=== PATIENT | female | born 1945 | race Caucasian/White ===

== ENCOUNTER → 2023-04-27 10:47 | Outpatient (REF) | payer OTHER, SELFPAY | LOC: RAD 10:47 | PROVIDERS: ATTENDING PHYSICIAN Internal Medicine | DX: R09.89 Other specified symptoms and signs involving the circulatory and respiratory systems (principal) | CPT/HCPCS: 71046 ==

== ENCOUNTER → 2023-09-05 10:49 | Outpatient (REF) | payer OTHER, SELFPAY | LOC: RCS 10:49 | PROVIDERS: ATTENDING PHYSICIAN Internal Medicine | DX: I35.9 Nonrheumatic aortic valve disorder, unspecified (principal) | CPT/HCPCS: 93306 ==

== ENCOUNTER → 2024-07-29 10:15 | Outpatient (REF) | payer OTHER, SELFPAY | LOC: RAD 10:15 | PROVIDERS: ATTENDING PHYSICIAN Internal Medicine | DX: R60.0 Localized edema (principal) | CPT/HCPCS: 76700 ==

== ENCOUNTER 2024-09-30 15:37 | Inpatient (IN) | payer OTHER, SELFPAY ==
[2024-09-30] VITALS (20 sets, daily range): BP systolic 89–178; BP diastolic 51–79; PULSE 95–107; BMI 29.0
--- NOTE | 2024-09-30 12:28 | ED.GENMED ---
History of Present Illness
General
Chief Complaint: Abnormal Lab Value
Source: patient and family (Daughter at bedside)
Exam Limitations: none
Time Seen by Provider: 09/30/24 12:10
Nursing documentation reviewed up to this point in time: agreed with
History of Present Illness
History of Present Illness:
78-year-old female with history of aortic stenosis with TAVR, HTN, HLD, pacemaker, diverticulitis, anemia presents for low hemoglobin identified during routine blood work. Approximately one month ago, during a scheduled visit with her primary care
physician, routine blood testing revealed a low hemoglobin level. The test was repeated, and the results remained low. She was then referred to a rib cloth knitter at [facility], where further blood work confirmed the low hemoglobin level of
6.4 and indicated low iron levels. The patient was informed of these results and advised to receive a blood transfusion. The patient reported no known cause for the anemia, stating, 'I have no idea.' She denied chest pain or difficulty breathing but
acknowledged feeling lightheaded. The patient also reported gastrointestinal symptoms such as gassiness and finished regimen of Augmentin about 10 days ago for presumptive diverticulitis. No recent abdominal pain or changes in bowel movements were
noted.
Past History
Past History
ED Past Medical History: HTN, Hypercholesterolemia, Seizures () and Other (diverticulitis)
ED Past Surgical History: , Gynecological (hyster) and Tonsilectomy
Social History
Tobacco: Non-smoker
Review of Systems
Review of Systems
Allergies reviewed?: Yes
All Other Systems: ROS reviewed and negative except as documented in HPI and ROS
Constitutional: Denies fever or fatigue
Respiratory: Denies trouble breathing
Cardiac: Denies chest pain
ABD/GI: Denies abdominal pain, nausea, vomiting, diarrhea, bloody stools or black stools
: Denies dysuria
Musculoskeletal: Reports no symptoms
Skin: Reports no symptoms
Neurological: Reports other (Has felt lightheaded recently)
Phy Exam
Physical Exam
Physical Exam:
GENERAL: No acute distress. A&Ox3.
CONSTITUTIONAL: Afebrile.
EYES: clear, conjunctivae normal
ENMT: moist mucus membranes, Pharynx nl
RESPIRATORY: Regular respirations, nonlabored, lungs clear.
CARDIOVASCULAR: Regular rate and rhythm, no murmurs, no rubs.
GI: Soft, nontender, normal BS
rectal: Dark brown stool hematest positive
MUSCULOSKELETAL: Moves with ease. Well perfused.
SKIN: Warm, dry, pink
PSYCH: Normal mood and affect. Well kept, interactive and appropriate
NEUROLOGIC: Awake, alert and oriented. No focal neurological deficits
Course
Orders/Labs/Results
Orders:
Orders
09/30/24 12:31
IV Insert/Care/Rem.- Treatment PRN
09/30/24 12:35
IV Insert/Care/Rem.- Treatment PRN
Pantoprazole 80 mg/100 ml Nss [Protonix] 80 mg in 100 ml IV NOW
Pantoprazole [Protonix IV] 80 mg IV NOW STA
09/30/24 12:51
Type And Crossmatch [Type+Screen] Urgent
Complete Blood Count/With Diff Urgent
PTT Urgent
Prothrombin Time Urgent
Reticulocyte Count Urgent
Comment: ADD ON
09/30/24 13:21
* Blood Bank Products Urgent
Blood Bank Products: *Packed RBC Leuko(PRBC's)
Quantity: 2
Transfuse Today: Yes
Reason: Anemia
IV Insert/Care/Rem.- Treatment PRN
09/30/24 13:47
ABO2 Urgent
BBK Wristband Number:
Associate notified that ABO2 has been ordered: [id number]
Date: 09/30/24
Time: 13:12
Database Developer ID: [id number]
09/30/24 15:28
Admit/Transfer Patient As Directed
Co-Sign Provider:
Level of Care: Inpatient admission
Assign to:: Telemetry
Physician / Group: Hospitalist
Diagnosis: Symptomatic anemia
Reason for Telemetry: Other
Other Reason for Telemetry: anemia
Date to Stop Telemetry: 10/02/24
Time to Stop Telemetry: 11:00
Reason for Hospitalization: as above
Expected length of stay greater than two midnights?: Yes
ELOS- Estimated Length of Stay in days: 3
I certify the patient meets the requirements for IP care: Yes
PRN Pain Medication Management As Directed
May give lesser potent ordered pain med per pt: Yes
preference::
Protocol:: Medication orders for pain may be administered in a
manner that supports deferring to patient preference
when the pt is:
- Requesting an ordered lesser potent pain medication.
Least to most potent pain medications are defined
as: acetaminophen < NSAID < tramadol < opioids
(morphine, oxycodone, hydromorphone).
- Requesting a lesser dose of the same medication IF
ORDERED.
- Requesting a less intrusive route of administration
if both routes are prescribed by the provider (PO <
IV).
09/30/24 15:29
Code Status As Directed
Resuscitation Status: Full Code
09/30/24 15:32
Add On- LAB Routine
Tests Added?: Iron, TIBC, ferritin, Transferrin, Reticulocyte
09/30/24 15:36
Ferritin Routine
Comment: NEEDS TO BE COLLECTED
Iron Routine
Comment: NEEDS TO BE COLLECTED
Total Iron Binding Routine
Comment: NEEDS TO BE COLLECTED
Transferrin [S] Routine
Comment: NEEDS TO BE COLLECTED
10/02/24 11:00
DC Protocol for Telemetry ONCE
Abnormal Lab Results
09/30/24
12:51
RBC 2.07 L 10^6/uL
(4.20-5.40)
Hgb 6.5 L* g/dL
(12.0-16.0)
Hct 21.2 L %
(37.0-47.0)
MCV 102.4 H fL
(81.0-99.0)
MCH 31.4 H pg
(27.0-31.0)
MCHC 30.7 L g/dL
(33.0-37.0)
RDW 15.5 H %
(11.5-14.5)
MPV 11.3 H fL
(7.4-10.4)
Absolute Lymphs (auto) 0.7 L 10^3/uL
(1.2-3.4)
Absolute Monos (auto) 0.8 H 10^3/uL
(0.1-0.6)
Lymphocytes % 14.0 L %
(20.5-51.1)
Monocytes % 16.6 H %
(1.7-9.3)
Retic Count 5.0 H %
(0.4-2.8)
PT 15.4 H Sec
(11.4-14.6)
Crossmatch IS Only See Detail
09/30/24 12:51
Vital Signs
Initial and Last Documented VS:
Initial Vital Signs
Temp Pulse Resp BP Pulse Ox
98.4 F 84 16 92/61 98
09/30/24 10:48 09/30/24 10:48 09/30/24 10:48 09/30/24 10:48 09/30/24 10:48
Last Documented Vital Signs
Temp Pulse Resp BP Pulse Ox
98.2 F 97 20 157/54 97
09/30/24 17:18 09/30/24 17:18 09/30/24 17:18 09/30/24 17:18 09/30/24 17:18
MDM/Problems Addressed
Differential Diagnosis Includes:
- Gastrointestinal bleeding
- Iron deficiency anemia
- Vitamin B12 or folate deficiency
- Chronic kidney disease-related anemia
- Malabsorption syndromes
- Anemia of chronic disease
- Myelodysplastic syndrome
- Hemolytic anemia
- Upper gastrointestinal lesions
- Colonic tumors or polyps
MDM/Problems Addressed:
78-year-old female with history of aortic stenosis with TAVR, HTN, HLD, pacemaker, diverticulitis, anemia presents for low hemoglobin identified during routine blood work. Approximately one month ago, during a scheduled visit with her primary care
physician, routine blood testing revealed a low hemoglobin level. The test was repeated, and the results remained low. She was then referred to a rib cloth knitter at [facility], where further blood work confirmed the low hemoglobin level of
6.4 and indicated low iron levels. The patient was informed of these results and advised to receive a blood transfusion. The patient reported no known cause for the anemia, stating, 'I have no idea.' She denied chest pain or difficulty breathing but
acknowledged feeling lightheaded. The patient also reported gastrointestinal symptoms such as gassiness and finished regimen of Augmentin about 10 days ago for presumptive diverticulitis. No recent abdominal pain or changes in bowel movements were
noted.
Afebrile, NAD
CBC: Hemoglobin 6.5
CMP pending
2 UPRBCs ordered
Stool heme positive
Hospitalist notified of admission
*Pulse Oximetry
SaO2: 98
Oxygen Mode of Delivery: Room air
Patient hypoxic: no
*Critical Care Note
Total Time (30-74mins, 75-104mins- exclusive of procedures): Not Applicable
ED Attending Note
-
Portions of this chart may have been created with voice recognition software.� Occasional wrong word or��sound alike� substitutions may have occurred due to the inherent limitations of voice recognition software.
Discharge Plan
Departure
Patient Disposition: Admit
Date of Disposition: 09/30/24
Time of Disposition: 13:23
Admit to: Med/Surg
Presentation/result/management discussed w/ accepting MD/DO: Hospitalist
Condition: Fair
Discharge Problem:
GI (gastrointestinal bleed), Anemia
Interventions
Interventions:
*Risk Screen - Suicide Last Done: 09/30/24 10:48
*General Assessment Last Done: 09/30/24 12:02
*Neglect/Abuse Screening Last Done: 09/30/24 12:02
*ED- Fall Risk Assessment Last Done: 09/30/24 12:02
*ED COVID-19 Vaccine History Last Done: 09/30/24 12:02
[2024-09-30 13:20] LABS: Hematocrit 21.2 % (37.0-47.0); Hemoglobin 6.5 g/dL (12.0-16.0); Mean Corp Hgb Conc. 30.7 g/dL (33.0-37.0); Mean Corpuscular Volume 102.4 fL (81.0-99.0); Nucleated Red Blood Cells % 0 %; Platelet Count 156 10^3/uL (130-400); Red Cell Dist. Width 15.5 % (11.5-14.5)
[2024-09-30 13:21] LABS: INR 1.18; PT 15.4 Sec (11.4-14.6)
[2024-09-30 13:22] LABS: APTT 26.9 Sec (23.4-35.0)
[2024-09-30] MEDS: PROTONIX IV 80 MG IV (13:38)
[2024-09-30] MEDS: PROTONIX 100 IV (13:39)
--- NOTE | 2024-09-30 14:53 | HPS.HSE ---
Addendum entered and electronically signed by Zay Harris MD 09/30/24 16:27:
I have personally supervised the history, physical exam, medical decision-making, and care plan for this patient in conjunction with the resident. I have reviewed and discussed the resident�s documentation and findings. I confirm that this note
accurately reflects my supervision and input in the care of this patient.
78-year-old female with past medical history of hypertension, hyperlipidemia, pacemaker, diverticulitis, aortic stenosis status post TAVR, diverticulitis came to the hospital after being sent from hematology for low hemoglobin. In the ED patient
had rectal exam showing dark brown stool with heme test positive. Consult GI. Transfuse 2 unit PRBC and monitor. Check iron panel, B12, folate. PPI
I spent a total of 77 minutes with the patient or on the floor. More than 50% of this time involved counseling and coordination of care.
Original Note:
Family Physician
-
Family Physician: Jose Manuel
Chief Complaint
-
Fatigue
History of Present Illness
This is an 78-year-old female with past medical history of aortic stenosis s/p TAVR, hypertension, hyperlipidemia, pacemaker, diverticulitis, who presents to the ED complaining of fatigue ongoing for the past 5 months and has progressively gotten
worse. The patient reports 5 months ago she went to see her PCP and was diagnosed with anemia. Her PCP started patient on vitamin D and B12, repeated levels and was noted to still remain anemic. She was referred to oncologist, and went to see the
oncologist at [facility] on September 21. Further workup was done at the oncologist office. Patient was contacted by the oncologist office today informing her hemoglobin level was low and her ferritin was low and she will require transfusions.
Oncologist office request that she comes to the ED for blood transfusions.
At bedside, she admits fatigue that has progressively gotten worse. She denies shortness of breath, chest pain, dizziness. She denies blood in stools, change in bowel movements. She admits to NSAID/Tylenol use for shingles approximately 1 month
ago for a period of 3 weeks. She reports she was diagnosed with shingles at that time and was regularly taking NSAIDs for 3 weeks for pain.
She admits to two fall episodes in the past 2 months with most recent fall episode last week. She reports falling on her left shoulder but denies hitting her head at any point in time. At baseline she ambulates with a walker and a cane.
Pertinent to her history, she recently had a diverticulitis flare 10 days ago and was prescribed Augmentin which she completed 3 days ago. She denies abdominal tenderness at this time. She reports her last colonoscopy was 5 years ago which she
states was normal.
Vitals upon presentation to the ED, blood pressure 92/61, pulse 84, respiratory rate 16, temperature 98.4, O2 sat 98% on room air
Laboratory showed CBC with WBC 5.0, hemoglobin 6.5, hematocrit 21.2, MCV 102.4, platelet count 156.� Coags with PT 15.4, INR 1.18, PTT 26.9.� Electrolytes showed sodium 133, potassium 3.8, creatinine 0.5 at baseline.
'In the ED, rectal exam done showed dark brown stool heme test positive'. Patient will be admitted for further eval.
Medical History
Past Medical History
Past Medical History: Reports Other (Aortic stenosis s/p TAVR, hypertension, hyperlipidemia, pacemaker, diverticulitis, anemia)
Past Surgical History: Reports Cardiac
Social History
Tobacco: Non-smoker
Alcohol: None
Drug: None
Living: With Family
Family History
Family History: Not pertinent
Allergies / Home Medications
Allergies reflects when Allergies were last updated in [employer].
Home Medications with original date entered in [employer]
Allergy/Medication List:
Allergies
Allergy/AdvReac Type Severity Reaction Status Date / Time
atorvastatin (From Lipitor) Allergy just too Verified 09/30/24 10:48
high a
dose of it
Home Medications
aspirin 81 mg chewable tablet 81 mg PO QPM Blood clot prevention/tx 05/07/21
losartan 50 mg tablet 50 mg PO HS Blood pressure 05/07/21
amlodipine 2.5 mg tablet (Norvasc) 2.5 mg PO HS 09/30/24
cyanocobalamin (vitamin B-12) 1,000 mcg tablet 1,000 mcg PO QPM 09/30/24
furosemide 20 mg tablet (Lasix) 20 mg PO QPM 09/30/24
metoprolol succinate 25 mg tablet,extended release 24 hr (Toprol XL) 25 mg PO HS 09/30/24
rosuvastatin 10 mg tablet (Crestor) 10 mg PO QPM 09/30/24
Review of Systems
-
A 12 point ROS was completed and negative except as noted: Yes
Constitutional: Reports Other (All review of systems reviewed and negative except as documented in HPI)
Physical Exam
Vital Signs
Vital Signs
Temp Pulse Resp BP Pulse Ox
98.4 F 100 24 161/65 98
09/30/24 10:48 09/30/24 14:15 09/30/24 14:15 09/30/24 14:00 09/30/24 12:31
Physical Exam
General: Well Developed, No Apparent Distress and Comfortable
HEENT: NormoCephalic and Moist mucous membranes
Respiratory: Clear; No Wheezes, Rales, Rhonchi or Crackles
Cardiac: S1/S2
GI: Soft, Non Tender, Non Distended and Normal Bowel Sounds
Musculoskeletal: No Edema
Skin: Other (Ecchymosis present on left upper extremity arm)
Neuro: Awake, Alert, Oriented and AO x 3
Psych: Calm
Laboratory Results
-
09/30/24 12:51
Laboratory Results
PT 15.4 Sec (11.4-14.6) H 09/30/24 12:51
INR 1.18 09/30/24 12:51
APTT 26.9 Sec (23.4-35.0) 08/01/25 12:51
Impression/Plan
-
Assessment/plan
#Symptomatic anemia likely secondary to GI bleed
#History of recurrent diverticulitis flare
-Recent Ibuprofen use for a period of 3 weeks about 1 month ago.
-Presents with symptoms of lightheadedness, fatigue
-Dark brown stool on rectal exam in the ED-positive Hemoccult test
-Denies CP, SOB, denies blood in stool, bleeding episode
-Hemoglobin 6.5 on presentation
-Ordered 2 units PRBC in ED
-IV PPI administered in ED
-Check iron panel, ferritin, iron, TIBC, reticulocyte count
-Consider iron IV supplementation after being stabilized
-Monitor H&H
-GI consult
#Aortic stenosis s/p TAVR
-Stable, denies chest pain
-Hold aspirin
#Hypovolemic hyponatremia
-Monitor BMP
#Essential hypertension
-Continue home regimen, amlodipine, metoprolol succinate, losartan
#Hypercholesterolemia
-Continue rosuvastatin
DVT prophylaxis SCDs for now
CODE STATUS full code
[2024-09-30 15:42] LABS: Reticulocyte Count 5.0 % (0.4-2.8)
--- NOTE | 2024-09-30 17:13 | EDRN ---
Patient receiving 1st unit of PRBC. Explained to patient signs and symptoms of a transfusion reaction. Verbalized understanding.
--- NOTE | 2024-09-30 17:20 | EDRN ---
Patient tolerating PRBC infusion. Asymptomatic of a transfusion reaction.
--- NOTE | 2024-09-30 17:35 | CON.GI ---
Addendum entered and electronically signed by Susan Thomas MD 09/30/24 19:47:
I personally performed a history and physical exam of the patient and discussed management with the resident. I reviewed the resident's note and agree with the documented findings and plan of care HPI/CC.
78 yo F pmh diverticulosis with diverticulitis in 2021, EtOH (drinks slowly all day, drinks a box of wine every few days), TAVR, PPM p/w symptomatic anemia (Hb 6.4). Hb dropped in July PCP rx B12, do not have B12 levels and referred to [facility]
hematology. Does take 2 ibuprofen a day for shingles last few months. Denies rectal bleeding or melena.
Had a 'diverticulitis flare up' recently on d/w daughter this does not present with pain but gas, change in BM, and change in emotional state and PCP rx antibiotics.
Suspect will need EGD + cscope on Thursday to evaluate for cause of anemia; iron studies pending. However, need to ensure there is no active diverticulitis and I will order CT tomorrow pending her kidney function as there is no current BMP on file.
Family is going to attempt to get her outpatient labs. Her MCV is elevated at 102.4 and I would be interested to know if she did have significantly low B12 levels. Differential diagnosis includes but not limited to peptic ulcer disease given NSAID
use, atrophic gastritis given possible B12 deficiency, malignancy, AVM does have history of aortic stenosis although hide this has been since corrected with TAVR. Discussed with patient and daughter at length at bedside risk, alternatives, benefits
of endoscopy and colonoscopy risks including but not limited to bleeding, infection, perforation, risk of anesthesia. In the interim, continue to monitor hemoglobin and to ensure no overt bleeding. Patient currently getting transfused. Continue
clear liquid diet today as long as continue to have brown stool tomorrow okay for low residue diet tomorrow with plans for clear liquids on Thursday in preparation for endoscopy and colonoscopy.
Original Note:
Consultation
-
Date/Time Consultation Requested: 09/30/24 15:40
Date/Time Consultation Performed: 09/30/24 16:40
Requesting Provider: Byron Bartlett MD (Resident)
Performing Provider: Marco Medley DO (Resident); Susan Thomas MD
Reason for Consultation: Heme + Stool, Anemia
Medical History
Chief Complaint / HPI
Chief Complaint: Fatigue
History of Present Illness:
Wilma Leung is an 78F with a PMHx of diverticulosis, TAVR, hypertension, hyperlipidemia, PPM who presented to the emergency department after outpatient labs showed an anemia with hemoglobin of 6.4. Patient endorses that she has been experiencing
progressively worsening fatigue for the last 5 months. Around 5 months ago, patient went to her primary care provider who did initial lab work that showed anemia. Patient was started on vitamin D and vitamin B12 however, she remained anemic. She
then had a visit with cistern room operator on September 21. Labs repeated and the patient was called today due to a hemoglobin of 6.4 and a low ferritin. She was sent to the emergency department for blood transfusion. During ED evaluation, patient with stable
vital signs, hemoglobin of 6.5, hematocrit of 21, BUN of 14, creatinine of 0.5 (BUN to creatinine ratio 28), MCV 102.4, reticulocyte count 5.0, and dark brown heme positive stool on rectal exam. We were called to consult for GI bleed. Patient
denies any other symptoms related to her anemia including chest pain, headache, dizziness, shortness of breath. She also denies bright red blood per rectum or melena. Patient does endorse that approximately 4 weeks ago, she had shingles, and had
been using 2 normal strength Advil per day for approximately 3 weeks. Additionally, patient had diverticulitis flare that was treated with Augmentin recently.
Past Medical History
Past Medical History: Other (diverticulosis, TAVR, hypertension, hyperlipidemia, PPM)
Past Surgical History: (x4) and Gynecological (Hysterectomy)
Social History
Tobacco: Non-Smoker
Alcohol: Daily (4 small glasses of white wine)
Drug: None
Family History
Family History: Other (No family history of gastrointestinal cancers. )
Allergies / Home Medications
Allergy/AdvReac Type Severity Reaction Status Date / Time
atorvastatin (From Lipitor) Allergy just too Verified 09/30/24 10:48
high a
dose of it
�Medication �Instructions �Recorded
aspirin 81 mg chewable tablet 81 mg PO QPM Blood clot 05/07/21
prevention/tx
losartan 50 mg tablet 50 mg PO HS Blood pressure 05/07/21
amlodipine 2.5 mg tablet (Norvasc) 2.5 mg PO HS 09/30/24
cyanocobalamin (vitamin B-12) 1,000 mcg PO QPM 09/30/24
1,000 mcg tablet
furosemide 20 mg tablet (Lasix) 20 mg PO QPM 09/30/24
metoprolol succinate 25 mg 25 mg PO HS 09/30/24
tablet,extended release 24 hr
(Toprol XL)
rosuvastatin 10 mg tablet (Crestor) 10 mg PO QPM 09/30/24
Review of Systems
-
History Source: Patient
All other systems: A 12 pt ROS was Negative except as stated above in HPI
Vital Signs
Temp Pulse Resp BP Pulse Ox
98.2 F 97 20 157/54 97
09/30/24 17:18 09/30/24 17:18 09/30/24 17:18 09/30/24 17:18 09/30/24 17:18
Physical Exam
Exam
General: No Apparent Distress and Comfortable
HEENT: Normocephalic, Anicteric, Moist Mucous Membranes and Other (mild conjunctival and gingival pallor)
Respiratory: Clear
Cardiac: S1/S2 and Regular Rhythm
GI: Soft, Non Tender, Non Distended and Normal Bowel Sounds
Musculoskeletal: No Cyanosis and Other (brisk capillary refill)
Skin: Warm
Neuro: Awake
Psych: Calm
Results
WBC 5.0 10^3/uL (4.8-10.8) 09/30/24 12:51
Hgb 6.5 g/dL (12.0-16.0) L* 09/30/24 12:51
Hct 21.2 % (37.0-47.0) L 09/30/24 12:51
MCV 102.4 fL (81.0-99.0) H 09/30/24 12:51
Plt Count 156 10^3/uL (130-400) 09/30/24 12:51
Absolute Neuts (auto) 3.3 10^3/uL (1.4-6.5) 09/30/24 12:51
PT 15.4 Sec (11.4-14.6) H 09/30/24 12:51
INR 1.18 09/30/24 12:51
APTT 26.9 Sec (23.4-35.0) 09/30/24 12:51
Prior GI Procedures: None.
EGD: None.
Colonoscopy: 5 years ago; 5 sessile polyps resected, tubular adenoma; diverticulosis.
Assessment / Plan
-
Wilma Leung is a 78F with a PMHx of diverticulosis, TAVR, hypertension, hyperlipidemia, PPM who presents with 5 months of fatigue and outpatient labs concerning for anemia. Other than chronic fatigue, the patient is mostly asymptomatic but she was
sent to the ED by the cistern room operator for blood transfusions. Rectal examination in the emergency department revealed Heme+ stool and we were consulted for evaluation of GI bleeding. With dark brown stools and no evidence of melena or hematochezia, we
would need to consider both UGIB and LGIB at this time. BUN/Cr ratio is borderline to differentiate. We will plan to do bidirectional endoscopy on Thursday. DDx includes PUD (EtOH, NSAID), gastritis, diverticular bleeding, malignancy, AVM. Heyde
Syndrome may be considered given the patient's history of and TAVR placement, but AVMs will show on scope if this were the case.
#Anemia
#Macrocytosis
#Recent NSAID use
#History of Diverticulitis
#History of s/p TAVR
-Plan for colonoscopy on Thursday
-Avoid NSAID
-Transfuse for Hb < 7
-IV PPI
Total Time Spent with Patient (in minutes): 32
Data Reviewed
-
Old Records: Reviewed
-
-
Thank you for consultation and allowing me to participate in the patient's care. Please call the personnel supervisor GI physician during the after hours with any questions or concerns.
--- NOTE | 2024-09-30 18:30 | EDRN ---
Patient taken to room 413-2 on monitor with PRBC infusing by ED RN. Daughter with patient.
--- NOTE | 2024-09-30 18:31 | TRANSFER ---
Addendum entered by Maria Del Carmen Velez 09/30/24 18:38:
MSAS of 3 upon arrival.
Original Note:
pt arrived from ED accompanied by RN. blood transfusing at 125 ml/hr through L forearm IV site, protonix gtt running through L wrist. pt was a pullover from stretcher to bed. pt AAOx3, VSS except elevated BP at 178/70. provider notified. plan of
care ongoing.
[2024-09-30] MEDS: FOLVITE 1 MG PO (18:48)
[2024-09-30] MEDS: CRESTOR 10 MG PO (18:48)
[2024-09-30] MEDS: VITAMIN B-12 1000 MCG PO (18:48)
--- NOTE | 2024-09-30 19:21 | PTCARENOTE ---
1813 H&H ordered. First unit of blood currently infusing. House STEAM CLEAN MACHINE OPERATOR notified- order to draw H&H 2hrs after second infusing.
[2024-09-30] MEDS: THIAMINE INJECTION 200 MG IV (19:45)
[2024-09-30] MEDS: COZAAR 50 MG PO (21:17)
[2024-09-30] MEDS: NORVASC 2.5 MG PO (21:18)
[2024-09-30] MEDS: TOPROL XL 25 MG PO (21:18)
[2024-10-01] VITALS (10 sets, daily range): BP systolic 109–176; BP diastolic 60–82; PULSE 82–96
[2024-10-01 04:21] LABS: Hematocrit 31.0 % (37.0-47.0); Hemoglobin 10.1 g/dL (12.0-16.0); Mean Corp Hgb Conc. 32.6 g/dL (33.0-37.0); Mean Corpuscular Volume 92.8 fL (81.0-99.0); Nucleated Red Blood Cells % 0.3 %; Platelet Count 141 10^3/uL (130-400); Red Cell Dist. Width 17.5 % (11.5-14.5)
[2024-10-01 04:30] LABS: ALT (SGPT) 23 U/L (0-35); AST (SGOT) 60 U/L (14-36); Albumin 4.0 g/dl (3.5-5.0); Alkaline Phosphatase 149 U/L (38-126); Blood Urea Nitrogen 12 mg/dl (7-17); Calcium 8.6 mg/dl (8.4-10.2); Carbon Dioxide 24 mmol/L (22-30); Chloride 105 mmol/L (98-107); Estimated Creatinine Clearance 72 ml/min; Glucose 123 mg/dl (70-99); Potassium 3.6 mmol/L (3.5-5.1); Sodium 136 mmol/L (135-145); Total Protein 6.7 g/dl (6.3-8.2); eGFR > 60.00
[2024-10-01 04:30] LABS: Iron 222 ug/dl (37-170)
[2024-10-01 04:39] LABS: Total Iron Binding Capacity 450 ug/dl (265-497)
[2024-10-01 05:06] LABS: Ferritin 15.9 ng/ml (11.1-264.0)
[2024-10-01] MEDS: FOLVITE 1 MG PO (08:10)
[2024-10-01] MEDS: NSS (PRESERVATIVE FREE) 10 ML IV ×2 (08:10→20:01)
[2024-10-01] MEDS: PROTONIX IV 40 MG IV ×2 (08:11→20:01)
[2024-10-01] MEDS: THIAMINE INJECTION 200 MG IV ×2 (08:11→20:02)
[2024-10-01] MEDS: OMNIPAQUE 50 ML PO (09:26)
--- NOTE | 2024-10-01 11:16 | W.PN.GI.CBS2 ---
Today's Communication / Plan
-
CT today, monitor Hb
Assessment / Plan
-
78 yo F pmh diverticulosis with diverticulitis in 2021, EtOH (drinks slowly all day, drinks a box of wine every few days), TAVR, PPM p/w symptomatic anemia (Hb 6.4). Hb dropped in July PCP rx B12, do not have B12 levels and referred to [facility]
hematology. Does take 2 ibuprofen a day for shingles last few months. Denies rectal bleeding or melena.
Reviewing labs Hb 11.08 Apr 2024; 9.30 Jun 2024; 8.04 August 2024.
Had a 'diverticulitis flare up' recently on d/w daughter this does not present with pain but gas, change in BM, and change in emotional state and PCP rx antibiotics.
Suspect will need EGD + cscope on Thursday to evaluate for cause of KAYKAY (low ferritin), does have elevated MCV as well.
However, need to ensure there is no active diverticulitis, CT was ordered.
Differential diagnosis includes but not limited to peptic ulcer disease given NSAID use, atrophic gastritis given possible B12 deficiency, malignancy (has some lower GI symptoms including change in BM), AVM does have history of aortic stenosis
although hide this has been since corrected with TAVR. Continue to monitor hemoglobin and to ensure no overt bleeding. Hb improved s/p 2UPRBC. Continue clear liquid diet, plan prep tmwr pending cscope, will give some miralax tonight pending CT.
Subjective
Subjective
Date of Service: October 01, 2024
no pain, brown bm, feels 'wobbly'
discussed with her this 'diverticulitis' - sounds like had a change in BM, small pieces, mucous in stool, given antibiotics by PCP, completed 10 days ago, no help
Objective
Data Reviewed
Laboratory Data:
Laboratory Results
10/01/24 03:53
10/01/24 03:54
Laboratory Results
PT 15.4 Sec (11.4-14.6) H 09/30/24 12:51
INR 1.18 09/30/24 12:51
APTT 26.9 Sec (23.4-35.0) 09/30/24 12:51
Total Bilirubin 2.8 mg/dl (0.2-1.3) H 10/01/24 03:54
AST 60 U/L (14-36) H 10/01/24 03:54
ALT 23 U/L (0-35) 10/01/24 03:54
Alkaline Phosphatase 149 U/L (38-126) H 10/01/24 03:54
Vital Signs and I&O:
Vital Signs
Temp Pulse Resp BP Pulse Ox
98.2 F 82 16 152/72 96
10/01/24 08:25 10/01/24 08:25 10/01/24 08:25 10/01/24 08:25 10/01/24 08:45
I&O
09/30/24 10/01/24 10/02/24
06:59 06:59 06:59
Intake Total 1400 / 1400
Balance 1400 / 1400
Physical Exam
Physical Exam
GI: Non Distended and Non Tender
--- NOTE | 2024-10-01 12:36 | W.PN.HOSP.TC ---
Today's Communication/Plan
-
Monitor vital sign closely plan
Monitor hemoglobin
Continue with PPI
Clears per GI
Plan for GI scope
CT pending
Assessment / Plan
Assessment / Plan
General: Well Developed, No Apparent Distress and Comfortable
HEENT: NormoCephalic and Moist mucous membranes
Respiratory: Clear; No Wheezes, Rales, Rhonchi or Crackles
Cardiac: S1/S2
GI: Soft, Non Tender, Non Distended and Normal Bowel Sounds
Musculoskeletal: No Edema
Skin: Other (Ecchymosis present on left upper extremity arm)
Neuro: Awake, Alert, Oriented and AO x 3
Psych: Calm
Symptomatic anemia likely secondary to GI bleed
#History of recurrent diverticulitis flare
-Recent Ibuprofen use for a period of 3 weeks about 1 month ago.
-Presents with symptoms of lightheadedness, fatigue
-Dark brown stool on rectal exam in the ED-positive Hemoccult test
-Hemoglobin 6.5 on presentation, status post 2 unit PRBC. Hemoglobin 10.1
-Ordered 2 units PRBC in ED
Continue with PPI
Plan for GI scope
CT abdomen/pelvis
Iron deficiency anemia
Start IV iron
#Aortic stenosis s/p TAVR
-Stable, denies chest pain
Resume aspirin
#Hypovolemic hyponatremia
Resolved
Monitor
#Essential hypertension
-Continue home regimen, amlodipine, metoprolol succinate, losartan
Hydralazine as needed
#Hypercholesterolemia
-Continue rosuvastatin
DVT prophylaxis SCDs for now
CODE STATUS full code
Anticipated Discharge: > 48 hours
Subjective/Interval History
-
Date of Service: October 01, 2024
Denies pain
Objective Data
-
Labs:
Laboratory Results
10/01/24 10/01/24 10/01/24
03:10 03:53 03:54
WBC 6.5
Hgb Cancelled 10.1 L D
Hct Cancelled 31.0 L
Plt Count 141
Sodium 136
Potassium 3.6
Chloride 105
Carbon Dioxide 24
BUN 12
Creatinine 0.5 L
Glucose 123 H
Calcium 8.6
Total Bilirubin 2.8 H
AST 60 H
ALT 23
Alkaline Phosphatase 149 H
Vital Signs:
Vital Signs
Temp Pulse Resp BP Pulse Ox
97.9 F 89 18 168/76 98
10/01/24 11:51 10/01/24 11:51 10/01/24 11:51 10/01/24 11:51 10/01/24 11:51
I&O
09/30/24 10/01/24 10/02/24
06:59 06:59 06:59
Intake Total 1400 / 1400
Balance 1400 / 1400
[2024-10-01] MEDS: FERRLECIT 110 MG IV (13:16)
[2024-10-01] MEDS: LOW STRENGTH ASPIRIN 81 MG PO (17:09)
[2024-10-01] MEDS: VITAMIN B-12 1000 MCG PO (17:09)
[2024-10-01] MEDS: CRESTOR 10 MG PO (17:09)
[2024-10-01] MEDS: TOPROL XL 25 MG PO (21:00)
[2024-10-01] MEDS: COZAAR 50 MG PO (21:00)
[2024-10-01] MEDS: NORVASC 2.5 MG PO (21:00)
[2024-10-02] VITALS (7 sets, daily range): BP systolic 145–169; BP diastolic 63–89
[2024-10-02] MEDS: FOLVITE 1 MG PO (08:02)
[2024-10-02] MEDS: PROTONIX IV 40 MG IV ×2 (08:02→20:03)
[2024-10-02] MEDS: NSS (PRESERVATIVE FREE) 10 ML IV ×2 (08:02→20:03)
[2024-10-02] MEDS: THIAMINE INJECTION 200 MG IV ×2 (08:02→20:03)
[2024-10-02 10:23] LABS: ALT (SGPT) 18 U/L (0-35); AST (SGOT) 47 U/L (14-36); Albumin 3.8 g/dl (3.5-5.0); Alkaline Phosphatase 123 U/L (38-126); Blood Urea Nitrogen 10 mg/dl (7-17); Calcium 8.8 mg/dl (8.4-10.2); Carbon Dioxide 21 mmol/L (22-30); Chloride 106 mmol/L (98-107); Estimated Creatinine Clearance 72 ml/min; Glucose 138 mg/dl (70-99); Potassium 4.0 mmol/L (3.5-5.1); Sodium 133 mmol/L (135-145); Total Protein 6.3 g/dl (6.3-8.2); eGFR > 60.00
[2024-10-02 11:00] LABS: Hematocrit 29.8 % (37.0-47.0); Hemoglobin 9.6 g/dL (12.0-16.0); Mean Corp Hgb Conc. 32.2 g/dL (33.0-37.0); Mean Corpuscular Volume 95.2 fL (81.0-99.0); Nucleated Red Blood Cells % 0 %; Platelet Count 138 10^3/uL (130-400); Red Cell Dist. Width 17.5 % (11.5-14.5)
--- NOTE | 2024-10-02 11:16 | W.PN.HOSP.TC ---
Today's Communication/Plan
-
Monitor vital signs
see plan
Continue with PPI
Discussed with GI, plan for EGD tomorrow
Maintain clears
Assessment / Plan
Assessment / Plan
General: Well Developed, No Apparent Distress and Comfortable
HEENT: NormoCephalic and Moist mucous membranes
Respiratory: Clear; No Wheezes, Rales, Rhonchi or Crackles
Cardiac: S1/S2
GI: Soft, Non Tender, Non Distended and Normal Bowel Sounds
Musculoskeletal: No Edema
Skin: Other (Ecchymosis present on left upper extremity arm)
Neuro: Awake, Alert, Oriented and AO x 3
Psych: Calm
Symptomatic anemia likely secondary to GI bleed
#History of recurrent diverticulitis flare
-Recent Ibuprofen use for a period of 3 weeks about 1 month ago.
-Presents with symptoms of lightheadedness, fatigue
-Dark brown stool on rectal exam in the ED-positive Hemoccult test
-Hemoglobin 6.5 on presentation, status post 2 unit PRBC. Hemoglobin 10.1
Continue with PPI
Discussed with GI, plan for EGD Thursday
CT abdomen/pelvis with possibility of colonic stricture. Discussed with GI and likely will need further imaging before colonoscopy
Iron deficiency anemia
cw IV iron
#Aortic stenosis s/p TAVR
-Stable, denies chest pain
Resume aspirin
#Hypovolemic hyponatremia
Resolved
Monitor
#Essential hypertension
-Continue home regimen, amlodipine, metoprolol succinate, losartan
Hydralazine as needed
Significant alcohol use
Alcohol withdrawal protocol
Ativan as needed
CT with liver cirrhosis
#Hypercholesterolemia
-Continue rosuvastatin
DVT prophylaxis SCDs for now
CODE STATUS full code
Anticipated Discharge: 24 - 48 hours
Subjective/Interval History
-
Date of Service: October 02, 2024
Denies pain
Objective Data
-
Labs:
Laboratory Results
10/02/24 10/02/24
09:41 10:29
WBC Cancelled 6.0
Hgb Cancelled 9.6 L
Hct Cancelled 29.8 L
Plt Count Cancelled 138
Sodium 133 L
Potassium 4.0
Chloride 106
Carbon Dioxide 21 L
BUN 10
Creatinine 0.6
Glucose 138 H
Calcium 8.8
Total Bilirubin 1.5 H D
AST 47 H
ALT 18
Alkaline Phosphatase 123
Vital Signs:
Vital Signs
Temp Pulse Resp BP Pulse Ox
98.6 F 88 17 161/63 95
10/02/24 07:00 10/02/24 07:00 10/02/24 07:00 10/02/24 07:00 10/02/24 10:40
I&O
10/01/24 10/02/24 10/03/24
06:59 06:59 06:59
Intake Total 1400 / 1400 1310 / 1310
Balance 1400 / 1400 1310 / 1310
--- NOTE | 2024-10-02 11:50 | CM ---
CM reviewed chart, patient seen bedside, initial assessment completed. Patient is an 78-year-old female with history of aortic stenosis with TAVR, HTN, HLD, pacemaker, diverticulitis, anemia presents for low hemoglobin identified during routine
blood work. Patient resides independently in a two story home, three steps to enter, bedroom on second floor. Patient reports she could sleep on first floor if needed, has powder room on first floor. Patient reports walker at home which she has been
using recently, denies VN/SNF. Patient confirms PCP Jose Manuel, pharmacy [facility] Patient confirms prescription coverage, denies insecurities at home. Consult received for substance use- offered resources/[facility] to patient,
patient declining. Patient may benefit from PT evals. CM will continue to follow for all discharge planning needs.
Plan; EGD tomorrow, home no needs, watch for VN needs
[2024-10-02] MEDS: FERRLECIT 110 MG IV (14:31)
--- NOTE | 2024-10-02 16:57 | W.PN.GI.CBS2 ---
Today's Communication / Plan
-
egd, barium enema
Assessment / Plan
-
78 yo F pmh diverticulosis with diverticulitis in 2021, EtOH (drinks slowly all day, drinks a box of wine every few days), TAVR, PPM p/w symptomatic anemia (Hb 6.4). Hb dropped in July PCP rx B12, do not have B12 levels and referred to [place]
hematology. Does take 2 ibuprofen a day for shingles last few months. Denies rectal bleeding or melena.
Reviewing labs Hb 11.08 Apr 2024; 9.30 Jun 2024; 8.04 August 2024.
Had a diverticulitis flare up recently on d/w daughter this does not present with pain but gas, change in BM, and change in emotional state and PCP rx antibiotics.
CT 10/01 showed likely diverticular stricture, fat stranding cannot r/o diverticulitis, cirrhosis small amount of ascites, possible vasculitis uncertain
Plan EGD tomorrow after EGD will do barium enema to further evaluate this stricture
Needs cscope but with ? diverticulitis will need to wait 6 weeks for outpatient cscope
no abd pain no need for antibiotics
trend hb
Cirrhosis plan outpatient follow up d/w pt/daughter suspect related to EtOH
Low MELD will recheck MELD numbers tomorrow
D/w hospitalist
Subjective
Subjective
Date of Service: October 02, 2024
no pain no complaints
Objective
Data Reviewed
Laboratory Data:
Laboratory Results
10/02/24 10:29
10/02/24 09:41
Laboratory Results
PT 15.4 Sec (11.4-14.6) H 09/30/24 12:51
INR 1.18 09/30/24 12:51
APTT 26.9 Sec (23.4-35.0) 09/30/24 12:51
Total Bilirubin 1.5 mg/dl (0.2-1.3) H D 10/02/24 09:41
AST 47 U/L (14-36) H 10/02/24 09:41
ALT 18 U/L (0-35) 10/02/24 09:41
Alkaline Phosphatase 123 U/L (38-126) 10/02/24 09:41
Vital Signs and I&O:
Vital Signs
Temp Pulse Resp BP Pulse Ox
98 F 83 17 153/68 98
10/02/24 11:00 10/02/24 11:00 10/02/24 11:00 10/02/24 11:00 10/02/24 11:00
I&O
10/01/24 10/02/24 10/03/24
06:59 06:59 06:59
Intake Total 1400 / 1400 1310 / 1310
Balance 1400 / 1400 1310 / 1310
Physical Exam
Physical Exam
GI: Non Distended and Non Tender
[2024-10-02] MEDS: LOW STRENGTH ASPIRIN 81 MG PO (17:50)
[2024-10-02] MEDS: CRESTOR 10 MG PO (17:50)
[2024-10-02] MEDS: VITAMIN B-12 1000 MCG PO (17:50)
[2024-10-02] MEDS: TOPROL XL 25 MG PO (21:53)
[2024-10-02] MEDS: NORVASC 2.5 MG PO (21:53)
[2024-10-02] MEDS: COZAAR 50 MG PO (21:54)
[2024-10-03] VITALS (9 sets, daily range): BP systolic 113–163; BP diastolic 54–87
[2024-10-03 08:31] LABS: Hematocrit 28.3 % (37.0-47.0); Hemoglobin 9.1 g/dL (12.0-16.0); Mean Corp Hgb Conc. 32.2 g/dL (33.0-37.0); Mean Corpuscular Volume 95.3 fL (81.0-99.0); Nucleated Red Blood Cells % 0 %; Platelet Count 127 10^3/uL (130-400); Red Cell Dist. Width 16.9 % (11.5-14.5)
[2024-10-03] MEDS: PROTONIX IV 40 MG IV ×2 (08:53→19:51)
[2024-10-03] MEDS: THIAMINE INJECTION 200 MG IV (08:53)
[2024-10-03] MEDS: NSS (PRESERVATIVE FREE) 10 ML IV ×2 (08:53→19:51)
[2024-10-03 08:59] LABS: ALT (SGPT) 17 U/L (0-35); AST (SGOT) 45 U/L (14-36); Albumin 3.4 g/dl (3.5-5.0); Alkaline Phosphatase 126 U/L (38-126); Blood Urea Nitrogen 11 mg/dl (7-17); Calcium 8.7 mg/dl (8.4-10.2); Carbon Dioxide 23 mmol/L (22-30); Chloride 108 mmol/L (98-107); Estimated Creatinine Clearance 72 ml/min; Glucose 98 mg/dl (70-99); Potassium 3.4 mmol/L (3.5-5.1); Sodium 136 mmol/L (135-145); Total Protein 5.9 g/dl (6.3-8.2); eGFR > 60.00
--- NOTE | 2024-10-03 10:08 | PTCARENOTE ---
pt aaox3. states no pain wants to eat. pt daughter at bedside reviewed plan of care. pt now in GI lab for test.
[2024-10-03] MEDS: FOLVITE 1 MG PO (11:07)
--- NOTE | 2024-10-03 12:17 | W.PN.UPDATE ---
Update Note
Progress Note Update
I discussed with hepatology they would recommend beta andrés best to do coreg for prevention of EV bleeding
Pt on toprol this will need to be a discussion with her outpatient doctors
[2024-10-03] MEDS: FERRLECIT 110 MG IV (13:20)
--- NOTE | 2024-10-03 14:00 | W.PN.HOSP.TC ---
Today's Communication/Plan
-
Follow H&H
For barium enema today
Assessment / Plan
Assessment / Plan
Symptomatic anemia likely secondary to GI bleed
#History of recurrent diverticulitis flare
-Recent Ibuprofen use for a period of 3 weeks about 1 month ago.
-Presents with symptoms of lightheadedness, fatigue
-Dark brown stool on rectal exam in the ED-positive Hemoccult test
-Hemoglobin 6.5 on presentation, status post 2 unit PRBC. Hemoglobin improved. No active GI bleeding
Continue with PPI
Status post EGD which did not show any evidence of active bleeding or source of bleeding. Grade [address] abdomen/pelvis with possibility of colonic stricture.
Barium enema planned today. Colonoscopy eval at some point.
Iron studies are pending
Grade 1 esophageal varices with a cirrhotic looking liver on the CT-excess use of alcohol noted. Currently without any decompensation other than grade 1 varices. On a beta-andrés. Has active follow-up with cardiology-advised to check with
cardiology regarding switch to Coreg from metoprolol if appropriate. Patient plans to quit alcohol going forward. Follow-up with GI as an outpatient.
#Aortic stenosis s/p TAVR
-Stable, denies chest pain
Resume aspirin
#Hypovolemic hyponatremia
Resolved
Monitor
#Essential hypertension
-Continue home regimen, amlodipine, metoprolol succinate, losartan
Hydralazine as needed
Significant alcohol use
Alcohol withdrawal protocol
Ativan as needed
CT with liver cirrhosis
#Hypercholesterolemia
-Continue rosuvastatin
DVT prophylaxis SCDs for now
CODE STATUS full code
Anticipated Discharge: 24 - 48 hours
Subjective/Interval History
-
Date of Service: October 03, 2024
Back from EGD. Denies any nausea vomiting or abdominal pain.
Patient says for many months now she has been drinking almost bottle of white wine on a daily basis. No prior history of liver disease.
Denies any shortness of breath, chest pain or lightheadedness. No fever or chills.
Objective Data
-
Labs:
Laboratory Results
10/03/24
08:08
WBC 4.7 L
Hgb 9.1 L
Hct 28.3 L
Plt Count 127 L
Sodium 136
Potassium 3.4 L
Chloride 108 H
Carbon Dioxide 23
BUN 11
Creatinine 0.6
Glucose 98
Calcium 8.7
Total Bilirubin 1.4 H
AST 45 H
ALT 17
Alkaline Phosphatase 126
Vital Signs:
Vital Signs
Temp Pulse Resp BP Pulse Ox
97.9 F 76 16 126/70 97
10/03/24 11:47 10/03/24 11:47 10/03/24 11:47 10/03/24 11:47 10/03/24 11:47
I&O
10/02/24 10/03/24 10/04/24
06:59 06:59 06:59
Intake Total 1310 / 1310 480 / 480
Balance 1310 / 1310 480 / 480
Physical Exam
-
General: Comfortable
Respiratory: Clear to Auscultation and Non Labored Respirations; Negative Accessory Resp Muscle Use
Cardiac: Regular Rhythm and S1/S2
GI: Soft and Nontender
Neuro: AO x 3
Psych: Calm
Data Reviewed
-
Labs: Labs Reviewed by me
--- NOTE | 2024-10-03 14:41 | W.PN.UPDATE ---
Update Note
Progress Note Update
got message from radiology
pt with contrast in bowel from CT
could not do gastrographin enema
I ordered miralax prep and Xray in am to ensure contrast has past
updated nurse
[2024-10-03] MEDS: VITAMIN B-12 1000 MCG PO (17:15)
[2024-10-03] MEDS: CRESTOR 10 MG PO (17:15)
[2024-10-03] MEDS: LOW STRENGTH ASPIRIN 81 MG PO (17:17)
[2024-10-03] MEDS: GAVILAX 238 GM PO (17:53)
[2024-10-03] MEDS: VITAMIN B1 100 MG PO (19:51)
[2024-10-03 20:26] LABS: Transferrin 349 mg/dL (200-360)
[2024-10-03] MEDS: NORVASC 2.5 MG PO (22:01)
[2024-10-03] MEDS: COZAAR 50 MG PO (22:01)
[2024-10-03] MEDS: TOPROL XL 25 MG PO (22:01)
[2024-10-04 03:16] VITALS: BP 138/64
[2024-10-04 08:26] VITALS: BP 140/59
[2024-10-04] MEDS: VITAMIN B1 100 MG PO ×2 (09:38→20:21)
[2024-10-04] MEDS: PROTONIX IV 40 MG IV ×2 (09:38→20:22)
[2024-10-04] MEDS: NSS (PRESERVATIVE FREE) 10 ML IV ×2 (09:38→20:23)
[2024-10-04] MEDS: FOLVITE 1 MG PO (09:39)
[2024-10-04 11:18] VITALS: BP 141/64
[2024-10-04] MEDS: CITROMA 300 ML PO (12:51)
[2024-10-04] MEDS: FERRLECIT 110 MG IV (12:54)
--- NOTE | 2024-10-04 13:13 | W.PN.GI.CBS2 ---
Today's Communication / Plan
-
EGD showing grade 1 esophageal varices, erythema in the antrum that was biopsied, 2 angioectasias in the duodenum that were cauterized with APC
Needs cscope but with ? diverticulitis on recent CT scan, will need to wait 6 weeks for outpatient cscope
no abd pain no need for antibiotics
trend hb
CT scan also showed significant contrast in the colon, try to clear out with MiraLAX prep but patient did not finish the prep as she refuses to drink the volume. Received a call from x-ray department that there is still significant contrast noted
on the x-ray today, will give patient magnesium citrate which she is willing to drink and we will repeat the abdominal x-ray tomorrow. If the contrast is cleared, we will plan for Gastrografin enema.
Cirrhosis plan outpatient follow up d/w pt/daughter suspect related to EtOH
Low MELD
Will follow-up
Will follow
Assessment / Plan
-
78 yo F pmh diverticulosis with diverticulitis in 2021, EtOH (drinks slowly all day, drinks a box of wine every few days), TAVR, PPM p/w symptomatic anemia (Hb 6.4). Hb dropped in July PCP rx B12, do not have B12 levels and referred to [facility]
hematology. Does take 2 ibuprofen a day for shingles last few months. Denies rectal bleeding or melena.
Reviewing labs Hb 11.08 Apr 2024; 9.30 Jun 2024; 8.04 August 2024.
Had a diverticulitis flare up recently on d/w daughter this does not present with pain but gas, change in BM, and change in emotional state and PCP rx antibiotics.
CT 10/01 showed likely diverticular stricture, fat stranding cannot r/o diverticulitis, cirrhosis small amount of ascites, possible vasculitis uncertain
EGD showing grade 1 esophageal varices, erythema in the antrum that was biopsied, 2 angioectasias in the duodenum that were cauterized with APC
Needs cscope but with ? diverticulitis on recent CT scan, will need to wait 6 weeks for outpatient cscope
no abd pain no need for antibiotics
trend hb
CT scan also showed significant contrast in the colon, try to clear out with MiraLAX prep but patient did not finish the prep as she refuses to drink the volume. Received a call from x-ray department that there is still significant contrast noted
on the x-ray today, will give patient magnesium citrate which she is willing to drink and we will repeat the abdominal x-ray tomorrow. If the contrast is cleared, we will plan for Gastrografin enema.
Cirrhosis plan outpatient follow up d/w pt/daughter suspect related to EtOH
Low MELD
Will follow-up
Will follow
Subjective
Subjective
Date of Service: October 04, 2024
Patient was not able to finish the MiraLAX prep that was given to her due to the volume. Received call from radiology department to the x-ray was done and there was still contrast in the colon.
Patient denies any abdominal pain, nausea or vomiting.
Objective
Data Reviewed
Laboratory Data:
Laboratory Results
10/03/24 08:08
10/03/24 08:08
Laboratory Results
PT 15.4 Sec (11.4-14.6) H 09/30/24 12:51
INR 1.18 09/30/24 12:51
APTT 26.9 Sec (23.4-35.0) 09/30/24 12:51
Total Bilirubin 1.4 mg/dl (0.2-1.3) H 10/03/24 08:08
AST 45 U/L (14-36) H 10/03/24 08:08
ALT 17 U/L (0-35) 10/03/24 08:08
Alkaline Phosphatase 126 U/L (38-126) 10/03/24 08:08
Vital Signs and I&O:
Vital Signs
Temp Pulse Resp BP Pulse Ox
98.7 F 73 16 141/64 98
10/04/24 11:18 10/04/24 11:18 10/04/24 11:18 10/04/24 11:18 10/04/24 11:18
I&O
10/03/24 10/04/24 10/05/24
06:59 06:59 06:59
Intake Total 480 / 480 1020 / 1020
Balance 480 / 480 1020 / 1020
Physical Exam
Physical Exam
GI: Soft, Non Distended and Non Tender
--- NOTE | 2024-10-04 14:26 | CM ---
Chart reviewed. Care ongoing at this time.
Requested PT order to hospitalist
CM will cont to follow for d/c needs
Plan: Anticipate home, will watch for needs
--- NOTE | 2024-10-04 14:56 | W.PN.HOSP.TC ---
Today's Communication/Plan
-
Barium enema tomorrow
Assessment / Plan
Assessment / Plan
Symptomatic anemia likely secondary to GI bleed
#History of recurrent diverticulitis flare
-Recent Ibuprofen use for a period of 3 weeks about 1 month ago.
-Presents with symptoms of lightheadedness, fatigue
-Dark brown stool on rectal exam in the ED-positive Hemoccult test
-Hemoglobin 6.5 on presentation, status post 2 unit PRBC. Hemoglobin improved. No active GI bleeding
Continue with PPI
Status post EGD which did not show any evidence of active bleeding or source of bleeding. Grade [address] abdomen/pelvis with possibility of colonic stricture.
Barium enema planned on CT oral contrast cleared. Colonoscopy eval at some point.
Iron studies suggest no deficiency
Grade 1 esophageal varices with a cirrhotic looking liver on the CT-excess use of alcohol noted. Currently without any decompensation other than grade 1 varices. On a beta-andrés. Has active follow-up with cardiology-advised to check with
cardiology regarding switch to Coreg from metoprolol if appropriate. Patient plans to quit alcohol going forward. Follow-up with GI as an outpatient.
#Aortic stenosis s/p TAVR
-Stable, denies chest pain
Resumed aspirin
#Hypovolemic hyponatremia
Resolved
Monitor
#Essential hypertension
-Continue home regimen, amlodipine, metoprolol succinate, losartan
Hydralazine as needed
Significant alcohol use
Alcohol withdrawal protocol
Ativan as needed
CT with liver cirrhosis
#Hypercholesterolemia
-Continue rosuvastatin
DVT prophylaxis SCDs for now
CODE STATUS full code
Anticipated Discharge: Within 24 hours
Subjective/Interval History
-
Date of Service: October 04, 2024
Patient feels okay. Voices no specific complaints.
No nausea vomiting or abdominal pain.
Denies any dizziness or lightheadedness.
Denies shortness of breath or chest pain.
Tolerating clear liquid diet.
Could not tolerate laxatives yesterday. Await CT contrast to clear to get a barium enema study.
Objective Data
-
Vital Signs:
Vital Signs
Temp Pulse Resp BP Pulse Ox
98.7 F 73 16 141/64 98
10/04/24 11:18 10/04/24 11:18 10/04/24 11:18 10/04/24 11:18 10/04/24 11:18
I&O
10/03/24 10/04/24 10/05/24
06:59 06:59 06:59
Intake Total 480 / 480 1020 / 1020
Balance 480 / 480 1020 / 1020
Physical Exam
-
General: Comfortable
Respiratory: Clear to Auscultation and Non Labored Respirations; Negative Accessory Resp Muscle Use
Cardiac: Regular Rhythm and S1/S2
GI: Soft and Nontender
Neuro: AO x 3; Negative Tremors
Psych: Calm; Negative Confused or Agitated
[2024-10-04 15:27] VITALS: BP 141/81
[2024-10-04 16:05] LABS: AFP Male/Tumor Marker 4.55 ng/ml
[2024-10-04] MEDS: VITAMIN B-12 1000 MCG PO (17:22)
[2024-10-04] MEDS: LOW STRENGTH ASPIRIN 81 MG PO (17:22)
[2024-10-04] MEDS: CRESTOR 10 MG PO (17:22)
[2024-10-04 19:10] VITALS: BP 148/67
[2024-10-04] MEDS: NORVASC 2.5 MG PO (20:21)
[2024-10-04] MEDS: COZAAR 50 MG PO (20:21)
[2024-10-04] MEDS: TOPROL XL 25 MG PO (20:22)
[2024-10-04 23:53] VITALS: BP 143/61
[2024-10-05 03:36] VITALS: BP 124/49
[2024-10-05 07:55] VITALS: BP 141/62
[2024-10-05 07:57] LABS: Hematocrit 28.7 % (37.0-47.0); Hemoglobin 9.1 g/dL (12.0-16.0); Mean Corp Hgb Conc. 31.7 g/dL (33.0-37.0); Mean Corpuscular Volume 97.3 fL (81.0-99.0); Platelet Count 127 10^3/uL (130-400); Red Cell Dist. Width 17.5 % (11.5-14.5)
[2024-10-05 08:21] LABS: Blood Urea Nitrogen 13 mg/dl (7-17); Calcium 8.6 mg/dl (8.4-10.2); Carbon Dioxide 23 mmol/L (22-30); Chloride 110 mmol/L (98-107); Estimated Creatinine Clearance 62 ml/min; Glucose 104 mg/dl (70-99); Potassium 3.1 mmol/L (3.5-5.1); Sodium 139 mmol/L (135-145); eGFR > 60.00
[2024-10-05] MEDS: KCL 40 MEQ PO (08:43)
[2024-10-05] MEDS: PROTONIX IV 40 MG IV (08:44)
[2024-10-05] MEDS: FOLVITE 1 MG PO (08:44)
[2024-10-05] MEDS: VITAMIN B1 100 MG PO (08:44)
[2024-10-05] MEDS: NSS (PRESERVATIVE FREE) 10 ML IV (08:44)
[2024-10-05 09:35] VITALS: BMI 29.0
[2024-10-05 11:40] VITALS: BP 146/85
--- NOTE | 2024-10-05 13:58 | W.PN.GI.CBS2 ---
Addendum entered and electronically signed by Rosita Mejia MD 10/05/24 16:34:
I saw and examined the patient.
The resident's note was reviewed and I agree with the note.
Comment: Patient denies any abdominal pain, nausea or vomiting. She did have multiple loose bowel movements after having magnesium citrate yesterday and another couple of bowel movements after Gastrografin enema today. No blood or black stool. No
fevers or chills.
Single contrast RF 10/05/24-
1. SEVERE CHRONIC DIVERTICULAR DISEASE in the MID SIGMOID COLON with a SEVERE STRICTURE causing a partial colonic obstruction. Colonic adenocarcinoma is an alternative diagnostic possibility for the severe luminal narrowing, but chronic
diverticulitis is considered more likely given the absence of complete obstruction and severe sigmoid diverticulitis 05/07/2021.
2. 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
Plan
Chronic diverticular disease with severe stricture in coloenteric fistula, likely causing her GI symptoms.
Colorectal surgery consulted, reviewed the plan with Dr. Quick and his team, patient is agreeable for outpatient surgery and colonoscopy prior to that. She has an appointment with Dr. Quick's office in 2 weeks to follow-up on the above.
For now low residue diet.
Explained to patient and daughter bedside.
- History of iron deficiency anemia, chronic diverticular disease with fistula potentially could be contributing to it.
She did get IV iron infusion and 2 units of packed red blood cells during the hospital visit.
Upper endoscopy showing small esophageal varices, 2 AVMs in the duodenum status post APC.
Continue PPI-Protonix 40 mg daily and will set up for follow-up with Dr. Thomas as outpatient.
- New diagnosis of cirrhosis without decompensation
Follow-up in the office with Dr. Thomas as outpatient
Original Note:
Today's Communication / Plan
-
.
Assessment / Plan
-
Wilma Leung is a 78 yo F PMHx diverticulosis with diverticulitis in 2021, EtOH (drinks slowly all day, drinks a box of wine every few days), TAVR, PPM p/w symptomatic anemia (Hb 6.4). Hb dropped in July PCP rx B12, do not have B12 levels and
referred to [facility]. Does take 2 ibuprofen a day for shingles last few months. Denies rectal bleeding or melena.
Reviewing labs Hb 11.08 Apr 2024; 9.30 Jun 2024; 8.04 August 2024.
Had a diverticulitis flare up recently on d/w daughter this does not present with pain but gas, change in BM, and change in emotional state and PCP rx antibiotics.
CT 10/01 showed likely diverticular stricture, fat stranding cannot r/o diverticulitis, cirrhosis small amount of ascites, possible vasculitis uncertain
EGD showing grade 1 esophageal varices, erythema in the antrum that was biopsied, 2 angioectasias in the duodenum that were cauterized with APC.
Needs cscope but with ? diverticulitis on recent CT scan, will need to wait 6 weeks for outpatient cscope.
no abd pain no need for antibiotics
trend hb
Since she is successfully passing stool with Mag Citrate and today with enema, she is likely not completely obstructed.
-Follow up gastrograffin enema results
-LRD for now
-Can plan d/c if the patient is successfully tolerating her diet
-Follow up colonoscopy and GI office visit with Dr. Thomas in 6 weeks.
-Should likely be on Miralax in the outpatient setting as constipation can trigger diverticulitis
Subjective
Subjective
Date of Service: October 05, 2024
Patient seen and examined while resting comfortably in bed, daughter is at the bedside. Patient notes having gotten her enema today. Endorses 2 bowel movements after that were softly formed. Otherwise, was having loose stools yesterday while she was
receiving Mag Citrate. She denies abdominal pain, nausea, or vomiting.
Objective
Data Reviewed
Laboratory Data:
Laboratory Results
10/05/24 07:40
10/05/24 07:40
Laboratory Results
PT 15.4 Sec (11.4-14.6) H 09/30/24 12:51
INR 1.18 09/30/24 12:51
APTT 26.9 Sec (23.4-35.0) 09/30/24 12:51
Total Bilirubin 1.4 mg/dl (0.2-1.3) H 10/03/24 08:08
AST 45 U/L (14-36) H 10/03/24 08:08
ALT 17 U/L (0-35) 10/03/24 08:08
Alkaline Phosphatase 126 U/L (38-126) 10/03/24 08:08
Vital Signs and I&O:
Vital Signs
Temp Pulse Resp BP Pulse Ox
97.6 F 79 16 146/85 99
10/05/24 11:40 10/05/24 11:40 10/05/24 11:40 10/05/24 11:40 10/05/24 11:40
I&O
10/04/24 10/05/24 10/06/24
06:59 06:59 06:59
Intake Total 1020 / 1020
Balance 1020 / 1020
Physical Exam
Physical Exam
HEENT: Anicteric
GI: Soft, Non Distended, Non Tender and Normal Bowel Sounds
[2024-10-05] MEDS: FERRLECIT 110 MG IV (14:08)
--- NOTE | 2024-10-05 14:51 | W.PN.HOSP.TC ---
Addendum entered and electronically signed by Andre Saxena MD 10/08/24 12:54:
Hypokalemia
Original Note:
Today's Communication/Plan
-
Consult colorectal surgery
Assessment / Plan
Assessment / Plan
Symptomatic anemia likely secondary to GI bleed
#History of recurrent diverticulitis flare
-Recent Ibuprofen use for a period of 3 weeks about 1 month ago.
-Presents with symptoms of lightheadedness, fatigue
-Dark brown stool on rectal exam in the ED-positive Hemoccult test
-Hemoglobin 6.5 on presentation, status post 2 unit PRBC. Hemoglobin improved. No active GI bleeding
Continue with PPI
Status post EGD which did not show any evidence of active bleeding or source of bleeding. Grade [address]/pelvis with possibility of colonic stricture.
Barium enema planned on CT oral contrast cleared. Colonoscopy eval at some point.
Iron studies suggest no deficiency
Colonic stricture-barium enema today shows SEVERE CHRONIC DIVERTICULAR DISEASE in the MID SIGMOID COLON with a SEVERE STRICTURE causing a partial colonic obstruction and also coloenteric fistula. Currently without any abdominal pain. Tolerating
diet. Consult colorectal surgery.
Grade 1 esophageal varices with a cirrhotic looking liver on the CT-excess use of alcohol noted. Currently without any decompensation other than grade 1 varices. On a beta-andrés. Has active follow-up with cardiology-advised to check with
cardiology regarding switch to Coreg from metoprolol if appropriate. Patient plans to quit alcohol going forward. Follow-up with GI as an outpatient.
#Aortic stenosis s/p TAVR
-Stable, denies chest pain
Resumed aspirin
#Hypovolemic hyponatremia
Resolved
Monitor
#Essential hypertension
-Continue home regimen, amlodipine, metoprolol succinate, losartan
Hydralazine as needed
Significant alcohol use
Alcohol withdrawal protocol
Ativan as needed
CT with liver cirrhosis
#Hypercholesterolemia
-Continue rosuvastatin
DVT prophylaxis SCDs for now
CODE STATUS full code
Discussed with GI. Agrees with colorectal surgery consult.
Anticipated Discharge: 24 - 48 hours
Subjective/Interval History
-
Date of Service: October 05, 2024
Voicing no specific complaints.
Denies any nausea vomiting or abdominal pain.
No fever chills.
No lightheadedness, shortness of breath or chest pain.
Objective Data
-
Labs:
Laboratory Results
10/05/24
07:40
WBC 5.4
Hgb 9.1 L
Hct 28.7 L
Plt Count 127 L
Sodium 139
Potassium 3.1 L
Chloride 110 H
Carbon Dioxide 23
BUN 13
Creatinine 0.7
Glucose 104 H
Calcium 8.6
Vital Signs:
Vital Signs
Temp Pulse Resp BP Pulse Ox
97.6 F 79 16 146/85 99
10/05/24 11:40 10/05/24 11:40 10/05/24 11:40 10/05/24 11:40 10/05/24 11:40
I&O
10/04/24 10/05/24 10/06/24
06:59 06:59 06:59
Intake Total 1020 / 1020
Balance 1020 / 1020
Physical Exam
-
General: Comfortable
Respiratory: Non Labored Respirations; Negative Accessory Resp Muscle Use
Cardiac: Regular Rhythm and S1/S2
GI: Soft and Nontender
Neuro: AO x 3
Data Reviewed
-
Labs: Labs Reviewed by me
--- NOTE | 2024-10-05 14:56 | CON.CRS ---
Consultation
-
Date/Time Consultation Requested: 10/05/2024, 14:56
Date/Time Consultation Performed: 10/05/2024, 15:20
Requesting Provider: Rosita Fajardo MD
Performing Provider: Kam Quick MD
Reason for Consultation: stricture
Medical History
-
Chief Complaint: anemia
History of Present Illness:
78-year-old female with past medical history of colitis and aortic stenosis status post TAVR, came to [facility] on 09/30/2024 due to fatigue. She was found to be anemic while in the ER with a hemoglobin of 6.5. She received 2 units of packed
red blood cells. Gastroenterology was then consulted. And the patient underwent a CT of the abdomen pelvis. This showed suggestion of transition in caliber of the colon the junction of the distal descending colon and sigmoid colon which is the
region of. Severe diverticulitis. Findings suggest the possibility of a stricture. A component of mild active diverticulitis cannot be ruled out. Also cirrhosis was noted on the CT scan. Apparently the patient is a chronic alcoholic and drinks
only all day and drinks a box of wine every few days. She does have a prior CT in 2021 at [facility] that showed moderate acute diverticulitis of the mid sigmoid colon. Her last colonoscopy was in [address] Lee which showed 5 to 3 mm
polyps in the cecum, one time a polyp in the cecum following one of the polyp in the ascending colon, and one 2 mm polyp in the descending colon. A Gastrografin enema was ordered by GI. This was performed today which showed severe chronic
diverticular disease mid sigmoid colon with a severe stricture causing partial colonic obstruction. Colonic adenocarcinoma is alternative diagnostic possibility for severe luminal narrowing but chronic diverticulitis is considered more likely given
absence of complete obstruction and severe sigmoid diverticulitis. Chronic fistula between the sigmoid colon and adjacent ileal small bowel loop. Given these findings, we were consulted for further surgical opinion.
Past Medical History
Past Medical History: Other (Diverticulitis, TAVR, hypertension, hyperlipidemia)
Past Surgical History: Other (, hysterectomy, TAVR, permanent pacemaker)
Social History
Tobacco: Non-Smoker
Alcohol: Other (4 glasses of wine daily)
Drug: None
Family History
Family History: Reviewed & Not Pertinent
Allergies / Home Medications
Allergy/AdvReac Type Severity Reaction Status Date / Time
atorvastatin (From Lipitor) Allergy just too Verified 09/30/24 10:48
high a
dose of it
�Medication �Instructions �Recorded �Confirmed �Type
aspirin 81 mg chewable tablet 81 mg PO QPM Blood clot 05/07/21 09/30/24 History
prevention/tx
losartan 50 mg tablet 50 mg PO HS Blood pressure 05/07/21 09/30/24 History
amlodipine 2.5 mg tablet (Norvasc) 2.5 mg PO HS Blood Pressure 09/30/24 09/30/24 History
cyanocobalamin (vitamin B-12) 1,000 mcg PO QPM Supplement 09/30/24 09/30/24 History
1,000 mcg tablet
furosemide 20 mg tablet (Lasix) 20 mg PO QPM Fluid 09/30/24 09/30/24 History
Retention/Swelling
metoprolol succinate 25 mg 25 mg PO HS Blood Pressure 09/30/24 09/30/24 History
tablet,extended release 24 hr
(Toprol XL)
rosuvastatin 10 mg tablet (Crestor) 10 mg PO QPM cholesterol 09/30/24 09/30/24 History
Review of Systems
-
History Source: Patient
Constitutional: Fatigue and Other
A 10 point review of systems was completed, and was negative except as per HPI.
Physical Exam
Vital Signs
Temp 97.6 F 10/05/24 11:40
Pulse 79 10/05/24 11:40
Resp Rate 16 10/05/24 11:40
Blood pressure 146/85 10/05/24 11:40
SaO2 99 10/05/24 11:40
Body Mass Index (BMI) 29.0
Lab Results / Allergies
10/05/24 07:40
10/05/24 07:40
WBC 5.4 10^3/uL (4.8-10.8) 10/05/24 07:40
Hgb 9.1 g/dL (12.0-16.0) L 10/05/24 07:40
Hct 28.7 % (37.0-47.0) L 10/05/24 07:40
Plt Count 127 10^3/uL (130-400) L 10/05/24 07:40
Abs Immat Gran (auto) 0.0 10^3/uL (0-0.05) 10/03/24 08:08
Neutrophils % 63.2 % (42.2-75.2) 10/03/24 08:08
Allergy/AdvReac Type Severity Reaction Status Date / Time
atorvastatin (From Lipitor) Allergy just too Verified 09/30/24 10:48
high a
dose of it
Physical Exam
General: Well Developed, Well Nourished and No Apparent Distress
GI: Soft, Non Tender and Non Distended
Data Reviewed
-
Radiology: Image Personally Visualized and interpreted and Report Reviewed by me
CT Scan: Image Personally Visualized and interpreted and Report Reviewed by me
Labs: Labs Reviewed by me and Discussed with Physician
Old Records: Reviewed
Assessment / Plan
-
Assessment: 78-year-old female with a past medical history of diverticulitis, presents to [facility] after outpatient labs showed a hemoglobin of 6.4 and fatigue for several months, found to have a severe colonic diverticular stricture in mid
sigmoid colon with a severe stricture causing partial colonic obstruction on Gastrografin enema with a Coloentero fistula between the sigmoid colon and adjacent ileal small bowel loop
Plan:
- No plans for urgent surgery at this time.
- Trend hemoglobin
- Eventual colonoscopy as an outpatient
- Will discuss with Dr. Quick potential for surgery in the future. She has no signs of obstruction at this time. Follow up in the office in 2 weeks. Discussed with patient and daughter at bedside. Will need cardiac clearance prior to OR - will see
her audit reviewer at [facility].
[2024-10-05 15:38] VITALS: BP 153/58; PULSE 88
[2024-10-05 15:39] VITALS: BP 153/58; PULSE 88
[2024-10-05 15:45] VITALS: BP 153/58
[2024-10-05] MEDS: LOW STRENGTH ASPIRIN 81 MG PO (17:15)
[2024-10-05] MEDS: VITAMIN B-12 1000 MCG PO (17:15)
[2024-10-05] MEDS: CRESTOR 10 MG PO (17:15)
--- NOTE | 2024-10-06 09:27 | PN.CDI ---
CDI
- -
CDI:
Physician Documentation Request
Admit Date: 09/30/24 15:37
Dear Doctor Hemanth,
Please review the following and provide your response in the progress notes.
Clinical Indicators:
- Patient admit for anemia due to GI bleed
- 10/05 40meq PO Potassium chloride given
Laboratory Tests
10/03/24 10/05/24
07:40
Potassium 3.4 L 3.1 L
Please provide a diagnosis for the above lab values that were monitored and treatment rendered:
Hypokalemia
Clinically insignificant abnormal lab value
Other (please specify)
Use of terms such as suspected, likely, concern for, or probable (associated with a specific diagnosis that is being evaluated, monitored, or treated as if it exists) are acceptable and can be coded in the inpatient setting, when documented at the
time of discharge.
Thank you,
Belen Khan RN
CDI Specialist
Please use your independent medical judgment in providing your response.
== END 2024-10-05 18:13 | disposition home or self-care (01) | DRG 378 ==
LOC: 4 EAST ACU 15:37
PROVIDERS: Internal Medicine Gastroenterology; Registered Nurse; Student in an Organized Health Care Education/Training Program; ADMITTING PHYSICIAN Internal Medicine; ATTENDING PHYSICIAN Internal Medicine; CONSULT PHYSICIAN Internal Medicine Gastroenterology; CONSULT PHYSICIAN Surgery; EMERGENCY PHYSICIAN Emergency Medicine; FAMILY PHYSICIAN Internal Medicine
PROC: 30233N1 Transfusion of Nonautologous Red Blood Cells into Peripheral Vein, Percutaneous Approach (ICD-10-PCS; 2024-09-30)
PROC: 0DB68ZX Excision of Stomach, Via Natural or Artificial Opening Endoscopic, Diagnostic (ICD-10-PCS; 2024-10-03)
PROC: 0DB48ZX Excision of Esophagogastric Junction, Via Natural or Artificial Opening Endoscopic, Diagnostic (ICD-10-PCS; 2024-10-03)
PROC: 0DB98ZX Excision of Duodenum, Via Natural or Artificial Opening Endoscopic, Diagnostic (ICD-10-PCS; 2024-10-03)
PROC: 0W3P8ZZ Control Bleeding in Gastrointestinal Tract, Via Natural or Artificial Opening Endoscopic (ICD-10-PCS; 2024-10-03)
DX: K31.811 Angiodysplasia of stomach and duodenum with bleeding (principal); E87.1 Hypo-osmolality and hyponatremia; K76.6 Portal hypertension; K63.2 Fistula of intestine; K56.600 Partial intestinal obstruction, unspecified as to cause; I10 Essential (primary) hypertension; I85.10 Secondary esophageal varices without bleeding; E78.00 Pure hypercholesterolemia, unspecified; E86.1 Hypovolemia; D50.0 Iron deficiency anemia secondary to blood loss (chronic); K22.2 Esophageal obstruction; K74.60 Unspecified cirrhosis of liver; E87.6 Hypokalemia; K29.71 Gastritis, unspecified, with bleeding; K57.33 Diverticulitis of large intestine without perforation or abscess with bleeding; F10.10 Alcohol abuse, uncomplicated; R53.82 Chronic fatigue, unspecified; R56.9 Unspecified convulsions; Z95.2 Presence of prosthetic heart valve; Z87.891 Personal history of nicotine dependence; Z79.82 Long term (current) use of aspirin; Z95.0 Presence of cardiac pacemaker; Z79.899 Other long term (current) drug therapy; Z88.8 Allergy status to other drugs, medicaments and biological substances
CPT/HCPCS: 36430; 74018; 74177; 74270; 80048; 80053; 82105; 82728; 83540; 83550; 84466; 85025; 85027; 85045; 85610; 85730; 86850; 86900; 86901; 86920; 87045; 87046; 87427; 88305; 88342; 89055; 96365; 96366; 97161; 97166; 99285; J2916; P9016; Q9967

== ENCOUNTER 2024-11-23 05:54 | Inpatient (IN) | payer OTHER, SELFPAY ==
[2024-10-25 11:38] LABS: Hematocrit 28.4 % (37.0-47.0); Hemoglobin 9.1 g/dL (12.0-16.0); Mean Corp Hgb Conc. 32.0 g/dL (33.0-37.0); Mean Corpuscular Volume 102.5 fL (81.0-99.0); Platelet Count 150 10^3/uL (130-400); Red Cell Dist. Width 18.1 % (11.5-14.5)
[2024-10-25 11:50] LABS: INR 1.11; PT 14.6 Sec (11.4-14.6)
[2024-10-25 11:51] LABS: APTT 28.0 Sec (23.4-35.0)
[2024-10-25 12:07] LABS: ALT (SGPT) 25 U/L (0-35); AST (SGOT) 53 U/L (14-36); Albumin 3.7 g/dl (3.5-5.0); Alkaline Phosphatase 169 U/L (38-126); Blood Urea Nitrogen 18 mg/dl (7-17); Calcium 9.6 mg/dl (8.4-10.2); Carbon Dioxide 24 mmol/L (22-30); Chloride 106 mmol/L (98-107); Glucose 120 mg/dl (70-99); Potassium 4.3 mmol/L (3.5-5.1); Sodium 136 mmol/L (135-145); Total Protein 6.2 g/dl (6.3-8.2); eGFR > 60.00
[2024-10-25 13:22] LABS: Glycohemoglobin (HgbA1c) 4.8 % (4.0-5.6)
[2024-10-25 14:18] VITALS: BMI 25.1
--- NOTE | 2024-11-16 12:00 | PTCARENOTE ---
Abnormal hemoglobin of 9.1 n 10/25/24. Laura at Dr. Quick's office notified.
[2024-11-23] VITALS (16 sets, daily range): BP systolic 82–151; BP diastolic 43–136; BMI 25.1; BMI 25.5; BMI 25.4
[2024-11-23] MEDS: NORMOSOL-R/PLASMALYTE-A 1000 IV ×3 (06:38→23:40)
[2024-11-23] MEDS: TYLENOL 1000 MG PO (06:39)
[2024-11-23] MEDS: HEPARIN 5000 UNITS SC (06:39)
--- NOTE | 2024-11-23 16:14 | W.IMMPOSTOP ---
Documented by User: POLLY Tiwari 11/23/24 16:20
Surgical Immed Post Op Note
-
Primary Surgeon: Kam Quick MD
Assisting Surgeon: MARITZA Bowie, and GUADALUPE De Jesus
Pre-op Diagnosis: Sigmoid Diverticulitis
Post-op Diagnosis: Same
Procedure Performed: Ureteral Stents/ICG by urology (30 minutes)
Lysis of adhesions (> 2 hours)
Culture of pelvic abscess (5 minutes)
Robotic sigmoid colon resection (5 hours)
Colostomy (30 minutes)
Anesthesia Type: General
Specimen / Cultures: Pelvic abscess,
Sigmoid colon (proximal is sutured)
Estimated Blood Loss: 200 cc
Complications: None
Operative Findings: Pelvic abscess

Documented by User: Selvin Quick MD 11/23/24 16:45
Surgical Immed Post Op Note
-
Primary Surgeon: Kam Quick MD
Assisting Surgeon: MARITZA Bowie, and GUADALUPE De Jesus
Pre-op Diagnosis: Chronic sigmoid diverticulitis with stricture; cirrhosis with portal hypertension
Post-op Diagnosis: Same
Procedure Performed: Ureteral Stents/ICG by Dr. Morrow (30 minutes)
Lysis of adhesions (> 2 hours)
Culture of pelvic abscess (5 minutes)
Robotic sigmoid colon resection with takedown of splenic flexure and intracorporeal anastomosis(5 hours)
Diverting loop ileostomy with Seprafilm (30 minutes)
Anesthesia Type: General
Specimen / Cultures: Pelvic abscess cultures
Sigmoid colon (suture is proximal)
Estimated Blood Loss: 200 cc
Complications: None
Operative Findings: Cirrhosis with portal hypertension
Multiple dense adhesions of the small bowel in the pelvis
Severe inflammation with interloop abscess of the distal sigmoid colon
28mm EEA
Normal leak test
Right ureteral stent removed intact
Patient's daughters updated in the recovery room
[2024-11-23 16:25] LABS: Glucose - Point of Care 171 mg/dl (70-99)
[2024-11-23 17:13] LABS: Hematocrit 32.6 % (37.0-47.0); Hemoglobin 10.8 g/dL (12.0-16.0); Mean Corp Hgb Conc. 33.1 g/dL (33.0-37.0); Mean Corpuscular Volume 97.9 fL (81.0-99.0); Nucleated Red Blood Cells % 0.3 %; Red Cell Dist. Width 18.2 % (11.5-14.5)
[2024-11-23 17:18] LABS: Blood Urea Nitrogen 10 mg/dl (7-17); Calcium 7.2 mg/dl (8.4-10.2); Carbon Dioxide 19 mmol/L (22-30); Chloride 105 mmol/L (98-107); Estimated Creatinine Clearance 64 ml/min; Glucose 167 mg/dl (70-99); Potassium 3.2 mmol/L (3.5-5.1); Sodium 137 mmol/L (135-145); eGFR > 60.00
[2024-11-23 17:29] LABS: Platelet Count 103 10^3/uL (130-400)
--- NOTE | 2024-11-23 18:46 | PTCARENOTE ---
Addendum entered by Sue White RN 11/23/24 19:06:
Pt with 1st degree, SR with BBB configuration.
Original Note:
Pt arrived to ICU (IMU status) as approx 1800 from PACU, s/p robotic sigmoidectomy, colorectal surg, L ureteral stent. Pt groggy, but orented x3, CORONA bilat. HR SR as per monitor, BP 118/54, O2 2l, 98% sat, lobes clear bilat. L colostomy with scant
blood tinged drainge noted. 4 abd robotic wounds with surgi-glu closure intact, and a robotic supra pubic inc with surgi-glu closure. Pepe cath and L ureteral stent intact, draining min amt blood tinged urine. Complete CHG bath given. Pt's 2
daughters in room to see patient, and were updated.
--- NOTE | 2024-11-23 20:00 | PTCARENOTE ---
on assessment pt AAOx3, denies pain and SOB at this time, SR on the monitor, RA 95%, new R ileostomy, x4 ABD sites and x1 suprapubic incisions with milton Dunn for urology determination putting out red/brown urine, bed alarm on and call
santos in reach no complaints at this time
[2024-11-23] MEDS: CRESTOR PO (20:11)
[2024-11-23] MEDS: NORVASC PO (20:11)
[2024-11-23] MEDS: LOW STRENGTH ASPIRIN PO (20:11)
[2024-11-23] MEDS: TOPROL XL PO (20:11)
[2024-11-23] MEDS: DILAUDID 0.25 MG IV (23:18)
[2024-11-24] VITALS (23 sets, daily range): BP systolic 86–124; BP diastolic 46–79; PULSE 90; BMI 25.7
--- NOTE | 2024-11-24 01:01 | PTCARENOTE ---
SCULLION CHIEF made aware of post op labs, no new orders at this time, labs ordered for AM
[2024-11-24] MEDS: INVANZ 60 MG IV (05:27)
[2024-11-24 05:29] LABS: Blood Urea Nitrogen 12 mg/dl (7-17); Calcium 6.8 mg/dl (8.4-10.2); Carbon Dioxide 24 mmol/L (22-30); Chloride 109 mmol/L (98-107); Estimated Creatinine Clearance 64 ml/min; Glucose 155 mg/dl (70-99); Magnesium 2.2 mg/dl (1.6-2.3); Potassium 2.8 mmol/L (3.5-5.1); Sodium 138 mmol/L (135-145); eGFR > 60.00
[2024-11-24 05:45] LABS: Hematocrit 28.0 % (37.0-47.0); Hemoglobin 10.0 g/dL (12.0-16.0); Mean Corp Hgb Conc. 35.7 g/dL (33.0-37.0); Mean Corpuscular Volume 95.2 fL (81.0-99.0); Platelet Count 85 10^3/uL (130-400); Red Cell Dist. Width 18.4 % (11.5-14.5)
[2024-11-24] MEDS: CALCIUM GLUCONATE 100 IV (06:04)
[2024-11-24 06:23] LABS: Albumin 2.6 g/dl (3.5-5.0)
[2024-11-24] MEDS: KCL 270 MEQ IV (07:11)
--- NOTE | 2024-11-24 07:30 | PTCARENOTE ---
Received patient A&Ox3, on RA, NSR w/ 1st AVB w/ BBB w/ PVCs, Left Chest PPM, occasionally Atrial Pacing, BP WNL, NPO, Ileostomy draining small sanguineous liquid output, Pepe draining dark brown urine with a ureteral stent in place.
[2024-11-24 07:33] LABS: Nucleated Red Blood Cells % 0 %
[2024-11-24] MEDS: LASIX 20 MG PO (08:49)
[2024-11-24] MEDS: COZAAR 50 MG PO (08:49)
--- NOTE | 2024-11-24 09:48 | WOUNDNOTE ---
[facility] RN note: Patient s/p robotic sigmoid colon resection with loop ileostomy 11/23/24. Stoma pink. Stoma bridge in place. Ostomy appliance intact. Daughter Cristina present. Instructed patient daughter and granddaughter how to open and close pouch,
cut wafer and snap on wafer, instructed use of Gallo seal. Planned ostomy appliance change session with patient and family on Thursday at 1300. Patient's sacral/coccyx slow to jose de jesus red. Sacral shaped silicone border foam maintained. Skin on heels
intact. Patient turned to R semi side lying position. She can turn self slowly in bed. Instructed patient pressure injury prevention measures. Air chair cushion given. Heels off bed with pillow. Ostomy supplies given (Darian wafer # [id number], Gallo
seals and [place] pouch #[id number]). Ileostomy teaching folder given. Patient gave permission for ordering a [employer] ostomy secure starter kit. Daughter signed [employer] secure starter kit auth fax form.
[2024-11-24] MEDS: KCL 40 MEQ PO ×3 (10:55→22:41)
[2024-11-24] MEDS: DILAUDID 0.25 MG IV (10:55)
--- NOTE | 2024-11-24 11:03 | WOUNDNOTE ---
[facility] RN note: Patient ordered a [employer] ostomy starter kit.
[2024-11-24] MEDS: NORMOSOL-R/PLASMALYTE-A 1000 IV ×2 (11:42→22:42)
--- NOTE | 2024-11-24 12:07 | W.PN.CRS1 ---
Today's Communication / Plan
-
As below
Assessment/Plan
-
79-year-old female with PMH of cirrhosis complicated by esophageal varices, HTN, HLD, aortic stenosis s/p valve replacement, who presented for elective surgery for recurrent diverticulitis
POD 1 robotic sigmoidectomy with DLI
AFVSS, UOP greater than 100/hour, removed left ureteral stent at bedside with nurse present
WBC 10.2 from 11.8, Hb 10.0 from 10.8, platelets 85, CR 0.5
�Continue clears as the patient has not tried it yet
�Thrombocytopenia, will repeat tomorrow; may need to consider SAHARA if continues to trend down
�Pain control with Tylenol, Toradol, Dilaudid as needed
� Will start DVT PPx with Lovenox
� DC Pepe, monitor for void
� Continue IV ertapenem for 4 days for surgical prophylaxis
� Okay to transfer to with telemetry
Subjective Data
Subjective Data
Date of Service: November 24, 2024
Feeling well. Denies any N/V and pain controlled.
No ostomy function. Pepe in place. Not out of bed yet and has only had sips so far
Objective Data
-
Vital Signs
Temp Pulse Resp BP Pulse Ox
98.3 F 85 11 122/49 90
11/24/24 08:12 11/24/24 08:49 11/24/24 06:15 11/24/24 08:49 11/24/24 06:15
Intake & Output
11/23/24 11/24/24 11/25/24
06:59 06:59 06:59
Intake Total 530 / 530
Output Total 385 / 385 250 / 250
Balance 145 / 145 -250 / -250
Intake:
Oral fluids 30 / 30
IV fluids (Total) 500 / 500
Normosol 500 / 500
Output:
Urine, Pepe 385 / 385 250 / 250
Lab Results
11/24/24 04:08
11/24/24 04:08
Physical Exam
-
General: No Acute Distress and AOx3
HEENT: Grossly Normal
Abdomen: Soft, Distended (Mildly distended, not tympanitic), Tender (Appropriately tender near incisions), No Guarding, No Rebound and Other (Ostomy pink and productive of bowel sweat, no stool)
Neurological: No Motor Deficits
Skin: Warm and Dry
Wound: No Signs of Infection, No Skin Erythema and Other (Incisions well-approximated without erythema or drainage, covered in Dermabond)
--- NOTE | 2024-11-24 12:53 | CM ---
Addendum entered by Faisal Holliday 11/24/24 13:14:
Discussed with patient concerning need for HH RN. Now agreeable. HH special services coordinator forwarded.
Original Note:
Initial assessment completed with patient who lives alone in a 2 story home (6 steps between levels) plus basement, B/B on but is able to sleep on , 1/2 bath on , 3 steps to enter home with a R rail. 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
and ambulation , does drive. In the home is a RW, rollator and SPC. She has a pacemaker. No in-home services. Grandchildren assist with carrying groceries. Does not have HC-POA. No VA Benefits. No psychiatric hospitalizations. PCP is Dr. Garcia
Mar. Pharmacy is [facility] on in [place]. Discharge POC: Anticipate NN vs HH RN.
[2024-11-24] MEDS: TORADOL 15 MG IV (14:28)
[2024-11-24] MEDS: CRESTOR 10 MG PO (17:20)
[2024-11-24] MEDS: TYLENOL 1000 MG PO ×2 (17:20→22:41)
[2024-11-24] MEDS: LOW STRENGTH ASPIRIN 81 MG PO (17:21)
[2024-11-24] MEDS: LOVENOX 40 MG SC (17:21)
[2024-11-24] MEDS: TORADOL IV (19:06)
[2024-11-24] MEDS: NORVASC PO ×2 (22:41→22:47)
[2024-11-24] MEDS: TOPROL XL PO ×2 (22:42→22:49)
[2024-11-25] VITALS (8 sets, daily range): BP systolic 110–148; BP diastolic 49–100; PULSE 81; O2SAT 100; BMI 25.6
[2024-11-25] MEDS: TORADOL IV ×4 (00:13→19:25)
[2024-11-25] MEDS: INVANZ 60 MG IV (05:24)
[2024-11-25] MEDS: TYLENOL 1000 MG PO ×3 (05:24→17:02)
--- NOTE | 2024-11-25 05:37 | PTCARENOTE ---
AM labs sent. pt OOB with assist x1 and walker to bathroom overnight multiple times. pt denies pain, c/o soreness when up and moving. call santos in reach.
[2024-11-25 06:01] LABS: Hematocrit 27.7 % (37.0-47.0); Hemoglobin 9.2 g/dL (12.0-16.0); Mean Corp Hgb Conc. 33.2 g/dL (33.0-37.0); Mean Corpuscular Volume 98.6 fL (81.0-99.0); Platelet Count 87 10^3/uL (130-400); Red Cell Dist. Width 18.9 % (11.5-14.5)
[2024-11-25 06:14] LABS: Blood Urea Nitrogen 19 mg/dl (7-17); Calcium 7.7 mg/dl (8.4-10.2); Carbon Dioxide 27 mmol/L (22-30); Chloride 110 mmol/L (98-107); Estimated Creatinine Clearance 54 ml/min; Glucose 115 mg/dl (70-99); Potassium 4.9 mmol/L (3.5-5.1); Sodium 137 mmol/L (135-145); eGFR > 60.00
[2024-11-25 06:48] LABS: Nucleated Red Blood Cells % 0 %
[2024-11-25 06:49] LABS: Anisocytosis Slight; Normal RBC Morphology No
[2024-11-25 06:50] LABS: Ovalocytes Slight
[2024-11-25] MEDS: COZAAR 50 MG PO (08:30)
[2024-11-25] MEDS: LASIX 20 MG PO (08:30)
--- NOTE | 2024-11-25 10:17 | W.PN.CRS1 ---
Today's Communication / Plan
-
fulls
maintain invanz
OOB
Assessment/Plan
-
79-year-old female with PMH of cirrhosis complicated by esophageal varices, HTN, HLD, aortic stenosis s/p valve replacement, who presented for elective surgery for recurrent diverticulitis
POD 2 robotic sigmoidectomy with DLI
AFVSS
WBC 13.3 (10.2 from 11.8), Hb 9.2 (10.0 from 10.8), platelets 87 (85), CR 0.7
� Advance to full liquids
� Thrombocytopenia- follow labs
� Pain control with Tylenol, Toradol, Dilaudid as needed
� DVT PPx with Lovenox. TEDS/SCDS in place.
� Wound RN for stoma teaching. VN final teaching with daughter at 1pm on Thursday.
� Continue IV ertapenem for 4 days for surgical prophylaxis
� Okay to transfer to with telemetry
- OR pathology pending
- OOB with PT/OT
-I updated the patient's daughter Cristina via phone
-Dispo: daughter would like VN
Subjective Data
Procedure
11/23: Lysis of adhesions (> 2 hours)
Culture of pelvic abscess (5 minutes)
Robotic sigmoid colon resection with takedown of splenic flexure and intracorporeal anastomosis(5 hours)
Diverting loop ileostomy with Seprafilm (30 minutes)
Subjective Data
Date of Service: November 25, 2024
Patient states she feels 'okay'. She has no pain. Denies nausea or vomiting.
Objective Data
-
Vital Signs
Temp Pulse Resp BP Pulse Ox
98 F 76 19 128/100 95
11/25/24 03:12 11/25/24 10:00 11/24/24 14:00 11/25/24 08:20 11/25/24 08:20
Intake & Output
11/24/24 11/25/24 11/26/24
06:59 06:59 06:59
Intake Total 530 / 900 3010 / 3010 240 / 240
Output Total 385 / 385 500 / 500
Balance 145 / 515 2510 / 2510 240 / 240
Intake:
Oral fluids 30 / 30 1440 / 1440 240 / 240
IV fluids (Total) 500 / 600 1300 / 1300
Normosol 500 / 600 1300 / 1300
IV piggybacks 270 / 270
Output:
Liquid stool amount 125 / 125
Ileostomy 125 / 125
Urine, Pepe 385 / 385 375 / 375
Other:
Number of approximated MODERATE 1 1
amounts of urine
Lab Results
11/25/24 05:35
11/25/24 05:35
Physical Exam
-
General: No Acute Distress and AOx3
Abdomen: Soft, Non Distended, Non Tender and Other (colostomy warm and pink with bowel sweat in bag)
Skin: Warm and Dry
--- NOTE | 2024-11-25 10:17 | PTCARENOTE ---
Received pt awake and alert.Speech is appropriate.Gait is steady with rolling walker.Denies pain at this time.SR with BBB and 1st degree AVB noted.POX 96% on RA.Lungs CTA.Awaiting breakfast.Ileostomy is red,budded and draining bilious brown.Voiding
on toilet.Skin integrity as documented.Plan of care discussed with pt.
--- NOTE | 2024-11-25 12:04 | PTCARENOTE ---
Pt assessed.No change in assessment noted.
--- NOTE | 2024-11-25 14:06 | CM ---
Full liquids, IV/Ertapenem. Discharge POC: Home with MAKENNA BUI RN. New ileostomy.
--- NOTE | 2024-11-25 14:41 | PN.CDI ---
CDI
- -
CDI:
Physician Documentation Request
Admit Date: 11/23/24 05:54
Dear Doctor/PA,
Please review the following and provide your response in the progress notes.
Clinical Indicators:
Pt admitted with chronic diverticulitis s/p sigmoid colon resection
Potassium levels are as below / Pt did get KCL 40 MEQ IV 11/03 & 40 MEQ KCL PO TID ordered 11/24
Laboratory Tests
11/23/24 11/24/24
16:50 04:08
Potassium 3.2 L 2.8 L
Based on the above, could you clarify in the progress notes, the appropriate diagnosis, if significant, that supports the above abnormalities and additional evaluation, monitoring and/or treatment rendered:
Hypokalemia
Abnormal lab value only
Other ( please specify)
Use of terms such as suspected, likely, concern for, or probable (associated with a specific diagnosis that is being evaluated, monitored, or treated as if it exists) are acceptable and can be coded in the inpatient setting, when documented at the
time of discharge.
Thank you,
Masha Paiz RN
CDI Specialist
[employer]
Please use your independent medical judgment in providing your response.
--- NOTE | 2024-11-25 15:59 | PTCARENOTE ---
Pt assessed.No change in assessment noted.Report given to Kathy UNDERWOOD.Pt transported to [address] [place] [address] via wheelchair.
[2024-11-25] MEDS: CRESTOR 10 MG PO (17:01)
[2024-11-25] MEDS: LOW STRENGTH ASPIRIN 81 MG PO (17:02)
[2024-11-25] MEDS: LOVENOX 40 MG SC (17:02)
[2024-11-26] MEDS: TYLENOL PO ×2 (00:21→06:21)
[2024-11-26] MEDS: TORADOL IV ×4 (02:25→19:28)
[2024-11-26] MEDS: DILAUDID 0.5 MG IV (02:55)
[2024-11-26 03:00] VITALS: BP 125/64
[2024-11-26 06:00] VITALS: BMI 26.6
[2024-11-26] MEDS: INVANZ 60 MG IV (06:10)
[2024-11-26 07:15] VITALS: BP 144/62
[2024-11-26] MEDS: COZAAR 50 MG PO (07:55)
[2024-11-26] MEDS: LASIX 20 MG PO (07:55)
[2024-11-26 09:07] LABS: Hematocrit 31.1 % (37.0-47.0); Hemoglobin 10.5 g/dL (12.0-16.0); Mean Corp Hgb Conc. 33.8 g/dL (33.0-37.0); Mean Corpuscular Volume 100.0 fL (81.0-99.0); Platelet Count 105 10^3/uL (130-400); Red Cell Dist. Width 18.0 % (11.5-14.5)
[2024-11-26 09:57] LABS: Blood Urea Nitrogen 18 mg/dl (7-17); Calcium 8.2 mg/dl (8.4-10.2); Carbon Dioxide 25 mmol/L (22-30); Chloride 108 mmol/L (98-107); Estimated Creatinine Clearance 64 ml/min; Glucose 77 mg/dl (70-99); Magnesium 2.3 mg/dl (1.6-2.3); Potassium 4.0 mmol/L (3.5-5.1); Sodium 137 mmol/L (135-145); eGFR > 60.00
[2024-11-26] MEDS: TYLENOL 1000 MG PO ×2 (12:33→17:35)
--- NOTE | 2024-11-26 15:08 | W.PN.CRS1 ---
Addendum entered and electronically signed by Kiko Rubalcava MD 11/26/24 16:19:
I saw and examined the patient.
The Sample Display Preparer's note was reviewed and I agree with the note.
Comment: feels well, OOBTC, pain controlled, exam approp stoma with thin liquid stool in bag and some gas, wbc improving, plan to adv diet
Original Note:
Today's Communication / Plan
-
Advance diet
Assessment/Plan
-
79-year-old female with PMH of cirrhosis complicated by esophageal varices, HTN, HLD, aortic stenosis s/p valve replacement, who presented for elective surgery for recurrent diverticulitis
POD 3 robotic sigmoidectomy with DLI
AFVSS
Stoma now productive of stool/flatus
Thrombocytopenia improving
Completed 4 days of Invanz
Mild leukocytosis still present but trending down
� Advance to low residue diet
� Follow labs
� Pain control with Tylenol, Toradol standing and Tramadol, Dilaudid as needed
� Wound RN for stoma teaching. VN final teaching with daughter at 1pm on Thursday.
� Follow off ABX
- OR pathology pending
- OOB with PT/OT
� DVT PPx with Lovenox. TEDS/SCDS in place.
Anticipate home thursday after stoma teaching with VNA
Subjective Data
Procedure
11/23: Lysis of adhesions (> 2 hours)
Culture of pelvic abscess (5 minutes)
Robotic sigmoid colon resection with takedown of splenic flexure and intracorporeal anastomosis(5 hours)
Diverting loop ileostomy with Seprafilm (30 minutes)
Subjective Data
Date of Service: November 26, 2024
Pt seen and examined at bedside with Dr. Rubalcava. Denies n/v. OOB to chair. Some soreness but manageable.
Objective Data
-
Vital Signs
Temp Pulse Resp BP Pulse Ox
98.4 F 77 16 144/62 97
11/26/24 07:15 11/26/24 07:55 11/26/24 07:15 11/26/24 07:55 11/26/24 07:15
Intake & Output
11/25/24 11/26/24 11/27/24
06:59 06:59 06:59
Intake Total 3010 / 3010 960 / 960
Output Total 500 / 500 675 / 675 50 / 50
Balance 2510 / 2510 285 / 285 -50 / -50
Intake:
Oral fluids 1440 / 1440 960 / 960
IV fluids (Total) 1300 / 1300
Normosol 1300 / 1300
IV piggybacks 270 / 270
Output:
Liquid stool amount 125 / 125 675 / 675 50 / 50
Ileostomy 125 / 125 675 / 675 50 / 50
Urine, Pepe 375 / 375
Other:
Number of approximated MODERATE 1 1
amounts of urine
Number of approximated LARGE 1
amounts of urine
Lab Results
11/26/24 08:36
11/26/24 08:36
Physical Exam
-
General: No Acute Distress and AOx3
Abdomen: Soft, Non Distended, Non Tender and Other (colostomy warm and pink with stool/flatus in appliance)
Skin: Warm and Dry
Incision: Clear, Dry, Intact (no erythema)
[2024-11-26 15:15] VITALS: BP 142/59
[2024-11-26] MEDS: CRESTOR 10 MG PO (17:35)
[2024-11-26] MEDS: LOVENOX 40 MG SC (17:35)
[2024-11-26] MEDS: LOW STRENGTH ASPIRIN 81 MG PO (17:35)
[2024-11-26 19:00] VITALS: BP 137/48
[2024-11-26 20:40] VITALS: BP 137/48
[2024-11-26 20:41] VITALS: BMI 25.9
[2024-11-26] MEDS: TOPROL XL 25 MG PO (21:30)
[2024-11-26] MEDS: NORVASC 2.5 MG PO (21:30)
[2024-11-26 23:00] VITALS: BP 109/54
[2024-11-27] MEDS: TYLENOL 1000 MG PO ×5 (00:01→23:56)
[2024-11-27] MEDS: TORADOL IV ×4 (01:44→19:56)
[2024-11-27 03:00] VITALS: BP 100/58
[2024-11-27 06:16] VITALS: BMI 26.0
[2024-11-27 07:15] VITALS: BP 111/63
[2024-11-27 07:56] LABS: Hematocrit 28.4 % (37.0-47.0); Hemoglobin 9.4 g/dL (12.0-16.0); Mean Corp Hgb Conc. 33.1 g/dL (33.0-37.0); Mean Corpuscular Volume 98.3 fL (81.0-99.0); Platelet Count 102 10^3/uL (130-400); Red Cell Dist. Width 17.6 % (11.5-14.5)
[2024-11-27 08:32] LABS: Blood Urea Nitrogen 19 mg/dl (7-17); Calcium 8.3 mg/dl (8.4-10.2); Carbon Dioxide 26 mmol/L (22-30); Chloride 108 mmol/L (98-107); Estimated Creatinine Clearance 54 ml/min; Glucose 84 mg/dl (70-99); Potassium 4.0 mmol/L (3.5-5.1); Sodium 135 mmol/L (135-145); eGFR > 60.00
[2024-11-27] MEDS: LASIX 20 MG PO (09:05)
[2024-11-27] MEDS: COZAAR 50 MG PO (09:06)
[2024-11-27 11:07] VITALS: BP 112/51
--- NOTE | 2024-11-27 13:53 | W.PN.CRS1 ---
Addendum entered and electronically signed by Kiko Rubalcava MD 11/27/24 18:11:
I saw and examined the patient.
The Personnel Manager's note was reviewed and I agree with the note.
Comment: Improving, dressed in civilian clothes, feels well, libertad LRD, belly soft, approp ttp, incisions cdi, stoma functioning, some mucoid output KS with bloody streaks, reassured this is expected, cont LRD, for stoma teaching tomorrow with wound
team
Original Note:
Today's Communication / Plan
-
LRD
Stoma teaching
Assessment/Plan
-
79-year-old female with PMH of cirrhosis complicated by esophageal varices, HTN, HLD, aortic stenosis s/p valve replacement, who presented for elective surgery for recurrent diverticulitis
POD 4 robotic sigmoidectomy with DLI
AFVSS
Stoma productive of stool/flatus, tolerating LRD
Thrombocytopenia improving
Completed 4 days of Invanz
Leukocytosis resolved
H/H stable
� Continue low residue diet
� Pain control with Tylenol, Toradol standing and Tramadol, Dilaudid as needed
� Wound RN for stoma teaching. VN final teaching with daughter at 1pm on Thursday.
� Follow off ABX
- OR pathology pending
- OOB with PT/OT
� DVT PPx with Lovenox. TEDS/SCDS in place.
Anticipate home thursday after stoma teaching with VNA
Subjective Data
Procedure
11/23: Lysis of adhesions (> 2 hours)
Culture of pelvic abscess (5 minutes)
Robotic sigmoid colon resection with takedown of splenic flexure and intracorporeal anastomosis(5 hours)
Diverting loop ileostomy with Seprafilm (30 minutes)
Subjective Data
Date of Service: November 27, 2024
Pt seen and examined at bedside with Dr. Rubalcava. Denies n/v. Tolerating diet. Passed a few stools rectally. Denies pain.
Objective Data
-
Vital Signs
Temp Pulse Resp BP Pulse Ox
97.5 F 74 16 112/51 99
11/27/24 11:07 11/27/24 11:07 11/27/24 11:07 11/27/24 11:07 11/27/24 11:07
Intake & Output
11/26/24 11/27/24 11/28/24
06:59 06:59 06:59
Intake Total 960 / 960 1200 / 1200
Output Total 675 / 675 900 / 900
Balance 285 / 285 300 / 300
Intake:
Oral fluids 960 / 960 1200 / 1200
Output:
Liquid stool amount 675 / 675 900 / 900
Ileostomy 675 / 675 900 / 900
Other:
How many times incontinent 1
MODERATE amount urine
Number of approximated MODERATE 1 1
amounts of urine
Number of approximated LARGE 1
amounts of urine
Lab Results
11/27/24 07:22
11/27/24 07:22
Physical Exam
-
General: No Acute Distress and AOx3
Abdomen: Soft, Non Distended, Non Tender and Other (colostomy warm and pink with stool/flatus in appliance)
Skin: Warm and Dry
Incision: Clear, Dry, Intact (no erythema)
[2024-11-27 15:05] VITALS: BP 124/60
[2024-11-27] MEDS: LOVENOX 40 MG SC (17:04)
[2024-11-27] MEDS: LOW STRENGTH ASPIRIN 81 MG PO (17:05)
[2024-11-27] MEDS: CRESTOR 10 MG PO (17:05)
--- NOTE | 2024-11-27 17:31 | PTCARENOTE ---
Patient found to have pitting edema, warmth, and redness to right abdomen, radiating to R flank area. VSS, afebrile. Patient reports she had not been laying on right side and was laying on back. This RN walked with patient to see if it would help
relieve edema, and it did not. MD Kiko Rubalcava notified.
[2024-11-27 19:08] VITALS: BP 146/64
[2024-11-27] MEDS: NORVASC 2.5 MG PO (21:19)
[2024-11-27] MEDS: TOPROL XL 25 MG PO (21:20)
[2024-11-27 23:03] VITALS: BP 117/54
[2024-11-28] MEDS: TORADOL IV ×3 (00:13→12:53)
[2024-11-28] MEDS: TYLENOL 1000 MG PO ×2 (05:48→12:35)
[2024-11-28 06:00] VITALS: BMI 25.7
[2024-11-28 07:41] VITALS: BP 111/51
[2024-11-28 07:45] LABS: Hematocrit 28.7 % (37.0-47.0); Hemoglobin 9.5 g/dL (12.0-16.0); Mean Corp Hgb Conc. 33.1 g/dL (33.0-37.0); Mean Corpuscular Volume 98.0 fL (81.0-99.0); Platelet Count 114 10^3/uL (130-400); Red Cell Dist. Width 17.2 % (11.5-14.5)
[2024-11-28 08:08] LABS: Blood Urea Nitrogen 21 mg/dl (7-17); Calcium 8.1 mg/dl (8.4-10.2); Carbon Dioxide 22 mmol/L (22-30); Chloride 107 mmol/L (98-107); Estimated Creatinine Clearance 48 ml/min; Glucose 82 mg/dl (70-99); Potassium 3.9 mmol/L (3.5-5.1); Sodium 134 mmol/L (135-145); eGFR > 60.00
[2024-11-28] MEDS: LASIX 20 MG PO (08:53)
[2024-11-28] MEDS: COZAAR 50 MG PO (08:54)
--- NOTE | 2024-11-28 10:02 | W.PN.CRS1 ---
Addendum entered and electronically signed by Selvin Quick MD 11/30/24 07:23:
She had hypokalemia that was treated with potassium supplements.
Original Note:
Today's Communication / Plan
-
discharge today after final stoma teaching
home with VN
Assessment/Plan
-
79-year-old female with PMH of cirrhosis complicated by esophageal varices, HTN, HLD, aortic stenosis s/p valve replacement, who presented for elective surgery for recurrent diverticulitis
POD 5 robotic sigmoidectomy
AFVSS
Stoma productive of stool/flatus, tolerating LRD
Completed 4 days of Invanz
Leukocytosis resolved
H/H stable
� Continue low residue diet
� Pain control with Tylenol, Toradol standing and Tramadol, Dilaudid as needed
� Wound RN for stoma teaching. VN final teaching with daughter at 1pm on Thursday.
� Follow off ABX
- OR pathology pending
- OOB with PT/OT
� DVT PPx with Lovenox. TEDS/SCDS in place.
- Okay for d/c today after stoma teaching with VNA, around 1pm.
-Will remove stoma francisco in the office
-All discharge instructions discussed with patient including medications, activity levels and follow up. All questions addressed.
Subjective Data
Procedure
11/23: Lysis of adhesions (> 2 hours)
Culture of pelvic abscess (5 minutes)
Robotic sigmoid colon resection with takedown of splenic flexure and intracorporeal anastomosis(5 hours)
Diverting loop ileostomy with Seprafilm (30 minutes)
Subjective Data
Date of Service: November 28, 2024
Patient states she has some mild abdominal swelling. She is tolerating a diet. She is urinating wtihout difficulty. Denies nausea or vomiting. She has no pain.
Objective Data
-
Vital Signs
Temp Pulse Resp BP Pulse Ox
97.9 F 65 18 111/56 97
11/28/24 07:41 11/28/24 08:54 11/28/24 07:41 11/28/24 08:54 11/28/24 07:41
Intake & Output
11/27/24 11/28/24 11/29/24
06:59 06:59 06:59
Intake Total 1200 / 1200 960 / 960
Output Total 900 / 900 1020 / 1020
Balance 300 / 300 -60 / -60
Intake:
Oral fluids 1200 / 1200 960 / 960
Output:
Liquid stool amount 900 / 900 1020 / 1020
Ileostomy 900 / 900 1020 / 1020
Other:
How many times incontinent 1
MODERATE amount urine
Number of approximated MODERATE 1 2
amounts of urine
Lab Results
11/28/24 07:11
11/28/24 07:11
Physical Exam
-
General: No Acute Distress and AOx3
Abdomen: Soft, Non Distended, Non Tender and Other (colostomy warm and pink with output, stoma francisco in place)
Skin: Warm and Dry
[2024-11-28] MEDS: PREVNAR 20 0.5 ML IM (10:29)
--- NOTE | 2024-11-28 10:51 | CM ---
CM reviewed chart and noted dc order
CM confirmed acceptance and SOC for new ostomy support with [facility]/liaison
CM confirmed ostomy teaching bedside with pt and family today with WOC
Bedside meeting with pt- reviewed dc plan and she is in agreement
IMM verbally reviewed- copy provided
No other dc needs noted
VN order on chart
Discharge Disposition- home with [facility] and new ostomy, family transport
--- NOTE | 2024-11-28 13:09 | VNURNOTE ---
Home Health Liaison met with patient at bedside to discuss [facility] nurse/therapy, visits, schedule and homebound status. Patient is agreeable and understands that visits at home will be 2-3 x per week to assess and teach medical and ostomy
management. Patient is aware that [facility] will contact them for start of care in 1-2 days after discharge from . Provided contact number for [facility].
[facility] referral accepted in [facility].
--- NOTE | 2024-11-28 13:30 | WOUNDNOTE ---
[facility] RN note: Patient and patient's daughter instructed how to empty and change ileostomy appliance using Darian wafer # [id number] and [place] pouch #[id number]. Stoma pink and budded with stoma bridge in place. Peristomal skin intact. Ostomy supplies in
patient's belonging bag. Daughter confirmed she has an ostomy teaching folder.
[2024-11-28 13:31] VITALS: BP 114/50
--- NOTE | 2024-11-28 13:32 | WOUNDNOTE ---
[facility] RN note: Patient and patient's daughter instructed how to empty and change ileostomy appliance using Darian wafer # [id number] and Darian pouch #[id number]. Stoma pink and budded with stoma bridge in place. Peristomal skin intact. Effluent liquid
brown. Ostomy supplies in patient's belonging bag. Daughter confirmed she has an ostomy teaching folder. Suggested patient use an Gallo seal after surgeon removes stoma bridge. Sacral/coccyx skin slow to jose de jesus red and intact. Air chair cushion
given. Patient ambulates slowly independently. Updated RN Sheree.
== END 2024-11-28 14:22 | disposition home health service (06) | DRG 329 ==
LOC: 2 SOUTH 05:54
PROVIDERS: Registered Nurse; Specialist; Surgery; ADMITTING PHYSICIAN Surgery; FAMILY PHYSICIAN Internal Medicine
PROC: 3E0K8KZ Introduction of Other Diagnostic Substance into Genitourinary Tract, Via Natural or Artificial Opening Endoscopic (ICD-10-PCS; 2024-11-23)
PROC: 8E0W4CZ Robotic Assisted Procedure of Trunk Region, Percutaneous Endoscopic Approach (ICD-10-PCS; 2024-11-23)
PROC: 0T788DZ Dilation of Bilateral Ureters with Intraluminal Device, Via Natural or Artificial Opening Endoscopic (ICD-10-PCS; 2024-11-23)
PROC: 3E0M45Z Introduction of Adhesion Barrier into Peritoneal Cavity, Percutaneous Endoscopic Approach (ICD-10-PCS; 2024-11-23)
PROC: 30233N1 Transfusion of Nonautologous Red Blood Cells into Peripheral Vein, Percutaneous Approach (ICD-10-PCS; 2024-11-23)
PROC: 0DTN4ZZ Resection of Sigmoid Colon, Percutaneous Endoscopic Approach (ICD-10-PCS; 2024-11-23)
PROC: 0D1B4Z4 Bypass Ileum to Cutaneous, Percutaneous Endoscopic Approach (ICD-10-PCS; 2024-11-23)
PROC: 0DN84ZZ Release Small Intestine, Percutaneous Endoscopic Approach (ICD-10-PCS; 2024-11-23)
PROC: 3E0234Z Introduction of Serum, Toxoid and Vaccine into Muscle, Percutaneous Approach (ICD-10-PCS; 2024-11-28)
DX: K57.20 Diverticulitis of large intestine with perforation and abscess without bleeding (principal); K65.1 Peritoneal abscess; I85.10 Secondary esophageal varices without bleeding; K76.6 Portal hypertension; K56.699 Other intestinal obstruction unspecified as to partial versus complete obstruction; K66.0 Peritoneal adhesions (postprocedural) (postinfection); K74.60 Unspecified cirrhosis of liver; I10 Essential (primary) hypertension; E78.5 Hyperlipidemia, unspecified; E87.6 Hypokalemia; D69.6 Thrombocytopenia, unspecified; Z60.2 Problems related to living alone; Z23 Encounter for immunization; Z95.2 Presence of prosthetic heart valve; Z95.0 Presence of cardiac pacemaker; Z82.49 Family history of ischemic heart disease and other diseases of the circulatory system
CPT/HCPCS: 36415; 80048; 80053; 82040; 82962; 83036; 83735; 85025; 85027; 85610; 85730; 86850; 86900; 86901; 86920; 87070; 87075; 87077; 87186; 87205; 88307; 90677; 97162; 97166; 97530; G0009; J1335; P9016

== ENCOUNTER → 2024-12-21 09:08 | Outpatient (REF) | payer OTHER, SELFPAY | LOC: RAD 09:08 | PROVIDERS: ATTENDING PHYSICIAN Surgery; FAMILY PHYSICIAN Internal Medicine | DX: Z48.89 Encounter for other specified surgical aftercare (principal) | CPT/HCPCS: 74270 ==

== ENCOUNTER 2025-01-05 12:18 | Inpatient (IN) | payer OTHER, SELFPAY ==
[2025-01-05] VITALS (15 sets, daily range): BP systolic 123–140; BP diastolic 44–60; BMI 21.9
[2025-01-05] MEDS: TYLENOL 1000 MG PO (12:34)
[2025-01-05] MEDS: NORMOSOL-R/PLASMALYTE-A 1000 IV ×2 (13:00→20:12)
[2025-01-05] MEDS: HEPARIN 5000 UNITS SC (14:52)
--- NOTE | 2025-01-05 17:16 | W.IMMPOSTOP ---
Surgical Immed Post Op Note
-
Primary Surgeon: Kam Quick MD
Head Counselor: MARITZA Bowie
Pre-op Diagnosis: Ileostomy
Post-op Diagnosis: Same
Procedure Performed: Flexible sigmoidoscopy and resection and closure of ileostomy
Anesthesia Type: GET
Specimen / Cultures: None
Estimated Blood Loss: 30cc
Complications: None
Operative Findings: Normal anastomosis on flexible sigmoidoscopy
Stapled functional end-to-end anastmosis
Patient's daughters updated in the waiting room.
[2025-01-05] MEDS: CRESTOR 10 MG PO (20:09)
[2025-01-05] MEDS: LOW STRENGTH ASPIRIN 81 MG PO (20:09)
[2025-01-05] MEDS: TOPROL XL 25 MG PO (20:09)
[2025-01-05] MEDS: TYLENOL PO ×2 (20:17→23:08)
[2025-01-06] MEDS: TYLENOL 650 MG PO ×2 (02:49→08:59)
[2025-01-06 03:00] VITALS: BP 111/52
[2025-01-06 06:00] VITALS: BMI 22.2
[2025-01-06 06:15] VITALS: BP 128/46
--- NOTE | 2025-01-06 08:14 | VNURNOTE ---
Addendum entered by Melanie Bautista RN 01/06/25 11:32:
[facility] Resumption referral placed in [facility].
Original Note:
Chart reviewed. Patient is current with [facility]. Will continue to follow hospital course and DC plans.
[2025-01-06] MEDS: NORMOSOL-R/PLASMALYTE-A 1000 IV (08:58)
[2025-01-06] MEDS: COZAAR 50 MG PO (08:59)
--- NOTE | 2025-01-06 08:59 | W.PN.CRS1 ---
Today's Communication / Plan
-
advance diet
maintain ivfs today
watch urine output
await labs
Assessment/Plan
-
POD#1 Flexible sigmoidoscopy and resection and closure of ileostomy
vitals :normal
labs: pending
-Advance to fulls. Regular for dinner if tolerates.
-Due to low urine output, keep IVFs on another day.
-Maintain rose until tomorrow
-OOB with PT/OT
-TEDs/SCDS in place. Will start lovenox if labs okay.
-Pain control: Tylenol/Toradol standing, Dilauid and oxycodone PRN
-Anticipate changing OR dressing this weekend
-CM for dispo planning
Subjective Data
Procedure
01/05/2025- Flexible sigmoidoscopy and resection and closure of ileostomy
Subjective Data
Date of Service: January 06, 2025
Patient states she is 'tired'. Denies nausea or vomiting. She has no bloating. Her pain is controlled. She has tried some clears and is hungry for more.
Objective Data
-
Vital Signs
Temp Pulse Resp BP Pulse Ox
97.4 F 81 14 128/46 97
01/06/25 06:15 01/06/25 06:15 01/06/25 06:15 01/06/25 06:15 01/06/25 06:15
Intake & Output
01/05/25 01/06/25 01/07/25
06:59 06:59 06:59
Intake Total 200 / 200 1360 / 1360
Output Total 75 / 75 250 / 250
Balance 125 / 125 1110 / 1110
Intake:
Oral fluids 480 / 480
IV fluids (Total) 200 / 200 880 / 880
Normosol 200 / 200
Output:
Urine, Rose 75 / 75 250 / 250
Physical Exam
-
General: No Acute Distress and AOx3
Abdomen: Soft, Non Distended and Non Tender
Skin: Warm and Dry
Wound: Dressing in Place
[2025-01-06 09:37] LABS: Hematocrit 22.9 % (37.0-47.0); Hemoglobin 7.7 g/dL (12.0-16.0); Mean Corp Hgb Conc. 33.6 g/dL (33.0-37.0); Mean Corpuscular Volume 97.0 fL (81.0-99.0); Nucleated Red Blood Cells % 0 %; Platelet Count 90 10^3/uL (130-400); Red Cell Dist. Width 15.2 % (11.5-14.5)
[2025-01-06 09:48] VITALS: BP 100/37; BP 105/47; BP 98/40; PULSE 68; PULSE 70
[2025-01-06 10:37] LABS: Blood Urea Nitrogen 36 mg/dl (7-17); Calcium 8.7 mg/dl (8.4-10.2); Carbon Dioxide 9 mmol/L (22-30); Chloride 111 mmol/L (98-107); Estimated Creatinine Clearance 30 ml/min; Glucose 140 mg/dl (70-99); Potassium 5.0 mmol/L (3.5-5.1); Sodium 130 mmol/L (135-145); eGFR 45.48
[2025-01-06 11:21] VITALS: BP 93/56
--- NOTE | 2025-01-06 11:58 | CM ---
CM following re: discharge planning.
Reviewed pt's chart, met with pt.
Pt is an 79 year old female, admitted with primary dx of POD#1 Flexible sigmoidoscopy and resection and closure of ileostomy.
Pt reports she lives alone in a 2SH townhouse, 2 steps to enter, has 3 supportive children. Pt reports she ambulates with a walker, current with [facility]. Pt made a strong request she will return back [facility] at discharge with [facility] and family support.
[facility] liaison following.
PCP: [facility]
Pharmacy: [facility]
D/C plan: home with resumptions of [facility] and family support.
CM will follow with discharge plan updates as hospitalization progresses
[2025-01-06] MEDS: TYLENOL PO ×3 (12:31→20:53)
[2025-01-06] MEDS: NSS 1000 IV (13:11)
[2025-01-06 15:25] VITALS: BP 111/48
[2025-01-06] MEDS: CRESTOR 10 MG PO (17:12)
[2025-01-06] MEDS: LOW STRENGTH ASPIRIN 81 MG PO (17:12)
[2025-01-06] MEDS: TOPROL XL PO (21:59)
[2025-01-06 23:09] VITALS: BP 108/45
[2025-01-07] VITALS (11 sets, daily range): BP systolic 108–139; BP diastolic 46–80; BMI 23.2
[2025-01-07 00:13] LABS: Hematocrit 22.0 % (37.0-47.0); Hemoglobin 7.0 g/dL (12.0-16.0); Mean Corp Hgb Conc. 31.8 g/dL (33.0-37.0); Mean Corpuscular Volume 104.3 fL (81.0-99.0); Platelet Count 75 10^3/uL (130-400); Red Cell Dist. Width 15.3 % (11.5-14.5)
[2025-01-07 00:19] LABS: Blood Urea Nitrogen 42 mg/dl (7-17); Calcium 8.3 mg/dl (8.4-10.2); Carbon Dioxide 13 mmol/L (22-30); Chloride 109 mmol/L (98-107); Estimated Creatinine Clearance 30 ml/min; Glucose 125 mg/dl (70-99); Potassium 4.6 mmol/L (3.5-5.1); Sodium 127 mmol/L (135-145); eGFR 45.48
[2025-01-07] MEDS: TYLENOL PO ×6 (01:11→20:13)
[2025-01-07] MEDS: NSS 1000 IV ×2 (01:42→20:03)
[2025-01-07] MEDS: COZAAR PO (09:01)
[2025-01-07 09:11] LABS: Hematocrit 19.4 % (37.0-47.0); Hemoglobin 6.7 g/dL (12.0-16.0); Mean Corp Hgb Conc. 34.5 g/dL (33.0-37.0); Mean Corpuscular Volume 97.0 fL (81.0-99.0); Nucleated Red Blood Cells % 0 %; Platelet Count 2 10^3/uL (130-400); Red Cell Dist. Width 15.0 % (11.5-14.5)
[2025-01-07 09:25] LABS: Blood Urea Nitrogen 41 mg/dl (7-17); Calcium 8.2 mg/dl (8.4-10.2); Carbon Dioxide 15 mmol/L (22-30); Chloride 113 mmol/L (98-107); Estimated Creatinine Clearance 33 ml/min; Glucose 101 mg/dl (70-99); Iron 42 ug/dl (37-170); Potassium 4.9 mmol/L (3.5-5.1); Sodium 133 mmol/L (135-145); eGFR 50.48
--- NOTE | 2025-01-07 09:30 | W.PN.CRS1 ---
Addendum entered and electronically signed by Fahad Hernandez MD 01/07/25 14:44:
Patient seen and examined in follow-up with surgical PA. Agree with documented progress note.
Patient offers no complaints. She states that she feels a little tired but otherwise doing well. Denies abdominal pain she states she has had multiple liquid bowel movements but she does not recall if they have been bloody. Feels like she may
have the urge to have another bowel movement this morning. No nausea. Was tolerating p.o. intake well.
AFVSS
NAD AAO x 3
ABD: Soft, nondistended, no significant tenderness on palpation. Dressing over ileostomy site with minimal blood staining. No active bleeding or clot.
Assessment/plan: POD #2 status post takedown diverting loop ileostomy
Presumably acute blood loss anemia from initial surgery as clinically there are no strong signs of active GI bleeding or surgical site bleeding, with 1 g drop from initial postoperative hemoglobin of 7 down to 6.4. Thrombocytopenia stable, initial
count of 2 lab error.
Transfusion today; repeat CBC in evening; maintain platelet count over 50
Hospitalist assistance with postoperative care and evaluation greatly appreciated
Original Note:
Today's Communication / Plan
-
1 unit prbcs
hospitalist consult
maintain rose
hold lovenox
repeat labs
Assessment/Plan
-
POD#2 Flexible sigmoidoscopy and resection and closure of ileostomy
vitals : some hypotension 80/90's/40-50's, now resolved
labs:
Hgb 6.7 (7.0) - anemia likely due to acute blood loss and dilutional
Sodium: 133 (127) (hyponatremia)
WBC: 13.5 (9.9)
Platelets: 2 (75, 90)
Creatinine: 1.1 (1.2)
Urine output: 725ml
-Continue regular diet
-Hospitalist consulted for help with electrolyte imbalances/anemia/low platelets
-Transfuse 1 unit PRBCs now
-Due to low urine output, keep IVFs on another day.
-Maintain rose given low urine output
-OOB with PT/OT
-TEDs/SCDS in place. Holding lovenox due to anemia.
-Pain control: Tylenol/Toradol standing, Dilauid and oxycodone PRN
-Dressing changed at bedside
-Bear will be removed prior to discharge
-Repeat labs now
Subjective Data
Procedure
01/05/2025- Flexible sigmoidoscopy and resection and closure of ileostomy
Subjective Data
Date of Service: January 07, 2025
Patient states she feels well. She has no pain. Denies nausea or vomiting. Tolerating a regular diet. She has flatus.
Objective Data
-
Vital Signs
Temp Pulse Resp BP Pulse Ox
97.7 F 72 18 109/48 95
01/07/25 07:15 01/07/25 07:15 01/07/25 07:15 01/07/25 07:15 01/07/25 07:15
Intake & Output
01/06/25 01/07/25 01/08/25
06:59 06:59 06:59
Intake Total 200 / 200 4480 / 4480
Output Total 75 / 75 975 / 975
Balance 125 / 125 3505 / 3505
Intake:
Oral fluids 1680 / 1680
IV fluids (Total) 200 / 200 2800 / 2800
Normosol 200 / 200
Output:
Urine, Rose 75 / 75 500 / 500
Urine, Voided 475 / 475
Lab Results
01/07/25 08:19
Physical Exam
-
General: No Acute Distress and AOx3
Abdomen: Soft, Non Distended and Non Tender
Wound: Dressing Changed (arnold in place in former ileostomy site, no active bleeding (some old blood present))
[2025-01-07 09:36] LABS: Total Iron Binding Capacity 270 ug/dl (265-497)
[2025-01-07] MEDS: SODIUM BICARBONATE 1300 MG PO ×3 (09:47→22:12)
[2025-01-07 10:33] LABS: Hematocrit 19.4 % (37.0-47.0); Hemoglobin 6.4 g/dL (12.0-16.0); Mean Corp Hgb Conc. 33.0 g/dL (33.0-37.0); Mean Corpuscular Volume 99.5 fL (81.0-99.0); Nucleated Red Blood Cells % 0 %; Platelet Count 77 10^3/uL (130-400); Red Cell Dist. Width 15.5 % (11.5-14.5)
[2025-01-07 10:58] LABS: Ferritin 98.6 ng/ml (11.1-264.0)
[2025-01-07 11:30] LABS: Folate 6.1 ng/ml (2.76-20); Vitamin B12 808 pg/ml (239-931)
--- NOTE | 2025-01-07 12:32 | CON.HOSP ---
Addendum entered and electronically signed by Zay Harris MD 01/07/25 12:47:
I spent a total of 62 minutes with the patient or on the floor. More than 50% of this time involved counseling and coordination of care.
Original Note:
Consultation
-
Requesting Provider: Nancy Gregory
Performing Provider: Dr. Harris
Reason for Consultation: Medical management
Family Physician
-
Family Physician: NOT KNOW UNKNOWN - PT DOES
Chief Complaint
-
Hypotension, anemia
History of Present Illness
79-year-old female with past medical history of aortic stenosis status post TAVR, essential hypertension, alcohol use, liver cirrhosis, hyperlipidemia, anemia, diverticulitis, colonic stricture secondary diverticular disease status post robotic
sigmoidectomy with ileostomy now with flexible sigmoidoscopy and resection and closure of ileostomy. Patient has been under colorectal service and now started to have metabolic acidosis with hyponatremia. She also developed anemia along with
worsening thrombocytopenia. This prompted medical consultation for further evaluation. Patient she denies chest pain, shortness of breath. Denies any melena, hematemesis. Denies any abdominal pain. Denies any dizziness.
Medical History
Past Medical History
Past Medical History: Reports Other
Additional Past Medical History:
aortic stenosis status post TAVR, essential hypertension, alcohol use, liver cirrhosis, hyperlipidemia, anemia, diverticulitis, colonic stricture secondary diverticular disease status post robotic sigmoidectomy with ileostomy
Past Surgical History: Reports Bowel Resection and Cardiac
Social History
Tobacco: Non-smoker
Alcohol: None
Family History
Family History: Reviewed & Not Pertinent
Allergies / Home Medications
Allergies reflects when Allergies were last updated in [facility].
Home Medications with original date entered in [facility]
Allergy/Medication List:
Allergies
Allergy/AdvReac Type Severity Reaction Status Date / Time
atorvastatin (From Lipitor) Allergy MYALGIA Verified 01/05/25 12:27
(only with
high dose
per pt)
Home Medications
aspirin 81 mg chewable tablet 81 mg PO QPM Blood clot prevention/tx 05/07/21
losartan 50 mg tablet 50 mg PO DAILY Blood pressure 05/07/21
cyanocobalamin (vitamin B-12) 1,000 mcg tablet 1,000 mcg PO QPM Supplement 09/30/24
metoprolol succinate 25 mg tablet,extended release 24 hr (Toprol XL) 25 mg PO HS Blood Pressure 09/30/24
rosuvastatin 10 mg tablet (Crestor) 10 mg PO QPM HLD 09/30/24
Review of Systems
-
History Source: Patient
A 12 point Review of Systems was completed except as noted: Yes
Abdomen/GI: Denies Abdominal Pain, Nausea, Vomiting or Diarrhea
Physical Exam
Vital Signs
Vital Signs
Temp Pulse Resp BP Pulse Ox
97.8 F 76 16 110/80 100
01/07/25 11:15 01/07/25 11:15 01/07/25 11:15 01/07/25 11:15 01/07/25 11:15
Physical Exam
General: Well Nourished and No Apparent Distress
HEENT: Anicteric and Moist Mucous Membranes
Respiratory: Clear and Non Labored Respirations; Negative Wheezes
Cardiac: S1/S2 and Regular Rhythm; Negative Tachycardia
Breast: Deferred by me
GI: Soft, Non Tender and Non Distended
Rectal: Deferred by Provider
Genito-urinary: Pepe Catheter
Musculoskeletal: No Edema
Neuro: Awake, Alert and AO x 3
Psych: Calm and Intact Judgement
Laboratory Results
-
Laboratory Results
01/07/25 08:19
Data Reviewed
-
Lab Data: Labs Reviewed, Discussed with Nurse and Discussed with Patient
Impression / Plan
-
Acute on chronic anemia likely secondary to recent surgery
Hemoglobin 6.4
Transfuse unit PRBC and monitor
No complaints of bleeding
History of EGD with grade 1 varices.
Start IV iron, history of iron deficiency anemia
Check iron panel, B12, folate
Downgrade diet to clears for now, if continues to improve then will put back on regular diet
Acute on chronic thrombocytopenia
Chronic thrombocytopenia likely secondary to cirrhosis
Platelet 2 on 01/07 likely error. Repeat CBC with platelets 77
Hyponatremia
Likely secondary to hypovolemia
Continue with fluids
Metabolic acidosis
Continue with fluids
Start sodium bicarb
Renal insufficiency
Likely secondary to hypotension
Currently has My per primary team, will keep for another day and likely remove Pepe tomorrow
Monitor renal function, creatinine 1.1 today
Hold losartan
Aortic stenosis status post TAVR
Denies chest pain
Aspirin
Hyperlipidemia
Essential hypertension
Hold losartan
Continue metoprolol with holding parameter
DVT prophylaxis
SCDs for now
Full code
[2025-01-07 12:53] LABS: ALT (SGPT) 10 U/L (0-35); AST (SGOT) 23 U/L (14-36); Albumin 2.9 g/dl (3.5-5.0); Alkaline Phosphatase 71 U/L (38-126); Total Protein 5.2 g/dl (6.3-8.2)
[2025-01-07] MEDS: LOW STRENGTH ASPIRIN 81 MG PO (17:54)
[2025-01-07] MEDS: CRESTOR 10 MG PO (18:24)
[2025-01-07] MEDS: FERRLECIT 110 MG IV (18:58)
[2025-01-07 21:12] LABS: Hematocrit 28.6 % (37.0-47.0); Hemoglobin 10.1 g/dL (12.0-16.0); Mean Corp Hgb Conc. 35.3 g/dL (33.0-37.0); Mean Corpuscular Volume 89.9 fL (81.0-99.0); Nucleated Red Blood Cells % 0 %; Platelet Count 70 10^3/uL (130-400); Red Cell Dist. Width 17.2 % (11.5-14.5)
[2025-01-07] MEDS: TOPROL XL 25 MG PO (22:09)
[2025-01-08] MEDS: TYLENOL PO (00:06)
[2025-01-08 03:00] VITALS: BP 148/60
[2025-01-08] MEDS: TYLENOL 650 MG PO ×5 (04:06→21:37)
[2025-01-08 05:13] LABS: Blood Urea Nitrogen 32 mg/dl (7-17); Calcium 7.7 mg/dl (8.4-10.2); Carbon Dioxide 19 mmol/L (22-30); Chloride 115 mmol/L (98-107); Estimated Creatinine Clearance 41 ml/min; Glucose 96 mg/dl (70-99); Potassium 4.1 mmol/L (3.5-5.1); Sodium 136 mmol/L (135-145); eGFR > 60.00
[2025-01-08 05:41] LABS: Hematocrit 28.6 % (37.0-47.0); Hemoglobin 9.9 g/dL (12.0-16.0); Mean Corp Hgb Conc. 34.6 g/dL (33.0-37.0); Mean Corpuscular Volume 89.9 fL (81.0-99.0); Nucleated Red Blood Cells % 0 %; Platelet Count 55 10^3/uL (130-400); Red Cell Dist. Width 17.5 % (11.5-14.5)
[2025-01-08 06:00] VITALS: BMI 23.8
[2025-01-08 07:20] VITALS: BP 125/51
--- NOTE | 2025-01-08 09:42 | W.PN.CRS1 ---
Addendum entered and electronically signed by Fahad Hernandez MD 01/08/25 10:00:
Patient seen and examined.
Feeling better today after transfusion. Energy levels improving.
No nausea, appetite
Passing flatus and some loose bowel movements, nonbloody
AFVSS
NAD AAO x 3
ABD: Softly distended, minimal tenderness, incisions with glue dressings
A/P:
Good response to transfusion, hemoglobin stable, no signs of active bleeding
Remaining labs stable.
Resume regular diet
Hospitalist assistance with care appreciated
Original Note:
Today's Communication / Plan
-
regular diet
d/c rose
lovenox
labs overall improved
Assessment/Plan
-
POD#3 Flexible sigmoidoscopy and resection and closure of ileostomy
vitals : normal
labs:
Hgb 9.9 (10.1, 6.7, 7.0) - anemia likely due to acute blood loss and dilutional
WBC: normal
Platelets: 55 (77, 75, 90)
Creatinine: 0.9 (1.1, 1.2)
01/07 - 2 units PRBCs
-Continue regular diet
-Appreciate hospitalist
-Labs improved this AM s/p 2 units pBRCS
-D/C rose
-OOB with PT/OT
-TEDs/SCDS in place. Restart Lovenox tonight.
-Pain control: Tylenol/Toradol standing, Dilaudid and oxycodone PRN
-Dressing changed at bedside
-Mannie will be removed prior to discharge
-Repeat labs in AM
-IVFS pers hospitalist
-Midline in place until discharge
Subjective Data
Procedure
01/05/2025- Flexible sigmoidoscopy and resection and closure of ileostomy
Subjective Data
Date of Service: January 08, 2025
Patient states she is feeling more energized. Has flatus and loose stool. No bleeding. Denies nausea or vomiting. She is hungry for solid food.
Objective Data
-
Vital Signs
Temp Pulse Resp BP Pulse Ox
97.8 F 67 16 125/51 96
01/08/25 07:20 01/08/25 07:20 01/08/25 07:20 01/08/25 07:20 01/08/25 07:20
Intake & Output
01/07/25 01/08/25 01/09/25
06:59 06:59 06:59
Intake Total 4480 / 4480 3670 / 3670
Output Total 975 / 975 1500 / 1500
Balance 3505 / 3505 2170 / 2170
Intake:
Oral fluids 1680 / 1680 1200 / 1200
IV fluids (Total) 2800 / 2800 1360 / 1360
IV piggybacks 110 / 110
Blood products 500 / 500
Blood Product Amount Infused ( 500 / 500
mL)
Packed Rbc Leukoreduced Unit 250 / 250
[id number]
Packed Rbc Leukoreduced Unit 250 / 250
[id number]
Output:
Urine, Rose 500 / 500 1500 / 1500
Urine, Voided 475 / 475
Other:
Number of unmeasured liquid
stools
Rectum 1
Lab Results
01/08/25 04:31
01/08/25 04:31
Physical Exam
-
General: No Acute Distress and AOx3
Abdomen: Soft, Non Distended and Non Tender
Wound: Dressing in Place
[2025-01-08] MEDS: NSS IV ×2 (09:44→17:07)
[2025-01-08 11:35] VITALS: BP 137/62
--- NOTE | 2025-01-08 12:02 | W.PN.HOSP.TC ---
Today's Communication/Plan
-
Monitor vital signs see plan
Monitor hemoglobin
Monitor platelets
Agree with regular diet
Sodium bicarb
Monitor renal function
Assessment / Plan
Assessment / Plan
General: Well Nourished and No Apparent Distress
HEENT: Anicteric and Moist Mucous Membranes
Respiratory: Clear and Non Labored Respirations; Negative Wheezes
Cardiac: S1/S2 and Regular Rhythm; Negative Tachycardia
GI: Soft, Non Tender and Non Distended
Musculoskeletal: No Edema
Neuro: Awake, Alert and AO x 3
Psych: Calm and Intact Judgement
Acute on chronic anemia likely secondary to recent surgery
Hemoglobin 6.4 01/07; status post 2 units PRBC. Appropriate response. Continue to monitor
Low iron stores we will give some IV iron
No complaints of bleeding
History of EGD with grade 1 varices.
Start IV iron, history of iron deficiency anemia
Agree with increasing diet to regular
Acute on chronic thrombocytopenia
Chronic thrombocytopenia likely secondary to cirrhosis
Platelet 2 on 01/07 likely error. Repeat CBC with platelets 77. Platelet now in 50s. monitor. If continues to decrease then consider hematology evaluation
Hyponatremia
Likely secondary to hypovolemia
resolved with IVF. If tolerating good p.o. intake then DC further fluids
Metabolic acidosis
Improving, continue with fluids, if tolerating good p.o. intake then DC further fluids
Another day of sodium bicarb
Renal insufficiency
Likely secondary to hypotension
Remove Pepe if okay with primary team
Monitor renal function, improving. Creatinine 0.9
Hold losartan, continue to hold as blood pressure normal
Aortic stenosis status post TAVR
Denies chest pain
Aspirin
Hyperlipidemia
Essential hypertension
Hold losartan
Continue metoprolol with holding parameter
DVT prophylaxis
SCDs for now, can start pharm DVT prophylaxis per medicine. Defer to primary team
Full code
Anticipated Discharge: 24 - 48 hours
Subjective/Interval History
-
Date of Service: January 08, 2025
denies pain
Objective Data
-
Labs:
Laboratory Results
01/08/25
04:31
WBC 8.3
Hgb 9.9 L
Hct 28.6 L
Plt Count 55 L D
Sodium 136
Potassium 4.1
Chloride 115 H
Carbon Dioxide 19 L
BUN 32 H
Creatinine 0.9
Glucose 96
Calcium 7.7 L
Vital Signs:
Vital Signs
Temp Pulse Resp BP Pulse Ox
97.8 F 67 16 125/51 96
01/08/25 07:20 01/08/25 07:20 01/08/25 07:20 01/08/25 07:20 01/08/25 07:20
I&O
01/07/25 01/08/25 01/09/25
06:59 06:59 06:59
Intake Total 4480 / 4480 3670 / 3670
Output Total 975 / 975 1500 / 1500 200 / 200
Balance 3505 / 3505 2170 / 2170 -200 / -200
[2025-01-08] MEDS: SODIUM BICARBONATE 1300 MG PO ×3 (12:33→21:38)
[2025-01-08] MEDS: FERRLECIT 110 MG IV (14:05)
[2025-01-08 15:15] VITALS: BP 140/59
[2025-01-08 15:44] LABS: Transferrin 187 mg/dL (200-360)
[2025-01-08] MEDS: LOW STRENGTH ASPIRIN 81 MG PO (17:20)
[2025-01-08] MEDS: CRESTOR 10 MG PO (17:20)
[2025-01-08] MEDS: TOPROL XL 25 MG PO (21:47)
[2025-01-08 23:14] VITALS: BP 107/45
[2025-01-09] MEDS: TYLENOL PO ×3 (01:06→12:19)
[2025-01-09] MEDS: TYLENOL 650 MG PO (02:52)
[2025-01-09 04:27] VITALS: BMI 24.2
[2025-01-09 05:44] LABS: Hematocrit 28.5 % (37.0-47.0); Hemoglobin 9.9 g/dL (12.0-16.0); Mean Corp Hgb Conc. 34.7 g/dL (33.0-37.0); Mean Corpuscular Volume 91.9 fL (81.0-99.0); Nucleated Red Blood Cells % 0 %; Platelet Count 74 10^3/uL (130-400); Red Cell Dist. Width 17.5 % (11.5-14.5)
[2025-01-09 06:00] LABS: Blood Urea Nitrogen 28 mg/dl (7-17); Calcium 7.8 mg/dl (8.4-10.2); Carbon Dioxide 21 mmol/L (22-30); Chloride 112 mmol/L (98-107); Estimated Creatinine Clearance 46 ml/min; Glucose 100 mg/dl (70-99); Potassium 3.8 mmol/L (3.5-5.1); Sodium 137 mmol/L (135-145); eGFR > 60.00
[2025-01-09 08:07] VITALS: BP 121/46
[2025-01-09 09:20] VITALS: BP 129/51; PULSE 69; O2SAT 96
--- NOTE | 2025-01-09 09:30 | W.PN.CRS1 ---
Today's Communication / Plan
-
labs improving
continue regular diet
d/c planning
Assessment/Plan
-
POD#3 Flexible sigmoidoscopy and resection and closure of ileostomy
vitals : normal
labs:
Hgb 9.9 (9.9, 10.1, 6.7, 7.0) - anemia likely due to acute blood loss and dilutional
WBC: normal
Platelets: 74 (75, 55, 77, 75, 90)
Creatinine: 0.8 (0.9, 1.1, 1.2)
01/07 - 2 units PRBCs
-Continue regular diet
-Appreciate hospitalist
-Labs improving
-OOB with PT/OT
-TEDs/SCDS in place. Lovenox held due to platelet count (74)
-Pain control: Tylenol/Toradol standing, Dilaudid and oxycodone PRN
-Dressing changed at bedside
-[place] removed
-Midline in place until discharge
-Will discuss with hospitalist timing for dispo. Home with VN.
Subjective Data
Procedure
01/05/2025- Flexible sigmoidoscopy and resection and closure of ileostomy
Subjective Data
Date of Service: January 09, 2025
Patient states she has no pain. She is tolerating a diet. She has flatus and bowel movements. No issues with urination.
Objective Data
-
Vital Signs
Temp Pulse Resp BP Pulse Ox
98.2 F 69 16 121/46 96
01/09/25 08:07 01/09/25 08:07 01/09/25 08:07 01/09/25 08:07 01/09/25 08:07
Intake & Output
01/08/25 01/09/25 01/10/25
06:59 06:59 06:59
Intake Total 3670 / 3670 120 / 120
Output Total 1500 / 1500 200 / 200
Balance 2170 / 2170 -80 / -80
Intake:
Oral fluids 1200 / 1200 120 / 120
IV fluids (Total) 1360 / 1360
IV piggybacks 110 / 110
Blood products 500 / 500
Blood Product Amount Infused ( 500 / 500
mL)
Packed Rbc Leukoreduced Unit 250 / 250
[id number]
Packed Rbc Leukoreduced Unit 250 / 250
[id number]
Output:
Urine, Pepe 1500 / 1500 200 / 200
Other:
Number of approximated SMALL 1
amounts of urine
Number of approximated MODERATE 1
amounts of urine
Number of unmeasured liquid
stools
Rectum 1 2
Lab Results
01/09/25 05:18
01/09/25 05:18
Physical Exam
-
General: No Acute Distress and AOx3
Abdomen: Soft, Non Distended and Tender (around former ileostomy site)
Wound: Dressing Changed (no bleeding, arnold removed)
--- NOTE | 2025-01-09 10:29 | W.PN.HOSP.TC ---
Addendum entered and electronically signed by Se Jones MD 01/10/25 14:38:
Elevated creatinine s/p IVF.
Original Note:
Today's Communication/Plan
-
dc losartan
tolerating po diet
medically stable for dc
Assessment / Plan
Assessment / Plan
General: Well Nourished and No Apparent Distress
HEENT: Anicteric and Moist Mucous Membranes
Respiratory: Clear and Non Labored Respirations; Negative Wheezes
Cardiac: S1/S2 and Regular Rhythm; Negative Tachycardia
GI: Soft, Non Tender and Non Distended
Musculoskeletal: No Edema
Neuro: Awake, Alert and AO x 3
Psych: Calm and Intact Judgement
Acute on chronic anemia likely secondary to recent surgery
Hemoglobin 6.4 01/07; status post 2 units PRBC. Appropriate response. Continue to monitor. Hgb at 9.9
Low iron stores we will give some IV iron
No complaints of bleeding
History of EGD with grade 1 varices.
Start IV iron, history of iron deficiency anemia-IV iron while here.
Agree with increasing diet to regular
Acute on chronic thrombocytopenia
Chronic thrombocytopenia likely secondary to cirrhosis
Platelet 2 on 01/07 likely error. Platelets stabilized
Hyponatremia
Likely secondary to hypovolemia
resolved with IVF.
Metabolic acidosis
Improving, continue with fluids, if tolerating good p.o. intake then DC further fluids
Bicarb improved.
Renal insufficiency
Likely secondary to hypotension
Remove Pepe if okay with primary team
Monitor renal function, improving. Creatinine 0.9
Hold losartan on discharge for now as BP well controlled 121/46-can f/u with PCP.
Aortic stenosis status post TAVR
Denies chest pain
Aspirin
Hyperlipidemia
Essential hypertension
Hold losartan
Continue metoprolol with holding parameter
DVT prophylaxis
SCDs for now, can start pharm DVT prophylaxis per medicine. Defer to primary team
Full code
d/w with crs
PT/OT-Home health
Anticipated Discharge: Today
Subjective/Interval History
-
Date of Service: January 09, 2025
Tolerating diet
Denies lightheadedness dizziness
States some mild abdominal soreness
Objective Data
-
Labs:
Laboratory Results
01/09/25
05:18
WBC 9.7
Hgb 9.9 L
Hct 28.5 L
Plt Count 74 L D
Sodium 137
Potassium 3.8
Chloride 112 H
Carbon Dioxide 21 L
BUN 28 H
Creatinine 0.8
Glucose 100 H
Calcium 7.8 L
Vital Signs:
Vital Signs
Temp Pulse Resp BP Pulse Ox
98.2 F 69 16 121/46 96
01/09/25 08:07 01/09/25 08:07 01/09/25 08:07 01/09/25 08:07 01/09/25 08:07
I&O
01/08/25 01/09/25 01/10/25
06:59 06:59 06:59
Intake Total 3670 / 3670 120 / 120
Output Total 1500 / 1500 200 / 200
Balance 2170 / 2170 -80 / -80
Data Reviewed
-
Total Time Spent with Patient (in minutes): 55
--- NOTE | 2025-01-09 10:37 | CM ---
Chart reviewed. Patient will d/c home today
Patient current w/ [facility], will resume services
IMM verbally reviewed
Plan: Home, [facility] w/ [facility]
--- NOTE | 2025-01-09 12:11 | VATNOTE ---
Right arm Midline discontinued per unit request. Catheter measured 14cm. Pressure held to site for 5 minutes. Dressing of 2x2 gauze pads applied to site.
[2025-01-09 13:25] VITALS: BP 130/58
--- NOTE | 2025-01-10 13:50 | PN.CDI ---
CDI
- -
CDI:
Physician Documentation Request
Admit Date: 01/05/25 12:18
Dear Doctor,
01/09 General Surgery PN: 'Hgb 9.9 (9.9, 10.1, 6.7, 7.0) - anemia likely due to acute blood loss and dilutional'
03/11 Hospitalist PN: 'Acute on chronic anemia likely secondary to recent surgery
Hemoglobin 6.4 01/07; status post 2 units PRBC. Appropriate response. Continue to monitor. Hgb at 9.9
Low iron stores we will give some IV iron...Start IV iron, history of iron deficiency anemia-IV iron while here.'
Based on the above, could you clarify, in your progress note, which of the following is the most likely type of anemia you are evaluating, monitoring and/or treating?
Acute blood loss anemia with baseline iron deficiency chronic anemia
Anemia of chronic disease - indicate if neoplastic disease, CKD or other
Chronic iron deficiency anemia due to blood loss
Other
Unable to determine
Use of terms such as suspected, likely, concern for, or probable (associated with a specific diagnosis that is being evaluated, monitored, or treated as if it exists) are acceptable and can be coded in the inpatient setting, when documented at the
time of discharge.
Thank you,
Grace Qiu RN, BSN
CDI Specialist
Available via [place] text
Please use your independent medical judgment in providing your response.
--- NOTE | 2025-01-10 14:33 | PN.CDI ---
CDI
- -
CDI:
Physician Documentation Request
Admit Date: 01/05/25 12:18
Dear Doctor,
Patient admitted for ileostomy reversal.
01/09 Hospitalist PN: 'Renal insufficiency
Likely secondary to hypotension
Remove Pepe if okay with primary team
Monitor renal function, improving. Creatinine 0.9'
Laboratory Tests
01/06/25 01/09/25
23:48 05:18
Creatinine 1.2 H 0.8
Clarify which of the following accurately represents the patient's renal status:
ADAM, POA, resolved
Elevated creatinine
Other
Criteria for ADAM*
1 Increase in serum creatinine by > or = to 0.3 mg/dL (> or = to 26.5 micromol/L) within 48 hours, OR
2 Increase in serum creatinine to > or = to 1.5 times baseline, which is known or presumed to have occurred within 7 days, OR
3 Urine volume < 0.5 nL/kg/hour for six hours
Use of terms such as suspected, likely, concern for, or probable (associated with a specific diagnosis that is being evaluated, monitored, or treated as if it exists) are acceptable and can be coded in the inpatient setting, when documented at the
time of discharge.
Thank you,
Grace Qiu RN, BSN
CDI Specialist
Available via [place] text
Please use your independent medical judgment in providing your response.
*Source: Kidney Disease: Improving Global Outcomes (KDIGO) 2012
== END 2025-01-09 13:35 | disposition home health service (06) | DRG 330 ==
LOC: 2 SOUTH 12:18
PROVIDERS: Physician Assistant; ADMITTING PHYSICIAN Surgery; OTHER PHYSICIAN Internal Medicine
PROC: 0D1B0ZB Bypass Ileum to Ileum, Open Approach (ICD-10-PCS; 2025-01-05)
PROC: 30233N1 Transfusion of Nonautologous Red Blood Cells into Peripheral Vein, Percutaneous Approach (ICD-10-PCS; 2025-01-07)
DX: Z43.2 Encounter for attention to ileostomy (principal); D62 Acute posthemorrhagic anemia; E87.1 Hypo-osmolality and hyponatremia; E87.20 Acidosis, unspecified; K76.6 Portal hypertension; D69.6 Thrombocytopenia, unspecified; E78.5 Hyperlipidemia, unspecified; I10 Essential (primary) hypertension
CPT/HCPCS: 80048; 80053; 82248; 82607; 82728; 82746; 83540; 83550; 84466; 85025; 85027; 86850; 86900; 86901; 86920; 97163; 97167; 97530; 97535; J1335; J2916; P9016

== ENCOUNTER 2025-01-12 01:16 | Observation (INO) | payer OTHER, SELFPAY ==
[2025-01-11 18:59] VITALS: BP 144/58
[2025-01-11 20:27] VITALS: BP 140/51
[2025-01-11 20:30] VITALS: BP 129/54
[2025-01-11 20:35] VITALS: BMI 20.5
[2025-01-11 21:00] VITALS: BP 136/59
[2025-01-11 22:00] VITALS: BP 140/61
--- NOTE | 2025-01-11 22:55 | ED.GENMED ---
History of Present Illness
General
Chief Complaint: Post Operative Problem(s)
Source: patient, records, physician, senior living records and previous hospital records
Exam Limitations: none
Time Seen by Provider: 01/11/25 21:34
Nursing documentation reviewed up to this point in time: agreed with
History of Present Illness
History of Present Illness:
Very pleasant 79-year-old female discharged yesterday after reversal of her colostomy by Dr. Quick, has been having some reddish drainage saturating dressing a few times no pain no syncope no fever no other bleeding apparently she had anemia
postoperatively required transfusion apparently has portal hypertension,
Past History
Past History
ED Past Medical History: HTN, Hypercholesterolemia, Seizures () and Other (diverticulitis)
ED Past Surgical History: , Gynecological (hyster) and Tonsilectomy
Social History
Tobacco: Non-smoker
Alcohol: None
Drug: None
Living: with family
Employment: Retired
Phy Exam
Physical Exam
Physical Exam:
Physical Exam
General: no apparent distress, not acutely ill
Neck: No jaundice
Heart: s1/s2 regular rate and rhythm, no murmur. equal radial pulses.
Lungs: no acute respiratory distress. clear bilaterally
Abdomen: Surgical site without any overt infection positive serosanguineous drainage from the lateral
Neuro: alert and oriented. no focal neurological deficits
Skin: no rash
Psychiatric: well kept. interactive and cooperative
Extremities: no edema.
Course
Orders/Labs/Results
Orders:
Orders
01/11/25 22:00
Type+Screen Urgent
CBC/With Diff [Complete Blood Count/With Diff] Stat
Comprehensive Metabolic Panel Urgent
01/11/25 22:05
PTT Urgent
Prothrombin Time Urgent
Vital Signs
Initial and Last Documented VS:
Initial Vital Signs
Temp Pulse Resp BP Pulse Ox
98.0 F 92 18 144/58 99
01/11/25 18:59 01/11/25 18:59 01/11/25 18:59 01/11/25 18:59 01/11/25 18:59
Last Documented Vital Signs
Temp Pulse Resp BP Pulse Ox
98.0 F 91 18 142/54 98
01/11/25 18:59 01/12/25 00:15 01/11/25 18:59 01/11/25 23:00 01/12/25 00:00
MDM/Problems Addressed
Differential Diagnosis Includes:
Postop bleeding seroma anemia coagulopathy
MDM/Problems Addressed:
Postop bleeding
Chronic conditions affecting care:
Recent surgery portal hyper
Acute Exacerbation and/or Progression of Chronic Illness:
Recent surgery for hypertension
*Pulse Oximetry
SaO2: 99
Oxygen Mode of Delivery: Room air
Patient hypoxic: no
*Critical Care Note
Total Time (30-74mins, 75-104mins- exclusive of procedures): Not Applicable
Update Note
Update Note:
12:30 AM update delay getting labs IV team and call placed to midline required transfusion previously did speak with her surgeon she has liver disease coags been ordered at this point. Keep her in the hospital for monitoring
ED Attending Note
-
Portions of this chart may have been created with voice recognition software.� Occasional wrong word or��sound alike� substitutions may have occurred due to the inherent limitations of voice recognition software.
Discharge Plan
Departure
Patient Disposition: Admit
Date of Disposition: 01/12/25
Time of Disposition: 00:31
Admit to: Med/Surg
Presentation/result/management discussed w/ accepting MD/DO: Hospitalist
Patient with high blood pressure during this ER visit?: No
Condition: Good
Discharge Problem:
Post-op bleeding
Prescriptions:
No Action
aspirin 81 MG tablet,chewable
81 mg PO QPM
cyanocobalamin (vitamin B-12) 1,000 mcg Tablet
1,000 mcg PO QPM
metoprolol succinate [Toprol XL] 25 mg Tablet Extended Release 24 Hr
25 mg PO HS
rosuvastatin [Crestor] 10 mg Tablet
10 mg PO QPM
Referrals:
Jose Manuel DO [Family Provider, Internal Medicine]
Interventions
Interventions:
*Risk Screen - Suicide Last Done: 01/11/25 18:59
*General Assessment Last Done: 01/11/25 20:37
*Neglect/Abuse Screening Last Done: 01/11/25 20:37
*ED- Fall Risk Assessment Last Done: 01/11/25 20:37
*ED COVID-19 Vaccine History Last Done: 01/11/25 20:37
*ED Influenza Vaccine History Last Done: 01/11/25 20:37
ED-Skin Assessment Last Done: 01/11/25 20:37
Discharge Date and Time
Print Language: MOROCCAN
[2025-01-11 23:00] VITALS: BP 142/54
[2025-01-12] VITALS (8 sets, daily range): BP systolic 131–153; BP diastolic 52–70; PULSE 90–93; O2SAT 98–99; BMI 24.2
--- NOTE | 2025-01-12 00:45 | HPS.HSE ---
Family Physician
-
Family Physician: Jose Manuel
Chief Complaint
-
Postoperative bleeding
History of Present Illness
Patient is a 79-year-old female with past medical history segment for aortic stenosis status post TAVR, status post pacemaker, history of alcohol use with liver cirrhosis, anemia, diverticulitis, hypertension, colonic stricture status post
sigmoidectomy with ileostomy and now status post flexible sigmoidoscopy, resection and closure of ileostomy postop day #7 with hospital course complicated by postoperative anemia and thrombocytopenia status post transfusion now presents to the
emergency department with some hemorrhage at the suture site.
She is not having any pain. She is not having any fevers or chills. She denies feeling dizzy or lightheaded. She has a mild amount of ascites. She reports that she has been soaking wound dressings for the last day.
In the emergency department she has been afebrile, blood pressure 140/50 with a pulse of 91 and she is satting 90% on room air. Chemistries were within normal range with a normal BUN/creatinine. T. bili was 2.8 AST and ALT are normal. Alk phos
slightly elevated. PT/INR is normal. CBC pending
Medical History
Past Medical History
Past Medical History: Reports Other (Aortic stenosis s/p TAVR, hypertension, hyperlipidemia, pacemaker, diverticulitis, anemia, cirrhosis of the liver)
Past Surgical History: Reports Cardiac
Social History
Tobacco: Non-smoker
Alcohol: None
Drug: None
Living: With Family
Family History
Family History: Not pertinent
Allergies / Home Medications
Allergies reflects when Allergies were last updated in [facility].
Home Medications with original date entered in [facility]
Allergy/Medication List:
Allergies
Allergy/AdvReac Type Severity Reaction Status Date / Time
atorvastatin (From Lipitor) Allergy just too Verified 09/30/24 10:48
high a
dose of it
Home Medications
aspirin 81 mg chewable tablet 81 mg PO QPM Blood clot prevention/tx 05/07/21
losartan 50 mg tablet 50 mg PO HS Blood pressure 05/07/21
amlodipine 2.5 mg tablet (Norvasc) 2.5 mg PO HS 09/30/24
cyanocobalamin (vitamin B-12) 1,000 mcg tablet 1,000 mcg PO QPM 09/30/24
furosemide 20 mg tablet (Lasix) 20 mg PO QPM 09/30/24
metoprolol succinate 25 mg tablet,extended release 24 hr (Toprol XL) 25 mg PO HS 09/30/24
rosuvastatin 10 mg tablet (Crestor) 10 mg PO QPM 09/30/24
Review of Systems
-
Constitutional: Reports No Symptoms
EENT: Reports No Symptoms
Respiratory: Reports No Symptoms
Cardiac: Reports No Symptoms
Abdomen/GI: Reports No Symptoms
: Reports No Symptoms
Musculoskeletal: Reports No Symptoms
Skin: Reports No Symptoms
Neurological: Reports No Symptoms
Endocrine: Reports No Symptoms
Hematologic/Lymphatic: Reports No Symptoms
Psych: Reports No Symptoms
Physical Exam
Vital Signs
Vital Signs
Temp Pulse Resp BP Pulse Ox
98.0 F 91 18 142/54 98
01/11/25 18:59 01/12/25 00:15 01/11/25 18:59 01/11/25 23:00 01/12/25 00:00
Physical Exam
General: Well Developed, No Apparent Distress and Comfortable
HEENT: NormoCephalic and Moist mucous membranes
Respiratory: Clear; No Wheezes, Rales, Rhonchi or Crackles
Cardiac: S1/S2
GI: Soft, Non Tender, Non Distended and Normal Bowel Sounds
Musculoskeletal: No Edema
Skin: Other (Ecchymosis present on left upper extremity arm)
Neuro: Awake, Alert, Oriented and AO x 3
Psych: Calm
Data Reviewed
-
Lab Data: Labs Reviewed by me
Old Records: Reviewed
Impression/Plan
-
IMPRESSION:
79-year-old female with past medical history significant for aortic stenosis status post TAVR, cirrhosis of the liver, grade 1 varices on EGD, iron deficiency anemia, chronic thrombocytopenia, diverticulitis, colonic strictures status post
sigmoidectomy with end ileostomy now status post flex sig, cut down and reanastomosis presenting to the emergency department postop day #7 after the most recent surgery with bleeding from the suture site. Currently the suture site is dry and no
drainage although she is laying supine at this time.
PLAN:
Bleeding -patient with history of portal hypertension, grade 1 varices on EGD, iron deficiency anemia who is here with bleeding from suture site. She is hemodynamically stable afebrile and in no acute distress.
- Admit to [facility] obs for now
- Type and screen
- Check coags
- Trend H&H for now
- Colorectal surgery consultation
Acute on chronic anemia -last hemoglobin was 9 before discharge.
- Known low iron stores, continue IV iron if patient still has anemia
- Continue regular diet
Thrombocytopenia
- Known cirrhosis with portal hypertension, monitor platelets for now but platelets look stabilized on prior labs.
Hyponatremia -resolved with IV fluids and thought to be secondary to hypovolemia
- Will keep her on gentle IV normal saline while here
Renal function -creatinine stable at 0.9, BP stable
- Restart losartan per CP PCP will hold for now
- Continue metoprolol giving stage I varices
DVT processes�SCDs for now
CODE STATUS�full code
[2025-01-12 00:48] LABS: INR 1.02; PT 13.9 Sec (11.4-14.6)
[2025-01-12 00:49] LABS: APTT 22.2 Sec (23.4-35.0)
[2025-01-12 00:50] LABS: ALT (SGPT) 12 U/L (0-35); AST (SGOT) 26 U/L (14-36); Albumin 3.2 g/dl (3.5-5.0); Alkaline Phosphatase 188 U/L (38-126); Blood Urea Nitrogen 22 mg/dl (7-17); Calcium 8.4 mg/dl (8.4-10.2); Carbon Dioxide 23 mmol/L (22-30); Chloride 104 mmol/L (98-107); Estimated Creatinine Clearance 46 ml/min; Glucose 105 mg/dl (70-99); Potassium 3.7 mmol/L (3.5-5.1); Sodium 131 mmol/L (135-145); Total Protein 5.9 g/dl (6.3-8.2); eGFR > 60.00
[2025-01-12 01:35] LABS: Hematocrit 28.6 % (37.0-47.0); Hemoglobin 9.3 g/dL (12.0-16.0); Mean Corp Hgb Conc. 32.5 g/dL (33.0-37.0); Mean Corpuscular Volume 97.3 fL (81.0-99.0); Nucleated Red Blood Cells % 0 %; Red Cell Dist. Width 17.1 % (11.5-14.5)
[2025-01-12 02:29] LABS: Platelet Count 88 10^3/uL (130-400)
[2025-01-12] MEDS: NSS 1000 IV (03:18)
--- NOTE | 2025-01-12 04:51 | TRANSFER ---
Pt transferred to 3W from ED via stretcher. Pt ambulated from stretcher to bed. Pt AAOx3, call santos within reach, plan of care ongoing.
[2025-01-12 06:49] LABS: Blood Urea Nitrogen 21 mg/dl (7-17); Calcium 7.9 mg/dl (8.4-10.2); Carbon Dioxide 20 mmol/L (22-30); Chloride 108 mmol/L (98-107); Estimated Creatinine Clearance 46 ml/min; Glucose 108 mg/dl (70-99); Magnesium 2.0 mg/dl (1.6-2.3); Potassium 3.5 mmol/L (3.5-5.1); Sodium 130 mmol/L (135-145); eGFR > 60.00
[2025-01-12 08:22] LABS: Hematocrit 29.4 % (37.0-47.0); Hemoglobin 9.4 g/dL (12.0-16.0); Mean Corp Hgb Conc. 32.0 g/dL (33.0-37.0); Mean Corpuscular Volume 101.0 fL (81.0-99.0); Platelet Count 88 10^3/uL (130-400); Red Cell Dist. Width 17.0 % (11.5-14.5)
--- NOTE | 2025-01-12 09:51 | VNURNOTE ---
Addendum entered by Melanie Bautista RN 01/12/25 16:21:
Met with patient at bedside. Confirmed that she would like to resume [facility] services. Noted she is OBS status. [facility] intake aware. Will continue to follow hospitalization course.
Original Note:
Chart reviewed. Patient is current with [facility]. Will continue to follow hospital course and DC plans.
--- NOTE | 2025-01-12 10:18 | W.PN.HOSP.TC ---
Today's Communication/Plan
-
monitor drainage/bleeding from incisions
follow colorectal
follow AM labs
continue IVF
Assessment / Plan
Assessment / Plan
Assessment:
Incisional bleeding/drainage near suture line
Recent Flexible sigmoidoscopy and resection and closure of ileostomy 01/05
- Hb stable
- CRS evaluated and probed the area, related to me that its serous drainage. They recommend 24 hours further of monitoring. If increasing, may need I&D/washout procedure
Chronic anemia
- received 2 units PRBC last admission
- also received IV iron
- monitor Hb, stable >9.0
History of Cirrhosis with grade 1 varices
History of Chronic thrombocytopenia likely secondary to cirrhosis
- plts 88
- monitor
Hyponatremia
- suspect hypovolemia; continue IVF
- follow hyponatremia w/u (Osms, Urine studies, TSH, Cortisol)
Essential HTN
- continue BB
- holding Losartan as per prior DC instructions
s/p TAVR
- continue BB
- holding ASA with bleeding issue
HLD - statin
DVT ppx: SCDs
Code: Full
Anticipated Discharge: Within 24 hours
Subjective/Interval History
-
Date of Service: January 12, 2025
resting comfortably
no bleeding from dressing today per RN
Objective Data
-
Labs:
Laboratory Results
01/12/25 01/12/25 01/12/25
00:25 01:17 06:00
WBC Cancelled 10.7 9.6
Hgb Cancelled 9.3 L 9.4 L
Hct Cancelled 28.6 L 29.4 L
Plt Count Cancelled 88 L 88 L
PT 13.9
INR 1.02
APTT 22.2 L
Sodium 131 L 130 L
Potassium 3.7 3.5
Chloride 104 108 H
Carbon Dioxide 23 20 L
BUN 22 H 21 H
Creatinine 0.8 0.8
Glucose 105 H 108 H
Calcium 8.4 7.9 L
Total Bilirubin 2.8 H
AST 26
ALT 12
Alkaline Phosphatase 188 H
Vital Signs:
Vital Signs
Temp Pulse Resp BP Pulse Ox
97.6 F 89 16 150/63 97
01/12/25 07:57 01/12/25 07:57 01/12/25 07:57 01/12/25 07:57 01/12/25 07:57
Physical Exam
-
General: No Apparent Distress
HEENT: Normocephalic and Atraumatic
Respiratory: Negative Wheezes
Cardiac: Regular Rhythm and S1/S2
GI: Soft
Musculoskeletal: No Edema
Neuro: AO x 3
Psych: Calm
Data Reviewed
-
Total Time Spent with Patient (in minutes): 41
Labs: Labs Reviewed by me
--- NOTE | 2025-01-12 10:36 | CON.CRS ---
Consultation
-
Date/Time Consultation Requested: 01/12/2025, 02:57
Date/Time Consultation Performed: 01/12/2025, 08:15
Requesting Provider: Sharron Tolbert MD
Performing Provider: Kam Quick MD
Reason for Consultation: bleeding from incision
Medical History
-
Chief Complaint: wound drainage
History of Present Illness:
79-year-old female, who was recently discharged on 01/09/2025 secondary to an ileostomy closure by Dr. Kam Quick, presents today due to incisional bleeding. Initially the patient had sigmoid diverticulitis and was operated on 11/23/2024.
Given her severe inflammation in the sigmoid colon as well as pelvic abscesses, the patient had a temporary ileostomy. This was reversed on 01/05/2025. On postop day 2 from this reversal, she was anemic and her hemoglobin dropped to 6.4. She had
thrombocytopenia with platelets as low as 55 during her stay. She received 2 units of packed red blood cells and she maintained a hemoglobin around the nines. She was discharged on 01/09/2025. 2 days ago she noted an excessive amount of bleeding
at the ileostomy site. This prompted her to come to the ER early this morning. In the ER, her dressing was saturated but she had no active bleeding at that time. Her hemoglobin was 9.3 on arrival and 9.4 today. Her platelets are 88. Her vitals
have remained normal. No imaging was done. Given her history, we have been consulted for further surgical recommendation.
Past Medical History
Past Medical History: Other (Aortic stenosis s/p TAVR, hypertension, hyperlipidemia, pacemaker, diverticulitis, anemia, cirrhosis of the liver, portal hyper)
Past Surgical History: Other (robotic sigmoidectomy with ileostomy, ileostomy reversal, h/o aortic stenosis status post TAVR)
Social History
Tobacco: Non-Smoker
Alcohol: None
Family History
Family History: Reviewed & Not Pertinent
Allergies / Home Medications
Allergy/AdvReac Type Severity Reaction Status Date / Time
atorvastatin (From Lipitor) Allergy MYALGIA Verified 01/11/25 18:59
(only with
high dose
per pt)
�Medication �Instructions �Recorded �Confirmed �Type
aspirin 81 mg chewable tablet 81 mg PO QPM Blood clot 05/07/21 01/05/25 History
prevention/tx
cyanocobalamin (vitamin B-12) 1,000 mcg PO QPM Supplement 09/30/24 01/05/25 History
1,000 mcg tablet
metoprolol succinate 25 mg 25 mg PO HS Blood Pressure 09/30/24 01/05/25 History
tablet,extended release 24 hr
(Toprol XL)
rosuvastatin 10 mg tablet (Crestor) 10 mg PO QPM HLD 09/30/24 01/05/25 History
Review of Systems
-
History Source: Patient
Abdomen/GI: Other (bleeding from incision site)
A 10 point review of systems was completed, and was negative except as per HPI.
Physical Exam
Vital Signs
Temp 97.6 F 01/12/25 07:57
Pulse 89 01/12/25 07:57
Resp Rate 16 01/12/25 07:57
Blood pressure 150/63 01/12/25 07:57
SaO2 97 01/12/25 07:57
01/11/25 01/12/25 01/13/25
06:59 06:59 06:59
Actual Weight 61.961 kg
Body Mass Index (BMI) 24.2
Lab Results / Allergies
01/12/25 06:00
01/12/25 06:00
WBC 9.6 10^3/uL (4.8-10.8) 01/12/25 06:00
Hgb 9.4 g/dL (12.0-16.0) L 01/12/25 06:00
Hct 29.4 % (37.0-47.0) L 01/12/25 06:00
Plt Count 88 10^3/uL (130-400) L 01/12/25 06:00
Abs Immat Gran (auto) 0.1 10^3/uL (0-0.05) H 01/12/25 01:17
Neutrophils % 73.7 % (42.2-75.2) 01/12/25 01:17
Allergy/AdvReac Type Severity Reaction Status Date / Time
atorvastatin (From Lipitor) Allergy MYALGIA Verified 01/11/25 18:59
(only with
high dose
per pt)
Physical Exam
General: Well Developed, Well Nourished and No Apparent Distress
GI: Soft, Non Tender, Non Distended and Other (former ileostomy site with anuj in place, very mild serosanginous oozing on gauze. 2 anuj removed and q tip probed- no tract or pus noted. )
Neuro: AO x 3
Psych: Calm
Data Reviewed
-
Labs: Labs Reviewed by me and Discussed with Patient
Old Records: Reviewed
Assessment / Plan
-
Assessment: 79-year-old female with recent ileostomy reversal and known psoriasis presents to [facility] complaining of drainage from her incision
Plan:
-Monitor one more day
-Trend labs
-No plans for surgery at this time. If bleeding persists, will re-evaluate.
-OOB as tolerated
-Okay for a regular diet
-Pain control: Tylenol q6 hrs PRN
-D/C laxatives
-Wound changes daily and as needed
--- NOTE | 2025-01-12 14:56 | CM ---
Patient seen at bedside
IA completed
DACOSTA Form explained. In chart
PT rec home health
Patient lives alone in 2 story home, 2 [address], flight to bed/bath
PLOF: Independent, walker
DME: Walker
Patient current with [facility] - notified [facility] Liasion
PCP: Dr. Manuel
Pharmacy: [facility]
PLAN: Home with [facility] when stable
daughter to transport
[2025-01-12] MEDS: MORPHINE SULFATE 1 MG IV (16:33)
--- NOTE | 2025-01-12 19:40 | PTCARENOTE ---
at 151,patient c/o 7/10 right abd pain at incision. notified Dr. Cortes and he ordered Ultram PRN. I went in to administer Ultram to patient and she verbalized that she thought that made her loopy. she called her daughter, who verified that. at
1535, I informed Dr. Cortes and requested order for another oral analgesic or IV analgesia. Morphine ordered PRN (see MAR). Morphine effective for pain, will continue to monitor.
--- NOTE | 2025-01-12 19:45 | PTCARENOTE ---
incision dressing changed for large amount of serosanguineous drainage as ordered, incision with anuj and part opened, not approximated. surgery removed 2 anuj this am, will continue to monitor.
[2025-01-12] MEDS: TOPROL XL 25 MG PO (21:21)
--- NOTE | 2025-01-13 01:46 | PTCARENOTE ---
Pt. required dressing changed for moderate amount of seroussanguinous drainage after ambulating to the bathroom. No c/o pain. Plan of care ongoing.
[2025-01-13 07:12] LABS: Hematocrit 27.5 % (37.0-47.0); Hemoglobin 9.2 g/dL (12.0-16.0); Mean Corp Hgb Conc. 33.5 g/dL (33.0-37.0); Mean Corpuscular Volume 99.3 fL (81.0-99.0); Platelet Count 103 10^3/uL (130-400); Red Cell Dist. Width 16.5 % (11.5-14.5)
[2025-01-13 07:19] LABS: Blood Urea Nitrogen 17 mg/dl (7-17); Calcium 7.7 mg/dl (8.4-10.2); Carbon Dioxide 24 mmol/L (22-30); Chloride 106 mmol/L (98-107); Estimated Creatinine Clearance 52 ml/min; Glucose 102 mg/dl (70-99); Potassium 3.3 mmol/L (3.5-5.1); Sodium 129 mmol/L (135-145); eGFR > 60.00
[2025-01-13 07:31] VITALS: BP 103/57
[2025-01-13 07:49] LABS: Cortisol, Random 17.6 ug/dl
--- NOTE | 2025-01-13 09:00 | W.PN.CRS1 ---
Today's Communication / Plan
-
okay for d/c from our perspective
f/u with Dr. Quick as scheduled
call the office if continues to bleed
Assessment/Plan
-
Assessment: 79-year-old female with recent ileostomy reversal and known liver cirrhosis presents to [facility] complaining of drainage from her incision
WBC: 8.8. Hgb 9.2.
Plan:
-Okay for d/c from our perspective
-Trend labs
-No plans for surgery at this time.
-OOB as tolerated
-Okay for a regular diet
-Pain control: Tylenol q6 hrs PRN
-D/C laxatives
-Wound changes daily and as needed
Subjective Data
Subjective Data
Date of Service: January 13, 2025
Patient states she feels 'okay'. She has some minor bleeding but nothing like the other day. Denies fevers or chills. She is tolerating a diet.
Objective Data
-
Vital Signs
Temp Pulse Resp BP Pulse Ox
98.7 F 85 16 103/57 97
01/13/25 07:31 01/13/25 07:31 01/13/25 07:31 01/13/25 07:31 01/13/25 07:31
Intake & Output
01/12/25 01/13/25 01/14/25
06:59 06:59 06:59
Intake Total 960 / 960
Balance 960 / 960
Intake:
Oral fluids 960 / 960
Other:
Number of approximated MODERATE 1
amounts of urine
Number of approximated LARGE 1
amounts of urine
Lab Results
01/13/25 06:09
01/13/25 06:09
Physical Exam
-
General: No Acute Distress and AOx3
Abdomen: Soft, Non Distended and Non Tender
Skin: Warm and Dry
Incision: Other (incision with serosanginous output, no acute bleeding, c/d/i)
--- NOTE | 2025-01-13 12:16 | CM ---
patient seen at bedside
obs form in chart
current with [facility] - notified liaison of dc today
PLAN: Home with [facility]
daughter to transport
[2025-01-13 12:39] VITALS: BP 142/66
--- NOTE | 2025-01-13 15:13 | W.DCSUMMARY ---
Discharge Summary
Discharge Data
Date of Admission: 01/12/25
Date of Discharge: 01/13/25
-
Pending Results: No
Hospital Course
Discharging Physician : Dr Pepe Lentz
Disposition : To home
Primary care physician : Dr Jose Manuel
Principal Discharge diagnosis :
Surgical site/incisional bleeding
Recent ileostomy closure
Chronic Discharge diagnosis :
History of sigmoid stricture status post sigmoidectomy
History of temporary ileostomy with closure
History of aortic stenosis post transcatheter aortic valve replacement
History of pacemaker placement
Alcohol use disorder with cirrhosis
Chronic anemia
Essential hypertension
History of diverticulitis
Phyica
GEN: aox3
Chest: Clear to auscultation
Heart: N s1/s2, RRR, no murmur
Abd: N BS, soft, nontender, nondistended, surgical site dressing
Neuro: No motor or sensory deficits
Ext: No edema
Hospital Course :
Patient is a 79-year-old female with above-mentioned past medical history who underwent an elective ileostomy closure on 01/05/25, came to ER with bleeding from incision site. On the previous visit patient required to be given 2 units of blood due
to blood loss from the incisional site bleeding. Postdischarge patient was doing well and then again patient started known to having new bleeding at the ileostomy closure incisional site. Patient came to ER for further evaluation. Patient
hemoglobin was stable and close to the baseline of 9 with comparison of previous discharge. Patient had thrombocytopenia on last visit which was also improving. Colorectal surgeon evaluated patient and removed few olayinka and probed the wound. No
deeper collection was felt to be present. Colorectal surgeon recommended conservative management. After cessation of bleeding patient was cleared for discharge home. Patient to call colorectal surgeons office if have any further issues
postdischarge.
Important imaging findings :
None
Procedure findings :
None
Discharge Plan
-
Patient Disposition: Home (Routine Discharge)
Discharge Diagnosis/Procedures: Surgical site bleeding
Condition: Fair
Diet: Regular
Activity: As tolerated
Driving Restrictions: No driving
Bathing Restrictions: OK to Shower
Wound Care: Daily gauze with paper tape and as needed. Olayinka remain in place until appointment with Dr. Quick.
Okay to take off to shower.
Referrals:
Jose Manuel DO [Family Provider, Internal Medicine] - in one week
Selvin Quick MD [Active, ColoRectal]
Prescriptions:
Continued
aspirin 81 MG tablet,chewable
81 mg PO QPM
cyanocobalamin (vitamin B-12) 1,000 mcg Tablet
1,000 mcg PO QPM
metoprolol succinate [Toprol XL] 25 mg Tablet Extended Release 24 Hr
25 mg PO HS
rosuvastatin [Crestor] 10 mg Tablet
10 mg PO QPM
Discharge Orders:
Discharge Patient (As Directed); Ordered 01/13/25
Ordered By: Pepe Lentz
Discharge Date and Time
Discharge Date/Time: 01/13/25 13:10
Print Language: AZERI
== END 2025-01-13 13:10 | disposition home health service (06) ==
LOC: 3 WEST ACU 01:16
PROVIDERS: Internal Medicine; ADMITTING PHYSICIAN Internal Medicine; ATTENDING PHYSICIAN Hospitalist; CONSULT PHYSICIAN Surgery; EMERGENCY PHYSICIAN Emergency Medicine; FAMILY PHYSICIAN Internal Medicine
DX: L76.22 Postprocedural hemorrhage of skin and subcutaneous tissue following other procedure (principal); Y83.8 Other surgical procedures as the cause of abnormal reaction of the patient, or of later complication, without mention of misadventure at the time of the procedure; E78.00 Pure hypercholesterolemia, unspecified; K76.6 Portal hypertension; D50.9 Iron deficiency anemia, unspecified; D69.6 Thrombocytopenia, unspecified; F10.10 Alcohol abuse, uncomplicated; K74.60 Unspecified cirrhosis of liver; R18.8 Other ascites; E87.1 Hypo-osmolality and hyponatremia; I10 Essential (primary) hypertension; Z60.2 Problems related to living alone; Z87.19 Personal history of other diseases of the digestive system; Z90.49 Acquired absence of other specified parts of digestive tract; Z79.82 Long term (current) use of aspirin; Z95.2 Presence of prosthetic heart valve; Z95.0 Presence of cardiac pacemaker; Z98.890 Other specified postprocedural states; Z88.8 Allergy status to other drugs, medicaments and biological substances
CPT/HCPCS: 80048; 80053; 82533; 83735; 83930; 84443; 85025; 85027; 85610; 85730; 86850; 86900; 86901; 97162; 97166; 99285; G0378

== ENCOUNTER 2025-01-16 20:42 | Inpatient (IN) | payer OTHER, SELFPAY ==
[2025-01-16] VITALS (10 sets, daily range): BP systolic 94–132; BP diastolic 43–64; BMI 23.4; BMI 25.0
--- NOTE | 2025-01-16 14:15 | ED.GENMED ---
History of Present Illness
General
Chief Complaint: Abdominal Symptoms
Source: patient and family
Exam Limitations: none
Time Seen by Provider: 01/16/25 12:54
Nursing documentation reviewed up to this point in time: agreed with
History of Present Illness
History of Present Illness:
The patient is an 79-year-old female with chronic alcoholic liver disease and recent sigmoidectomy, ileostomy and then reversal of ileostomy, who presents with severe generalized weakness, nausea, decreased appetite and waves of upper abdominal
pain. Patient denies fever. Patient denies chest pain or shortness of breath. Patient reports that when she coughs, it causes pain in her mid and upper abdomen. Patient was referred to come to the ED by Dr. Quick who recommends a CAT scan to
make sure there is no leak from recent surgery. Patient denies increased cough and fever. She denies difficulty urinating or burning with urination
Past History
Past History
ED Past Medical History: HTN, Hypercholesterolemia, Seizures (), Other (diverticulitis) and Other (Alcoholic liver disease)
ED Past Surgical History: , Gynecological (hyster), Tonsilectomy and Other (Bowel resection, ileostomy that is now reversed)
Social History
Tobacco: Non-smoker
Alcohol: Former
Drug: None
Personal: Other
Living: with family
Employment: Retired
Family History
Family History: Other
Review of Systems
Review of Systems
Allergies reviewed?: Yes
All Other Systems: ROS reviewed and negative except as documented in HPI and ROS
Constitutional: Reports fatigue
EENT: Reports no symptoms
Respiratory: Reports no symptoms
Cardiac: Reports no symptoms
ABD/GI: Reports abdominal pain, nausea and anorexia
: Reports no symptoms
Musculoskeletal: Reports no symptoms
Skin: Reports no symptoms
Neurological: Reports no symptoms
Endocrine: Reports no symptoms
Hematologic/Lymphatic: Reports bruising (New bruising on left lower abdomen)
Psychiatric: Reports no symptoms
Phy Exam
Physical Exam
Physical Exam:
Physical Exam
General: Chronically ill-appearing. Pale
Neck: supple. no meningeal signs. normal psoterior pharynx
Heart: s1/s2 regular rate and rhythm
Lungs: no acute respiratory distress. clear bilaterally
Abdomen: Distended, firm, diffuse tenderness
Neuro: alert and oriented. no focal neurological deficits
Skin: Pale
Psychiatric: well kept. interactive and cooperative
Extremities: 1+ pitting edema bilateral lower extremities. Negative Homans' sign.
Course
Orders/Labs/Results
Orders:
Orders
01/16/25 Lunch
NPO
Allow oral meds: Yes
Allow clear liquids: No
NPO with Ice Chips: Yes
01/16/25 13:53
CT Abd/pel W Iv And Oral Contr Urgent
Comment: rectal contrast as well as per Dr Quick
Reason For Exam: Upper abdominal pain
Iohexol [Omnipaque] See Protocol PO NOW STA
01/16/25 14:27
Electrocardiogram (*1) Urgent
Reason for Study: Fatigue / Weakness
EKG- Treatment ONCE
01/16/25 15:42
CMP [Comprehensive Metabolic Panel] Urgent
Complete Blood Count/With Diff Urgent
Manual Differential Urgent
01/16/25 16:15
Type+Screen Urgent
Lactic Acid Urgent
01/16/25 16:27
0.9% Sodium Chloride 1000 ml [Nss] 1,000 ml IV BOLUS
01/16/25 17:09
Protime/PTT Urgent
01/16/25 18:30
Piperacillin/Tazo 4.5 Gram [Zosyn] 4.5 gram in 100 ml IV NOW
01/16/25 18:31
0.9% Sodium Chloride 1000 ml [Nss] 1,000 ml IV BOLUS
01/16/25 19:08
Consult Interventional Radiology [IRAD CONSULT] Routine
Consulting Provider: Jaden Desouza
Was physician already notified: Yes
Procedure being ordered, including laterality if: Paracentesis to rule out infected ascites (right side
applicable: if possible)
Acknowledgement that appropriate orders are entered: Yes
01/16/25 20:00
Piperacillin/Tazo 3.375 Gram [Zosyn] 3.375 gram in 50 ml IV Q8H
Abnormal Lab Results
01/16/25 01/16/25 01/16/25
15:42 16:15 17:09
WBC 24.7 H 10^3/uL
(4.8-10.8)
RBC 3.87 L 10^6/uL
(4.20-5.40)
MCV 100.5 H fL
(81.0-99.0)
MCH 32.8 H pg
(27.0-31.0)
MCHC 32.6 L g/dL
(33.0-37.0)
RDW 16.7 H %
(11.5-14.5)
MPV 11.7 H fL
(7.4-10.4)
Abs Neuts (Manual) 22.4 H 10^3/uL
(1.4-6.5)
Band Neutrophils 16 H %
(0-3)
Lymphocytes (Manual) 4 L %
(20-51)
PT 18.0 H Sec
(11.4-14.6)
Sodium 127 L mmol/L
(135-145)
Carbon Dioxide 17 L mmol/L
(22-30)
BUN 26 H mg/dl
(7-17)
Creatinine 1.2 H mg/dL
(0.6-1.0)
Lactic Acid 3.2 H mmol/L
(0.7-2.0)
Calcium 8.1 L mg/dl
(8.4-10.2)
Total Bilirubin 3.6 H mg/dl
(0.2-1.3)
AST 38 H U/L
(14-36)
Alkaline Phosphatase 192 H U/L
(38-126)
Total Protein 5.3 L g/dl
(6.3-8.2)
Albumin 2.7 L g/dl
(3.5-5.0)
01/16/25 15:42
01/16/25 15:42
Vital Signs
Initial and Last Documented VS:
Initial Vital Signs
Temp Pulse Resp BP Pulse Ox
97.4 F 85 18 109/55 95
01/16/25 12:25 01/16/25 12:25 01/16/25 12:25 01/16/25 12:25 01/16/25 12:25
Last Documented Vital Signs
Temp Pulse Resp BP Pulse Ox
97.4 F 91 21 128/58 96
01/16/25 12:25 01/16/25 19:30 01/16/25 19:12 01/16/25 19:12 01/16/25 19:30
MDM/Problems Addressed
Differential Diagnosis Includes:
Intra-abdominal abscess from recent surgery, bowel leak from recent bowel anastomosis, pneumonia
MDM/Problems Addressed:
Patient reports acute upper abdominal pain, nausea and weakness
Chronic conditions affecting care:
Liver failure
Acute Exacerbation and/or Progression of Chronic Illness:
Patient may have significant acute ascites or electrolyte abnormality from liver failure
*Radiology
Radiology exam reviewed: radiology read reviewed
*Pulse Oximetry
SaO2: 96
Oxygen Mode of Delivery: Room air
Patient hypoxic: no
*EKG
Interpreted by ED Provider?: Yes
Interpretation: abnormal
Comparison EKG: no comparison EKG present
Rate: normal
Rhythm: sinus
[place]: right axis deviation
Interval: normal interval
QRS Pattern: normal QRS
Ischemia: non-specific ST changes
*Wood Panel Inspector Interpretation
Rate: normal
Interpretation: normal
Rhythm: sinus
*Critical Care Note
Total Time (30-74mins, 75-104mins- exclusive of procedures): 55 minutes
comment:
55 minutes critical care given to the patient including reviewing her prior admission and surgical notes, speaking to the patient and her daughter, speaking to Dr. Quick as well as his surgical team, reviewing patient's CT report, lab work and
reassessing her blood pressure and mental status
Data Reviewed
Review of Other/Old Records Reveals: Labs (White blood cell count 8.8 from 3 days ago)
Source: patient and family
Patient Management
Social determinants of health affecting care: Living situation and Strong social support
Discussion with other providers: Hospitalist and Other (Dr. Quick)
Escalation/DeEscalation of care consider admission/obs:
Patient will be admitted for acute marked ascites and likely spontaneous bacterial peritonitis. Dr. Quick told me that he has been in touch with interventional radiology who agreed to do a paracentesis on the patient
Patient remains hemodynamically stable.
Update Note
Update Note:
Please note that lab work and IV were delayed due to great difficulty establishing IV access and drawing labs
ED Attending Note
-
Portions of this chart may have been created with voice recognition software.� Occasional wrong word or��sound alike� substitutions may have occurred due to the inherent limitations of voice recognition software.
Discharge Plan
Departure
Patient Disposition: Admit
Date of Disposition: 01/16/25
Time of Disposition: 19:02
Presentation/result/management discussed w/ accepting MD/DO: Hospitalist
Patient with high blood pressure during this ER visit?: Yes
Condition: Fair
Covid-19: Not Applicable
Discharge Problem:
Acute on chronic hyponatremia, Acute ascites, SBP (spontaneous bacterial peritonitis), Acidosis, lactic
Prescriptions:
No Action
aspirin 81 MG tablet,chewable
81 mg PO QPM
cyanocobalamin (vitamin B-12) 1,000 mcg Tablet
1,000 mcg PO QPM
metoprolol succinate [Toprol XL] 25 mg Tablet Extended Release 24 Hr
25 mg PO HS
rosuvastatin [Crestor] 10 mg Tablet
10 mg PO QPM
Referrals:
Jose Manuel DO [Family Provider, Internal Medicine]
Interventions
Interventions:
*Risk Screen - Suicide Last Done: 01/16/25 12:25
*General Assessment Last Done: 01/16/25 13:13
*Neglect/Abuse Screening Last Done: 01/16/25 13:13
*ED- Fall Risk Assessment Last Done: 01/16/25 13:13
*ED COVID-19 Vaccine History Last Done: 01/16/25 13:13
*ED Influenza Vaccine History Last Done: 01/16/25 13:13
AF-Uebnkm-[id number] Assessment Last Done: 01/16/25 13:13
Discharge Date and Time
Print Language: ARMENIAN
--- NOTE | 2025-01-16 14:34 | CON.CRS ---
Consultation
-
Date/Time Consultation Requested: 01/16/2025, 13:15
Date/Time Consultation Performed: 01/16/2025, 15:00
Requesting Provider: Beatrice Florentino MD
Performing Provider: Kam Quick MD
Reason for Consultation: abdominal pain/weakness
Medical History
-
Chief Complaint: weakness/abdominal pain
History of Present Illness:
79-year-old female status post closure of ileostomy on 01/05/2025 Dr. Quick, presents to the ER after her daughter called our office complaining the patient had abdominal pain and, weakness, and nausea. Initially the patient was admitted from
01/05/2025 to 01/09/2025. During that admission her hemoglobin had dropped to 6.4 from preoperative of 7.7. She also had thrombocytopenia with a platelet count around 55. She was transfused 2 units of packed red blood cells during that admission.
Her labs stabilized and she was discharged on postop day 4. She was then readmitted on 01/12/2025 due to incisional bleeding. There was no infection and no bleeding noted. It appeared a serosanguineous drainage. [place] were removed and the
wound was probed. The fascia was intact. Local wound care was applied and she was discharged the following day. Her hemoglobin remained stable at 9.2. Her white count was 8.8 on discharge.
This morning her daughter Cristina called our office complaining that the patient had nausea every day since discharge, decreased appetite. Increasing abdominal pain, and lethargy. She states this was a 'big change' since her discharge several
days ago. She is not able to eat anything currently. Denies vomiting. She has bowel movements daily and still has flatus. Denies any blood in her stool. She denies fevers or chills but she admits to not having checked her temperature. Her pain
is worse when she tries to sit up and it is around the incision. The patient notes her belly is firm and she feels more bloated. Her midline incision is not draining as much as it had in the past. Given these findings, she was instructed to go to
the ER for further workup.
Past Medical History
Past Medical History: Other (Aortic stenosis s/p TAVR, hypertension, hyperlipidemia, pacemaker, diverticulitis, anemia, cirrhosis of the liver, portal hypertension)
Past Surgical History: Other (robotic sigmoidectomy with ileostomy, ileostomy reversal, h/o aortic stenosis status post TAVR)
Social History
Tobacco: Non-Smoker
Alcohol: None
Family History
Family History: Reviewed & Not Pertinent
Allergies / Home Medications
Allergy/AdvReac Type Severity Reaction Status Date / Time
atorvastatin (From Lipitor) Allergy MYALGIA Verified 01/16/25 12:25
(only with
high dose
per pt)
�Medication �Instructions �Recorded �Confirmed �Type
aspirin 81 mg chewable tablet 81 mg PO QPM Blood clot 05/07/21 01/05/25 History
prevention/tx
cyanocobalamin (vitamin B-12) 1,000 mcg PO QPM Supplement 09/30/24 01/05/25 History
1,000 mcg tablet
metoprolol succinate 25 mg 25 mg PO HS Blood Pressure 09/30/24 01/05/25 History
tablet,extended release 24 hr
(Toprol XL)
rosuvastatin 10 mg tablet (Crestor) 10 mg PO QPM HLD 09/30/24 01/05/25 History
Review of Systems
-
History Source: Patient and Family
Constitutional: Fatigue
Abdomen/GI: Abdominal Pain, Nausea and Anorexia
A 10 point review of systems was completed, and was negative except as per HPI.
Physical Exam
Vital Signs
Temp 97.4 F 01/16/25 12:25
Pulse 85 01/16/25 12:25
Resp Rate 18 01/16/25 12:25
Blood pressure 109/55 01/16/25 12:25
SaO2 96 01/16/25 14:15
01/15/25 01/16/25 01/17/25
06:59 06:59 06:59
Actual Weight 59.8 kg
Body Mass Index (BMI) 23.4
Lab Results / Allergies
Allergy/AdvReac Type Severity Reaction Status Date / Time
atorvastatin (From Lipitor) Allergy MYALGIA Verified 01/16/25 12:25
(only with
high dose
per pt)
Physical Exam
General: Well Developed, Well Nourished and No Apparent Distress
GI: Tender (throughout, more prominent on the left), Distended (moderate) and Incisions (c/d/i)
Skin: Warm and Dry
Neuro: AO x 3
Psych: Calm
Data Reviewed
-
Old Records: Reviewed
Assessment / Plan
-
Assessment: 79-year-old female with recent ileostomy closure that was complicated by thrombocytopenia and anemia, status post 2 transfusions packed red blood cells, and a subsequent admission due to drainage from her midline incision, presents to
the ER due to lethargy, abdominal pain, and nausea
Plan:
- Await labs
- CT abdomen and pelvis with p.o., IV, and rectal contrast
- Remain n.p.o.
- Pain medication as needed as well as Zofran as needed
- Plans to follow after CT is performed
[2025-01-16] MEDS: OMNIPAQUE 50 ML PO (14:37)
[2025-01-16 16:15] LABS: ALT (SGPT) 16 U/L (0-35); AST (SGOT) 38 U/L (14-36); Albumin 2.7 g/dl (3.5-5.0); Alkaline Phosphatase 192 U/L (38-126); Blood Urea Nitrogen 26 mg/dl (7-17); Calcium 8.1 mg/dl (8.4-10.2); Carbon Dioxide 17 mmol/L (22-30); Chloride 102 mmol/L (98-107); Estimated Creatinine Clearance 30 ml/min; Glucose 85 mg/dl (70-99); Potassium 3.8 mmol/L (3.5-5.1); Sodium 127 mmol/L (135-145); Total Protein 5.3 g/dl (6.3-8.2); eGFR 45.48
[2025-01-16 16:22] LABS: Hematocrit 38.9 % (37.0-47.0); Hemoglobin 12.7 g/dL (12.0-16.0); Mean Corp Hgb Conc. 32.6 g/dL (33.0-37.0); Mean Corpuscular Volume 100.5 fL (81.0-99.0); Platelet Count 165 10^3/uL (130-400); Red Cell Dist. Width 16.7 % (11.5-14.5)
[2025-01-16 16:48] LABS: Absolute Neutrophils -Man Diff 22.4 10^3/uL (1.4-6.5); Platelets Checked Yes
[2025-01-16 16:49] LABS: Burr Cells 2+; Microcytosis 1+; Normal RBC Morphology No; Total Cells Counted 100
[2025-01-16] MEDS: NSS 1000 IV ×3 (17:07→22:25)
[2025-01-16 17:37] LABS: APTT 31.8 Sec (23.4-35.0); INR 1.46; PT 18.0 Sec (11.4-14.6)
[2025-01-16] MEDS: ZOSYN 100 IV (19:05)
--- NOTE | 2025-01-16 19:33 | HPS.HSE ---
Addendum entered and electronically signed by Prabhjot Pepper MD 01/16/25 21:04:
This is an addendum to the H&P written by Sierra Batista on 01/16/2025. �Patient seen and examined independently with [employer]AFF [employer]ICER.
79-year-old female past medical history of aortic stenosis status post TAVR, pacemaker, alcohol use disorder, liver cirrhosis, grade 1 esophageal varices, anemia, diverticulitis, hypertension, colon stricture status post sigmoidectomy with ileostomy
and ileostomy reversal on 01/05 presenting with increased upper abdominal pain, anorexia and nausea.
Patient was recently admitted from 01/05-01/09 and underwent reversal of ileostomy. �She came back on 01/12 for bleeding from the operative site and received 2 units of blood.
Vital signs show blood pressure as low as 94/57 although improved.
Labs show leukocytosis of 24. �Sodium 127 from 129. �Creatinine 1.2. �Lactic acid 3.2.
CT abdomen pelvis shows large amount abdominal/pelvic ascites. �Mild extraluminal air in the right abdomen suggesting mild enhancement of the ascites concerning for infected fluid or loculated fluid. �Small leak cannot be clinically excluded but no
contrast extravasation. �Small collection of fluid in the right anterior wall. �Mild small bowel wall thickening in the mid abdomen left lower quadrant.
Patient with increased ascites and sepsis secondary to suspected SBP secondary to decompensated cirrhosis. Worsening hyponatremia secondary to hypervolemia from cirrhosis.��IR consulted for paracentesis and fluid studies. �Zosyn. �Patient also with
ADAM. NPO.�Continue gentle IV fluids. �Albumin to be given. �Trend lactate. �Colorectal surgery consulted. �GI consulted.
Original Note:
Family Physician
-
Family Physician: Jose Manuel
Chief Complaint
-
Abdominal pain, weakness, nausea, decreased appetite
History of Present Illness
79-year-old female complaining of generalized weakness, nausea, decreased appetite with waves of upper abdominal pain since being discharged from the hospital 2 days ago status post recent sigmoidectomy with ileostomy and reversal 01/05 - 01/09. She
Came back on 01/12 due to incisional bleeding with hemoglobin dropping to 6.4 requiring 2 units of PRBCs her hemoglobin was 10 on discharge. She was seen by Dr. Quick in the ER today for concerns of possible leak but he does not feel abdominal
pain is due to this. CT of her abdomen is revealing a large abdominal ascites concerning for SBP given elevated WBC count. She reports some diarrhea after eating pizza on 01/13/2025 then normal bowel movements for the past 2 days. The patient has
past medical history of alcoholic cirrhosis, former alcoholic white wine daily stopped October 2024 1 esophageal varices iron deficiency anemia chronic anemia, chronic thrombocytopenia, aortic stenosis status post TAVR, pacemaker, HTN, HLD,
diverticulitis acute on chronic hyponatremia,.
Medical History
Past Medical History
Past Medical History: Reports Other (Aortic stenosis s/p TAVR, hypertension, hyperlipidemia, pacemaker, diverticulitis, anemia, cirrhosis of the liver)
Additional Past Medical History:
Aortic stenosis s/p TAVR, hypertension, hyperlipidemia, pacemaker, diverticulitis, anemia, cirrhosis of the liver
Former alcoholic stopped drinking October 2024
Past Surgical History: Reports Cardiac
Additional Past Surgical History:
Status post sigmoidectomy due to stenosis with ileostomy and reversal on 01/05/2025
Social History
Tobacco: Non-smoker
Alcohol: Former (Former daily white wine drinker stopped October 2024)
Drug: None
Living: With Family
Employment: Retired
Family History
Family History: Not pertinent
Allergies / Home Medications
Allergies reflects when Allergies were last updated in [facility].
Home Medications with original date entered in [facility]
Allergy/Medication List:
Allergies
Allergy/AdvReac Type Severity Reaction Status Date / Time
atorvastatin (From Lipitor) Allergy MYALGIA Verified 01/16/25 12:25
(only with
high dose
per pt)
Home Medications
aspirin 81 mg chewable tablet 81 mg PO QPM Blood clot prevention/tx 05/07/21
cyanocobalamin (vitamin B-12) 1,000 mcg tablet 1,000 mcg PO QPM Supplement 09/30/24
metoprolol succinate 25 mg tablet,extended release 24 hr (Toprol XL) 25 mg PO HS Blood Pressure 09/30/24
rosuvastatin 10 mg tablet (Crestor) 10 mg PO QPM HLD 09/30/24
Review of Systems
-
History Source: Patient and Family (Daughter Cristina at bedside)
A 12 point ROS was completed and negative except as noted: Yes
Constitutional: Denies Fever or Chills
EENT: Denies Sore Throat
Respiratory: Denies Cough or Trouble Breathing
Cardiac: Denies Chest Pain
Abdomen/GI: Reports Abdominal Pain (Over recent surgical site right side abdomen however is having left lower quadrant abdominal pain with sounds send) and Nausea; Denies Vomiting, Diarrhea or Constipated
: Denies Dysuria, Frequency, Flank Pain, Incontinence, Difficulty Voiding or Urgency
Musculoskeletal: Denies Joint Pain or Joint Swelling
Skin: Denies Itching or Rash
Neurological: Denies Dizzy or Headache
Endocrine: Reports No Symptoms
Hematologic/Lymphatic: Reports No Symptoms
Psych: Reports Calm
Physical Exam
Vital Signs
Vital Signs
Temp Pulse Resp BP Pulse Ox
97.4 F 91 21 128/58 96
01/16/25 12:25 01/16/25 19:30 01/16/25 19:12 01/16/25 19:12 01/16/25 19:30
Physical Exam
General: Comfortable and Conversant; No Fever or Chills
HEENT: NormoCephalic, Anicteric, Moist mucous membranes, PERRLA, [place] Conjunctivae and No Ptosis
Respiratory: Clear; No Wheezes, Rales or Rhonchi
Cardiac: S1/S2, Regular Rhythm and Other (Pacemaker left upper chest wall); No Murmur, Rub, Gallop or Peripheral Edema
Breast: Deferred by me
GI: Distended (Due to abdominal ascites) and Other (Hypoactive bowel sounds, surgical incision right side abdomen intact, patient tender left lower quadrant abdomen)
Rectal: Deferred by Provider
Genito-urinary: Deferred by me
Musculoskeletal: No Clubbing, No Cyanosis and No Edema
Skin: Warm and Dry; No Rash
Neuro: AO x 3, No Motor Deficits, Cranial Nerves Intact and No Sensory Deficits; No Slurred Speech, Facial Droop or Tremors
Psych: Calm
Laboratory Results
-
01/16/25 15:42
01/16/25 15:42
Laboratory Results
PT 18.0 Sec (11.4-14.6) H 01/16/25 17:09
INR 1.46 01/16/25 17:09
APTT 31.8 Sec (23.4-35.0) 01/16/25 17:09
Lactic Acid 3.2 mmol/L (0.7-2.0) H 01/16/25 16:15
Total Bilirubin 3.6 mg/dl (0.2-1.3) H 01/16/25 15:42
AST 38 U/L (14-36) H 01/16/25 15:42
ALT 16 U/L (0-35) 01/16/25 15:42
Alkaline Phosphatase 192 U/L (38-126) H 01/16/25 15:42
Impression/Plan
-
Impression/plan:
Admit to telemetry
#Sepsis 2/2 with abdominal pain secondary to LARGE ABD ASCITES concern for SBP
#History of ALCOHOLIC CIRRHOSIS alcoholic
#Portal hypertension
WBC 24.7 with 16% bands, lactic acid 3.2-Will trend, creatinine 1.2> 0.7 on 01/13/2025
T. bili 3.6
-Consult IR for paracentesis with fluid cytology
-Consult General surgery seen by Dr. Quick at bedside not concern for small leak at ileostomy reversal site
-Consult GI
-Blood cultures x 2
-IV Zosyn renal dose
- Will give IV albumin 90 a.m.
- Follow CBC, CMP
CT abdomen pelvis: 1. Large amount of abdominal and pelvic ascites. New.
2. Mild extraluminal air in the right abdomen. Suggestion of mild enhancement of the ascites.
These findings raise concern for infected fluid or loculated fluid.
A small leak cannot be completely excluded. However, no extravasation of oral contrast to suggest a
leak is identified.. New
3. Small collection of fluid in the right anterior wall. Differential diagnosis includes postoperative seroma,
hematoma or abscess. New
4. Suggestion of mild small bowel wall thickening in the mid abdomen and left lower quadrant.
The differential diagnoses include inflammation, infection and ischemia. New.
5. Nodular hepatic margin consistent with known cirrhosis. Stable
6. Left lower lobe pulmonary nodule. Stable from 2021 suggesting it is benign.
#Hypotension likely secondary to sepsis, abdominal ascites fluid shift
#Benign HTN
BP 94/57> 115/51
-Hold metoprolol
#ADAM
Creat 1.2 was 0.7 on 01/13/2025
-IV NSS 60 cc an hour x 1 L
#Acute on chronic hyponatremia likely hypervolemic
NA 127
Follow BMP
#Acute blood loss anemia due to incisional sigmoid ileostomy reversal on 01/05/2025
#Acute on chronic thrombocytopenia due to alcoholic liver disease/cirrhosis
Hgb dropped to 6.4 requiring 2 units PRBC on DC hemoglobin 10 (01/13/2025)
-Recent PLT 55 improved to 165(baseline 55�103)
Hgb 12.7, PLT 165
- Follow CBC
#Status post sigmoid stricture repair with ileostomy and reversal done on 01/05/2025
- Consult Dr. Quick
#HLD
-Continue Crestor 10 mg every afternoon
#Aortic stenosis status post TAVR
#Permanent pacemaker
Other PMH:
Diverticulitis
Known left lower lobe pulmonary nodule stable from 2021
DVT prophylaxis
SCDs
Full code
[2025-01-16] MEDS: FLEXBUMIN 100 IV ×2 (20:40→22:52)
[2025-01-17] VITALS (10 sets, daily range): BP systolic 107–151; BP diastolic 51–64; BMI 26.1
[2025-01-17] MEDS: FLEXBUMIN 100 IV ×2 (00:29→02:01)
[2025-01-17] MEDS: ZOSYN 50 IV ×5 (00:40→23:03)
[2025-01-17 06:21] LABS: Hematocrit 23.5 % (37.0-47.0); Hemoglobin 7.6 g/dL (12.0-16.0); Mean Corp Hgb Conc. 32.3 g/dL (33.0-37.0); Mean Corpuscular Volume 99.6 fL (81.0-99.0); Platelet Count 100 10^3/uL (130-400); Red Cell Dist. Width 16.8 % (11.5-14.5)
[2025-01-17 06:32] LABS: ALT (SGPT) < 10 U/L (0-35); AST (SGOT) 23 U/L (14-36); Albumin 3.4 g/dl (3.5-5.0); Alkaline Phosphatase 74 U/L (38-126); Blood Urea Nitrogen 28 mg/dl (7-17); Calcium 7.5 mg/dl (8.4-10.2); Carbon Dioxide 19 mmol/L (22-30); Chloride 104 mmol/L (98-107); Estimated Creatinine Clearance 30 ml/min; Glucose 88 mg/dl (70-99); Potassium 3.6 mmol/L (3.5-5.1); Sodium 132 mmol/L (135-145); Total Protein 5.1 g/dl (6.3-8.2); eGFR 45.48
--- NOTE | 2025-01-17 07:28 | W.PN.CRS1 ---
Today's Communication / Plan
-
- paracentesis
- npo
Assessment/Plan
-
79-year-old female status post closure of ileostomy on 01/05/2025, presents to the ER with abdominal pain, weakness, and nausea. She previously underwent a robotic sigmoid resection with diverting loop ileostomy for a severe diverticular stricture.
She has known [place]'s cirrhosis and portal hypertension and her postoperative course was uncomplicated. A contrast enema and flexible sigmoidoscopy were normal prior to the ileostomy closure.
In the ED she was stable, afebrile and her WBC was 24.7, elevated lactate, and ADAM. A CT scan of the abdomen and pelvis with oral, rectal and IV contrast revealed no extravasation of the entericl contrast but there is large volume ascites with a
few dots of air in the fluid on the right, near but not adjacent to the ileostomy closure. After hyrdration and antibiotics her wbc is 12.3 and her lactate has normalized.
- Afebrile, VSS (slight tachycardia)
- her abdominal exam is unchanged
- for paracentesis today
- NPO for now
- no indication for surgery at this time
Subjective Data
Subjective Data
Date of Service: January 17, 2025
Her abdominal pain is the same. She is moving her bowels. No appetite.
Objective Data
-
Vital Signs
Temp Pulse Resp BP Pulse Ox
97.5 F 111 16 144/64 96
01/17/25 03:23 01/17/25 03:23 01/17/25 03:23 01/17/25 03:23 01/17/25 03:23
Intake & Output
01/16/25 01/17/25 01/18/25
06:59 06:59 06:59
Other:
Number of approximated MODERATE 1
amounts of urine
Lab Results
01/17/25 05:43
01/17/25 05:43
Physical Exam
-
General: No Acute Distress
Abdomen: Distended and Tender
Wound: No Signs of Infection
[2025-01-17 07:31] LABS: Absolute Neutrophils -Man Diff 10.4 10^3/uL (1.4-6.5); Anisocytosis Slight; Microcytosis 1+; Normal RBC Morphology No; Platelets Checked Yes
[2025-01-17 07:32] LABS: Burr Cells 2+; Hypochromasia Slight; Ovalocytes Slight; Total Cells Counted 100
[2025-01-17 07:35] LABS: INR 2.11; PT 23.8 Sec (11.4-14.6)
[2025-01-17 10:03] LABS: Body Fluid Second Tech BP
--- NOTE | 2025-01-17 11:48 | VNURNOTE ---
Chart reviewed. Patient is current with [facility]. Will continue to follow hospital course and DC plans.
--- NOTE | 2025-01-17 12:38 | W.PN.HOSP.TC ---
Today's Communication/Plan
-
IV antibiotics pending cultures
IV fluids
Follow renal function and sodium level
Follow hemoglobin
Assessment / Plan
Assessment / Plan
Impression
Peritonitis: SBP versus secondary peritonitis.
Recent ileostomy reversal followed with hospitalization with incisional bleeding and wound infection (discharged 01/13/2025).
Sepsis present on admission (tachycardia, leukocytosis, lactic acidosis, acute kidney injury)
Acute on chronic anemia.
Acute on chronic hyponatremia
Other conditions
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
Aortic stenosis status post TAVR.
Status post PPM.
Cirrhosis secondary to alcohol.
Essential hypertension
History of diverticulosis/diverticulitis
Imaging
CT scan of the abdomen pelvis 01/16
Mild extraluminal air in the right abdomen. Suggestion of mild enhancement of the ascites. These findings raise concern for infected fluid or loculated fluid. A small leak cannot be completely excluded. However, no extravasation of oral contrast to
suggest a leak is identified.. New
Small collection of fluid in the right anterior wall. Differential diagnosis includes postoperative seroma, hematoma or abscess. New
Suggestion of mild small bowel wall thickening in the mid abdomen and left lower quadrant. The differential diagnoses include inflammation, infection and ischemia. New.
Nodular hepatic margin consistent with known cirrhosis. Stable
Left lower lobe pulmonary nodule. Stable from 2021 suggesting it is benign.
Plan
Peritonitis: SBP versus secondary peritonitis.
Recent ileostomy reversal followed by wound infection and incisional bleeding.
Status post paracentesis 12/1810 100 cc fluid findings consistent with peritonitis (WBC 22057 PMN�90% PMN)
Pending cultures
Empiric antibiotics: Zosyn
ID evaluation
Colorectal surgery consult. Remains concern for anastomosis leak, although no radiologic evidence of such. Monitor closely.
Currently n.p.o. pending colorectal surgery follow-up.
Acute kidney injury.
Creatinine 1.2
Not hypotensive
Improved lactic acidosis with IV hydration.
Continue isotonic solution
Status post albumin infusion with paracentesis
Avoid hypotension
Follow BMP closely
Acute on chronic hyponatremia. Sodium 127.
Suspect intravascular depletion with acute infection.
Continue isotonic solution.
Monitor for recurrent hypotension.
Check urine awesome.
Follow BMP
Cirrhosis.
Grade 1 esophageal varices on recent EGD
Suspect secondary to alcohol use disorder.
MELD Na 35
Infected ascites as above.
Monitor closely
Acute on chronic anemia.
Suspect dilutional.
Hemoglobin dropped from 12-7.6 with IV hydration.
Recent hemoglobin around 9.
Update iron stores.
Follow CBC closely.
Cardiovascular:
Status post TAVR.
Hypertension.
Echo 09/05/2023 normal biventricular size and function. Status post TAVR.
LVEF 55/60%
Resume Toprol-XL.
Monitor volume status closely with hydration
Hold aspirin acutely given drop in hemoglobin
Anticipated Discharge: > 48 hours
Subjective/Interval History
-
Date of Service: January 17, 2025
Objective Data
-
Labs:
Laboratory Results
01/17/25
05:43
WBC 12.3 H
Hgb 7.6 L D
Hct 23.5 L
Plt Count 100 L D
PT 23.8 H
INR 2.11
Sodium 132 L
Potassium 3.6
Chloride 104
Carbon Dioxide 19 L
BUN 28 H
Creatinine 1.2 H
Glucose 88
Calcium 7.5 L
Total Bilirubin 3.4 H
AST 23
ALT < 10
Alkaline Phosphatase 74
Vital Signs:
Vital Signs
Temp Pulse Resp BP Pulse Ox
97.4 F 93 16 116/64 99
01/17/25 11:20 01/17/25 11:20 01/17/25 11:20 01/17/25 11:20 01/17/25 11:20
Physical Exam
-
General: Well Developed and No Apparent Distress
HEENT: Normocephalic, Atraumatic and Moist Mucous Membranes
Respiratory: Clear to Auscultation
Cardiac: Regular Rhythm and S1/S2; Negative Murmur, Rub or Gallop
GI: Soft, Nontender, Nondistended and Normal Bowel Sounds; Negative Organomegaly
Rectal: Deferred by Provider
Musculoskeletal: No Clubbing, No Cyanosis and No Edema
Skin: Negative Rash
Neuro: Nonfocal/Grossly Intact
[2025-01-17] MEDS: NSS (PRESERVATIVE FREE) 10 ML IV (14:13)
[2025-01-17] MEDS: PROTONIX IV 40 MG IV (14:13)
--- NOTE | 2025-01-17 15:06 | W.PN.UPDATE ---
Update Note
Progress Note Update
I saw her this afternoon and she feels better. AVSS. Her abdomen is much less distended and minimal tenderness.
Will order clear liquids and Ensure.
Patient's daughter, Cristina, updated.
--- NOTE | 2025-01-17 16:17 | CON.ID ---
Consultation
-
Date/Time Consultation Requested: 01/17/2025 1230
Date/Time Consultation Performed: 01/17/2025 1554
Requesting Provider: Dr. Vo
Performing Provider: Dr. Gordon
Reason for Consultation: Peritonitis
Chief Complaint / Past History
History of Present Illness
Wilma Leung is an 79-year-old female being evaluated request of Dr. Vo in regards to peritonitis. History is obtained from chart review, along with patient interview.
The patient has a significant past medical history of chronic alcoholic liver disease and prior sigmoidectomy with ileostomy placement. She underwent ileostomy reversal on 01/05/2025. She presented back to the emergency room on 01/12 secondary to
surgical site/incisional bleeding, and was discharged home the next day. The patient presented back to the emergency room on 01/16 secondary to increasing abdominal pain, anorexia and nausea. In the ER she was found to have a leukocytosis of 24K
and an elevated lactic acid level. She underwent paracentesis today with noted marked elevation in ascites white count, and Infectious Diseases is asked to comment upon further antimicrobial therapy.
Patient notes that over the past week she has had increasing distention. She denies any fevers or chills. She denies overt abdominal pain, but has felt generalized discomfort. She denies any nausea, vomiting or diarrhea.
Past History
Additional Past Medical History:
HTN
HLD
Seizure disorder
Diverticulitis
EtOH liver disease
Hx cirrhosis
Additional Past Surgical History:
JOCY
TNA
Bowel resection/ileostomy s/p reversal
TAVR (2021)
PPM placement (2021)
Allergy History:
atorvastatin (From Lipitor) Allergy (Verified 01/16/25 12:25)
MYALGIA (only with high dose per pt)
Medications Reviewed: Yes
Current Antibiotics:
Zosyn 2.25 gm IV q.6 hours
Social History
Tobacco: Non-Smoker
Alcohol: Former
Drug: None
Living: With Family
Employment: Retired
Family History
Family History: Not Pertinent
Review of Systems
Vital Signs
Temp Pulse Resp BP Pulse Ox
97.4 F 93 16 116/64 99
01/17/25 11:20 01/17/25 11:20 01/17/25 11:20 01/17/25 11:20 01/17/25 11:20
Physical Exam
Physical Exam
Constitutional: No Acute Distress, Comfortable and Non-toxic
Eyes: No Conjunctival Hemorrhage and Sclera Anicteric
Oral: No Thrush and No Ulcers
Cardiovascular: Regular Rate and S1/S2; Negative S3/S4
Pulmonary: Clear; Negative Wheezes, Rales or Rhonchi
Gastrointestinal: Soft, Distended, Normal Bowel Sounds, No Rebound and No Guarding
Extremities: Edema (2+); Negative Erythema or Splinter Hemorrhage
Skin: Warm and Dry; Negative Rash or Jaundice
Neurological: Awake and Alert
Psychological: Calm
.
Lab / Diagnostic Study Results
01/17/25 05:43
01/17/25 05:43
Total Counted 100 01/17/25 05:43
Abs Neuts (Manual) 10.4 10^3/uL (1.4-6.5) H 01/17/25 05:43
Segmented Neutrophils 65 % (42-75) 01/17/25 05:43
Band Neutrophils 20 % (0-3) H 01/17/25 05:43
Lymphocytes (Manual) 5 % (20-51) L 01/17/25 05:43
PT 23.8 Sec (11.4-14.6) H 01/17/25 05:43
INR 2.11 01/17/25 05:43
Lactic Acid Cancelled 01/17/25 05:45
Microbiology Results
Micro:
01/17/25 08:06 Body Fluid Culture - Pending
Peritoneal Fluid Gram Stain - Preliminary
01/16/25 22:41 MRSA Screen - Pending
Nose
Laboratory Tests
01/17/25
08:06
Fluid WBC 27451
Fluid Mononuclear Cell 9.2
Fl Polymorphonucl Cell 90.8
Fluid Total Protein < 2.0
Fluid LDH 406
Imaging:
01/16/2025 CT abdomen/pelvis with contrast: large amount of abdominal and pelvic ascites. Mild extraluminal air in the right abdomen. Suggestion of mild enhancement of the ascites raising concern for infected fluid or loculated fluid. A small
leak cannot be completely excluded however there was no extravasation of oral contrast to suggest a leak identified. Small collection of fluid in the right anterior abdominal wall. Nodular hepatic margin consistent with known cirrhosis. Please
see full dictation for additional detail. Film personally viewed.
Assessment / Plan
Peritonitis (SBP vs. leak)
Leukocytosis; improved
ADAM
Lactic acidosis; improved
Elevated bilirubin
HTN
HLD
Seizure disorder
Diverticulitis
EtOH liver disease
Hx cirrhosis
Recommendations:
Continue with empiric Zosyn. Dose has been adjusted for renal insufficiency
Ascites cultures currently pending. Will continue to follow.
Monitor white count and temperature curve.
Further recommendations as additional data is returned.
--- NOTE | 2025-01-17 17:26 | CM ---
Reviewed chart. Pt on IV ABX and IVF. Pt is current with [facility]. Will watch for DC needs
Plan: Home with [facility]
[2025-01-17] MEDS: TOPROL XL 25 MG PO (21:05)
--- NOTE | 2025-01-18 03:14 | DOWNTIME ---
There was a CORD:USE [employer] Client [employer] Machine Downtime on 01/18/2025 from 0100 to 01/18/2025 at 0255. Downtime documentation of patient's care, including medication administrations, has been reconciled in the electronic record per guidelines. Refer to the
patient's paper chart under the miscellaneous tab to see printed paper medication records and downtime forms.
[2025-01-18 03:48] VITALS: BP 118/61
[2025-01-18] MEDS: ZOSYN 50 IV ×3 (05:11→17:21)
[2025-01-18 05:13] LABS: Hematocrit 26.7 % (37.0-47.0); Hemoglobin 8.8 g/dL (12.0-16.0); Mean Corp Hgb Conc. 33.0 g/dL (33.0-37.0); Mean Corpuscular Volume 98.9 fL (81.0-99.0); Nucleated Red Blood Cells % 0 %; Platelet Count 102 10^3/uL (130-400); Red Cell Dist. Width 17.0 % (11.5-14.5)
[2025-01-18 05:26] LABS: ALT (SGPT) < 10 U/L (0-35); AST (SGOT) 20 U/L (14-36); Albumin 2.8 g/dl (3.5-5.0); Alkaline Phosphatase 79 U/L (38-126); Blood Urea Nitrogen 30 mg/dl (7-17); Calcium 7.8 mg/dl (8.4-10.2); Carbon Dioxide 20 mmol/L (22-30); Chloride 105 mmol/L (98-107); Estimated Creatinine Clearance 33 ml/min; Glucose 86 mg/dl (70-99); Potassium 3.1 mmol/L (3.5-5.1); Sodium 131 mmol/L (135-145); Total Protein 4.7 g/dl (6.3-8.2); eGFR 50.48
[2025-01-18 07:40] VITALS: BP 133/57
[2025-01-18] MEDS: NSS (PRESERVATIVE FREE) 10 ML IV (08:16)
[2025-01-18] MEDS: PROTONIX IV 40 MG IV (08:17)
[2025-01-18] MEDS: FLUSH (NSS) 1 FLUSH IV ×3 (08:17→17:21)
--- NOTE | 2025-01-18 09:33 | W.PN.CRS1 ---
Today's Communication / Plan
-
fulls
OOB
heparin subq
continue zosyn
await cultures
Assessment/Plan
-
79-year-old female status post closure of ileostomy on 01/05/2025, presents to the ER with abdominal pain, weakness, and nausea. She previously underwent a robotic sigmoid resection with diverting loop ileostomy for a severe diverticular stricture.
She has known Laennec's cirrhosis and portal hypertension and her postoperative course was uncomplicated. A contrast enema and flexible sigmoidoscopy were normal prior to the ileostomy closure.
In the ED she was stable, afebrile and her WBC was 24.7, elevated lactate, and ADAM. A CT scan of the abdomen and pelvis with oral, rectal and IV contrast revealed no extravasation of the entericl contrast but there is large volume ascites with a
few dots of air in the fluid on the right, near but not adjacent to the ileostomy closure. After hyrdration and antibiotics her wbc is 12.3 and her lactate has normalized.
WBC: 12.7 (12.3, 24.7) Hgb 8.8 (7.6, 12.7)
Creatinine: 1.1 (1.2, 1.2)
Vitals:normal
-Await paracentesis cultures
-Zosyn per ID
-Start heparin sq for DVT prophylaxis
-OOB with PT/OT
-Advance to fulls with Ensure BID
-Incentive spirometry q1 hour while awake
-Okay to leave wound open to air
-Okay to shower
-No plans for surgery at this time
Subjective Data
Subjective Data
Date of Service: January 18, 2025
Patient states she's feeling a little better today. She was out of bed yesterday. Denies nausea or vomiting.
Objective Data
-
Vital Signs
Temp Pulse Resp BP Pulse Ox
97.8 F 89 18 133/57 96
01/18/25 07:40 01/18/25 07:40 01/18/25 07:40 01/18/25 07:40 01/18/25 08:10
Intake & Output
01/17/25 01/18/25 01/19/25
06:59 06:59 06:59
Intake Total 980 / 980
Balance 980 / 980
Intake:
Oral fluids 480 / 480
IV fluids (Total) 400 / 400
IV piggybacks 100 / 100
Other:
Number of approximated MODERATE 1 1
amounts of urine
Lab Results
01/18/25 04:48
01/18/25 04:48
Physical Exam
-
General: No Acute Distress
Abdomen: Soft, Distended (mild) and Tender (mild throughout, more on left. )
Incision: Clear, Dry, Intact
[2025-01-18 10:09] VITALS: BMI 25.3
--- NOTE | 2025-01-18 11:31 | CM ---
IA completed with assistance of Dtr. Requires assistance with steps and walking. Has SPC at home and rolling walker, both are in use.NO hs of home O2 or SNF. No insecurities identified. Confirmed PCP, Rx, insurance and drug coverage..
Was independent at home before her most recent hospitalizations. Now use a RW for ambulation. Also, is now not able to go up steps to the second floor. Family has made accommodations on the 1st floor and assists her to the second floor for access to
a shower.
Is current with [facility] for nursing and PT services. Agreeable to resumption of care. VN referral made. Will need an order for VN at discharge. Pt is request to have [facility] for PT services and [facility] for nursing services if possible.
PCP: Jose Manuel
RX: [facility] [place] on [address]
Plan: home with VN. Will monitor for additional dc needs
[2025-01-18 11:43] VITALS: BP 132/58
[2025-01-18] MEDS: KCL ELIXIR 40 MEQ PO (11:47)
--- NOTE | 2025-01-18 14:13 | VNURNOTE ---
Patient sleeping when liaison attempted to meet with her at bedside. Resumption referral placed in [facility].
--- NOTE | 2025-01-18 14:17 | W.PN.HOSP.TC ---
Today's Communication/Plan
-
Continue antibiotics pending peritoneal fluid cultures
Full liquid diet
Follow BMP
Assessment / Plan
Assessment / Plan
Impression
Peritonitis: SBP versus secondary peritonitis.
Recent ileostomy reversal followed with hospitalization with incisional bleeding and wound infection (discharged 01/13/2025).
Sepsis present on admission (tachycardia, leukocytosis, lactic acidosis, acute kidney injury)
Acute on chronic anemia.
Acute on chronic hyponatremia
Other conditions
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
Aortic stenosis status post TAVR.
Status post PPM.
Cirrhosis secondary to alcohol.
Essential hypertension
History of diverticulosis/diverticulitis
Imaging
CT scan of the abdomen pelvis 01/16
Mild extraluminal air in the right abdomen. Suggestion of mild enhancement of the ascites. These findings raise concern for infected fluid or loculated fluid. A small leak cannot be completely excluded. However, no extravasation of oral contrast to
suggest a leak is identified.. New
Small collection of fluid in the right anterior wall. Differential diagnosis includes postoperative seroma, hematoma or abscess. New
Suggestion of mild small bowel wall thickening in the mid abdomen and left lower quadrant. The differential diagnoses include inflammation, infection and ischemia. New.
Nodular hepatic margin consistent with known cirrhosis. Stable
Left lower lobe pulmonary nodule. Stable from 2021 suggesting it is benign.
Plan
Peritonitis: SBP versus secondary peritonitis.
Recent ileostomy reversal followed by wound infection and incisional bleeding.
Status post paracentesis 12/1810 100 cc fluid findings consistent with peritonitis (WBC 29962 PMN�90% PMN)
Pending peritoneal cultures cultures.
Blood cultures were not submitted in the ED
Empiric antibiotics: Zosyn
ID evaluation
Colorectal surgery consult. Remains concern for anastomosis leak, although no radiologic evidence of such. Monitor closely.
Improving with improved abdominal pain, has been afebrile, hemodynamically stable, with downtrending WBC
Advance to full liquid diet
Acute kidney injury.
Creatinine 1.2
Improving with IV fluid bolus
Not hypotensive
Improved lactic acidosis with IV hydration.
Continue isotonic solution
Status post albumin infusion with paracentesis
Avoid hypotension
Follow BMP closely
Acute on chronic hyponatremia. Sodium 127.
Suspect intravascular depletion with acute infection.
Urine osmolarity 600
Sodium improved 127�131 with IV fluid bolus
Follow-up daily BMP
Cirrhosis.
Grade 1 esophageal varices on recent EGD
Suspect secondary to alcohol use disorder.
MELD Na 35
Infected ascites as above.
Monitor closely
Acute on chronic anemia.
Suspect dilutional.
Hemoglobin dropped from 12-7.6 with IV hydration.
Recent hemoglobin around 9.
Update iron stores.
Follow CBC closely.
Cardiovascular:
Status post TAVR.
Hypertension.
Echo 09/05/2023 normal biventricular size and function. Status post TAVR.
LVEF 55/60%
Resume Toprol-XL.
Monitor volume status closely with hydration
Hold aspirin acutely given drop in hemoglobin
Anticipated Discharge: > 48 hours
Subjective/Interval History
-
Date of Service: January 18, 2025
Objective Data
-
Labs:
Laboratory Results
01/18/25
04:48
WBC 12.7 H
Hgb 8.8 L
Hct 26.7 L
Plt Count 102 L
Sodium 131 L
Potassium 3.1 L
Chloride 105
Carbon Dioxide 20 L
BUN 30 H
Creatinine 1.1 H
Glucose 86
Calcium 7.8 L
Total Bilirubin 2.9 H
AST 20
ALT < 10
Alkaline Phosphatase 79
Vital Signs:
Vital Signs
Temp Pulse Resp BP Pulse Ox
97.7 F 87 18 132/58 98
01/18/25 11:43 01/18/25 11:43 01/18/25 11:43 01/18/25 11:43 01/18/25 11:43
I&O
01/17/25 01/18/25 01/19/25
06:59 06:59 06:59
Intake Total 980 / 980
Balance 980 / 980
Physical Exam
-
General: Well Developed and No Apparent Distress
HEENT: Normocephalic, Atraumatic and Moist Mucous Membranes
Respiratory: Clear to Auscultation
Cardiac: Regular Rhythm and S1/S2; Negative Murmur, Rub or Gallop
GI: Soft, Nontender, Nondistended and Normal Bowel Sounds; Negative Organomegaly
Rectal: Deferred by Provider
Musculoskeletal: No Clubbing, No Cyanosis and No Edema
Skin: Negative Rash
Neuro: Nonfocal/Grossly Intact
[2025-01-18 15:15] VITALS: BP 119/72
--- NOTE | 2025-01-18 16:21 | PTCARENOTE ---
Pt AAO x3, anxious at times. CORONA; OOB to chair/BR with assist x1/walker, libertad well, needs much encouragement to participate in OOB activity. VSS. Telemetry:NSR with BBC. On room air- puls ox 97%, no SOB noted. Abd large, soft, libertad PO; appetite
poor; taking fluids. Voids in BR without difficulty. Pt currently refusing to finish oral KCL dose; stated 'I can't tolerate it'- Dr. Vo notified. Resting in bed at present. Will continue to monitor.
[2025-01-18] MEDS: HEPARIN 5000 UNITS SC (16:32)
--- NOTE | 2025-01-18 16:32 | W.PN.ID1 ---
Date of Service
Date of Service: January 18, 2025
Today's Communication
Continue antibiotics.
Assessment / Plan
Peritonitis (SBP vs. leak)
Leukocytosis; stable from yesterday
ADAM
Lactic acidosis; improved
Elevated bilirubin
HTN
HLD
Seizure disorder
Diverticulitis
EtOH liver disease
Hx cirrhosis
Recommendations:
Continue with empiric Zosyn. Dose has been adjusted for renal insufficiency
Ascites cultures currently pending. Will continue to follow.
Will likely need repeat paracentesis in several days to assess antibiotic effect.
Monitor white count and temperature curve.
����������������������������������������������������������
Chief Complaint
-: Other (Peritonitis)
Subjective / Review of Systems
Patient seen and examined. Reports some ongoing abdominal fullness, but overall discomfort has improved.
Review of Systems: No Fever and No Chills
Vital Signs / Physical Exam
Vital Signs
Vital Signs
Temp Pulse Resp BP Pulse Ox
98 F 94 18 119/72 97
01/18/25 15:15 01/18/25 15:15 01/18/25 15:15 01/18/25 15:15 01/18/25 16:21
Physical Exam
Constitutional: No Acute Distress, Comfortable and Non-toxic
Eyes: Sclera Anicteric
Cardiovascular: S1/S2; Negative S3/S4
Pulmonary: Non Labored
Gastrointestinal: Soft, Distended, Normal Bowel Sounds, No Rebound and No Guarding
Neurological: Awake and Alert
Psychological: Calm
Objective Data
Lab Data
Lab Results
01/18/25 04:48
01/18/25 04:48
PT 23.8 Sec (11.4-14.6) H 01/17/25 05:43
INR 2.11 01/17/25 05:43
APTT 31.8 Sec (23.4-35.0) 01/16/25 17:09
Estimated Creat Clear 33 ml/min 01/18/25 04:48
Lactic Acid Cancelled 01/17/25 05:45
Total Bilirubin 2.9 mg/dl (0.2-1.3) H 01/18/25 04:48
AST 20 U/L (14-36) 01/18/25 04:48
ALT < 10 U/L (0-35) 01/18/25 04:48
Alkaline Phosphatase 79 U/L (38-126) 01/18/25 04:48
Most recent labs reviewed.
Micro Results:
01/17/25 08:06 Body Fluid Culture - Preliminary
Peritoneal Fluid No Growth After 18-24 Hours
Gram Stain - Preliminary
01/16/25 22:41 MRSA Screen - Final
Nose No Methicillin Resistant Staphylococcus aureus isolated.
Laboratory Tests
01/17/25
08:06
Fluid WBC 19098
Fluid Mononuclear Cell 9.2
Fl Polymorphonucl Cell 90.8
Fluid Total Protein < 2.0
Fluid LDH 406
Imaging:
01/16/2025 CT abdomen/pelvis with contrast: large amount of abdominal and pelvic ascites. Mild extraluminal air in the right abdomen. Suggestion of mild enhancement of the ascites raising concern for infected fluid or loculated fluid. A small
leak cannot be completely excluded however there was no extravasation of oral contrast to suggest a leak identified. Small collection of fluid in the right anterior abdominal wall. Nodular hepatic margin consistent with known cirrhosis. Please
see full dictation for additional detail. Film personally viewed.
[2025-01-18 19:30] VITALS: BP 136/60
[2025-01-18] MEDS: TOPROL XL 25 MG PO (20:54)
[2025-01-18 23:04] VITALS: BP 126/61
[2025-01-19] MEDS: ZOSYN 50 IV ×5 (01:23→22:50)
[2025-01-19] MEDS: HEPARIN 5000 UNITS SC ×4 (01:23→22:49)
[2025-01-19 03:32] VITALS: BP 138/59
[2025-01-19 05:27] LABS: Hematocrit 26.1 % (37.0-47.0); Hemoglobin 9.2 g/dL (12.0-16.0); Mean Corp Hgb Conc. 35.2 g/dL (33.0-37.0); Mean Corpuscular Volume 93.2 fL (81.0-99.0); Nucleated Red Blood Cells % 0 %; Platelet Count 106 10^3/uL (130-400); Red Cell Dist. Width 16.2 % (11.5-14.5)
[2025-01-19 05:34] VITALS: BMI 25.1
[2025-01-19 05:50] LABS: ALT (SGPT) 13 U/L (0-35); AST (SGOT) 32 U/L (14-36); Albumin 2.6 g/dl (3.5-5.0); Alkaline Phosphatase 144 U/L (38-126); Blood Urea Nitrogen 30 mg/dl (7-17); Calcium 7.8 mg/dl (8.4-10.2); Carbon Dioxide 21 mmol/L (22-30); Chloride 105 mmol/L (98-107); Estimated Creatinine Clearance 33 ml/min; Glucose 108 mg/dl (70-99); Potassium 3.0 mmol/L (3.5-5.1); Sodium 133 mmol/L (135-145); Total Protein 4.7 g/dl (6.3-8.2); eGFR 50.48
[2025-01-19 07:09] VITALS: BP 133/50
--- NOTE | 2025-01-19 08:42 | W.PN.CRS1 ---
Today's Communication / Plan
-
regular diet
GI consult
continue abx
await cultures
Assessment/Plan
-
79-year-old female status post closure of ileostomy on 01/05/2025, presents to the ER with abdominal pain, weakness, and nausea. She previously underwent a robotic sigmoid resection with diverting loop ileostomy for a severe diverticular stricture.
She has known Laennec's cirrhosis and portal hypertension and her postoperative course was uncomplicated. A contrast enema and flexible sigmoidoscopy were normal prior to the ileostomy closure.
In the ED she was stable, afebrile and her WBC was 24.7, elevated lactate, and ADAM. A CT scan of the abdomen and pelvis with oral, rectal and IV contrast revealed no extravasation of the entericl contrast but there is large volume ascites with a
few dots of air in the fluid on the right, near but not adjacent to the ileostomy closure. After hyrdration and antibiotics her wbc is 12.3 and her lactate has normalized.
WBC: 12.2 (12.7, 12.3, 24.7) Hgb 9.2 (8.8, 7.6, 12.7)
Creatinine: 1.1 (1.1, 1.2, 1.2)
Vitals:normal
-Await paracentesis cultures
-Zosyn per ID
-Continue heparin sq for DVT prophylaxis
-OOB with PT/OT
-Advance to regular diet with Ensure BID
-Incentive spirometry q1 hour while awake
-Okay to leave wound open to air
-Okay to shower
-No plans for surgery at this time
-Recommend GI consult for liver management
Subjective Data
Subjective Data
Date of Service: January 19, 2025
Patient states she feels 'the same'. She is hungry and eating. She has some pain but it is unchanged. Denies nausea or vomiting.
Objective Data
-
Vital Signs
Temp Pulse Resp BP Pulse Ox
97.4 F 87 18 133/50 100
01/19/25 07:09 01/19/25 07:09 01/19/25 07:09 01/19/25 07:09 01/19/25 07:09
Intake & Output
01/18/25 01/19/25 01/20/25
06:59 06:59 06:59
Intake Total 980 / 980 800 / 800
Balance 980 / 980 800 / 800
Intake:
Oral fluids 480 / 480 700 / 700
IV fluids (Total) 400 / 400
IV piggybacks 100 / 100 100 / 100
Other:
Number of approximated MODERATE 1 3
amounts of urine
Lab Results
01/19/25 04:51
01/19/25 04:51
Physical Exam
-
General: No Acute Distress and AOx3
Abdomen: Soft, Non Distended and Non Tender
Skin: Warm and Dry
Incision: Clear, Dry, Intact
--- NOTE | 2025-01-19 09:21 | CON.GI ---
Addendum entered and electronically signed by KEVEN Collier 01/19/25 16:43:
correction to below office will arrange follow up with Dr. Sibley after admission.
Addendum entered and electronically signed by KEVEN Collier 01/19/25 15:57:
paracentesis ordered for AM to follow up SBP. I also had follow up with daughter Dulce who prefer local [facility] follow up with no preference for hepatology follow up. She is willing to see hepatology other places if needed but transition to
[facility] when able. I sent message to GI office to arrange follow up with Dr. Thomas next 2-4 week and sent message to Evelyn Pascual to help arrange follow up with Dr. Antoine from hepatology.
Addendum entered and electronically signed by Sean Sibley DO 01/19/25 14:55:
I saw and examined the patient.
The INDUSTRIAL AERIAL INSTALLER's note was reviewed and I agree with the note.
Comment: Ms Leung is an 79 y.o female with a past medical history of HTN, HDL, hx of TAVR, PPM, AUD, recently diagnosed cirrhosis, diverticulosis with recent sigmoid stricture (s/p robotic resection with diverting loop ileostomy for severe
diverticular stricture w/ closure of ileostomy on 01/05/2025) who presented to the ED on 01/16/25 with weakness, nausea and abdominal pain. In the ED, she was afebrile however found to have an elevated leukocytosis 24k, elevated lactate and ADAM with
Automatic Steel Tie Adjuster of 1.2 (baseline 0.5 - 0.6). CT imaging revealed no extravasation of contrast of the bowel, however revealed new large volume ascites and cirrhotic morphology of the liver. She underwent a paracentesis on 01/17 which revealed high SAAG, low
protein (c/w portal-HTN) with 11,177 PMNs concerning for SBP versus secondary bacterial peritonitis. Regarding her hx of cirrhosis, appears this was a recent diagnosis and denies any other known complications regarding her ESLD. History significant
for alcohol use disorder. She has never seen a wallpaper consultant in the past and denies any bloody stools, melena, confusion or other symptoms at this time. Prior labs from 01/17/25 corresponding to a MELD 3.0 score of 25. Fortunately, she received IV
albumin and remains on IV Zosyn. She appears to be improving and making good UOP without other concern for HRS. Previous peritoneal culture also negative, c/w culture-negative neutrocytic ascites (CNNA) and again suspect secondary to SBP and less
likely secondary peritonitis given PMN count. No evidence of any evidence of leak on prior CT imaging. Would continue IV albumin for volume expansion as per SBP protocol (1.5 gm/kg on Day 1 and 1 gm/kg on Day 3) along with the need to repeat a
paracentesis tomorrow to ensure down-trending PMNs to ensure patient is responding to therapy. Would continue to hold diuretics with close monitoring of her renal function given her ADAM and suspect pre-renal / hypovolemia versus sepsis versus HRS
(doubt clinically). Would check a urine Na tomorrow to reassess after volume expansion. In regards to her cirrhosis, patient would benefit from a full serologic w/u as outpatient given her chronic liver disease along with an eventual follow-up with
a Escrow Agent (family request) although likely not an OLT candidate given her age. Furthermore, would continue to hold NSBB at this time until her SBP has been treated and pending her renal recovery. Additionally, she would also likely benefit from
secondary ppx given her SBP. Would continue to monitor for any signs of HE and minimize opioids/benzos while inpatient. Agree with rest of care as outlined below.
GI will continue to follow. Discussed with patient's family at bedside as well as primary internal medicine team. Please call with any questions or concerns.
Original Note:
Consultation
-
Date/Time Consultation Requested: 01/19/25899
Date/Time Consultation Performed: 01/19/25919
Requesting Provider: Nancy Gregoyr PA-C
Performing Provider: KEVEN Weaver, Sean Sibley DO
Reason for Consultation: cirrhosis eval, ascites
Medical History
Chief Complaint / HPI
Chief Complaint: Fatigue
History of Present Illness:
Pt is a 79yo with hx TAVR, hypertension, hyperlipidemia, PPM, ETOH abuse, anemia, diverticulosis with recent sigmoid stricture with temporary ileostomy 11/23/24 with closure 01/05. She now returns with abdominal pain with concern for ascites and
asked to see for cirrhosis. Pt was seen by GI in September for anemia with hbg 6 range. at that time she was drink a box of wine every few days. She completed EGD with grade I EV, schatzki's ring, angioectasia with treatment (not though to be
source) and recommended b- andrés. Imaging noted cirrhosis and ascites at that time. She was recommended GI/hematology follow up but has been admitted with recent surgical procedures. She now returns with abdominal pain and also had incisional
bleeding requiring transfusion. On admission patient went for para for 1150 with SAAG 2.5, Protein <2 (C/W with cirrhosis) but WBC 12,310.
In review with patient she was unsure about prior noted cirrhosis as recently has been through surgery. She denies issues with confusion, bleed but admits to anemia and also noted ongoing LE swelling and intermittent abdominal swelling. She
has hx GERD that is stable and alternating diarrhea and constipation since surgery with mild abdominal pain post-op She denies dysphagia, nausea, vomiting, blood or black in stools. Last colonoscopy
2019- [facility]- colon multiple polyps - TA and HP, diverticulosis, non bleeding hemorrhoids . Labs with anemia hbg 7-12, platelets down to 102, WBC initially 24,700 now 12,200. On admission Na 127, K 3.8 then drop to 3, creat 1.2, bili 3.6, AST
38, ALT 16, alk phos 192 with INR 2.11 on 01/17. Meld 3.0 calculated 01/17 25.
01/16/25- Ct A/p - Large amount of abdominal and pelvic ascites. New.
Mild extraluminal air in the right abdomen. Suggestion of mild enhancement of the ascites. These findings raise concern for infected fluid or loculated fluid. A small leak cannot be completely excluded. However, no extravasation of oral contrast to
suggest a leak is identified.. New
Small collection of fluid in the right anterior wall. Differential diagnosis includes postoperative seroma, hematoma or abscess. New
Suggestion of mild small bowel wall thickening in the mid abdomen and left lower quadrant. The differential diagnoses include inflammation, infection and ischemia. New.
nodular hepatic margin consistent with known cirrhosis. Stable
Left lower lobe pulmonary nodule. Stable from 2021 suggesting it is benign.
12/21/24 Colon-Single Contrast
Sigmoid diverticulosis again noted.
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
10/01/24 CT Abd/pel W Iv And Oral Contr
IMPRESSION: Suggestion of transition in caliber of colon at the junction of the distal descending colon and the sigmoid colon, which is in a region of previous severe diverticulitis. Findings suggest the possibility of a stricture.
There is stranding of the fat adjacent to this segment of caliber transition in the sigmoid colon, and a component of mild active diverticulitis cannot be excluded.
Consideration for follow-up imaging after treatment, if there are symptoms suggesting acute diverticulitis. Follow-up CT could be performed, perhaps to include rectal contrast to assess for narrowing of the sigmoid colon.
Changes of mild interstitial fibrosis in the visualized lower lungs. Mild to moderate elevation right hemidiaphragm, stable.
Findings of cirrhosis involving the liver. No evidence for hepatic mass lesion.
Small moderate amount of ascites within the abdomen and pelvis.
Subtle stranding of the fat adjacent to the proximal SMA with small soft tissue densities of the left lateral margin of the proximal BENNETT. BENNETT soft tissue densities as it appears slightly smaller than previous exam, while the stranding of the fat
adjacent to the SMA is new. Etiology for this finding is uncertain, but possibly vasculitis. No evidence for significant narrowing of the SMA.
Past Medical History
Past Medical History: HTN, Hypercholesterolemia and Other (diverticulosis, TAVR, hypertension, hyperlipidemia, anemia )
Past Surgical History: Cardiac (pacer ), (x4) and Gynecological (Hysterectomy)
Social History
Tobacco: Non-Smoker
Alcohol: Daily (4 small glasses of white wine)
Drug: None
Living: Alone
Employment: Retired
Family History
Family History: Other (No family history of gastrointestinal cancers or liver disease )
Allergies / Home Medications
Allergy/AdvReac Type Severity Reaction Status Date / Time
atorvastatin (From Lipitor) Allergy MYALGIA Verified 01/16/25 12:25
(only with
high dose
per pt)
�Medication �Instructions �Recorded
aspirin 81 mg chewable tablet 81 mg PO QPM Blood clot 05/07/21
prevention/tx
cyanocobalamin (vitamin B-12) 1,000 mcg PO QPM Supplement 09/30/24
1,000 mcg tablet
metoprolol succinate 25 mg 25 mg PO HS Blood Pressure 09/30/24
tablet,extended release 24 hr
(Toprol XL)
rosuvastatin 10 mg tablet (Crestor) 10 mg PO QPM HLD 09/30/24
Review of Systems
-
History Source: Patient
Constitutional: Reports No Symptoms
EENT: Reports No Symptoms
Respiratory: Reports No Symptoms
Abdomen/GI: Reports Abdominal Pain, Diarrhea and Constipated
: Reports No Symptoms
Musculoskeletal: Reports Edema
Skin: Reports No Symptoms
Neurological: Reports Weakness
Endocrine: Reports No Symptoms
Vital Signs
Temp Pulse Resp BP Pulse Ox
97.4 F 87 18 133/50 100
01/19/25 07:09 01/19/25 07:09 01/19/25 07:09 01/19/25 07:09 01/19/25 07:09
Physical Exam
Exam
General: Other (elderly female no acute distress )
HEENT: Normocephalic and Other (slight jaundice )
Respiratory: Clear
Cardiac: Regular Rhythm and Peripheral Edema
GI: Soft, Tender (mild ), Distended and Other (intact mid abdominal incision)
Musculoskeletal: No Clubbing and No Cyanosis
Skin: Warm and Dry
Neuro: Awake, Alert and AO x 3
Psych: Calm
Results
WBC 12.2 10^3/uL (4.8-10.8) H 01/19/25 04:51
Hgb 9.2 g/dL (12.0-16.0) L 01/19/25 04:51
Hct 26.1 % (37.0-47.0) L 01/19/25 04:51
MCV 93.2 fL (81.0-99.0) 11 04:51
Plt Count 106 10^3/uL (130-400) L 01/19/25 04:51
Absolute Neuts (auto) 10.4 10^3/uL (1.4-6.5) H 01/19/25 04:51
PT 23.8 Sec (11.4-14.6) H 01/17/25 05:43
INR 2.11 01/17/25 05:43
APTT 31.8 Sec (23.4-35.0) 01/16/25 17:09
Sodium 133 mmol/L (135-145) L 01/19/25 04:51
Potassium 3.0 mmol/L (3.5-5.1) L 01/19/25 04:51
Chloride 105 mmol/L (98-107) 01/19/25 04:51
Carbon Dioxide 21 mmol/L (22-30) L 01/19/25 04:51
BUN 30 mg/dl (7-17) H 01/19/25 04:51
Creatinine 1.1 mg/dL (0.6-1.0) H 01/19/25 04:51
Calcium 7.8 mg/dl (8.4-10.2) L 01/19/25 04:51
Total Bilirubin 3.6 mg/dl (0.2-1.3) H 01/19/25 04:51
AST 32 U/L (14-36) 01/19/25 04:51
ALT 13 U/L (0-35) 01/19/25 04:51
Alkaline Phosphatase 144 U/L (38-126) H 01/19/25 04:51
Diagnostic Image Results:
01/16/25- Ct A/p - Large amount of abdominal and pelvic ascites. New.
Mild extraluminal air in the right abdomen. Suggestion of mild enhancement of the ascites. These findings raise concern for infected fluid or loculated fluid. A small leak cannot be completely excluded. However, no extravasation of oral contrast to
suggest a leak is identified.. New
Small collection of fluid in the right anterior wall. Differential diagnosis includes postoperative seroma, hematoma or abscess. New
Suggestion of mild small bowel wall thickening in the mid abdomen and left lower quadrant. The differential diagnoses include inflammation, infection and ischemia. New.
nodular hepatic margin consistent with known cirrhosis. Stable
Left lower lobe pulmonary nodule. Stable from 2021 suggesting it is benign.
12/21/24 Colon-Single Contrast
Sigmoid diverticulosis again noted.
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
10/01/24 CT Abd/pel W Iv And Oral Contr
IMPRESSION: Suggestion of transition in caliber of colon at the junction of the distal descending colon and the sigmoid colon, which is in a region of previous severe diverticulitis. Findings suggest the possibility of a stricture.
There is stranding of the fat adjacent to this segment of caliber transition in the sigmoid colon, and a component of mild active diverticulitis cannot be excluded.
Consideration for follow-up imaging after treatment, if there are symptoms suggesting acute diverticulitis. Follow-up CT could be performed, perhaps to include rectal contrast to assess for narrowing of the sigmoid colon.
Changes of mild interstitial fibrosis in the visualized lower lungs. Mild to moderate elevation right hemidiaphragm, stable.
Findings of cirrhosis involving the liver. No evidence for hepatic mass lesion.
Small moderate amount of ascites within the abdomen and pelvis.
Subtle stranding of the fat adjacent to the proximal SMA with small soft tissue densities of the left lateral margin of the proximal BENNETT. BENNETT soft tissue densities as it appears slightly smaller than previous exam, while the stranding of the fat
adjacent to the SMA is new. Etiology for this finding is uncertain, but possibly vasculitis. No evidence for significant narrowing of the SMA.
Prior GI Procedures:
09/2024- [facility] - EGD - Grade I esophageal varices. - Erythematous mucosa in the stomach. Biopsied - Mild Schatzki ring. - Z-line irregular, 40 cm from the incisors. Biopsied. - Normal duodenal bulb. Biopsied - Two angioectasias in the
duodenum. Treated with argon plasm coagulation (APC) Do not think found source of bleeding on this exam.
2019- [facility]- colon multiple polyps - TA and HP, diverticulosis, non bleeding hemorrhoids
Assessment / Plan
-
Pt is a 79yo with hx TAVR, hypertension, hyperlipidemia, PPM, ETOH abuse, anemia, diverticulosis with recent sigmoid stricture with temporary ileostomy 11/23/24 with closure 01/05. She now returns with abdominal pain with concern for ascites and
asked to see for cirrhosis. Pt was seen by GI in September for anemia with hbg 6 range. at that time she was drink a box of wine every few days. She completed EGD with grade I EV, schatzki's ring, angioectasia with treatment (not though to be
source) and recommended b- andrés. Imaging noted cirrhosis and ascites at that time. She was recommended GI/hematology follow up but has been admitted with recent surgical procedures. She now returns with abdominal pain and also had recent
incisional bleeding requiring transfusion. On admission patient went for para for 1150 with SAAG 2.5, Protein <2 (C/W with cirrhosis) but WBC 12,310. In review with patient she was unsure about prior noted cirrhosis as recently has been through
surgery. She denies issues with confusion, bleed but admits to anemia and also noted ongoing LE swelling and intermittent abdominal swelling. She has hx GERD that is stable and alternating diarrhea and constipation since surgery with mild
abdominal pain post-op . Labs with anemia hbg 7-12, platelets down to 102, WBC initially 24,700 now 12,200. On admission Na 127, K 3.8 then drop to 3, creat 1.2, bili 3.6, AST 38, ALT 16, alk phos 192 with INR 2.11 on 01/17. Meld 3.0 calculated
01/17 25.
01/16/25- Ct A/p - Large amount of abdominal and pelvic ascites. New.
Mild extraluminal air in the right abdomen. Suggestion of mild enhancement of the ascites. These findings raise concern for infected fluid or loculated fluid. A small leak cannot be completely excluded. However, no extravasation of oral contrast to
suggest a leak is identified.. New
Small collection of fluid in the right anterior wall. Differential diagnosis includes postoperative seroma, hematoma or abscess. New
Suggestion of mild small bowel wall thickening in the mid abdomen and left lower quadrant. The differential diagnoses include inflammation, infection and ischemia. New.
nodular hepatic margin consistent with known cirrhosis. Stable
Left lower lobe pulmonary nodule. Stable from 2021 suggesting it is benign.
10/01/24 CT Abd/pel W Iv And Oral Contr
IMPRESSION: Suggestion of transition in caliber of colon at the junction of the distal descending colon and the sigmoid colon, which is in a region of previous severe diverticulitis. Findings suggest the possibility of a stricture.
There is stranding of the fat adjacent to this segment of caliber transition in the sigmoid colon, and a component of mild active diverticulitis cannot be excluded.
Consideration for follow-up imaging after treatment, if there are symptoms suggesting acute diverticulitis. Follow-up CT could be performed, perhaps to include rectal contrast to assess for narrowing of the sigmoid colon.
Changes of mild interstitial fibrosis in the visualized lower lungs. Mild to moderate elevation right hemidiaphragm, stable.
Findings of cirrhosis involving the liver. No evidence for hepatic mass lesion.
Small moderate amount of ascites within the abdomen and pelvis.
Subtle stranding of the fat adjacent to the proximal SMA with small soft tissue densities of the left lateral margin of the proximal BENNETT. BENNETT soft tissue densities as it appears slightly smaller than previous exam, while the stranding of the fat
adjacent to the SMA is new. Etiology for this finding is uncertain, but possibly vasculitis. No evidence for significant narrowing of the SMA.
-cirrhosis - newly noted per patient now with decompensation
-ascites- noted on prior scan in September now increased
-elevated WBC in paracentesis tap -- SBP vs post surgical-leak peritonitis
-hypoalbuminemia
-thrombocytopenia with recent significant drop
-anemia
-coagulopathy
-ADAM
-hyponatremia/hypokalemia
-EV grade I, schatzki's ring, angioectasia on recent EGD
- recent sigmoid stricture with temporary ileostomy 11/23/24 with closure 01/05
-daily ETOH use til September 2024
other med problems:
-TAVR, hypertension, hyperlipidemia, PPM,
PLAN:
etiology of symptoms with concern for cirrhosis with decompensation with ascites though noted on CT in September, ascites, EV, coagulopathy, hypoalbuminemia, thrombocytopenia
I reviewed with patient and family new diagnosis in September but no follow up as was dealing with surgical issues
current MELD 25 cont to trend labs
if signs of bleed add vitamin K
s/p para ? SBP -- on abx, ID following, albumin given 01/17 will add albumin today 1 gram/kg
may need to consider retap
add 2 gram Na diet
cont abx ID following
will review with Dr. Sibley to add B andrés as was recommended in September
t/c eventual diuretics but continued with electrolyte imbalance and mild elevated creat
I reviewed with daughter Cristina -- discussed need for OP follow up with hepatology - pt with family member working at [place] will check for preferred follow up (locally with Dr. Thomas and Dr. Antoine vs [facility])
reviewed need for HCC screening and will need full OP serology work up that has not been completed
-
-
Thank you for consultation and allowing me to participate in the patient's care. Please call the insulation sprayer GI physician during the after hours with any questions or concerns.
[2025-01-19] MEDS: NSS (PRESERVATIVE FREE) 10 ML IV (09:25)
[2025-01-19] MEDS: PROTONIX IV 40 MG IV (09:25)
[2025-01-19] MEDS: FLEXBUMIN 100 IV ×2 (10:52→17:54)
[2025-01-19 11:11] VITALS: BP 126/56
[2025-01-19] MEDS: KCL 40 MEQ PO (13:18)
--- NOTE | 2025-01-19 14:13 | W.PN.ID1 ---
Date of Service
Date of Service: January 19, 2025
Today's Communication
Continue abx. Await repeat para.
Assessment / Plan
Peritonitis (SBP vs. leak)
Leukocytosis; stable from yesterday
ADAM
Lactic acidosis; improved
Elevated bilirubin
HTN
HLD
Seizure disorder
Diverticulitis
EtOH liver disease
Hx cirrhosis
Recommendations:
Ascites cultures without growth.
Continue with empiric Zosyn. Dose adjusted for renal insufficiency
For tentative paracentesis tomorrow to assess WBC/diff. Would repeat cultures at that time.
Monitor white count and temperature curve.
����������������������������������������������������������
Chief Complaint
-: Other (Peritonitis)
Subjective / Review of Systems
Review of Systems: No Fever and No Chills
Vital Signs / Physical Exam
Vital Signs
Vital Signs
Temp Pulse Resp BP Pulse Ox
97.7 F 82 16 126/56 97
01/19/25 11:11 01/19/25 11:11 01/19/25 11:11 01/19/25 11:11 01/19/25 11:11
Physical Exam
Constitutional: No Acute Distress, Comfortable and Non-toxic
Eyes: Sclera Anicteric
Cardiovascular: S1/S2; Negative S3/S4
Pulmonary: Non Labored
Gastrointestinal: Soft, Distended, Normal Bowel Sounds, No Rebound and No Guarding
Extremities: Edema; Negative Erythema
Neurological: Awake and Alert
Psychological: Calm
Objective Data
Lab Data
Lab Results
01/19/25 04:51
01/19/25 04:51
PT 23.8 Sec (11.4-14.6) H 01/17/25 05:43
INR 2.11 01/17/25 05:43
APTT 31.8 Sec (23.4-35.0) 01/16/25 17:09
Estimated Creat Clear 33 ml/min 01/19/25 04:51
Lactic Acid Cancelled 01/17/25 05:45
Total Bilirubin 3.6 mg/dl (0.2-1.3) H 01/19/25 04:51
AST 32 U/L (14-36) 01/19/25 04:51
ALT 13 U/L (0-35) 01/19/25 04:51
Alkaline Phosphatase 144 U/L (38-126) H 01/19/25 04:51
Most recent labs reviewed.
Micro Results:
01/17/25 08:06 Body Fluid Culture - Preliminary
Peritoneal Fluid No Growth After 48 Hours
Gram Stain - Preliminary
01/16/25 22:41 MRSA Screen - Final
Nose No Methicillin Resistant Staphylococcus aureus isolated.
Laboratory Tests
01/17/25
08:06
Fluid WBC 41389
Fluid Mononuclear Cell 9.2
Fl Polymorphonucl Cell 90.8
Fluid Total Protein < 2.0
Fluid LDH 406
Imaging:
01/16/2025 CT abdomen/pelvis with contrast: large amount of abdominal and pelvic ascites. Mild extraluminal air in the right abdomen. Suggestion of mild enhancement of the ascites raising concern for infected fluid or loculated fluid. A small
leak cannot be completely excluded however there was no extravasation of oral contrast to suggest a leak identified. Small collection of fluid in the right anterior abdominal wall. Nodular hepatic margin consistent with known cirrhosis. Please
see full dictation for additional detail. Film personally viewed.
Care Review
Plan reviewed with: Physician (Hospitalist)
--- NOTE | 2025-01-19 14:53 | CM ---
Patient seen bedside.
Reviewed current plan discharge plan with patient.
Patient will resume HC with [facility].
Daughter will transport home, will probably stay with her for a few days if needed.
Patient aware of CM availability if additional needs arise.
Plan: home with [facility] once stable.
[2025-01-19 15:08] VITALS: BP 110/52
--- NOTE | 2025-01-19 15:38 | W.PN.HOSP.TC ---
Today's Communication/Plan
-
Repeat paracentesis on 01/20
Continue antibiotics
Follow BMP and CBC in a.m.
Discussed with gastroenterology, colorectal surgery, ID services
Discussed with patient daughter at the bedside
Assessment / Plan
Assessment / Plan
Impression
Peritonitis: SBP versus secondary peritonitis.
Recent ileostomy reversal followed with hospitalization with incisional bleeding and wound infection (discharged 01/13/2025).
Sepsis present on admission (tachycardia, leukocytosis, lactic acidosis, acute kidney injury)
Acute on chronic anemia.
Acute on chronic hyponatremia
Other conditions
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
Aortic stenosis status post TAVR.
Status post PPM.
Cirrhosis secondary to alcohol.
Essential hypertension
History of diverticulosis/diverticulitis
Imaging
CT scan of the abdomen pelvis 01/16
Mild extraluminal air in the right abdomen. Suggestion of mild enhancement of the ascites. These findings raise concern for infected fluid or loculated fluid. A small leak cannot be completely excluded. However, no extravasation of oral contrast to
suggest a leak is identified.. New
Small collection of fluid in the right anterior wall. Differential diagnosis includes postoperative seroma, hematoma or abscess. New
Suggestion of mild small bowel wall thickening in the mid abdomen and left lower quadrant. The differential diagnoses include inflammation, infection and ischemia. New.
Nodular hepatic margin consistent with known cirrhosis. Stable
Left lower lobe pulmonary nodule. Stable from 2021 suggesting it is benign.
Plan
Peritonitis: SBP versus secondary peritonitis.
Recent ileostomy reversal followed by wound infection and incisional bleeding.
Status post paracentesis 12/1810 100 cc fluid findings consistent with peritonitis (WBC 07957 PMN�90% PMN)
Peritoneal cultures negative to date
Blood cultures were not submitted in the ED
Empiric antibiotics: Zosyn
For repeat paracentesis on 01/20
Colorectal surgery consult. Clinical course with low concern for anastomotic leak
Advance to full liquid diet
Acute kidney injury.
Creatinine 1.2
Improving with IV fluid bolus
Not hypotensive
Improved lactic acidosis with IV hydration.
Continue isotonic solution
Status post albumin infusion with paracentesis
Avoid hypotension
Follow BMP closely
Hypokalemia being repleted
Acute on chronic hyponatremia. Sodium 127.
Suspect intravascular depletion with acute infection.
Urine osmolarity 600
Sodium improved 127�131 with IV fluid bolus
Follow-up daily BMP
Cirrhosis.
Grade 1 esophageal varices on recent EGD
Suspect secondary to alcohol use disorder.
MELD Na 35
Infected ascites as above.
Monitor closely
Acute on chronic anemia.
Suspect dilutional.
Hemoglobin dropped from 12-7.6 with IV hydration.
Recent hemoglobin around 9.
Update iron stores.
Follow CBC closely.
Cardiovascular:
Status post TAVR.
Hypertension.
Echo 09/05/2023 normal biventricular size and function. Status post TAVR.
LVEF 55/60%
Resume Toprol-XL.
Monitor volume status closely with hydration
Hold aspirin acutely given drop in hemoglobin
Anticipated Discharge: > 48 hours
Subjective/Interval History
-
Date of Service: January 19, 2025
Objective Data
-
Labs:
Laboratory Results
01/19/25
04:51
WBC 12.2 H
Hgb 9.2 L
Hct 26.1 L
Plt Count 106 L
Sodium 133 L
Potassium 3.0 L
Chloride 105
Carbon Dioxide 21 L
BUN 30 H
Creatinine 1.1 H
Glucose 108 H
Calcium 7.8 L
Total Bilirubin 3.6 H
AST 32
ALT 13
Alkaline Phosphatase 144 H
Vital Signs:
Vital Signs
Temp Pulse Resp BP Pulse Ox
97.7 F 82 16 126/56 97
01/19/25 11:11 01/19/25 11:11 01/19/25 11:11 01/19/25 11:11 01/19/25 11:11
I&O
01/18/25 01/19/25 01/20/25
06:59 06:59 06:59
Intake Total 980 / 980 800 / 800
Balance 980 / 980 800 / 800
Physical Exam
-
General: Well Developed and No Apparent Distress
HEENT: Normocephalic, Atraumatic and Moist Mucous Membranes
Respiratory: Clear to Auscultation
Cardiac: Regular Rhythm and S1/S2; Negative Murmur, Rub or Gallop
GI: Soft, Nontender, Nondistended and Normal Bowel Sounds; Negative Organomegaly
Rectal: Deferred by Provider
Musculoskeletal: No Clubbing, No Cyanosis and No Edema
Skin: Negative Rash
Neuro: Nonfocal/Grossly Intact
[2025-01-19] MEDS: TOPROL XL 25 MG PO (21:09)
[2025-01-19 23:16] VITALS: BP 130/55
[2025-01-20] VITALS (8 sets, daily range): BP systolic 84–179; BP diastolic 48–87; BMI 25.5
[2025-01-20] MEDS: FLEXBUMIN 100 IV ×2 (01:55→18:22)
[2025-01-20 04:38] LABS: INR 1.60; PT 19.5 Sec (11.4-14.6)
[2025-01-20 04:54] LABS: ALT (SGPT) < 10 U/L (0-35); AST (SGOT) 24 U/L (14-36); Albumin 3.6 g/dl (3.5-5.0); Alkaline Phosphatase 131 U/L (38-126); Blood Urea Nitrogen 27 mg/dl (7-17); Calcium 8.3 mg/dl (8.4-10.2); Carbon Dioxide 20 mmol/L (22-30); Chloride 108 mmol/L (98-107); Estimated Creatinine Clearance 41 ml/min; Glucose 84 mg/dl (70-99); Potassium 3.3 mmol/L (3.5-5.1); Sodium 136 mmol/L (135-145); Total Protein 5.3 g/dl (6.3-8.2); eGFR > 60.00
[2025-01-20] MEDS: ZOSYN 50 IV ×4 (05:20→23:09)
[2025-01-20 05:24] LABS: Hematocrit 23.1 % (37.0-47.0); Hemoglobin 8.2 g/dL (12.0-16.0); Mean Corp Hgb Conc. 35.5 g/dL (33.0-37.0); Mean Corpuscular Volume 92.8 fL (81.0-99.0); Nucleated Red Blood Cells % 0 %; Platelet Count 78 10^3/uL (130-400); Red Cell Dist. Width 16.1 % (11.5-14.5)
[2025-01-20 05:25] LABS: Hepatitis B Surface Antigen Negative (Negative)
[2025-01-20 05:43] LABS: Hepatitis A Antibody, Total Negative (Negative); Hepatitis C Antibody Negative (Negative)
[2025-01-20] MEDS: PROTONIX IV 40 MG IV (06:38)
[2025-01-20] MEDS: NSS (PRESERVATIVE FREE) 10 ML IV (06:38)
--- NOTE | 2025-01-20 09:13 | W.PN.UPDATE ---
Update Note
Progress Note Update
Attempted to see patient - off the floor in IR
[2025-01-20] MEDS: HEPARIN 5000 UNITS SC ×3 (09:31→23:09)
[2025-01-20 10:35] LABS: Body Fluid Second Tech EF
--- NOTE | 2025-01-20 11:04 | W.PN.GI.CBS2 ---
Addendum entered and electronically signed by Samina Holt MD 01/20/25 16:59:
Viral hepatitis serologies with positive hepatitis B surface antibody likely from vaccination, negative hepatitis B core antibody total and negative hepatitis B surface antigen. She is negative for hepatitis A antibody total and will need
vaccination as outpatient. Hep C antibody is negative.
Addendum entered and electronically signed by Samina Holt MD 01/20/25 16:16:
I saw and examined the patient.
The BEARING MACHINE OPERATOR's note was reviewed and I agree with the note.
Comment: SBP currently on Zosyn and she had a repeated diagnostic paracentesis today with decreasing WBC count. Will give albumin 1 g/kg for day 3 SBP treatment protocol. She may need repeat paracenteses if her distention and pain worsen for
symptomatic relief probably over the weekend or Thursday. Will need to be careful to not take too much fluid out given also dehydration with ADAM. Will hold off on diuretics for now discussed with Dr. Vo and Dr. Quick agree with IV fluids for
now and monitor electrolytes and kidney function closely. If her pain worsens may need repeat imaging. Noted results from obstruction series earlier today no obstruction was noted mild ileus was noted and no free air was noted. Less likely
anastomotic leak. had vomiting may need NGT if has recurrent n/v. She also has gram-positive cocci in fluid cultures. will workup cirrhosis as outpatient but most likely related to alcohol. Hold on beta-blockers although she does have a history of
esophageal varices given SBP. Currently has no overt bleeding. Will also need long-term SBP prophylaxis after DC.
Original Note:
Today's Communication / Plan
-
as per plan
Assessment / Plan
-
Pt is a 79yo with hx TAVR, hypertension, hyperlipidemia, PPM, ETOH abuse, anemia, diverticulosis with recent sigmoid stricture with temporary ileostomy 11/23/24 with closure 01/05. She now returns with abdominal pain with concern for ascites and
asked to see for cirrhosis. Pt was seen by GI in September for anemia with hbg 6 range. at that time she was drink a box of wine every few days. She completed EGD with grade I EV, schatzki's ring, angioectasia with treatment (not though to be
source) and recommended b- andrés. Imaging noted cirrhosis and ascites at that time. She was recommended GI/hematology follow up but has been admitted with recent surgical procedures. She now returns with abdominal pain and also had recent
incisional bleeding requiring transfusion. On admission patient went for para for 1150 with SAAG 2.5, Protein <2 (C/W with cirrhosis) but WBC 12,310. In review with patient she was unsure about prior noted cirrhosis as recently has been through
surgery. She denies issues with confusion, bleed but admits to anemia and also noted ongoing LE swelling and intermittent abdominal swelling. She has hx GERD that is stable and alternating diarrhea and constipation since surgery with mild
abdominal pain post-op . Labs with anemia hbg 7-12, platelets down to 102, WBC initially 24,700 now 12,200. On admission Na 127, K 3.8 then drop to 3, creat 1.2, bili 3.6, AST 38, ALT 16, alk phos 192 with INR 2.11 on 01/17. Meld 3.0 calculated
01/17 25.
01/16/25- Ct A/p - Large amount of abdominal and pelvic ascites. New.
Mild extraluminal air in the right abdomen. Suggestion of mild enhancement of the ascites. These findings raise concern for infected fluid or loculated fluid. A small leak cannot be completely excluded. However, no extravasation of oral contrast to
suggest a leak is identified.. New
Small collection of fluid in the right anterior wall. Differential diagnosis includes postoperative seroma, hematoma or abscess. New
Suggestion of mild small bowel wall thickening in the mid abdomen and left lower quadrant. The differential diagnoses include inflammation, infection and ischemia. New.
nodular hepatic margin consistent with known cirrhosis. Stable
Left lower lobe pulmonary nodule. Stable from 2021 suggesting it is benign.
10/01/24 CT Abd/pel W Iv And Oral Contr
IMPRESSION: Suggestion of transition in caliber of colon at the junction of the distal descending colon and the sigmoid colon, which is in a region of previous severe diverticulitis. Findings suggest the possibility of a stricture.
There is stranding of the fat adjacent to this segment of caliber transition in the sigmoid colon, and a component of mild active diverticulitis cannot be excluded.
Consideration for follow-up imaging after treatment, if there are symptoms suggesting acute diverticulitis. Follow-up CT could be performed, perhaps to include rectal contrast to assess for narrowing of the sigmoid colon.
Changes of mild interstitial fibrosis in the visualized lower lungs. Mild to moderate elevation right hemidiaphragm, stable.
Findings of cirrhosis involving the liver. No evidence for hepatic mass lesion.
Small moderate amount of ascites within the abdomen and pelvis.
Subtle stranding of the fat adjacent to the proximal SMA with small soft tissue densities of the left lateral margin of the proximal BENNETT. BENNETT soft tissue densities as it appears slightly smaller than previous exam, while the stranding of the fat
adjacent to the SMA is new. Etiology for this finding is uncertain, but possibly vasculitis. No evidence for significant narrowing of the SMA.
Impression:
-cirrhosis - newly noted per patient now with decompensation
-ascites- noted on prior scan in September now increased, s/p Paracentesis x 2.
-elevated WBC in paracentesis tap -- SBP vs post surgical-leak peritonitis
-hypoalbuminemia
-thrombocytopenia with recent significant drop
-anemia
-coagulopathy
-ADAM
-hyponatremia/hypokalemia
-EV grade I, schatzki's ring, angioectasia on recent EGD
- recent sigmoid stricture with temporary ileostomy 11/23/24 with closure 01/05
-daily ETOH use til September 2024
other med problems:
-TAVR, hypertension, hyperlipidemia, PPM,
PLAN:
-Continue Zosyn as per ID
-Check Abd XR, patient with abd pain and nausea, decreased BS.
-Await report on repeat Paracentesis and fluid/cultures.
-No signs of HE.
-Working on outpatient follow up with Dr. Antoine (Possibly ?02/10/25.. to be determined) Reached out to his coordinator.
-Will also follow up with Dr. Sibley, for HCC screening and full OP serology work up that has not been completed
Subjective
Subjective
Date of Service: January 20, 2025
Patient returned from paracentesis. Report pending. States that she has increased abdominal discomfort across abdomen. States that she had significant nausea this morning not improved. No vomiting. Having bowel movements. Last reported brown.
States she feels like she has to go. No further leukocytosis WBC count 9.3 (down from 12.2), hemoglobin 8.2 (9.2), platelets 78 (106), INR 1.6, total bilirubin 3.7 (3.6), AST 24, ALT less than 10, alk phos 131. Continues on Zosyn, pantoprazole 40
mg IV daily.
Objective
Data Reviewed
Laboratory Data:
Laboratory Results
01/20/25 04:18
01/20/25 04:18
Laboratory Results
PT 19.5 Sec (11.4-14.6) H 01/20/25 04:18
INR 1.60 01/20/25 04:18
APTT 31.8 Sec (23.4-35.0) 01/16/25 17:09
Total Bilirubin 3.7 mg/dl (0.2-1.3) H 01/20/25 04:18
AST 24 U/L (14-36) 01/20/25 04:18
ALT < 10 U/L (0-35) 01/20/25 04:18
Alkaline Phosphatase 131 U/L (38-126) H 01/20/25 04:18
Vital Signs and I&O:
Vital Signs
Temp Pulse Resp BP Pulse Ox
97.1 F 84 16 140/48 97
01/20/25 07:41 01/20/25 08:45 01/20/25 08:45 01/20/25 08:45 01/20/25 08:21
I&O
01/19/25 01/20/25 01/21/25
06:59 06:59 06:59
Intake Total 800 / 800 1100 / 1100
Output Total 300 / 300
Balance 800 / 800 800 / 800
Physical Exam
Physical Exam
Cardiology: Normal Sinus Rhythm and Murmur
Pulmonary: Clear (Anterior)
GI: Soft and Distended (Softly distended, bandage in left lower quadrant, ecchymosis right lower quadrant, left lower quadrant, stable right sided surgical, staple site (no signs of infection or oozing))
Extremities: Edema (Bilateral lower extremity edema +1)
Neuro: Non Focal (No signs of asterixis)
--- NOTE | 2025-01-20 11:07 | W.PN.ID1 ---
Date of Service
Date of Service: January 20, 2025
Today's Communication
Continue Zosyn
Assessment / Plan
Peritonitis (SBP vs. leak)
Leukocytosis; resolved
ADAM
Lactic acidosis; improved
Elevated bilirubin
Cirrhosis
Sigmoid stricture s/p resection/ileostomy with recent closure of ileostomy (01/05/25)
HTN
HLD
Seizure disorder
Diverticulitis
EtOH liver disease
TAVR, PPM
Recommendations:
01/17 Ascites 11,202 PMN cultures without growth.
01/20 Ascites 4,436 PMN culture pending
Continue with empiric Zosyn (d4). Dose adjusted for renal insufficiency
����������������������������������������������������������
Chief Complaint
-: Other (Peritonitis)
Subjective / Review of Systems
+ nausea
Vital Signs / Physical Exam
Vital Signs
Vital Signs
Temp Pulse Resp BP Pulse Ox
97.1 F 84 16 140/48 97
01/20/25 07:41 01/20/25 08:45 01/20/25 08:45 01/20/25 08:45 01/20/25 08:21
Physical Exam
Constitutional: No Acute Distress and Comfortable
Cardiovascular: Regular Rate and S1/S2
Pulmonary: Non Labored
Gastrointestinal: Soft, Non Tender, Distended, Normal Bowel Sounds, No Rebound and No Guarding
Extremities: Edema; Negative Erythema
Neurological: Awake and Alert
Objective Data
Lab Data
Lab Results
01/20/25 04:18
01/20/25 04:18
PT 19.5 Sec (11.4-14.6) H 01/20/25 04:18
INR 1.60 01/20/25 04:18
APTT 31.8 Sec (23.4-35.0) 01/16/25 17:09
Estimated Creat Clear 41 ml/min 01/20/25 04:18
Lactic Acid Cancelled 01/17/25 05:45
Total Bilirubin 3.7 mg/dl (0.2-1.3) H 01/20/25 04:18
AST 24 U/L (14-36) 01/20/25 04:18
ALT < 10 U/L (0-35) 01/20/25 04:18
Alkaline Phosphatase 131 U/L (38-126) H 01/20/25 04:18
Most recent labs reviewed.
Micro Results:
01/20/25 08:33 Body Fluid Culture - Pending
Peritoneal Fluid Gram Stain - Pending
01/17/25 08:06 Body Fluid Culture - Final
Peritoneal Fluid No Growth After 72 Hours
Gram Stain - Final
01/16/25 22:41 MRSA Screen - Final
Nose No Methicillin Resistant Staphylococcus aureus isolated.
Laboratory Tests
01/17/25
08:06
Fluid WBC 28580
Fluid Mononuclear Cell 9.2
Fl Polymorphonucl Cell 90.8
Fluid Total Protein < 2.0
Fluid LDH 406
Imaging:
01/16/2025 CT abdomen/pelvis with contrast: large amount of abdominal and pelvic ascites. Mild extraluminal air in the right abdomen. Suggestion of mild enhancement of the ascites raising concern for infected fluid or loculated fluid. A small
leak cannot be completely excluded however there was no extravasation of oral contrast to suggest a leak identified. Small collection of fluid in the right anterior abdominal wall. Nodular hepatic margin consistent with known cirrhosis. Please
see full dictation for additional detail. Film personally viewed.
[2025-01-20] MEDS: KCL 40 MEQ PO (11:41)
[2025-01-20] MEDS: ZOFRAN 4 MG IV (12:39)
--- NOTE | 2025-01-20 13:29 | W.PN.CRS1 ---
Today's Communication / Plan
-
as below
Assessment/Plan
-
� Will make n.p.o.
� Follow-up x-ray ordered by GI
� No acute surgical intervention; paracentesis from 3 days ago without bacteria, but elevated WBCs
�Anastomotic leak remains a possibility, but seems less likely; I would expect bacteria within the ascites; follow-up paracentesis from today; additionally, patient is a particularly poor candidate for general anesthesia given her acute
decompensation of the cirrhosis
�Appreciate GI for decompensation of cirrhosis with ascites
�Continue IV antibiotics, appreciate ID
� Appreciate hospitalist
Subjective Data
Subjective Data
Date of Service: January 20, 2025
No overnight events. Patient underwent paracentesis this morning.
States that she is having worsening nausea and had an episode of vomiting about 1 hour ago.
She states that she is passing flatus and had a bowel movement this morning.
Objective Data
-
Vital Signs
Temp Pulse Resp BP Pulse Ox
97.1 F 84 16 140/48 97
01/20/25 07:41 01/20/25 08:45 01/20/25 08:45 01/20/25 08:45 01/20/25 08:21
Intake & Output
01/19/25 01/20/25 01/21/25
06:59 06:59 06:59
Intake Total 800 / 800 1100 / 1100
Output Total 300 / 300
Balance 800 / 800 800 / 800
Intake:
Oral fluids 700 / 700 600 / 600
IV piggybacks 100 / 100 500 / 500
Output:
Urine, Voided 300 / 300
Other:
Number of approximated SMALL 1
amounts of urine
Number of approximated MODERATE 3 5
amounts of urine
Lab Results
01/20/25 04:18
01/20/25 04:18
Physical Exam
-
General: No Acute Distress and AOx3
HEENT: Grossly Normal
Abdomen: Soft, Distended (Without significant tympany) and Tender (Diffusely mildly to moderately tender, no rebound or guarding)
Skin: Warm and Dry
Wound: Other (Incision without erythema or drainage)
Incision: No Skin Erythema
--- NOTE | 2025-01-20 14:14 | CM ---
Reviewed chart. Pt still in gi workup and not ready for discharge
Plan: DC to home with [facility]
--- NOTE | 2025-01-20 15:20 | PTCARENOTE ---
Patient feeling worse today, more weak and tired. Patient has no appetite, c/o nausea this am-Zofran given with releif. Patient ambulated to bathroom with assist x1 and walker. Patient SOB and c/o feeling dizzy after using the bathroom. Patient
assist back to bed. Dizziness subside when lying in bed. Call santos in reach, bed alarm maintained.
--- NOTE | 2025-01-20 15:39 | W.PN.UPDATE ---
Update Note
Progress Note Update
I saw the patient this afternoon with her daughter at the bedside. She felt worse after the paracentesis. She felt dizzy and vomited once. X-rays are unrevealing. At present she has no nausea and no appetite, but she is thirsty. She has abdominal
discomfort mostly on the left. She remains afebrile with a normal WBC. Her renal function also improved but her bilirubin is slightly higher at 3.7. I suspect her current condition is due to worsening liver function and there is no obvious source.
She is high-risk for anesthesia but if no improvement over the next day or 2, or if she worsens, I would consider a diagnostic laparoscopy. The plan for now is IVF, bowel rest (she is requesting some christi kay), antibiotics and follow-up the new
cultures. Gram stain shows white blood cells and GPC. All questions answered.
[2025-01-20] MEDS: NSS 500 IV (16:28)
--- NOTE | 2025-01-20 16:31 | W.PN.HOSP.TC ---
Today's Communication/Plan
-
On 01/20 developing nausea while on solid diet. Abdomen distended with hypoactive bowel sounds
X-ray with isolated dilated loop of bowel
Suspect early ileus
Back to n.p.o.
IV fluids in the maintenance
Albumin
Monitor closely, may require NG tube placement if recurrent vomiting
Follow-up with x-ray of the abdomen in AM. If fever, rising white count, would be low threshold to reimage with CT scan
Assessment / Plan
Assessment / Plan
Impression
Peritonitis: SBP versus secondary peritonitis.
Recent ileostomy reversal followed with hospitalization with incisional bleeding and wound infection (discharged 01/13/2025).
Sepsis present on admission (tachycardia, leukocytosis, lactic acidosis, acute kidney injury)
Acute on chronic anemia.
Acute on chronic hyponatremia
Other conditions
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
Aortic stenosis status post TAVR.
Status post PPM.
Cirrhosis secondary to alcohol.
Essential hypertension
History of diverticulosis/diverticulitis
Imaging
CT scan of the abdomen pelvis 01/16
Mild extraluminal air in the right abdomen. Suggestion of mild enhancement of the ascites. These findings raise concern for infected fluid or loculated fluid. A small leak cannot be completely excluded. However, no extravasation of oral contrast to
suggest a leak is identified.. New
Small collection of fluid in the right anterior wall. Differential diagnosis includes postoperative seroma, hematoma or abscess. New
Suggestion of mild small bowel wall thickening in the mid abdomen and left lower quadrant. The differential diagnoses include inflammation, infection and ischemia. New.
Nodular hepatic margin consistent with known cirrhosis. Stable
Left lower lobe pulmonary nodule. Stable from 2021 suggesting it is benign.
Plan
Peritonitis: SBP versus secondary peritonitis.
Recent ileostomy reversal followed by wound infection and incisional bleeding.
Status post paracentesis 12/1810 100 cc fluid findings consistent with peritonitis (WBC 51618 PMN�90% PMN)
Peritoneal cultures negative to date
Blood cultures were not submitted in the ED
Empiric antibiotics: Zosyn
Repeat paracentesis on 01/20 with minimal amount of fluid 350 m removed from the pocket. Noted for trending down WBC.
Albumin scheduled
On 01/20 developing nausea while on solid diet. Abdomen distended with hypoactive bowel sounds
X-ray with isolated dilated loop of bowel
Suspect early ileus
Back to n.p.o.
IV fluids in the maintenance
Albumin
Monitor closely, may require NG tube placement if recurrent vomiting
Follow-up with x-ray of the abdomen in AM. If fever, rising white count, would be low threshold to reimage with CT scan
Acute kidney injury.
Creatinine 1.2
Improving with IV fluid bolus
Not hypotensive
Improved lactic acidosis with IV hydration.
Continue isotonic solution
Status post albumin infusion with paracentesis
Avoid hypotension
Follow BMP closely
Hypokalemia being repleted
Acute on chronic hyponatremia. Sodium 127.
Suspect intravascular depletion with acute infection.
Urine osmolarity 600
Sodium improved 127�131 with IV fluid bolus
Follow-up daily BMP
Cirrhosis.
Grade 1 esophageal varices on recent EGD
Suspect secondary to alcohol use disorder.
MELD Na 35
Infected ascites as above.
Monitor closely
Acute on chronic anemia.
Suspect dilutional.
Hemoglobin dropped from 12-7.6 with IV hydration.
Recent hemoglobin around 9.
Update iron stores.
Follow CBC closely.
Cardiovascular:
Status post TAVR.
Hypertension.
Echo 09/05/2023 normal biventricular size and function. Status post TAVR.
LVEF 55/60%
Resume Toprol-XL.
Monitor volume status closely with hydration
Hold aspirin acutely given drop in hemoglobin
Anticipated Discharge: > 48 hours
Subjective/Interval History
-
Date of Service: January 20, 2025
Objective Data
-
Labs:
Laboratory Results
01/20/25
04:18
WBC 9.3
Hgb 8.2 L
Hct 23.1 L
Plt Count 78 L D
PT 19.5 H
INR 1.60
Sodium 136
Potassium 3.3 L
Chloride 108 H
Carbon Dioxide 20 L
BUN 27 H
Creatinine 0.9
Glucose 84
Calcium 8.3 L
Total Bilirubin 3.7 H
AST 24
ALT < 10
Alkaline Phosphatase 131 H
Vital Signs:
Vital Signs
Temp Pulse Resp BP Pulse Ox
98.7 F 86 20 120/63 97
01/20/25 15:50 01/20/25 15:50 01/20/25 15:50 01/20/25 15:50 01/20/25 15:50
I&O
01/19/25 01/20/25 01/21/25
06:59 06:59 06:59
Intake Total 800 / 800 1100 / 1100
Output Total 300 / 300
Balance 800 / 800 800 / 800
Physical Exam
-
General: Well Developed and No Apparent Distress
HEENT: Normocephalic, Atraumatic and Moist Mucous Membranes
Respiratory: Clear to Auscultation
Cardiac: Regular Rhythm and S1/S2; Negative Murmur, Rub or Gallop
GI: Soft, Nontender, Nondistended and Normal Bowel Sounds; Negative Organomegaly
Rectal: Deferred by Provider
Musculoskeletal: No Clubbing, No Cyanosis and No Edema
Skin: Negative Rash
Neuro: Nonfocal/Grossly Intact
[2025-01-20] MEDS: NSS 1000 IV (17:43)
[2025-01-20] MEDS: TOPROL XL 25 MG PO (21:01)
[2025-01-21] MEDS: FLEXBUMIN 100 IV ×2 (01:24→10:06)
[2025-01-21 04:09] LABS: Hematocrit 28.0 % (37.0-47.0); Hemoglobin 9.1 g/dL (12.0-16.0); Mean Corp Hgb Conc. 32.5 g/dL (33.0-37.0); Mean Corpuscular Volume 97.6 fL (81.0-99.0); Nucleated Red Blood Cells % 0 %; Platelet Count 70 10^3/uL (130-400); Red Cell Dist. Width 17.3 % (11.5-14.5)
[2025-01-21 04:15] LABS: INR 1.59; PT 19.2 Sec (11.4-14.6)
[2025-01-21 04:50] LABS: ALT (SGPT) < 10 U/L (0-35); AST (SGOT) 23 U/L (14-36); Albumin 3.2 g/dl (3.5-5.0); Alkaline Phosphatase 84 U/L (38-126); Blood Urea Nitrogen 32 mg/dl (7-17); Calcium 8.0 mg/dl (8.4-10.2); Carbon Dioxide 15 mmol/L (22-30); Chloride 109 mmol/L (98-107); Estimated Creatinine Clearance 30 ml/min; Glucose 84 mg/dl (70-99); Potassium 4.3 mmol/L (3.5-5.1); Sodium 135 mmol/L (135-145); Total Protein 5.0 g/dl (6.3-8.2); eGFR 45.48
[2025-01-21 05:12] LABS: Absolute Neutrophils -Man Diff 10.8 10^3/uL (1.4-6.5); Normal RBC Morphology No
[2025-01-21 05:13] LABS: Anisocytosis 1+; Total Cells Counted 100
[2025-01-21 05:14] LABS: Acanthocytes 1+; Burr Cells 1+; Ovalocytes 1+; Toxic Granulation 1+; Vacuolated Segs Occasional
[2025-01-21] MEDS: ZOSYN 50 IV ×4 (05:14→23:07)
[2025-01-21 05:16] LABS: Polychromasia Occasional
[2025-01-21 05:17] LABS: Target Cells Occasional
[2025-01-21 06:00] VITALS: BMI 25.6
[2025-01-21 06:10] LABS: Platelets Checked Yes
[2025-01-21 07:40] VITALS: BP 118/56
[2025-01-21] MEDS: PROTONIX IV 40 MG IV (08:40)
[2025-01-21] MEDS: NSS (PRESERVATIVE FREE) 10 ML IV (08:40)
[2025-01-21] MEDS: HEPARIN 5000 UNITS SC ×3 (08:40→23:13)
--- NOTE | 2025-01-21 09:58 | W.PN.GI.CBS2 ---
Today's Communication / Plan
-
Okay for clear liquid diet since no further vomiting
If pain worsens though will need repeat CT
Continue antibiotics and follow final fluid cultures prelim shows gram-positive cocci
Will most likely need another paracenteses on Thursday for symptomatic relief is having increasing abdominal distention from ascites
Assessment / Plan
-
Pt is a 79yo with hx TAVR, hypertension, hyperlipidemia, PPM, ETOH abuse, anemia, diverticulosis with recent sigmoid stricture with temporary ileostomy 11/23/24 with closure 01/05. She now returns with abdominal pain with concern for ascites and
asked to see for cirrhosis. Pt was seen by GI in September for anemia with hbg 6 range. at that time she was drink a box of wine every few days. She completed EGD with grade I EV, schatzki's ring, angioectasia with treatment (not though to be
source) and recommended b- andrés. Imaging noted cirrhosis and ascites at that time. She was recommended GI/hematology follow up but has been admitted with recent surgical procedures. She now returns with abdominal pain and also had recent
incisional bleeding requiring transfusion. On admission patient went for para for 1150 with SAAG 2.5, Protein <2 (C/W with cirrhosis) but WBC 12,310. In review with patient she was unsure about prior noted cirrhosis as recently has been through
surgery. She denies issues with confusion, bleed but admits to anemia and also noted ongoing LE swelling and intermittent abdominal swelling. She has hx GERD that is stable and alternating diarrhea and constipation since surgery with mild
abdominal pain post-op . Labs with anemia hbg 7-12, platelets down to 102, WBC initially 24,700 now 12,200. On admission Na 127, K 3.8 then drop to 3, creat 1.2, bili 3.6, AST 38, ALT 16, alk phos 192 with INR 2.11 on 01/17. Meld 3.0 calculated
01/17 25.
01/16/25- Ct A/p - Large amount of abdominal and pelvic ascites. New.
Mild extraluminal air in the right abdomen. Suggestion of mild enhancement of the ascites. These findings raise concern for infected fluid or loculated fluid. A small leak cannot be completely excluded. However, no extravasation of oral contrast to
suggest a leak is identified.. New
Small collection of fluid in the right anterior wall. Differential diagnosis includes postoperative seroma, hematoma or abscess. New
Suggestion of mild small bowel wall thickening in the mid abdomen and left lower quadrant. The differential diagnoses include inflammation, infection and ischemia. New.
nodular hepatic margin consistent with known cirrhosis. Stable
Left lower lobe pulmonary nodule. Stable from 2021 suggesting it is benign.
10/01/24 CT Abd/pel W Iv And Oral Contr
IMPRESSION: Suggestion of transition in caliber of colon at the junction of the distal descending colon and the sigmoid colon, which is in a region of previous severe diverticulitis. Findings suggest the possibility of a stricture.
There is stranding of the fat adjacent to this segment of caliber transition in the sigmoid colon, and a component of mild active diverticulitis cannot be excluded.
Consideration for follow-up imaging after treatment, if there are symptoms suggesting acute diverticulitis. Follow-up CT could be performed, perhaps to include rectal contrast to assess for narrowing of the sigmoid colon.
Changes of mild interstitial fibrosis in the visualized lower lungs. Mild to moderate elevation right hemidiaphragm, stable.
Findings of cirrhosis involving the liver. No evidence for hepatic mass lesion.
Small moderate amount of ascites within the abdomen and pelvis.
Subtle stranding of the fat adjacent to the proximal SMA with small soft tissue densities of the left lateral margin of the proximal BENNETT. BENNETT soft tissue densities as it appears slightly smaller than previous exam, while the stranding of the fat
adjacent to the SMA is new. Etiology for this finding is uncertain, but possibly vasculitis. No evidence for significant narrowing of the SMA.
Impression:
-cirrhosis - newly noted per patient now with decompensation
-ascites- noted on prior scan in September now increased, s/p Paracentesis x 2.
-elevated WBC in paracentesis tap -- SBP vs post surgical-leak peritonitis
-hypoalbuminemia
-thrombocytopenia with recent significant drop
-anemia
-coagulopathy
-ADAM
-hyponatremia/hypokalemia
-EV grade I, schatzki's ring, angioectasia on recent EGD
- recent sigmoid stricture with temporary ileostomy 11/23/24 with closure 01/05
-daily ETOH use til September 2024
other med problems:
-TAVR, hypertension, hyperlipidemia, PPM,
PLAN:
-SBP currently on Zosyn and she had a repeat diagnostic paracentesis 01/20 with decreasing WBC count. has gram-positive cocci in fluid cultures.
-Got albumin 1 g/kg day 3 SBP treatment protocol and 1.5 mg/kg of albumin on day 1
-She may need repeat paracenteses Thursday. Will need to be careful to not take too much fluid out given also dehydration with ADAM.
-Will hold off on diuretics for now
-monitor electrolytes and kidney function closely.
-will workup cirrhosis as outpatient but most likely related to alcohol. Hold on beta-blockers although she does have a history of esophageal varices given SBP.
-Will also need long-term SBP prophylaxis after DC.
-No signs of HE.
-Working on outpatient follow up with Dr. Antoine (Possibly ?02/10/25.. to be determined) Reached out to his coordinator.
-Will also follow up with Dr. Sibley, for HCC screening and full OP serology work up as OP
- ileus - Noted results from obstruction series 01/20 no obstruction was noted mild ileus was noted and no free air was noted. Less likely anastomotic leak
- 1 episode of vomiting yesterday none overnight hold on NG tube for now but if recurs may need NG tube
- If her pain worsens may need repeat imaging with CT.
Subjective
Subjective
Date of Service: January 21, 2025
She states her abdominal pain is actually improving, no further nausea or vomiting, WBC count mildly elevated today but afebrile on antibiotics
Objective
Data Reviewed
Laboratory Data:
Laboratory Results
01/21/25 03:52
01/21/25 03:52
Laboratory Results
PT 19.2 Sec (11.4-14.6) H 01/21/25 03:52
INR 1.59 01/21/25 03:52
APTT 31.8 Sec (23.4-35.0) 01/16/25 17:09
Total Bilirubin 4.5 mg/dl (0.2-1.3) H 01/21/25 03:52
AST 23 U/L (14-36) 01/21/25 03:52
ALT < 10 U/L (0-35) 01/21/25 03:52
Alkaline Phosphatase 84 U/L (38-126) 01/21/25 03:52
Vital Signs and I&O:
Vital Signs
Temp Pulse Resp BP Pulse Ox
97.1 F 83 18 118/56 97
01/21/25 07:40 01/21/25 07:40 01/21/25 07:40 01/21/25 07:40 01/21/25 08:10
I&O
01/20/25 01/21/25 01/22/25
06:59 06:59 06:59
Intake Total 1100 / 1100 1760 / 1760
Output Total 300 / 300
Balance 800 / 800 0 / 1760
Physical Exam
Physical Exam
Cardiology: Normal Sinus Rhythm
Pulmonary: Clear and Other (Decreased breath sounds at bases)
GI: Soft, Distended, Tender (Mild diffuse tenderness but more predominant in the right upper and lower quadrant and also has ecchymosis especially in the right flank) and Normal Bowel Sounds
--- NOTE | 2025-01-21 10:10 | W.PN.CRS1 ---
Addendum entered and electronically signed by Kedar Guerrero MD 01/21/25 15:17:
Feeling better this a.m. No further nausea or vomiting. Passing flatus and had a BM. Voiding. She states her pain has significantly improved
AFVSS, ABD soft, distended without tympany, mild diffuse tenderness with mild to moderate tenderness in the RLQ (significantly improved from yesterday), no rebound or guarding; incision well-approximated without erythema or drainage
WBC 13.1 from 9.3, Hb stable, CR 1.2
� Okay for clears from surgical standpoint
� No acute surgical intervention currently indicated; this seems less likely a leak with the anastomosis, especially with a negative CT with oral contrast passing through the anastomosis; I suspect this is more likely related to her cirrhosis and
possible SBP
� Appreciate GI; plan for reimaging if abdominal pain worsens (if another CT is performed, please give PO contrast again)
� Colorectal will follow peripherally; please call for any questions or concerns
Original Note:
Today's Communication / Plan
-
ok for clears
Assessment/Plan
-
79-year-old female status post closure of ileostomy on 01/05/2025, presents to the ER with abdominal pain, weakness, and nausea. She previously underwent a robotic sigmoid resection with diverting loop ileostomy for a severe diverticular stricture.
She has known Laennec's cirrhosis and portal hypertension and her postoperative course was uncomplicated.
Paracentesis on 01/07 cx neg and 01/20 WBCs and ?gram +cocci on prelim
AFVSS
Pain improving
Mild increase in WBC, LFT's remain elevated
Plan:
Ok for CLD from surgical standpoint
Appreciate GI
Trend labs
Will follow for continued improvement
Subjective Data
Subjective Data
Date of Service: January 21, 2025
Pt seen and examined at bedside with Dr Guerrero. Reports she feels better today with less to no pain. Denies n/v. Passing flatus and had a bm.
Objective Data
-
Vital Signs
Temp Pulse Resp BP Pulse Ox
97.1 F 83 18 118/56 97
01/21/25 07:40 01/21/25 07:40 01/21/25 07:40 01/21/25 07:40 01/21/25 08:10
Intake & Output
01/20/25 01/21/25 01/22/25
06:59 06:59 06:59
Intake Total 1100 / 1100 1760 / 1760
Output Total 300 / 300
Balance 800 / 800 1760 / 1760
Intake:
Oral fluids 600 / 600 420 / 420
IV fluids (Total) 1040 / 1040
IV piggybacks 500 / 500 300 / 300
Output:
Urine, Voided 300 / 300
Other:
How many times incontinent 1
MODERATE amount urine
Number of approximated SMALL 1
amounts of urine
Number of approximated MODERATE 5 3
amounts of urine
Number of approximated LARGE 2
amounts of urine
Lab Results
01/21/25 03:52
01/21/25 03:52
Physical Exam
-
General: No Acute Distress and AOx3
HEENT: Grossly Normal
Abdomen: Soft, Distended (Without significant tympany) and Tender (RLQ (improved))
Skin: Warm and Dry
Wound: Other (Incision without erythema or drainage, anuj intact)
Incision: No Skin Erythema
--- NOTE | 2025-01-21 10:18 | W.PN.HOSP.TC ---
Today's Communication/Plan
-
Keep NPO. Continue current IV fluids and abx.
Assessment / Plan
Assessment / Plan
Initial presentation:
79-year-old female status post sigmoidectomy with ileostomy and ileostomy reversal on 01/05 presenting with increased upper abdominal pain, anorexia and nausea.
Other Diagnosis present on admission:
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
Aortic stenosis status post TAVR.
Status post PPM.
Cirrhosis secondary to alcohol.
Essential hypertension
History of diverticulosis/diverticulitis
Relevant Imaging:
CT scan of the abdomen pelvis 01/16
Mild extraluminal air in the right abdomen. Suggestion of mild enhancement of the ascites.
These findings raise concern for infected fluid or loculated fluid.
A small leak cannot be completely excluded. However, no extravasation of oral contrast to suggest a leak is identified..
New Small collection of fluid in the right anterior wall. Differential diagnosis includes postoperative seroma, hematoma or abscess.
New Suggestion of mild small bowel wall thickening in the mid abdomen and left lower quadrant.
The differential diagnoses include inflammation, infection and ischemia.
New. Nodular hepatic margin consistent with known cirrhosis. Stable
Left lower lobe pulmonary nodule. Stable from 2021 suggesting it is benign.
Impression
Peritonitis: SBP versus secondary peritonitis.
Recent ileostomy reversal followed with hospitalization with incisional bleeding and wound infection (discharged 01/13/2025).
Sepsis present on admission (tachycardia, leukocytosis, lactic acidosis, acute kidney injury)
Acute on chronic anemia.
Acute on chronic hyponatremia
Hospital course and A/Plan by problem:
1. Peritonitis: SBP versus secondary peritonitis.
Recent ileostomy reversal followed by wound infection and incisional bleeding.
Status post paracentesis 12/1810 100 cc fluid findings consistent with peritonitis (WBC 03720 PMN�90% PMN)
Peritoneal cultures negative to date
Blood cultures were not submitted in the ED
Empiric antibiotics: Zosyn
Repeat paracentesis on 01/20 with minimal amount of fluid 350 m removed from the pocket.
Noted for trending down WBC - which is now going back up today to 13.1
Albumin scheduled
On 01/20 developing nausea while on solid diet.
Abdomen distended with hypoactive bowel sounds
X-ray with isolated dilated loop of bowel
Suspect ileus
Back to n.p.o.
IV fluids in the maintenance
Albumin
Monitor closely, may require NG tube placement if recurrent vomiting
Follow-up with x-ray of the abdomen in AM 01/20:
There is an isolated loop of small bowel which is minimally dilated.
There is no colonic gas. Early ileus cannot be excluded..
If fever develops, or rising white count continues, would be low threshold to reimage with CT scan
Colorectal surgical service seeing patient daily
2. Acute kidney injury.
Creatinine 1.2
Improving with IV fluid bolus, today still 1.2
Not hypotensive
Improved lactic acidosis with IV hydration.
Continue isotonic solution
Status post albumin infusion with paracentesis
Avoid hypotension
Follow BMP closely
3. Hypokalemia being repleted, today 4.3
Check daily
Replete as needed
4. Acute on chronic hyponatremia. Sodium 127 --> 135
Suspect intravascular depletion with acute infection.
Urine osmolarity 600
Sodium improved 127�131-135 with IV fluid bolus
Follow-up daily BMP
5. Cirrhosis.
Grade 1 esophageal varices on recent EGD
Suspect secondary to alcohol use disorder.
MELD Na 35
Infected ascites as above.
Monitor closely
6. Acute on chronic anemia - improving
Suspect dilutional.
Hemoglobin dropped from 12-7.6 with IV hydration.
Recent hemoglobin around 9, today 9.1
Update iron stores.
Follow CBC closely.
7. Cardiovascular:
Status post TAVR.
Essential Hypertension.
Echo 09/05/2023 normal biventricular size and function. Status post TAVR.
LVEF 55/60%
Resumed Toprol-XL.
Monitor volume status closely with hydration
Hold aspirin acutely given drop in hemoglobin
Full code
DVTp vcd
Anticipated Discharge: > 48 hours
Subjective/Interval History
-
Date of Service: January 21, 2025
'I feel a little better today.'
Objective Data
-
Labs:
Laboratory Results
01/21/25
03:52
WBC 13.1 H
Hgb 9.1 L
Hct 28.0 L
Plt Count 70 L
PT 19.2 H
INR 1.59
Sodium 135
Potassium 4.3 D
Chloride 109 H
Carbon Dioxide 15 L
BUN 32 H
Creatinine 1.2 H
Glucose 84
Calcium 8.0 L
Total Bilirubin 4.5 H
AST 23
ALT < 10
Alkaline Phosphatase 84
Vital Signs:
Vital Signs
Temp Pulse Resp BP Pulse Ox
97.1 F 83 18 118/56 97
01/21/25 07:40 01/21/25 07:40 01/21/25 07:40 01/21/25 07:40 01/21/25 08:10
I&O
01/20/25 01/21/25 01/22/25
06:59 06:59 06:59
Intake Total 1100 / 1100 1759
Output Total 300 / 300
Balance 800 / 800 1759
Review of Systems
-
History Source: Patient
All other systems: Reviewed and negative
Physical Exam
-
General: Well Developed, Well Nourished, Comfortable and Appears Chronically Ill
HEENT: Normocephalic, Atraumatic, Moist Mucous Membranes, Nose Appears Normal and Ears Appear Normal
Respiratory: Decreased Breath Sounds
Cardiac: Regular Rhythm and S1/S2
GI: Distended and Other (no bowel sounds appreciated.)
Musculoskeletal: No Clubbing, No Cyanosis, Edema, Right Lower Extrem and Edema, Left Lower Extrem
Skin: Warm and Dry; Negative Rash or Ulcers
Neuro: Awake and Alert
Psych: Calm
Data Reviewed
-
Labs: Labs Reviewed by me
--- NOTE | 2025-01-21 12:08 | W.PN.ID1 ---
Date of Service
Date of Service: January 21, 2025
Today's Communication
Continue Zosyn.
Assessment / Plan
Peritonitis (SBP vs. leak)
Leukocytosis
ADAM
Elevated bilirubin
Cirrhosis
Sigmoid stricture s/p resection/ileostomy with recent closure of ileostomy (01/05/25)
HTN
HLD
Seizure disorder
Diverticulitis
EtOH liver disease
TAVR, PPM
Recommendations:
01/17 Ascites 11,202 PMN cultures without growth.
01/20 Ascites 4,436 PMN, Gram stain, GPC, culture neg to date
Continue with empiric Zosyn (d5). Dose adjusted for renal insufficiency
����������������������������������������������������������
Chief Complaint
-: Other (Peritonitis)
Subjective / Review of Systems
Nausea resolved.
Vital Signs / Physical Exam
Vital Signs
Vital Signs
Temp Pulse Resp BP Pulse Ox
97.1 F 83 18 118/56 97
01/21/25 07:40 01/21/25 07:40 01/21/25 07:40 01/21/25 07:40 01/21/25 08:10
Physical Exam
Constitutional: No Acute Distress and Comfortable
Cardiovascular: Regular Rate and S1/S2
Pulmonary: Non Labored
Gastrointestinal: Soft, Tender (mild diffuse tenderness), Distended and Normal Bowel Sounds
Extremities: Edema; Negative Erythema
Neurological: Awake and Alert
Objective Data
Lab Data
Lab Results
01/21/25 03:52
01/21/25 03:52
PT 19.2 Sec (11.4-14.6) H 01/21/25 03:52
INR 1.59 01/21/25 03:52
APTT 31.8 Sec (23.4-35.0) 01/16/25 17:09
Estimated Creat Clear 30 ml/min 01/21/25 03:52
Lactic Acid Cancelled 01/17/25 05:45
Total Bilirubin 4.5 mg/dl (0.2-1.3) H 01/21/25 03:52
AST 23 U/L (14-36) 01/21/25 03:52
ALT < 10 U/L (0-35) 01/21/25 03:52
Alkaline Phosphatase 84 U/L (38-126) 01/21/25 03:52
Most recent labs reviewed.
Micro Results:
01/20/25 08:33 Body Fluid Culture - Preliminary
Peritoneal Fluid No Growth After 18-24 Hours
Gram Stain - Preliminary
01/17/25 08:06 Body Fluid Culture - Final
Peritoneal Fluid No Growth After 72 Hours
Gram Stain - Final
01/16/25 22:41 MRSA Screen - Final
Nose No Methicillin Resistant Staphylococcus aureus isolated.
Laboratory Tests
01/17/25
08:06
Fluid WBC 82545
Fluid Mononuclear Cell 9.2
Fl Polymorphonucl Cell 90.8
Fluid Total Protein < 2.0
Fluid LDH 406
Imaging:
01/16/2025 CT abdomen/pelvis with contrast: large amount of abdominal and pelvic ascites. Mild extraluminal air in the right abdomen. Suggestion of mild enhancement of the ascites raising concern for infected fluid or loculated fluid. A small
leak cannot be completely excluded however there was no extravasation of oral contrast to suggest a leak identified. Small collection of fluid in the right anterior abdominal wall. Nodular hepatic margin consistent with known cirrhosis. Please
see full dictation for additional detail. Film personally viewed.
[2025-01-21] MEDS: OMNIPAQUE 50 ML PO (12:36)
[2025-01-21] MEDS: NSS 1000 IV (13:31)
[2025-01-21 15:03] VITALS: BP 155/73
--- NOTE | 2025-01-21 20:00 | PTCARENOTE ---
CT scan resulted. Assisted patient to commode and noted increased DALE. Lungs with crackles 2/3 up on right and clear on left. VS HR 89, RR 22, Sat on RA 96%, BP 148/71. [employer] aware, no new orders.
[2025-01-21 21:41] VITALS: O2SAT 96
[2025-01-21] MEDS: TOPROL XL 25 MG PO (22:14)
[2025-01-21 23:07] VITALS: BP 130/57
[2025-01-22] MEDS: ZOSYN 50 IV (05:12)
[2025-01-22 05:20] LABS: Blood Urea Nitrogen 41 mg/dl (7-17); Calcium 8.3 mg/dl (8.4-10.2); Carbon Dioxide 17 mmol/L (22-30); Chloride 108 mmol/L (98-107); Estimated Creatinine Clearance 26 ml/min; Glucose 87 mg/dl (70-99); Potassium 3.7 mmol/L (3.5-5.1); Sodium 133 mmol/L (135-145); eGFR 37.80
[2025-01-22 05:32] LABS: Hematocrit 27.9 % (37.0-47.0); Hemoglobin 8.9 g/dL (12.0-16.0); Mean Corp Hgb Conc. 31.9 g/dL (33.0-37.0); Mean Corpuscular Volume 98.6 fL (81.0-99.0); Platelet Count 56 10^3/uL (130-400); Red Cell Dist. Width 17.2 % (11.5-14.5)
[2025-01-22 06:00] VITALS: BMI 26.1
[2025-01-22 07:45] VITALS: BP 162/74
[2025-01-22 08:04] VITALS: BP 152/72
[2025-01-22] MEDS: HEPARIN 5000 UNITS SC ×3 (08:05→23:26)
[2025-01-22] MEDS: NSS (PRESERVATIVE FREE) 10 ML IV (08:06)
[2025-01-22] MEDS: PROTONIX IV 40 MG IV (08:06)
--- NOTE | 2025-01-22 10:17 | W.PN.ID1 ---
Date of Service
Date of Service: January 22, 2025
Today's Communication
Replace Zosyn with cefepime renally adjusted.
See below.
Assessment / Plan
Peritonitis (SBP vs. leak)
Leukocytosis trended up.
Thrombocytopenia worse
ADAM
Elevated bilirubin
Cirrhosis
Sigmoid stricture s/p resection/ileostomy with recent closure of ileostomy (01/05/25)
HTN
HLD
Seizure disorder
Diverticulitis
EtOH liver disease
TAVR, PPM
Recommendations:
No anastomotic leak per colorectal
01/17 Ascites 11,202 PMN cultures without growth.
01/20 Ascites 4,436 PMN, Gram stain, GPC, culture neg to date
Thrombocytopenia trending down - > DC Zosyn (d6)
Replace Zosyn with cefepime renally adjusted.
Follow wbc, plt
����������������������������������������������������������
Chief Complaint
-: Other (Peritonitis)
Subjective / Review of Systems
No nausea.
Vital Signs / Physical Exam
Vital Signs
Vital Signs
Temp Pulse Resp BP Pulse Ox
97.3 F 83 16 152/72 96
01/22/25 07:45 01/22/25 08:04 01/22/25 07:45 01/22/25 08:04 01/22/25 08:30
Physical Exam
Constitutional: Chronically Ill
Cardiovascular: Regular Rate and S1/S2
Pulmonary: Non Labored
Gastrointestinal: Soft, Tender (mild diffuse tenderness), Distended and Normal Bowel Sounds
Extremities: Edema; Negative Erythema
Neurological: Awake and Alert
Objective Data
Lab Data
Lab Results
01/22/25 04:34
01/22/25 04:34
PT 19.2 Sec (11.4-14.6) H 01/21/25 03:52
INR 1.59 01/21/25 03:52
APTT 31.8 Sec (23.4-35.0) 01/16/25 17:09
Estimated Creat Clear 26 ml/min 01/22/25 04:34
Lactic Acid Cancelled 01/17/25 05:45
Total Bilirubin 4.5 mg/dl (0.2-1.3) H 01/21/25 03:52
AST 23 U/L (14-36) 01/21/25 03:52
ALT < 10 U/L (0-35) 01/21/25 03:52
Alkaline Phosphatase 84 U/L (38-126) 01/21/25 03:52
Most recent labs reviewed.
Micro Results:
01/20/25 08:33 Body Fluid Culture - Preliminary
Peritoneal Fluid No Growth After 18-24 Hours
Gram Stain - Preliminary
01/17/25 08:06 Body Fluid Culture - Final
Peritoneal Fluid No Growth After 72 Hours
Gram Stain - Final
01/16/25 22:41 MRSA Screen - Final
Nose No Methicillin Resistant Staphylococcus aureus isolated.
Laboratory Tests
01/17/25
08:06
Fluid WBC [id number]
Fluid Mononuclear Cell 9.2
Fl Polymorphonucl Cell 90.8
Fluid Total Protein < 2.0
Fluid LDH 406
Imaging:
01/16/2025 CT abdomen/pelvis with contrast: large amount of abdominal and pelvic ascites. Mild extraluminal air in the right abdomen. Suggestion of mild enhancement of the ascites raising concern for infected fluid or loculated fluid. A small
leak cannot be completely excluded however there was no extravasation of oral contrast to suggest a leak identified. Small collection of fluid in the right anterior abdominal wall. Nodular hepatic margin consistent with known cirrhosis. Please
see full dictation for additional detail. Film personally viewed.
Care Review
Plan reviewed with: Physician (Dr. Ahmadi)
--- NOTE | 2025-01-22 10:48 | W.PN.GI.CBS2 ---
Today's Communication / Plan
-
Can start clear liquid diet once reviewed by Dr. Guerrero and if cleared
Will schedule for paracentesis tomorrow.
Assessment / Plan
-
Pt is a 79yo with hx TAVR, hypertension, hyperlipidemia, PPM, ETOH abuse, anemia, diverticulosis with recent sigmoid stricture with temporary ileostomy 11/23/24 with closure 01/05. She now returns with abdominal pain with concern for ascites and
asked to see for cirrhosis. Pt was seen by GI in September for anemia with hbg 6 range. at that time she was drink a box of wine every few days. She completed EGD with grade I EV, schatzki's ring, angioectasia with treatment (not though to be
source) and recommended b- andrés. Imaging noted cirrhosis and ascites at that time. She was recommended GI/hematology follow up but has been admitted with recent surgical procedures. She now returns with abdominal pain and also had recent
incisional bleeding requiring transfusion. On admission patient went for para for 1150 with SAAG 2.5, Protein <2 (C/W with cirrhosis) but WBC 12,310. In review with patient she was unsure about prior noted cirrhosis as recently has been through
surgery. She denies issues with confusion, bleed but admits to anemia and also noted ongoing LE swelling and intermittent abdominal swelling. She has hx GERD that is stable and alternating diarrhea and constipation since surgery with mild
abdominal pain post-op . Labs with anemia hbg 7-12, platelets down to 102, WBC initially 24,700 now 12,200. On admission Na 127, K 3.8 then drop to 3, creat 1.2, bili 3.6, AST 38, ALT 16, alk phos 192 with INR 2.11 on 01/17. Meld 3.0 calculated
01/17 25.
01/16/25- Ct A/p - Large amount of abdominal and pelvic ascites. New.
Mild extraluminal air in the right abdomen. Suggestion of mild enhancement of the ascites. These findings raise concern for infected fluid or loculated fluid. A small leak cannot be completely excluded. However, no extravasation of oral contrast to
suggest a leak is identified.. New
Small collection of fluid in the right anterior wall. Differential diagnosis includes postoperative seroma, hematoma or abscess. New
Suggestion of mild small bowel wall thickening in the mid abdomen and left lower quadrant. The differential diagnoses include inflammation, infection and ischemia. New.
nodular hepatic margin consistent with known cirrhosis. Stable
Left lower lobe pulmonary nodule. Stable from 2021 suggesting it is benign.
10/01/24 CT Abd/pel W Iv And Oral Contr
IMPRESSION: Suggestion of transition in caliber of colon at the junction of the distal descending colon and the sigmoid colon, which is in a region of previous severe diverticulitis. Findings suggest the possibility of a stricture.
There is stranding of the fat adjacent to this segment of caliber transition in the sigmoid colon, and a component of mild active diverticulitis cannot be excluded.
Consideration for follow-up imaging after treatment, if there are symptoms suggesting acute diverticulitis. Follow-up CT could be performed, perhaps to include rectal contrast to assess for narrowing of the sigmoid colon.
Changes of mild interstitial fibrosis in the visualized lower lungs. Mild to moderate elevation right hemidiaphragm, stable.
Findings of cirrhosis involving the liver. No evidence for hepatic mass lesion.
Small moderate amount of ascites within the abdomen and pelvis.
Subtle stranding of the fat adjacent to the proximal SMA with small soft tissue densities of the left lateral margin of the proximal BENNETT. BENNETT soft tissue densities as it appears slightly smaller than previous exam, while the stranding of the fat
adjacent to the SMA is new. Etiology for this finding is uncertain, but possibly vasculitis. No evidence for significant narrowing of the SMA.
Impression:
-cirrhosis - newly noted per patient now with decompensation
-ascites- noted on prior scan in September now increased, s/p Paracentesis x 2.
-elevated WBC in paracentesis tap -- SBP vs post surgical-leak peritonitis
-hypoalbuminemia
-thrombocytopenia with recent significant drop
-anemia
-coagulopathy
-ADAM
-hyponatremia/hypokalemia
-EV grade I, schatzki's ring, angioectasia on recent EGD
- recent sigmoid stricture with temporary ileostomy 11/23/24 with closure 01/05
-daily ETOH use til September 2024
other med problems:
-TAVR, hypertension, hyperlipidemia, PPM,
PLAN:
-SBP currently on Zosyn and she had a repeat diagnostic paracentesis 01/20 with decreasing WBC count. has gram-positive cocci in fluid cultures.
-Got albumin 1 g/kg day 3 SBP treatment protocol and 1.5 mg/kg of albumin on day 1
-She will need repeat paracenteses Thursday. Will need to be careful to not take too much fluid out given also dehydration with ADAM.
-Will hold off on diuretics for now
-monitor electrolytes and kidney function closely.
-will workup cirrhosis as outpatient but most likely related to alcohol. Hold on beta-blockers although she does have a history of esophageal varices given SBP.
-Will also need long-term SBP prophylaxis after DC.
-No signs of HE.
-Will follow-up with Dr. Antoine also has outpatient
-Will also follow up with Dr. Sibley, for HCC screening and full OP serology work up as OP
- Repeat CT from 01/21 shows a couple of concerning findings including small foci of gas in the subcutaneous fat in the abdominal wall and also unchanged extraluminal air noted in the right upper quadrant. Unclear if this is related to recent
paracenteses but there is also hemorrhagic debris noted in the fluid also likely from recent paracenteses, hb stable. Discussed with Dr. Guerrero he will review the images and if no concern for small anastomotic leak then can start patient on clear
liquid diet
Subjective
Subjective
Date of Service: January 22, 2025
her abdominal pain seems to be improving but has more distention from ascites today, no further vomiting, CT from yesterday reveals worsening ascites, with probable hemorrhagic debris in the fluid ,no bowel obstruction but there is small amount of
subcutaneous abdominal wall gas and also extraluminal air in the right upper quadrant which was seen on prior CT also., Last bowel movement was 1121
Objective
Data Reviewed
Laboratory Data:
Laboratory Results
01/22/25 04:34
01/22/25 04:34
Laboratory Results
PT 19.2 Sec (11.4-14.6) H 01/21/25 03:52
INR 1.59 01/21/25 03:52
APTT 31.8 Sec (23.4-35.0) 01/16/25 17:09
Total Bilirubin 4.5 mg/dl (0.2-1.3) H 01/21/25 03:52
AST 23 U/L (14-36) 01/21/25 03:52
ALT < 10 U/L (0-35) 01/21/25 03:52
Alkaline Phosphatase 84 U/L (38-126) 01/21/25 03:52
01/21/2025 CT abd/pelvis without contrast
IMPRESSION:
Progressive atelectasis or pneumonia in the right posterior costophrenic angle.
New trace right pleural effusion.
Subtle interstitial and groundglass opacity seen in the peripheral lung bases. This could represent pulmonary edema and/or interstitial fibrotic changes.
Stable moderate to large volume of ascites. Subtle increased attenuation layering dependently within the ascites. This could reflect debris or small amount of hemorrhagic component.
A small small amount of extraluminal gas is seen associated with the fluid in the right anterior mid abdomen, unchanged from prior examination. This has remained localized, without redistribution. This could suggest a more focal loculated collection.
Right paramidline mid abdomen superficial skin closure anuj and adjacent abdominal wall soft tissue/fluid, without significant change.
Tiny foci of gas are seen within the subcutaneous fat of the right anterior abdominal wall, having developed since prior examination. Nonspecific. Probably iatrogenic, though correlation necessary.
No bowel obstruction. Suggestion of mild small bowel wall thickening, though equivocal in the presence of ascites.
Cirrhotic configuration of liver.
Vital Signs and I&O:
Vital Signs
Temp Pulse Resp BP Pulse Ox
97.3 F 83 16 152/72 96
01/22/25 07:45 01/22/25 08:04 01/22/25 07:45 01/22/25 08:04 01/22/25 08:30
I&O
01/21/25 01/22/25 01/23/25
06:59 06:59 06:59
Intake Total 1760 / 1760 1270 / 1270
Output Total 150 / 150
Balance 1760 / 1760 1120 / 1120
Physical Exam
Physical Exam
Cardiology: Normal Sinus Rhythm
Pulmonary: Clear
GI: Soft, Distended and Tender (Mild tenderness in the right side of her abdomen, ecchymosis noted especially in the right mid abdomen and flank)
[2025-01-22] MEDS: MAXIPIME 1000 MG IV ×2 (11:33→23:28)
[2025-01-22] MEDS: STERILE WATER FOR INJECTION 10 ML IV ×2 (11:33→23:28)
--- NOTE | 2025-01-22 12:01 | VATNOTE ---
During routine rounds of midline, biopatch on midline appeared to be saturated with serous fluid. Dressing changed and biopatch replaced at this time.
--- NOTE | 2025-01-22 12:19 | W.PN.HOSP.TC ---
Today's Communication/Plan
-
Stop fluids
Switch to cefepime
Trial CLD
Paracentesis
Monitor renal function
Assessment / Plan
Assessment / Plan
Initial presentation:
79-year-old female status post sigmoidectomy with ileostomy and ileostomy reversal on 01/05 presenting with increased upper abdominal pain, anorexia and nausea.
Other Diagnosis present on admission:
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
Aortic stenosis status post TAVR.
Status post PPM.
Cirrhosis secondary to alcohol.
Essential hypertension
History of diverticulosis/diverticulitis
Relevant Imaging:
CT scan of the abdomen pelvis 01/16
Mild extraluminal air in the right abdomen. Suggestion of mild enhancement of the ascites.
These findings raise concern for infected fluid or loculated fluid.
A small leak cannot be completely excluded. However, no extravasation of oral contrast to suggest a leak is identified..
New Small collection of fluid in the right anterior wall. Differential diagnosis includes postoperative seroma, hematoma or abscess.
New Suggestion of mild small bowel wall thickening in the mid abdomen and left lower quadrant.
The differential diagnoses include inflammation, infection and ischemia.
New. Nodular hepatic margin consistent with known cirrhosis. Stable
Left lower lobe pulmonary nodule. Stable from 2021 suggesting it is benign.
Impression
Peritonitis: SBP versus secondary peritonitis.
Recent ileostomy reversal followed with hospitalization with incisional bleeding and wound infection (discharged 01/13/2025).
Sepsis present on admission (tachycardia, leukocytosis, lactic acidosis, acute kidney injury)
Acute on chronic anemia.
Acute on chronic hyponatremia
Hospital course and A/Plan by problem:
1. Peritonitis: SBP versus secondary peritonitis.
Recent ileostomy reversal followed by wound infection and incisional bleeding.
Status post paracentesis 12/1810 100 cc fluid findings consistent with peritonitis (WBC 79075 PMN�90% PMN)
Peritoneal cultures negative to date
Blood cultures were not submitted in the ED
Empiric antibiotics: Zosyn
Repeat paracentesis on 01/20 with minimal amount of fluid 350 m removed from the pocket.
Noted for trending down WBC - which is now going back up today to 13.1
Albumin scheduled
On 01/20 developing nausea while on solid diet.
Abdomen distended with hypoactive bowel sounds
X-ray with isolated dilated loop of bowel
Suspect ileus
Back to n.p.o.
IV fluids in the maintenance
Albumin
Monitor closely, may require NG tube placement if recurrent vomiting
Follow-up with x-ray of the abdomen in AM 01/20:
There is an isolated loop of small bowel which is minimally dilated.
There is no colonic gas. Early ileus cannot be excluded..
If fever develops, or rising white count continues, would be low threshold to reimage with CT scan
Colorectal surgical service seeing patient daily
2. Acute kidney injury.
Creatinine 1.2
Improving with IV fluid bolus, today still 1.2
Not hypotensive
Improved lactic acidosis with IV hydration.
Continue isotonic solution
Status post albumin infusion with paracentesis
Avoid hypotension
Follow BMP closely
3. Hypokalemia being repleted, today 4.3
Check daily
Replete as needed
4. Acute on chronic hyponatremia. Sodium 127 --> 135
Suspect intravascular depletion with acute infection.
Urine osmolarity 600
Sodium improved 127�131-135 with IV fluid bolus
Follow-up daily BMP
5. Cirrhosis.
Grade 1 esophageal varices on recent EGD
Suspect secondary to alcohol use disorder.
MELD Na 35
Infected ascites as above.
Monitor closely
6. Acute on chronic anemia - improving
Suspect dilutional.
Hemoglobin dropped from 12-7.6 with IV hydration.
Recent hemoglobin around 9, today 9.1
Update iron stores.
Follow CBC closely.
7. Cardiovascular:
Status post TAVR.
Essential Hypertension.
Echo 09/05/2023 normal biventricular size and function. Status post TAVR.
LVEF 55/60%
Resumed Toprol-XL.
Monitor volume status closely with hydration
Hold aspirin acutely given drop in hemoglobin
Full code
DVT hsq
Update 01/22 - Restart Diet - Trial CLD; Switch to cefepime for increasing WBC. Rising Scr - despite fluid. With increase ascites and distension, hold standing fluids. Requested IR for Paracentesis. Monitor Renal function - hopeful to improve s/p
para, otherwise may need diuretics although HRS is diagnosis of exclusion. PT/OT.
Total time spent on today's encounter was 51 minutes which included time spent in counseling the patient/family regarding diagnosis and treatment plan as listed above, goals of care, and symptom management. Case was discussed with nursing staff,
specialists, and care coordinators/case management. All labs and imaging personally reviewed by me. Remainder the time spent in detailed review of previous records, lab data, imaging, and other medical provider documentation.
Anticipated Discharge: > 48 hours
Subjective/Interval History
-
Date of Service: January 22, 2025
Lethargic, no acute events overnight. Abdomen distended. Bowel sounds present
Objective Data
-
Labs:
Laboratory Results
01/22/25
04:34
WBC 18.0 H
Hgb 8.9 L
Hct 27.9 L
Plt Count 56 L
Sodium 133 L
Potassium 3.7
Chloride 108 H
Carbon Dioxide 17 L
BUN 41 H
Creatinine 1.4 H
Glucose 87
Calcium 8.3 L
Vital Signs:
Vital Signs
Temp Pulse Resp BP Pulse Ox
97.3 F 83 16 152/72 96
01/22/25 07:45 01/22/25 08:04 01/22/25 07:45 01/22/25 08:04 01/22/25 08:30
I&O
01/21/25 01/22/25 01/23/25
06:59 06:59 06:59
Intake Total 1760 / 1760 1270 / 1270
Output Total 150 / 150
Balance 1760 / 1760 1120 / 1120
Review of Systems
-
History Source: Patient
All other systems: Not reviewed unless documented
Data Reviewed
-
CT Scan: Report Reviewed by me
Labs: Labs Reviewed by me
--- NOTE | 2025-01-22 13:15 | W.PN.CRS1 ---
Today's Communication / Plan
-
continue clears
await paracentesis cultures
continue abx
no plans for OR
Assessment/Plan
-
79-year-old female status post closure of ileostomy on 01/05/2025, presents to the ER with abdominal pain, weakness, and nausea. She previously underwent a robotic sigmoid resection with diverting loop ileostomy for a severe diverticular stricture.
She has known Laennec's cirrhosis and portal hypertension and her postoperative course was uncomplicated.
Paracentesis on 01/17 cx neg and 01/20 WBCs and ?gram +cocci on prelim
AFVSS
WBC: 18.0 (13.1), Hgb 8.9 (9.1)
Plan:
-Okay for a clear liquid diet
-Appreciate GI
-Trend labs
-Await final cultures from paracentesis
-Appreciate ID - switched abx to Maxipime
-No plans for surgery at this time
-Abdominal xray ray from yesterday reviewed: A small small amount of extraluminal gas is seen associated with the fluid in the right anterior mid abdomen, unchanged from prior examination. Also atelectasis or pneumonia in the right posterior
costophrenic angle.
Subjective Data
Subjective Data
Date of Service: January 22, 2025
Patient states she had a bowel movement yesterday and has flatus today. Denies nausea or vomiting. She is not that hungry. Her main complaint is that she feels 'weak'. She only has abdominal pain when she sits up.
Objective Data
-
Vital Signs
Temp Pulse Resp BP Pulse Ox
97.3 F 83 16 152/72 96
01/22/25 07:45 01/22/25 08:04 01/22/25 07:45 01/22/25 08:04 01/22/25 08:30
Intake & Output
01/21/25 01/22/2525
06:59 06:59 06:59
Intake Total 1760 / 1760 1270 / 1270
Output Total 150 / 150
Balance 1760 / 1760 1120 / 1120
Intake:
Oral fluids 420 / 420 500 / 500
IV fluids (Total) 1040 / 1040 570 / 570
IV piggybacks 300 / 300 200 / 200
Output:
Urine, Voided 150 / 150
Other:
How many times incontinent 1
MODERATE amount urine
Number of approximated SMALL 1
amounts of urine
Number of approximated MODERATE 3
amounts of urine
Number of approximated LARGE 2 1
amounts of urine
Lab Results
01/22/25 04:34
01/22/25 04:34
Physical Exam
-
General: AOx3
Abdomen: Soft, Distended and Tender (Mild LLQ/RLQ (improved since yesterday))
Skin: Warm and Dry
Incision: Clear, Dry, Intact
[2025-01-22 15:36] VITALS: BP 162/70
--- NOTE | 2025-01-22 15:45 | PTCARENOTE ---
Dr. Ahmadi made aware pt. b/p 162/70. This nurse to monitor per Dr. Ahmadi. No new orders at this time.
[2025-01-22] MEDS: ZOFRAN 4 MG IV (16:18)
[2025-01-22 19:48] VITALS: BP 145/59
[2025-01-22] MEDS: TOPROL XL 25 MG PO (21:25)
[2025-01-22 23:30] VITALS: BP 148/63
[2025-01-23] VITALS (7 sets, daily range): BP systolic 78–160; BP diastolic 50–68; BMI 26.1; BMI 25.5
[2025-01-23 05:50] LABS: Hematocrit 26.8 % (37.0-47.0); Hemoglobin 9.1 g/dL (12.0-16.0); Mean Corp Hgb Conc. 34.0 g/dL (33.0-37.0); Mean Corpuscular Volume 92.7 fL (81.0-99.0); Platelet Count 46 10^3/uL (130-400); Red Cell Dist. Width 17.2 % (11.5-14.5)
[2025-01-23 06:12] LABS: ALT (SGPT) < 10 U/L (0-35); AST (SGOT) 30 U/L (14-36); Albumin 2.9 g/dl (3.5-5.0); Alkaline Phosphatase 188 U/L (38-126); Blood Urea Nitrogen 49 mg/dl (7-17); Calcium 8.4 mg/dl (8.4-10.2); Carbon Dioxide 17 mmol/L (22-30); Chloride 108 mmol/L (98-107); Estimated Creatinine Clearance 24 ml/min; Glucose 96 mg/dl (70-99); Potassium 3.4 mmol/L (3.5-5.1); Sodium 134 mmol/L (135-145); Total Protein 5.1 g/dl (6.3-8.2); eGFR 34.79
[2025-01-23] MEDS: HEPARIN 5000 UNITS SC (08:48)
[2025-01-23] MEDS: NSS (PRESERVATIVE FREE) 10 ML IV (08:49)
[2025-01-23] MEDS: PROTONIX IV 40 MG IV (08:49)
--- NOTE | 2025-01-23 10:14 | W.PN.CRS1 ---
Today's Communication / Plan
-
paracentesis today
TPN
Assessment/Plan
-
79-year-old female status post closure of ileostomy on 01/05/2025, presents to the ER with abdominal pain, weakness, and nausea. She previously underwent a robotic sigmoid resection with diverting loop ileostomy for a severe diverticular stricture.
She has known Laennec's cirrhosis and portal hypertension and her postoperative course was uncomplicated.
Paracentesis on 01/17 cx neg and 01/20 WBCs and ?gram +cocci on prelim
AFVSS
WBC: 21.4 (18.0, 13.1), Hgb 9.1 (8.9, 9.1)
Plan:
-Okay for a clear liquid diet
-Appreciate GI - for paracentesis again today. Bilirubin added on.
-Trend labs
-Await final cultures from paracentesis (no growth from 01/17, final 01/20 pending)
-Appreciate ID - on cefepime
-No plans for surgery at this time
- Given lack of po, will start TPN
-Discussed plan with daughter at bedside
Subjective Data
Subjective Data
Date of Service: January 23, 2025
Patient states she feels the same. She denies nausea or vomiting currently. She has gas and bowel movements. She had nausea overnight but that resolved.
Objective Data
-
Vital Signs
Temp Pulse Resp BP Pulse Ox
97.6 F 82 18 160/66 96
01/23/25 08:07 01/23/25 08:07 01/23/25 08:07 01/23/25 08:07 01/23/25 08:07
Intake & Output
01/22/25 01/23/25 01/24/25
06:59 06:59 06:59
Intake Total 1270 / 1270 360 / 360 480 / 480
Output Total 150 / 150 225 / 225
Balance 1120 / 1120 135 / 135 480 / 480
Intake:
Oral fluids 500 / 500 240 / 240 480 / 480
IV fluids (Total) 570 / 570 120 / 120
IV piggybacks 200 / 200
Output:
Urine, Voided 150 / 150 225 / 225
Other:
Number of approximated SMALL 1
amounts of urine
Number of approximated LARGE 1
amounts of urine
Lab Results
01/23/25 04:42
01/23/25 04:42
Physical Exam
-
General: No Acute Distress and AOx3
Abdomen: Distended (mild) and Tender (mild throughout)
Skin: Warm and Dry
--- NOTE | 2025-01-23 11:30 | W.PN.GI.CBS2 ---
Today's Communication / Plan
-
TPN as recommended by colorectal surgery
For repeat paracentesis today
Continue antibiotics per ID
Assessment / Plan
-
Pt is a 79yo with hx TAVR, hypertension, hyperlipidemia, PPM, ETOH abuse, anemia, diverticulosis with recent sigmoid stricture with temporary ileostomy 11/23/24 with closure 01/05. She now returns with abdominal pain with concern for ascites and
asked to see for cirrhosis. Pt was seen by GI in September for anemia with hbg 6 range. at that time she was drink a box of wine every few days. She completed EGD with grade I EV, schatzki's ring, angioectasia with treatment (not though to be
source) and recommended b- andrés. Imaging noted cirrhosis and ascites at that time. She was recommended GI/hematology follow up but has been admitted with recent surgical procedures. She now returns with abdominal pain and also had recent
incisional bleeding requiring transfusion. On admission patient went for para for 1150 with SAAG 2.5, Protein <2 (C/W with cirrhosis) but WBC 12,310. In review with patient she was unsure about prior noted cirrhosis as recently has been through
surgery. She denies issues with confusion, bleed but admits to anemia and also noted ongoing LE swelling and intermittent abdominal swelling. She has hx GERD that is stable and alternating diarrhea and constipation since surgery with mild
abdominal pain post-op . Labs with anemia hbg 7-12, platelets down to 102, WBC initially 24,700 now 12,200. On admission Na 127, K 3.8 then drop to 3, creat 1.2, bili 3.6, AST 38, ALT 16, alk phos 192 with INR 2.11 on 01/17. Meld 3.0 calculated
01/17 25.
01/16/25- Ct A/p - Large amount of abdominal and pelvic ascites. New.
Mild extraluminal air in the right abdomen. Suggestion of mild enhancement of the ascites. These findings raise concern for infected fluid or loculated fluid. A small leak cannot be completely excluded. However, no extravasation of oral contrast to
suggest a leak is identified.. New
Small collection of fluid in the right anterior wall. Differential diagnosis includes postoperative seroma, hematoma or abscess. New
Suggestion of mild small bowel wall thickening in the mid abdomen and left lower quadrant. The differential diagnoses include inflammation, infection and ischemia. New.
nodular hepatic margin consistent with known cirrhosis. Stable
Left lower lobe pulmonary nodule. Stable from 2021 suggesting it is benign.
10/01/24 CT Abd/pel W Iv And Oral Contr
IMPRESSION: Suggestion of transition in caliber of colon at the junction of the distal descending colon and the sigmoid colon, which is in a region of previous severe diverticulitis. Findings suggest the possibility of a stricture.
There is stranding of the fat adjacent to this segment of caliber transition in the sigmoid colon, and a component of mild active diverticulitis cannot be excluded.
Consideration for follow-up imaging after treatment, if there are symptoms suggesting acute diverticulitis. Follow-up CT could be performed, perhaps to include rectal contrast to assess for narrowing of the sigmoid colon.
Changes of mild interstitial fibrosis in the visualized lower lungs. Mild to moderate elevation right hemidiaphragm, stable.
Findings of cirrhosis involving the liver. No evidence for hepatic mass lesion.
Small moderate amount of ascites within the abdomen and pelvis.
Subtle stranding of the fat adjacent to the proximal SMA with small soft tissue densities of the left lateral margin of the proximal BENNETT. BENNETT soft tissue densities as it appears slightly smaller than previous exam, while the stranding of the fat
adjacent to the SMA is new. Etiology for this finding is uncertain, but possibly vasculitis. No evidence for significant narrowing of the SMA.
Impression:
-cirrhosis - newly noted per patient now with decompensation
-ascites- noted on prior scan in September now increased, s/p Paracentesis x 2.
-elevated WBC in paracentesis tap -- SBP vs post surgical-leak peritonitis, 01/20 fluid with gram + cocci
-hypoalbuminemia
-thrombocytopenia with recent significant drop
-anemia
-coagulopathy
-ADAM
-hyponatremia/hypokalemia
-EV grade I, schatzki's ring, angioectasia on recent EGD
- recent sigmoid stricture with temporary ileostomy 11/23/24 with closure 01/05
-daily ETOH use til September 2024
other med problems:
-TAVR, hypertension, hyperlipidemia, PPM,
PLAN:
-SBP currently on Zosyn and she had a repeat diagnostic paracentesis 01/20 with decreasing WBC count. has gram-positive cocci in fluid cultures
-Got albumin 1 g/kg day 3 SBP treatment protocol and 1.5 mg/kg of albumin on day 1
-Concern for increasing leukocytosis, antibiotics were switched from Zosyn to cefepime because of thrombocytopenia per ID
-If has increasing cell count on repeat paracentesis today in the ascitic fluid we need to also rule out possible small leak or perforation of bowel.
-repeat paracenteses today and will give albumin based on amount drained post paracentesis
-Will hold off on diuretics for now
-monitor electrolytes and kidney function closely.
-will workup cirrhosis as outpatient but most likely related to alcohol. Hold on beta-blockers although she does have a history of esophageal varices given SBP.
-Will also need long-term SBP prophylaxis after DC.
-No signs of HE.
-Will follow-up with Dr. Antoine also has outpatient
-Will also follow up with Dr. Sibley, for HCC screening and full OP serology work up as OP
- Repeat CT from 01/21 shows a couple of concerning findings including small foci of gas in the subcutaneous fat in the abdominal wall and also unchanged extraluminal air noted in the right upper quadrant. Unclear if this is related to recent
paracenteses but there is also hemorrhagic debris noted in the fluid also likely from recent paracenteses, hb stable.
-Discussed with Dr. Guerrero 01/22 since there is no increase in the air bubbles less concern for anastomotic leak
-Agree with TPN
Subjective
Subjective
Date of Service: January 23, 2025
WBC count is trending up. Afebrile. Abdominal pain is improving. Zosyn was switched to cefepime because of thrombocytopenia noted input from ID, scheduled for repeat paracentesis today and bilirubin added to the fluid study per colorectal.
Objective
Data Reviewed
Laboratory Data:
Laboratory Results
01/23/25 04:42
01/23/25 04:42
Laboratory Results
PT 19.2 Sec (11.4-14.6) H 01/21/25 03:52
INR 1.59 01/21/25 03:52
APTT 31.8 Sec (23.4-35.0) 01/16/25 17:09
Total Bilirubin 4.7 mg/dl (0.2-1.3) H 01/23/25 04:42
AST 30 U/L (14-36) 01/23/25 04:42
ALT < 10 U/L (0-35) 01/23/25 04:42
Alkaline Phosphatase 188 U/L (38-126) H 01/23/25 04:42
Vital Signs and I&O:
Vital Signs
Temp Pulse Resp BP Pulse Ox
97.6 F 82 18 160/66 96
01/23/25 08:07 01/23/25 08:07 01/23/25 08:07 01/23/25 08:07 01/23/25 08:07
I&O
01/22/25 01/23/25 01/24/25
06:59 06:59 06:59
Intake Total 1270 / 1270 360 / 360 480 / 480
Output Total 150 / 150 225 / 225
Balance 1120 / 1120 135 / 135 480 / 480
Physical Exam
Physical Exam
Cardiology: Normal Sinus Rhythm
Pulmonary: Clear
GI: Soft, Distended, Non Tender, Normal Bowel Sounds and Other (Large area of ecchymosis especially in the right mid abdomen)
--- NOTE | 2025-01-23 11:58 | CM ---
REviewed chart. Met with pt and dtr bedside.
Pt continues on IV ABX and labs are being monitored.
Briefly touched on SNF as a possible DC plan when pt is ready Dtr states that the pt is very weak now compared to her baseline.
Dtr stated pt has not be able to participate in PT due to fatigue
Plan: TBD. Will monitor PT notes for recommendations
[2025-01-23] MEDS: STERILE WATER FOR INJECTION 10 ML IV (12:25)
[2025-01-23] MEDS: MAXIPIME 1000 MG IV (12:26)
[2025-01-23 13:13] LABS: Magnesium 1.9 mg/dl (1.6-2.3); Triglycerides 105 mg/dl (10-149)
--- NOTE | 2025-01-23 15:13 | W.PN.HOSP.TC ---
Today's Communication/Plan
-
Repeat paracentesis
IV antibiotics
Clears
TPN
Repeat CBC/CMP in a.m.
Assessment / Plan
Assessment / Plan
Impression
Peritonitis: SBP versus secondary peritonitis.
Recent ileostomy reversal followed with hospitalization with incisional bleeding and wound infection (discharged 01/13/2025).
Sepsis present on admission (tachycardia, leukocytosis, lactic acidosis, acute kidney injury)
Acute on chronic anemia.
Acute on chronic hyponatremia
Other conditions
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
Aortic stenosis status post TAVR.
Status post PPM.
Cirrhosis secondary to alcohol.
Essential hypertension
History of diverticulosis/diverticulitis
Imaging
CT scan of the abdomen pelvis 01/16
Mild extraluminal air in the right abdomen. Suggestion of mild enhancement of the ascites. These findings raise concern for infected fluid or loculated fluid. A small leak cannot be completely excluded. However, no extravasation of oral contrast to
suggest a leak is identified.. New
Small collection of fluid in the right anterior wall. Differential diagnosis includes postoperative seroma, hematoma or abscess. New
Suggestion of mild small bowel wall thickening in the mid abdomen and left lower quadrant. The differential diagnoses include inflammation, infection and ischemia. New.
Nodular hepatic margin consistent with known cirrhosis. Stable
Left lower lobe pulmonary nodule. Stable from 2021 suggesting it is benign.
Plan
Peritonitis: SBP versus secondary peritonitis.
Recent ileostomy reversal followed by wound infection and incisional bleeding.
Status post paracentesis 12/1810 100 cc fluid findings consistent with peritonitis (WBC 11700 PMN�90% PMN)
Peritoneal cultures negative to date
Blood cultures were not submitted in the ED
Repeat paracentesis on 01/20 with minimal amount of fluid 350 m removed from the pocket. Noted for trending down WBC.
Follow-up CT scan of the abdomen pelvis on 01/21 with no evidence of anastomosis leak. Small right upper quadrant collection with gas and fluid unchanged since prior imaging
Noted with persistent leukocytosis
Repeat paracentesis on 01/23
Antibiotics narrowed from Zosyn to cefepime
TPN initiated on 01/23
Acute kidney injury.
Creatinine 1.2
Improving with IV fluid bolus
Not hypotensive
Improved lactic acidosis with IV hydration.
Noted persistent normal anion gap metabolic acidosis
Status post albumin infusion with paracentesis
Avoid hypotension
Follow BMP closely
Hypokalemia being repleted
Acute on chronic hyponatremia. Sodium 127.
Suspect intravascular depletion with acute infection.
Urine osmolarity 600
Sodium improved 127�131 with IV fluid bolus
Follow-up daily BMP
Cirrhosis.
Grade 1 esophageal varices on recent EGD
Suspect secondary to alcohol use disorder.
MELD Na 35
Infected ascites as above.
Monitor closely
Acute on chronic anemia.
Suspect dilutional.
Hemoglobin dropped from 12-7.6 with IV hydration.
Recent hemoglobin around 9.
Update iron stores.
Follow CBC closely.
Cardiovascular:
Status post TAVR.
Hypertension.
Echo 09/05/2023 normal biventricular size and function. Status post TAVR.
LVEF 55/60%
Resume Toprol-XL.
Monitor volume status closely with hydration
Hold aspirin acutely given drop in hemoglobin
Anticipated Discharge: > 48 hours
Subjective/Interval History
-
Date of Service: January 23, 2025
Objective Data
-
Labs:
Laboratory Results
01/23/25
04:42
WBC 21.4 H
Hgb 9.1 L
Hct 26.8 L
Plt Count 46 L
Sodium 134 L
Potassium 3.4 L
Chloride 108 H
Carbon Dioxide 17 L
BUN 49 H
Creatinine 1.5 H
Glucose 96
Calcium 8.4
Total Bilirubin 4.7 H
AST 30
ALT < 10
Alkaline Phosphatase 188 H
Vital Signs:
Vital Signs
Temp Pulse Resp BP Pulse Ox
97.6 F 82 18 160/66 96
01/23/25 08:07 01/23/25 08:07 01/23/25 08:07 01/23/25 08:07 01/23/25 11:13
I&O
01/22/25 01/23/25 01/24/25
06:59 06:59 06:59
Intake Total 1270 / 1270 360 / 360 480 / 480
Output Total 150 / 150 225 / 225
Balance 1120 / 1120 135 / 135 480 / 480
Physical Exam
-
General: Well Developed, Well Nourished, Comfortable and Appears Chronically Ill
HEENT: Normocephalic, Atraumatic, Moist Mucous Membranes, Nose Appears Normal and Ears Appear Normal
Respiratory: Decreased Breath Sounds
Cardiac: Regular Rhythm and S1/S2
GI: Distended and Other (no bowel sounds appreciated.)
Musculoskeletal: No Clubbing, No Cyanosis, Edema, Right Lower Extrem and Edema, Left Lower Extrem
Skin: Warm and Dry; Negative Rash or Ulcers
Neuro: Awake and Alert
Psych: Calm
--- NOTE | 2025-01-23 16:05 | W.PN.ID1 ---
Date of Service
Date of Service: January 23, 2025
Today's Communication
Continue cefepime.
Assessment / Plan
Peritonitis (SBP vs. leak)
Leukocytosis trending up
Thrombocytopenia worse
ADAM
Elevated bilirubin
Cirrhosis
Sigmoid stricture s/p resection/ileostomy with recent closure of ileostomy (01/05/25)
HTN
HLD
Seizure disorder
Diverticulitis
EtOH liver disease
TAVR, PPM
Recommendations:
No anastomotic leak per colorectal
01/17 Ascites 11,202 PMN cultures without growth. Path: no malignancy
01/20 Ascites 4,436 PMN, Gram stain, GPC, culture neg to date
01/23 Ascites cell count, cx pending
Thrombocytopenia trending down - > DC'd Zosyn (d6) on 01/22.
Continue cefepime (d7 abx)renally adjusted.
Follow wbc, plt
����������������������������������������������������������
Chief Complaint
-: Other (Peritonitis)
Subjective / Review of Systems
c/o abd distention
No diarrhea
Vital Signs / Physical Exam
Vital Signs
Vital Signs
Temp Pulse Resp BP Pulse Ox
97.8 F 78 14 122/50 97
01/23/25 15:15 01/23/25 15:56 01/23/25 15:56 01/23/25 15:56 01/23/25 15:51
Physical Exam
Constitutional: No Acute Distress
Cardiovascular: Regular Rate and S1/S2
Pulmonary: Non Labored
Gastrointestinal: Soft, Tender (mild diffuse tenderness), Distended and Normal Bowel Sounds
Extremities: Edema; Negative Erythema
Skin: Jaundice
Neurological: Awake and Alert
Objective Data
Lab Data
Lab Results
01/23/25 04:42
01/23/25 04:42
PT 19.2 Sec (11.4-14.6) H 01/21/25 03:52
INR 1.59 01/21/25 03:52
APTT 31.8 Sec (23.4-35.0) 01/16/25 17:09
Estimated Creat Clear 24 ml/min 01/23/25 04:42
Lactic Acid Cancelled 01/17/25 05:45
Total Bilirubin 4.7 mg/dl (0.2-1.3) H 01/23/25 04:42
AST 30 U/L (14-36) 01/23/25 04:42
ALT < 10 U/L (0-35) 01/23/25 04:42
Alkaline Phosphatase 188 U/L (38-126) H 01/23/25 04:42
Most recent labs reviewed.
Micro Results:
01/20/25 08:33 Body Fluid Culture - Preliminary
Peritoneal Fluid No Growth After 72 Hours
Gram Stain - Preliminary
01/17/25 08:06 Body Fluid Culture - Final
Peritoneal Fluid No Growth After 72 Hours
Gram Stain - Final
01/16/25 22:41 MRSA Screen - Final
Nose No Methicillin Resistant Staphylococcus aureus isolated.
Laboratory Tests
01/17/25
08:06
Fluid WBC 54785
Fluid Mononuclear Cell 9.2
Fl Polymorphonucl Cell 90.8
Fluid Total Protein < 2.0
Fluid LDH 406
Imaging:
01/21/2025 CT a/p: Progressive atelectasis or pneumonia in the right posterior costophrenic angle. Stable moderate to large volume of ascites. Subtle increased attenuation layering dependently within the ascites. This could reflect debris or small
amount of hemorrhagic component. A small small amount of extraluminal gas is seen associated with the fluid in the right anterior mid abdomen, unchanged from prior examination. This has remained localized, without redistribution. This could suggest
a more focal loculated collection.
01/16/2025 CT abdomen/pelvis with contrast: large amount of abdominal and pelvic ascites. Mild extraluminal air in the right abdomen. Suggestion of mild enhancement of the ascites raising concern for infected fluid or loculated fluid. A small
leak cannot be completely excluded however there was no extravasation of oral contrast to suggest a leak identified. Small collection of fluid in the right anterior abdominal wall. Nodular hepatic margin consistent with known cirrhosis. Please
see full dictation for additional detail. Film personally viewed.
[2025-01-23 16:56] LABS: Body Fluid Second Tech DW
[2025-01-23] MEDS: TOPROL XL 25 MG PO (20:53)
[2025-01-23] MEDS: Parenteral Nutrition, Central 870 IV (21:08)
[2025-01-23 23:57] LABS: Glucose - Point of Care 290 mg/dl (70-99)
[2025-01-24] MEDS: STERILE WATER FOR INJECTION 10 ML IV ×2 (00:39→12:47)
[2025-01-24] MEDS: MAXIPIME 1000 MG IV ×2 (00:39→12:47)
[2025-01-24 05:13] VITALS: BMI 25.7
[2025-01-24 05:47] LABS: ALT (SGPT) 11 U/L (0-35); AST (SGOT) 31 U/L (14-36); Albumin 2.3 g/dl (3.5-5.0); Alkaline Phosphatase 139 U/L (38-126); Blood Urea Nitrogen 52 mg/dl (7-17); Calcium 8.2 mg/dl (8.4-10.2); Carbon Dioxide 20 mmol/L (22-30); Chloride 109 mmol/L (98-107); Estimated Creatinine Clearance 26 ml/min; Glucose 156 mg/dl (70-99); Magnesium 2.0 mg/dl (1.6-2.3); Potassium 3.0 mmol/L (3.5-5.1); Sodium 133 mmol/L (135-145); Total Protein 4.4 g/dl (6.3-8.2); eGFR 37.80
[2025-01-24 06:32] LABS: Glucose - Point of Care 194 mg/dl (70-99)
--- NOTE | 2025-01-24 07:17 | W.PN.CRS1 ---
Today's Communication / Plan
-
advance diet
TPN
Assessment/Plan
-
79-year-old female status post closure of ileostomy on 01/05/2025, presents to the ER with abdominal pain, weakness, and nausea. She previously underwent a robotic sigmoid resection with diverting loop ileostomy for a severe diverticular stricture.
She has known Laennec's cirrhosis and portal hypertension and her postoperative course was uncomplicated.
Paracentesis on 01/17 cx neg and 01/20 WBCs and ?gram +cocci on prelim
Paracentesis on 01/23 with WBCs (1650cc of straw-colored fluid)
AFVSS
WBC: pending (21.4, 13.1), Hgb pending ( 9.1); creatinine stable and bili slightly lower today
Plan:
-Advance to full liquids
-Appreciate GI
-Trend labs
-Await final cultures from paracentesis (no growth from 01/17 and 01/20, 01/23 pending)
-Appreciate ID - on cefepime
-Abdominal x-rays yesterday were normal. Chest x-ray with possible pneumonia RLL
-No plans for surgery at this time
-Continue TPN for now
-Encouraged to get out of bed/cont PT
Subjective Data
Subjective Data
Date of Service: January 24, 2025
She slept well and states she feels better. She has an appetite and her bowels are functioning. She has minimal abdominal discomfort.
Objective Data
-
Vital Signs
Temp Pulse Resp BP Pulse Ox
97.5 F 80 18 130/60 98
01/23/25 23:18 01/23/25 23:18 01/23/25 23:18 01/23/25 23:18 01/23/25 23:18
Intake & Output
01/23/25 01/24/25 01/25/25
06:59 06:59 06:59
Intake Total 360 / 360 600 / 600
Output Total 225 / 225 275 / 275
Balance 135 / 135 325 / 325
Intake:
Oral fluids 240 / 240 600 / 600
IV fluids (Total) 120 / 120 0 / 0
IV piggybacks 0 / 0
Output:
Urine, Voided 225 / 225 275 / 275
Other:
Number of approximated MODERATE 1
amounts of urine
Lab Results
01/24/25 05:06
Physical Exam
-
General: No Acute Distress
Abdomen: Distended and Tender (minimal (improved))
Data Reviewed
-
Diagnostic Radiology: Image Reviewed and Report Reviewed
[2025-01-24 08:05] VITALS: BP 145/67
[2025-01-24 08:10] LABS: Hematocrit 25.7 % (37.0-47.0); Hemoglobin 8.8 g/dL (12.0-16.0); Mean Corp Hgb Conc. 34.2 g/dL (33.0-37.0); Mean Corpuscular Volume 92.4 fL (81.0-99.0); Nucleated Red Blood Cells % 0.3 %; Platelet Count 30 10^3/uL (130-400); Red Cell Dist. Width 17.2 % (11.5-14.5)
[2025-01-24] MEDS: PROTONIX IV 40 MG IV (08:55)
[2025-01-24] MEDS: NSS (PRESERVATIVE FREE) 10 ML IV (08:55)
[2025-01-24] MEDS: KCL 40 MEQ PO (10:33)
--- NOTE | 2025-01-24 10:43 | W.PN.GI.CBS2 ---
Today's Communication / Plan
-
started on TPN continue full liquid and can advance as tolerated if okay with surgery
Will need paracenteses as needed
Duration of antibiotics per ID
Assessment / Plan
-
Pt is a 79yo with hx TAVR, hypertension, hyperlipidemia, PPM, ETOH abuse, anemia, diverticulosis with recent sigmoid stricture with temporary ileostomy 11/23/24 with closure 01/05. She now returns with abdominal pain with concern for ascites and
asked to see for cirrhosis. Pt was seen by GI in September for anemia with hbg 6 range. at that time she was drink a box of wine every few days. She completed EGD with grade I EV, schatzki's ring, angioectasia with treatment (not though to be
source) and recommended b- andrés. Imaging noted cirrhosis and ascites at that time. She was recommended GI/hematology follow up but has been admitted with recent surgical procedures. She now returns with abdominal pain and also had recent
incisional bleeding requiring transfusion. On admission patient went for para for 1150 with SAAG 2.5, Protein <2 (C/W with cirrhosis) but WBC 12,310. In review with patient she was unsure about prior noted cirrhosis as recently has been through
surgery. She denies issues with confusion, bleed but admits to anemia and also noted ongoing LE swelling and intermittent abdominal swelling. She has hx GERD that is stable and alternating diarrhea and constipation since surgery with mild
abdominal pain post-op . Labs with anemia hbg 7-12, platelets down to 102, WBC initially 24,700 now 12,200. On admission Na 127, K 3.8 then drop to 3, creat 1.2, bili 3.6, AST 38, ALT 16, alk phos 192 with INR 2.11 on 01/17. Meld 3.0 calculated
01/17 25.
01/16/25- Ct A/p - Large amount of abdominal and pelvic ascites. New.
Mild extraluminal air in the right abdomen. Suggestion of mild enhancement of the ascites. These findings raise concern for infected fluid or loculated fluid. A small leak cannot be completely excluded. However, no extravasation of oral contrast to
suggest a leak is identified.. New
Small collection of fluid in the right anterior wall. Differential diagnosis includes postoperative seroma, hematoma or abscess. New
Suggestion of mild small bowel wall thickening in the mid abdomen and left lower quadrant. The differential diagnoses include inflammation, infection and ischemia. New.
nodular hepatic margin consistent with known cirrhosis. Stable
Left lower lobe pulmonary nodule. Stable from 2021 suggesting it is benign.
10/01/24 CT Abd/pel W Iv And Oral Contr
IMPRESSION: Suggestion of transition in caliber of colon at the junction of the distal descending colon and the sigmoid colon, which is in a region of previous severe diverticulitis. Findings suggest the possibility of a stricture.
There is stranding of the fat adjacent to this segment of caliber transition in the sigmoid colon, and a component of mild active diverticulitis cannot be excluded.
Consideration for follow-up imaging after treatment, if there are symptoms suggesting acute diverticulitis. Follow-up CT could be performed, perhaps to include rectal contrast to assess for narrowing of the sigmoid colon.
Changes of mild interstitial fibrosis in the visualized lower lungs. Mild to moderate elevation right hemidiaphragm, stable.
Findings of cirrhosis involving the liver. No evidence for hepatic mass lesion.
Small moderate amount of ascites within the abdomen and pelvis.
Subtle stranding of the fat adjacent to the proximal SMA with small soft tissue densities of the left lateral margin of the proximal BENNETT. BENNETT soft tissue densities as it appears slightly smaller than previous exam, while the stranding of the fat
adjacent to the SMA is new. Etiology for this finding is uncertain, but possibly vasculitis. No evidence for significant narrowing of the SMA.
Impression:
-cirrhosis - newly noted per patient now with decompensation
-ascites- noted on prior scan in September now increased, s/p Paracentesis x 2.
-elevated WBC in paracentesis tap -- SBP vs post surgical-leak peritonitis, 01/20 fluid with gram + cocci
-hypoalbuminemia
-thrombocytopenia with recent significant drop
-anemia
-coagulopathy
-ADAM
-hyponatremia/hypokalemia
-EV grade I, schatzki's ring, angioectasia on recent EGD
- recent sigmoid stricture with temporary ileostomy 11/23/24 with closure 01/05
-daily ETOH use til September 2024
other med problems:
-TAVR, hypertension, hyperlipidemia, PPM,
PLAN:
-SBP currently on Zosyn and she had a repeat diagnostic paracentesis 01/20 with decreasing WBC count. has gram-positive cocci in fluid Gram stain but negative cultures
-Got albumin 1 g/kg day 3 SBP treatment protocol and 1.5 mg/kg of albumin on day 1
-antibiotics were switched from Zosyn to cefepime because of thrombocytopenia per ID
-Thrombocytopenia likely from underlying cirrhosis and likely exacerbated by Zosyn
-She is doing much better since the repeat therapeutic and diagnostic paracenteses on 01/23/2025 and shows decreasing WBC count
-Abdomen x-ray from yesterday shows no obstruction and no evidence of leak or free air
-Will need paracenteses as needed
-Started on TPN 01/23/2025 by colorectal surgery for decreased oral intake
-She is tolerating full liquids and can advance diet if okay with colorectal surgery
-Will hold off on diuretics for now
-monitor electrolytes and kidney function closely creatinine and BUN are increasing.
-will workup cirrhosis as outpatient but most likely related to alcohol. Hold on beta-blockers although she does have a history of esophageal varices given SBP.
-Will also need long-term SBP prophylaxis after DC.
-No signs of HE.
-Will follow-up with Dr. Antoine also has outpatient
-Will also follow up with Dr. Sibley, for HCC screening and full OP serology work up as OP
Subjective
Subjective
Date of Service: January 24, 2025
She is feeling much improved with less abdominal pain since the paracenteses. Tolerating full liquids no nausea or vomiting, abdomen x-ray yesterday was also negative for obstruction. She had paracentesis with 1650 mL drained and total WBC count is
trending down in the fluid although has more neutrophils now
Had a PICC line placed yesterday and started on TPN
Objective
Data Reviewed
Laboratory Data:
Laboratory Results
01/24/25 07:44
01/24/25 05:06
Laboratory Results
PT 19.2 Sec (11.4-14.6) H 01/21/25 03:52
INR 1.59 01/21/25 03:52
APTT 31.8 Sec (23.4-35.0) 01/16/25 17:09
Phosphorus 3.1 mg/dl (2.5-4.5) 01/24/25 05:06
Magnesium 2.0 mg/dl (1.6-2.3) 01/24/25 05:06
Total Bilirubin 4.0 mg/dl (0.2-1.3) H 01/24/25 05:06
AST 31 U/L (14-36) 01/24/25 05:06
ALT 11 U/L (0-35) 01/24/25 05:06
Alkaline Phosphatase 139 U/L (38-126) H 01/24/25 05:06
Vital Signs and I&O:
Vital Signs
Temp Pulse Resp BP Pulse Ox
97.4 F 75 18 145/67 96
01/24/25 08:05 01/24/25 08:05 01/24/25 08:05 01/24/25 08:05 01/24/25 08:05
I&O
01/23/25 01/24/25 01/25/25
06:59 06:59 06:59
Intake Total 360 / 360 600 / 600
Output Total 225 / 225 275 / 275
Balance 135 / 135 325 / 325
Physical Exam
Physical Exam
Cardiology: Normal Sinus Rhythm
Pulmonary: Clear and Other (Decreased breath sounds at the bases)
GI: Soft and Distended (Much less distended status post paracenteses, tenderness also decreased, good bowel sounds)
[2025-01-24] MEDS: ALBUMIN 5% 250 IV ×2 (12:45→14:19)
[2025-01-24 12:58] LABS: Glucose - Point of Care 228 mg/dl (70-99)
--- NOTE | 2025-01-24 13:38 | W.PN.ID1 ---
Date of Service
Date of Service: January 24, 2025
Today's Communication
Continue antibiotics
Assessment / Plan
Peritonitis (SBP vs. leak)
Leukocytosis trending up
Thrombocytopenia worse
ADAM
Elevated bilirubin
Cirrhosis
Sigmoid stricture s/p resection/ileostomy with recent closure of ileostomy (01/05/25)
HTN
HLD
Seizure disorder
Diverticulitis
EtOH liver disease
TAVR, PPM
Recommendations:
No anastomotic leak per colorectal
01/17 Ascites 11,202 PMN cultures without growth. Path: no malignancy
01/20 Ascites 4,436 PMN, Gram stain, GPC, culture neg to date
01/23 Ascites 3,602 PMN
Thrombocytopenia trending down - > DC'd Zosyn (d6) on 01/22.
Continue cefepime (d#8 abx); renally adjusted.
Follow wbc, plt
����������������������������������������������������������
Chief Complaint
-: Other (Peritonitis)
Subjective / Review of Systems
Review of Systems: No Fever and No Chills
Vital Signs / Physical Exam
Vital Signs
Vital Signs
Temp Pulse Resp BP Pulse Ox
97.4 F 75 18 145/67 97
01/24/25 08:05 01/24/25 08:05 01/24/25 08:05 01/24/25 08:05 01/24/25 08:20
Physical Exam
Constitutional: No Acute Distress
Cardiovascular: Regular Rate and S1/S2
Pulmonary: Non Labored
Gastrointestinal: Soft, Tender (mild diffuse tenderness), Distended and Normal Bowel Sounds
Extremities: Edema; Negative Erythema
Skin: Jaundice
Neurological: Awake and Alert
Objective Data
Lab Data
Lab Results
01/24/25 07:44
01/24/25 05:06
PT 19.2 Sec (11.4-14.6) H 01/21/25 03:52
INR 1.59 01/21/25 03:52
APTT 31.8 Sec (23.4-35.0) 01/16/25 17:09
Estimated Creat Clear 26 ml/min 01/24/25 05:06
Lactic Acid Cancelled 01/17/25 05:45
Total Bilirubin 4.0 mg/dl (0.2-1.3) H 01/24/25 05:06
AST 31 U/L (14-36) 01/24/25 05:06
ALT 11 U/L (0-35) 01/24/25 05:06
Alkaline Phosphatase 139 U/L (38-126) H 01/24/25 05:06
Most recent labs reviewed.
Micro Results:
01/20/25 08:33 Body Fluid Culture - Final
Peritoneal Fluid No Growth After 72 Hours
Gram Stain - Final
01/23/25 15:35 Body Fluid Culture - Preliminary
Peritoneal Fluid No Growth After 18-24 Hours
Gram Stain - Preliminary
01/17/25 08:06 Body Fluid Culture - Final
Peritoneal Fluid No Growth After 72 Hours
Gram Stain - Final
01/16/25 22:41 MRSA Screen - Final
Nose No Methicillin Resistant Staphylococcus aureus isolated.
Ascites
01/17/25 01/20/25 01/23/25
08:06 08:33 15:35
Fluid WBC 65608 6975 3857
Fluid Mononuclear Cell 9.2 36.4 6.6
Fl Polymorphonucl Cell 90.8 63.6 93.4
Fluid Total Protein < 2.0 3.0 3.2
Fluid Albumin < 1.0 1.4 1.6
Fluid LDH 406 1386
Imaging:
01/21/2025 CT a/p: Progressive atelectasis or pneumonia in the right posterior costophrenic angle. Stable moderate to large volume of ascites. Subtle increased attenuation layering dependently within the ascites. This could reflect debris or small
amount of hemorrhagic component. A small small amount of extraluminal gas is seen associated with the fluid in the right anterior mid abdomen, unchanged from prior examination. This has remained localized, without redistribution. This could suggest
a more focal loculated collection.
01/16/2025 CT abdomen/pelvis with contrast: large amount of abdominal and pelvic ascites. Mild extraluminal air in the right abdomen. Suggestion of mild enhancement of the ascites raising concern for infected fluid or loculated fluid. A small
leak cannot be completely excluded however there was no extravasation of oral contrast to suggest a leak identified. Small collection of fluid in the right anterior abdominal wall. Nodular hepatic margin consistent with known cirrhosis. Please
see full dictation for additional detail. Film personally viewed.
--- NOTE | 2025-01-24 13:42 | W.PN.HOSP.TC ---
Today's Communication/Plan
-
IV antibiotics
Albumin
TPN
Diet being advanced as per colorectal surgery
Monitor for ascites reaccumulation
Assessment / Plan
Assessment / Plan
Impression
Peritonitis: SBP versus secondary peritonitis.
Recent ileostomy reversal followed with hospitalization with incisional bleeding and wound infection (discharged 01/13/2025).
Sepsis present on admission (tachycardia, leukocytosis, lactic acidosis, acute kidney injury)
Acute on chronic anemia.
Acute on chronic hyponatremia
Other conditions
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
Aortic stenosis status post TAVR.
Status post PPM.
Cirrhosis secondary to alcohol.
Essential hypertension
History of diverticulosis/diverticulitis
Imaging
CT scan of the abdomen pelvis 01/16
Mild extraluminal air in the right abdomen. Suggestion of mild enhancement of the ascites. These findings raise concern for infected fluid or loculated fluid. A small leak cannot be completely excluded. However, no extravasation of oral contrast to
suggest a leak is identified.. New
Small collection of fluid in the right anterior wall. Differential diagnosis includes postoperative seroma, hematoma or abscess. New
Suggestion of mild small bowel wall thickening in the mid abdomen and left lower quadrant. The differential diagnoses include inflammation, infection and ischemia. New.
Nodular hepatic margin consistent with known cirrhosis. Stable
Left lower lobe pulmonary nodule. Stable from 2021 suggesting it is benign.
Plan
Peritonitis: SBP versus secondary peritonitis.
Recent ileostomy reversal followed by wound infection and incisional bleeding.
Status post paracentesis 12/1810 100 cc fluid findings consistent with peritonitis (WBC 19834 PMN�90% PMN)
Peritoneal cultures negative to date
Blood cultures were not submitted in the ED
Repeat paracentesis on 01/20 with minimal amount of fluid 350 m removed from the pocket. Noted for trending down WBC.
Follow-up CT scan of the abdomen pelvis on 01/21 with no evidence of anastomosis leak. Small right upper quadrant collection with gas and fluid unchanged since prior imaging
. Leukocytosis improving
Repeat paracentesis on 01/23 1650 mL. Ascitic fluid WBC trending down
Provide additional albumin
Initiated on TPN
Diet and advance as tolerated
Acute kidney injury.
Creatinine 1.5
Improving with IV fluid bolus
Not hypotensive
Improved lactic acidosis with IV hydration.
Noted persistent normal anion gap metabolic acidosis
Additional albumin on 01/24
Avoid hypotension
Follow BMP closely
Hypokalemia being repleted
Acute on chronic hyponatremia. Sodium 127.
Suspect intravascular depletion with acute infection.
Urine osmolarity 600
Sodium improved 127�131 with IV fluid bolus
Follow-up daily BMP
Cirrhosis.
Grade 1 esophageal varices on recent EGD
Suspect secondary to alcohol use disorder.
MELD Na 35
Infected ascites as above.
Monitor closely
Acute on chronic anemia.
Suspect dilutional.
Hemoglobin dropped from 12-7.6 with IV hydration.
Recent hemoglobin around 9.
Update iron stores.
Follow CBC closely.
Cardiovascular:
Status post TAVR.
Hypertension.
Echo 09/05/2023 normal biventricular size and function. Status post TAVR.
LVEF 55/60%
Resume Toprol-XL.
Monitor volume status closely with hydration
Hold aspirin acutely given drop in hemoglobin
Anticipated Discharge: 24 - 48 hours
Subjective/Interval History
-
Date of Service: January 24, 2025
Objective Data
-
Labs:
Laboratory Results
01/24/25 01/24/25
05:06 07:44
WBC 14.3 H
Hgb 8.8 L
Hct 25.7 L
Plt Count 30 L D
Sodium 133 L
Potassium 3.0 L
Chloride 109 H
Carbon Dioxide 20 L
BUN 52 H
Creatinine 1.4 H
Glucose 156 H
Calcium 8.2 L
Total Bilirubin 4.0 H
AST 31
ALT 11
Alkaline Phosphatase 139 H
Vital Signs:
Vital Signs
Temp Pulse Resp BP Pulse Ox
97.4 F 75 18 145/67 97
01/24/25 08:05 01/24/25 08:05 01/24/25 08:05 01/24/25 08:05 01/24/25 08:20
I&O
01/23/25 01/24/25 01/25/25
06:59 06:59 06:59
Intake Total 360 / 360 600 / 600
Output Total 225 / 225 275 / 275
Balance 135 / 135 325 / 325
Physical Exam
-
General: Well Developed, Well Nourished, Comfortable and Appears Chronically Ill
HEENT: Normocephalic, Atraumatic, Moist Mucous Membranes, Nose Appears Normal and Ears Appear Normal
Respiratory: Decreased Breath Sounds
Cardiac: Regular Rhythm and S1/S2
GI: Distended and Other (no bowel sounds appreciated.)
Musculoskeletal: No Clubbing, No Cyanosis, Edema, Right Lower Extrem and Edema, Left Lower Extrem
Skin: Warm and Dry; Negative Rash or Ulcers
Neuro: Awake and Alert
Psych: Calm
--- NOTE | 2025-01-24 13:45 | CM ---
Addendum entered by Rosy Sherman 01/24/25 14:03:
Pt remains on IV ABS and TPN
Original Note:
Met with pt and 2 dtrs bedside discussed next steps for to participate in PT sessions. Pt stated she would try tomorrow. We also discussed the possible PT rec of HH and SNF. They are open to SNF if that is what is needed. CM will provide choices
when appropriate
Plan: Pending results of PT evaluation
[2025-01-24] MEDS: NOVOLOG FLEXPEN-LOW RESISTANCE 2 UNITS SC (13:52)
[2025-01-24 14:26] VITALS: BP 115/70
[2025-01-24 15:21] VITALS: BP 137/56
[2025-01-24 17:45] LABS: Glucose - Point of Care 145 mg/dl (70-99)
[2025-01-24] MEDS: NOVOLOG FLEXPEN-LOW RESISTANCE SC (17:51)
[2025-01-24] MEDS: Parenteral Nutrition, Central 1230 IV (21:19)
[2025-01-24] MEDS: TOPROL XL 25 MG PO (21:26)
[2025-01-24 23:12] VITALS: BP 154/63
[2025-01-25] MEDS: MAXIPIME 1000 MG IV ×2 (01:10→13:31)
[2025-01-25] MEDS: STERILE WATER FOR INJECTION 10 ML IV ×3 (01:10→16:59)
[2025-01-25] MEDS: NOVOLOG FLEXPEN-LOW RESISTANCE 2 UNITS SC ×4 (01:18→18:05)
[2025-01-25 01:20] LABS: Glucose - Point of Care 203 mg/dl (70-99)
[2025-01-25 05:25] LABS: Blood Urea Nitrogen 50 mg/dl (7-17); Calcium 8.6 mg/dl (8.4-10.2); Carbon Dioxide 19 mmol/L (22-30); Chloride 112 mmol/L (98-107); Estimated Creatinine Clearance 33 ml/min; Glucose 171 mg/dl (70-99); Magnesium 2.0 mg/dl (1.6-2.3); Potassium 3.7 mmol/L (3.5-5.1); Sodium 136 mmol/L (135-145); eGFR 50.48
[2025-01-25 05:51] LABS: Glucose - Point of Care 209 mg/dl (70-99)
[2025-01-25 06:00] VITALS: BMI 26.8
[2025-01-25 07:00] VITALS: BP 140/57
--- NOTE | 2025-01-25 08:06 | W.PN.CRS1 ---
Today's Communication / Plan
-
cont fulls
TPN
Assessment/Plan
-
79-year-old female status post closure of ileostomy on 01/05/2025, presents to the ER with abdominal pain, weakness, and nausea. She previously underwent a robotic sigmoid resection with diverting loop ileostomy for a severe diverticular stricture.
She has known Laennec's cirrhosis and portal hypertension and her postoperative course was uncomplicated.
Paracentesis on 01/17 cx neg and 01/20 WBCs and ?gram +cocci on prelim
Paracentesis on 01/23 with WBCs (1650cc of straw-colored fluid), culture results pending
AFVSS
WBC: pending (14.3, 21.4), Hgb pending ( 8.8); creatinine improved 1.1 (1.4)
Plan:
-Continue current diet
-Appreciate GI
-Trend labs
-Await final cultures from paracentesis (no growth from 01/17 and 01/20, 01/23 pending)
-Appreciate ID - on cefepime
-Abdominal x-rays 01/24 were normal. Chest x-ray with possible pneumonia RLL
-No plans for surgery at this time
-Continue TPN for now
-Encouraged to get out of bed/cont PT
-I updated Cristina yesterday and will do so again today
Subjective Data
Subjective Data
Date of Service: January 25, 2025
She doesn't feel as well as yesterday. No specific complaints. She denies abdominal pain. She only ingested 2 puddings yesterday. Her bowels are functioning and she was out of bed yesterday.
Objective Data
-
Vital Signs
Temp Pulse Resp BP Pulse Ox
98.4 F 87 18 154/63 96
01/24/25 23:12 01/24/25 23:12 01/24/25 23:12 01/24/25 23:12 01/24/25 23:12
Intake & Output
01/24/25 01/25/25 01/26/25
06:59 06:59 06:59
Intake Total 600 / 600 780 / 780
Output Total 275 / 275
Balance 325 / 325 780 / 780
Intake:
Oral fluids 600 / 600 780 / 780
IV fluids (Total) 0 / 0
IV piggybacks 0 / 0
Output:
Urine, Voided 275 / 275
Other:
How many times incontinent 1
SATURATED amount urine
Number of approximated MODERATE 1 1
amounts of urine
Number of approximated LARGE 1
amounts of urine
Lab Results
01/24/25 07:44
01/25/25 04:26
Physical Exam
-
General: No Acute Distress
Abdomen: Soft and Distended
Extremities: No Calf Tenderness
Wound: No Signs of Infection
[2025-01-25 09:12] LABS: Hematocrit 25.8 % (37.0-47.0); Hemoglobin 8.6 g/dL (12.0-16.0); Mean Corp Hgb Conc. 33.3 g/dL (33.0-37.0); Mean Corpuscular Volume 94.5 fL (81.0-99.0); Platelet Count 24 10^3/uL (130-400); Red Cell Dist. Width 17.2 % (11.5-14.5)
[2025-01-25] MEDS: NSS (PRESERVATIVE FREE) 10 ML IV (09:25)
[2025-01-25] MEDS: PROTONIX IV 40 MG IV (09:26)
[2025-01-25 11:30] VITALS: BP 122/84; PULSE 89
--- NOTE | 2025-01-25 11:34 | W.PN.GI.CBS2 ---
Addendum entered and electronically signed by Samina Holt MD 01/25/25 12:33:
DW daughter at bedside
Original Note:
Today's Communication / Plan
-
Continue antibiotics and most likely will need repeat paracenteses on Thursday, she seems to be slowly accumulating fluid again
Continue TPN
Encourage p.o. intake
Added bowel regimen
Assessment / Plan
-
Pt is a 79yo with hx TAVR, hypertension, hyperlipidemia, PPM, ETOH abuse, anemia, diverticulosis with recent sigmoid stricture with temporary ileostomy 11/23/24 with closure 01/05. She now returns with abdominal pain with concern for ascites and
asked to see for cirrhosis. Pt was seen by GI in September for anemia with hbg 6 range. at that time she was drink a box of wine every few days. She completed EGD with grade I EV, schatzki's ring, angioectasia with treatment (not though to be
source) and recommended b- andrés. Imaging noted cirrhosis and ascites at that time. She was recommended GI/hematology follow up but has been admitted with recent surgical procedures. She now returns with abdominal pain and also had recent
incisional bleeding requiring transfusion. On admission patient went for para for 1150 with SAAG 2.5, Protein <2 (C/W with cirrhosis) but WBC 12,310. In review with patient she was unsure about prior noted cirrhosis as recently has been through
surgery. She denies issues with confusion, bleed but admits to anemia and also noted ongoing LE swelling and intermittent abdominal swelling. She has hx GERD that is stable and alternating diarrhea and constipation since surgery with mild
abdominal pain post-op . Labs with anemia hbg 7-12, platelets down to 102, WBC initially 24,700 now 12,200. On admission Na 127, K 3.8 then drop to 3, creat 1.2, bili 3.6, AST 38, ALT 16, alk phos 192 with INR 2.11 on 01/17. Meld 3.0 calculated
01/17 25.
Impression:
-cirrhosis - newly noted per patient now with decompensation
-ascites- noted on prior scan in September now increased, s/p Paracentesis x 2.
-elevated WBC in paracentesis tap -- SBP vs post surgical-leak peritonitis, 01/20 fluid with gram + cocci
-hypoalbuminemia
-thrombocytopenia with recent significant drop
-anemia
-coagulopathy
-ADAM
-hyponatremia/hypokalemia
-EV grade I, schatzki's ring, angioectasia on recent EGD
- recent sigmoid stricture with temporary ileostomy 11/23/24 with closure 01/05
-daily ETOH use til September 2024
other med problems:
-TAVR, hypertension, hyperlipidemia, PPM,
PLAN:
-SBP currently on Cefepime (was switched from Zosyn because of thrombocytopenia 01/22) and had repeat paracenteses on 01/20 and 01/23 and WBC count is trending down in the fluid
-Got albumin 1 g/kg day 3 and 1.5 mg/kg of albumin on day 1
-Thrombocytopenia likely from underlying cirrhosis and was likely exacerbated by Zosyn she had a significant drop in platelets again today likely from progressive hepatic dysfunction
- Abdomen x-ray from 01/23 shows no obstruction and no evidence of leak or free air
-Will need paracenteses as needed most likely will need to be tapped again on Thursday
-Started on TPN 01/23/2025 by colorectal surgery for decreased oral intake
-She is tolerating full liquids and can advance diet if okay with colorectal surgery
-Will hold off on diuretics for now
-monitor electrolytes and kidney function closely creatinine and BUN are increasing.
-will workup cirrhosis as outpatient but most likely related to alcohol. Hold on beta-blockers although she does have a history of esophageal varices given SBP.
-Will also need long-term SBP prophylaxis after DC.
-No signs of HE.
-Will follow-up with Dr. Antoine also has outpatient
-Will also follow up with Dr. Sibley, for HCC screening and full OP serology work up as OP
Subjective
Subjective
Date of Service: January 25, 2025
She says she feels more tired today and also decreased appetite today. Her last bowel movement was on 01/23. No rectal bleeding or melena was reported. No nausea or vomiting. Her abdominal pain is improved though. Her platelet count has dropped
further to 24, hemoglobin is stable WBC count is trending down,
Objective
Data Reviewed
Laboratory Data:
Laboratory Results
01/25/25 08:49
01/25/25 04:26
Laboratory Results
PT 19.2 Sec (11.4-14.6) H 01/21/25 03:52
INR 1.59 01/21/25 03:52
APTT 31.8 Sec (23.4-35.0) 01/16/25 17:09
Phosphorus 2.4 mg/dl (2.5-4.5) L 01/25/25 04:26
Magnesium 2.0 mg/dl (1.6-2.3) 01/25/25 04:26
Total Bilirubin 4.0 mg/dl (0.2-1.3) H 01/24/25 05:06
AST 31 U/L (14-36) 01/24/25 05:06
ALT 11 U/L (0-35) 01/24/25 05:06
Alkaline Phosphatase 139 U/L (38-126) H 01/24/25 05:06
Vital Signs and I&O:
Vital Signs
Temp Pulse Resp BP Pulse Ox
97.9 F 89 12 140/57 96
01/25/25 07:00 01/25/25 07:00 01/25/25 07:00 01/25/25 07:00 01/25/25 07:00
I&O
01/24/25 01/25/25 01/26/25
06:59 06:59 06:59
Intake Total 600 / 600 780 / 780
Output Total 275 / 275
Balance 325 / 325 780 / 780
Physical Exam
Physical Exam
Cardiology: Normal Sinus Rhythm
Pulmonary: Clear
GI: Soft, Distended, Tender (Decreased tenderness, has ecchymosis over the right side of the abdomen but it is improving) and Normal Bowel Sounds
[2025-01-25 12:01] LABS: Glucose - Point of Care 203 mg/dl (70-99)
[2025-01-25 12:36] LABS: INR 1.31; PT 16.8 Sec (11.4-14.6)
--- NOTE | 2025-01-25 12:36 | CM ---
Chart reviewed. PT recommends Home vs SNF; Needs Paracentesis on Thursday.
Case Management will Continue to monitor for Disposition determination and support when medically stable for discharge
[2025-01-25 12:37] LABS: APTT 37.9 Sec (23.4-35.0)
[2025-01-25 12:42] LABS: Ammonia < 9 umol/L (9-30)
--- NOTE | 2025-01-25 13:00 | W.PN.UPDATE ---
Update Note
Progress Note Update
I spoke with her son-in-law, Dr. Godwin Staton who is a physician at [facility], and her daughter Cristina at length regarding her condition. The plan is to transfer to [facility], preferably on the liver service. I provided them with my cell phone number to
give to the care team if there are any questions.
[2025-01-25] MEDS: MIRALAX 17 GRAMS PO (13:34)
--- NOTE | 2025-01-25 14:24 | W.PN.HOSP.TC ---
Addendum entered and electronically signed by Eleazar Vo MD 01/25/25 16:49:
Option of a transfer with hepatology evaluation discussed via [facility] center and was declined by hepatology and medicine with no urgent indication.
Patient's daughter updated at the bedside
Plan is to continue current treatment including antibiotics, close monitoring of liver and renal function.
Discussed with surgery, gastroenterology.
Original Note:
Today's Communication/Plan
-
Disposition: Family inquiring of possible transfer to [facility] with hematology consultation. Clinical course reviewed with hematology on 01/25. Suggested to continue current management including antibiotics, paracentesis, TPN.
No indication for urgent evaluation or treatment from hepatology perspective. Given family request we will continue attempt of transfer to medicine service with hepatology evaluation.
IV antibiotics
Monitor for ascites reaccumulation
Advance diet as tolerates
TPN
Assessment / Plan
Assessment / Plan
Impression
Peritonitis: SBP versus secondary peritonitis.
Recent ileostomy reversal followed with hospitalization with incisional bleeding and wound infection (discharged 01/13/2025).
Sepsis present on admission (tachycardia, leukocytosis, lactic acidosis, acute kidney injury)
Acute on chronic anemia.
Acute on chronic hyponatremia
Other conditions
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
Aortic stenosis status post TAVR.
Status post PPM.
Cirrhosis secondary to alcohol.
Essential hypertension
History of diverticulosis/diverticulitis
Imaging
CT scan of the abdomen pelvis 01/16
Mild extraluminal air in the right abdomen. Suggestion of mild enhancement of the ascites. These findings raise concern for infected fluid or loculated fluid. A small leak cannot be completely excluded. However, no extravasation of oral contrast to
suggest a leak is identified.. New
Small collection of fluid in the right anterior wall. Differential diagnosis includes postoperative seroma, hematoma or abscess. New
Suggestion of mild small bowel wall thickening in the mid abdomen and left lower quadrant. The differential diagnoses include inflammation, infection and ischemia. New.
Nodular hepatic margin consistent with known cirrhosis. Stable
Left lower lobe pulmonary nodule. Stable from 2021 suggesting it is benign.
Plan
Peritonitis: SBP versus secondary peritonitis.
Recent ileostomy reversal followed by wound infection and incisional bleeding.
Status post paracentesis 12/1810 100 cc fluid findings consistent with peritonitis (WBC 58114 PMN�90% PMN)
Peritoneal cultures negative to date
Blood cultures were not submitted in the ED
Repeat paracentesis on 01/20 with minimal amount of fluid 350 m removed from the pocket. Noted for trending down WBC.
Follow-up CT scan of the abdomen pelvis on 01/21 with no evidence of anastomosis leak. Small right upper quadrant collection with gas and fluid unchanged since prior imaging
. Leukocytosis improving
Repeat paracentesis on 01/23 1650 mL. Ascitic fluid WBC trending down
Status post albumin
Initiated on TPN
Diet and advance as tolerated. Currently on full liquid
Acute kidney injury.
Creatinine 1.5
Improving with IV fluid bolus and albumin
Not hypotensive
Improved lactic acidosis with IV hydration.
Noted persistent normal anion gap metabolic acidosis
Avoid hypotension
Follow BMP closely
Hypokalemia being repleted
Acute on chronic hyponatremia. Sodium 127.
Cirrhotic patient with intravascular depletion upon presentation
Urine osmolarity 600
Sodium improved 127�136 with IV fluids and albumin
Follow-up daily BMP
Cirrhosis.
Grade 1 esophageal varices on recent EGD
Prior alcohol use disorder
Currently sober
Not encephalopathic
Coagulopathy
Thrombocytopenia (recent drop in platelet count of 25 likely dilutional with IV fluids, TPN and albumin)
MELD 3.0 21
Infected ascites as above.
Monitor closely
Acute on chronic anemia.
Suspect dilutional.
Hemoglobin dropped from 12-8.6 with IV hydration.
No conclusive evidence of acute blood loss
Follow CBC closely.
Cardiovascular:
Status post TAVR.
Hypertension.
Echo 09/05/2023 normal biventricular size and function. Status post TAVR.
LVEF 55/60%
Resume Toprol-XL.
Monitor volume status closely with hydration
Hold aspirin acutely given drop in hemoglobin.
Disposition: Family inquiring of possible transfer to [facility] with hematology consultation. Clinical course reviewed with hematology on 01/25. Suggested to continue current management including antibiotics, paracentesis, TPN.
No indication for urgent evaluation or treatment from hepatology perspective. Given family request we will continue attempt of transfer to medicine service with hepatology evaluation.
Anticipated Discharge: > 48 hours
Subjective/Interval History
-
Date of Service: January 25, 2025
Objective Data
-
Labs:
Laboratory Results
01/25/25 01/25/25 01/25/25
04:26 08:49 12:20
WBC 13.1 H
Hgb 8.6 L
Hct 25.8 L
Plt Count 24 L*
PT 16.8 H
INR 1.31
APTT 37.9 H
Sodium 136
Potassium 3.7
Chloride 112 H
Carbon Dioxide 19 L
BUN 50 H
Creatinine 1.1 H
Glucose 171 H
Calcium 8.6
Vital Signs:
Vital Signs
Temp Pulse Resp BP Pulse Ox
97.9 F 89 12 140/57 96
01/25/25 07:00 01/25/25 07:00 01/25/25 07:00 01/25/25 07:00 01/25/25 08:10
I&O
01/24/25 01/25/25 01/26/25
06:59 06:59 06:59
Intake Total 600 / 600 780 / 780
Output Total 275 / 275
Balance 325 / 325 780 / 780
Physical Exam
-
General: Well Developed, Well Nourished, Comfortable and Appears Chronically Ill
HEENT: Normocephalic, Atraumatic, Moist Mucous Membranes, Nose Appears Normal and Ears Appear Normal
Respiratory: Decreased Breath Sounds
Cardiac: Regular Rhythm and S1/S2
GI: Distended and Other (no bowel sounds appreciated.)
Musculoskeletal: No Clubbing, No Cyanosis, Edema, Right Lower Extrem and Edema, Left Lower Extrem
Skin: Warm and Dry; Negative Rash or Ulcers
Neuro: Awake and Alert
Psych: Calm
[2025-01-25 15:00] VITALS: BP 147/62
--- NOTE | 2025-01-25 15:51 | W.PN.ID1 ---
Date of Service
Date of Service: January 25, 2025
Today's Communication
Continue antibiotics. Transition cefepime to meropenem given ongoing thrombocytopenia
Assessment / Plan
Peritonitis (SBP vs. leak)
Leukocytosis trending up
Thrombocytopenia worse
ADAM
Elevated bilirubin
Cirrhosis
Sigmoid stricture s/p resection/ileostomy with recent closure of ileostomy (01/05/25)
HTN
HLD
Seizure disorder
Diverticulitis
EtOH liver disease
TAVR, PPM
Recommendations:
No anastomotic leak per CRS.
01/17 Ascites 11,202 PMN cultures without growth. Path: no malignancy
01/20 Ascites 4,436 PMN, Gram stain, GPC, culture neg to date
01/23 Ascites 3,602 PMN
Leukocytosis improving.
Thrombocytopenia; continues to trend down - > Zosyn (d6) D/C'ed on 01/22 -> cefepime
Transition to meropenem
Follow wbc, plt
For repeat paracentesis Thursday.
����������������������������������������������������������
Chief Complaint
-: Other (Peritonitis)
Subjective / Review of Systems
Review of Systems: No Fever, No Chills and Abdominal Pain (Decreased)
Vital Signs / Physical Exam
Vital Signs
Vital Signs
Temp Pulse Resp BP Pulse Ox
97.9 F 89 12 140/57 96
01/25/25 07:00 01/25/25 07:00 01/25/25 07:00 01/25/25 07:00 01/25/25 08:10
Physical Exam
Constitutional: No Acute Distress
Cardiovascular: Regular Rate and S1/S2
Pulmonary: Non Labored
Gastrointestinal: Soft, Tender (mild diffuse tenderness), Distended and Normal Bowel Sounds
Extremities: Edema; Negative Erythema
Skin: Jaundice
Neurological: Awake and Alert
Objective Data
Lab Data
Lab Results
01/25/25 08:49
01/25/25 04:26
PT 16.8 Sec (11.4-14.6) H 01/25/25 12:20
INR 1.31 01/25/25 12:20
APTT 37.9 Sec (23.4-35.0) H 01/25/25 12:20
Estimated Creat Clear 33 ml/min 01/25/25 04:26
Lactic Acid Cancelled 01/17/25 05:45
Total Bilirubin 4.0 mg/dl (0.2-1.3) H 01/24/25 05:06
AST 31 U/L (14-36) 01/24/25 05:06
ALT 11 U/L (0-35) 01/24/25 05:06
Alkaline Phosphatase 139 U/L (38-126) H 01/24/25 05:06
Most recent labs reviewed.
Micro Results:
01/23/25 15:35 Body Fluid Culture - Preliminary
Peritoneal Fluid No Growth After 48 Hours
Gram Stain - Preliminary
01/20/25 08:33 Body Fluid Culture - Final
Peritoneal Fluid No Growth After 72 Hours
Gram Stain - Final
01/17/25 08:06 Body Fluid Culture - Final
Peritoneal Fluid No Growth After 72 Hours
Gram Stain - Final
01/16/25 22:41 MRSA Screen - Final
Nose No Methicillin Resistant Staphylococcus aureus isolated.
Ascites
01/17/25 01/20/25 01/23/25
08:06 08:33 15:35
Fluid WBC 10898 6975 3857
Fluid Mononuclear Cell 9.2 36.4 6.6
Fl Polymorphonucl Cell 90.8 63.6 93.4
Fluid Total Protein < 2.0 3.0 3.2
Fluid Albumin < 1.0 1.4 1.6
Fluid LDH 406 1386
Imaging:
01/21/2025 CT a/p: Progressive atelectasis or pneumonia in the right posterior costophrenic angle. Stable moderate to large volume of ascites. Subtle increased attenuation layering dependently within the ascites. This could reflect debris or small
amount of hemorrhagic component. A small small amount of extraluminal gas is seen associated with the fluid in the right anterior mid abdomen, unchanged from prior examination. This has remained localized, without redistribution. This could suggest
a more focal loculated collection.
01/16/2025 CT abdomen/pelvis with contrast: large amount of abdominal and pelvic ascites. Mild extraluminal air in the right abdomen. Suggestion of mild enhancement of the ascites raising concern for infected fluid or loculated fluid. A small
leak cannot be completely excluded however there was no extravasation of oral contrast to suggest a leak identified. Small collection of fluid in the right anterior abdominal wall. Nodular hepatic margin consistent with known cirrhosis. Please
see full dictation for additional detail. Film personally viewed.
[2025-01-25] MEDS: MERREM 500 MG IV (16:59)
[2025-01-25 18:04] LABS: Glucose - Point of Care 239 mg/dl (70-99)
[2025-01-25 21:15] VITALS: BP 92/63
[2025-01-25] MEDS: Parenteral Nutrition, Central 1230 IV (21:28)
[2025-01-25] MEDS: TOPROL XL PO (23:09)
[2025-01-25 23:15] VITALS: BP 151/59
[2025-01-26 00:37] LABS: Glucose - Point of Care 245 mg/dl (70-99)
[2025-01-26] MEDS: STERILE WATER FOR INJECTION 10 ML IV ×3 (00:39→16:36)
[2025-01-26] MEDS: NOVOLOG FLEXPEN-LOW RESISTANCE 2 UNITS SC ×4 (00:39→17:38)
[2025-01-26] MEDS: MERREM 500 MG IV ×3 (00:39→16:36)
[2025-01-26 03:35] VITALS: BP 147/56
[2025-01-26 05:03] LABS: Hematocrit 24.1 % (37.0-47.0); Hemoglobin 8.0 g/dL (12.0-16.0); Mean Corp Hgb Conc. 33.2 g/dL (33.0-37.0); Mean Corpuscular Volume 94.5 fL (81.0-99.0); Nucleated Red Blood Cells % 0.3 %; Platelet Count 28 10^3/uL (130-400); Red Cell Dist. Width 17.4 % (11.5-14.5)
[2025-01-26 05:15] LABS: ALT (SGPT) 13 U/L (0-35); AST (SGOT) 36 U/L (14-36); Albumin 2.3 g/dl (3.5-5.0); Alkaline Phosphatase 170 U/L (38-126); Blood Urea Nitrogen 54 mg/dl (7-17); Calcium 9.2 mg/dl (8.4-10.2); Carbon Dioxide 19 mmol/L (22-30); Chloride 111 mmol/L (98-107); Estimated Creatinine Clearance 41 ml/min; Glucose 200 mg/dl (70-99); Magnesium 2.1 mg/dl (1.6-2.3); Potassium 4.1 mmol/L (3.5-5.1); Sodium 134 mmol/L (135-145); Total Protein 4.5 g/dl (6.3-8.2); eGFR 56.60
[2025-01-26 05:38] LABS: Glucose - Point of Care 237 mg/dl (70-99)
[2025-01-26 06:00] VITALS: BMI 26.7
[2025-01-26 07:00] VITALS: BP 145/56
[2025-01-26] MEDS: NSS (PRESERVATIVE FREE) 10 ML IV (09:15)
[2025-01-26] MEDS: PROTONIX IV 40 MG IV (09:15)
[2025-01-26] MEDS: MIRALAX PO (09:26)
--- NOTE | 2025-01-26 11:00 | W.PN.GI.CBS2 ---
Today's Communication / Plan
-
Continue meropenem- switched from cefepime due to thrombocytopenia
Fluid culture negative from taps
Consider repeat tap tomorrow, pending abd distention and plt count. WBC has been trending down with subsequent taps
IV albumin to support Cr, now 1.0
Encourage POs.
Assessment / Plan
-
Summary: 79yo with hx TAVR, hypertension, hyperlipidemia, PPM, ETOH abuse, anemia, diverticulosis with recent sigmoid stricture with temporary ileostomy 11/23/24 with closure 01/05. She now returns with abdominal pain with concern for ascites and
asked to see for cirrhosis. Pt was seen by GI in September for anemia with hbg 6 range. At that time she was drinking a box of wine every few days. She completed EGD with grade I EV, schatzki's ring, angioectasia with treatment (not though to be
source) and recommended b- andrés. Imaging noted cirrhosis and ascites at that time. She was recommended GI/hematology follow up but has been admitted with recent surgical procedures. She now returns with abdominal pain and also had recent
incisional bleeding requiring transfusion. On admission patient went for para for 1150 with SAAG 2.5, Protein <2 (C/W with cirrhosis) but WBC 12,310. In review with patient she was unsure about prior noted cirrhosis as recently has been through
surgery. She denies issues with confusion, bleed but admits to anemia and also noted ongoing LE swelling and intermittent abdominal swelling. She has hx GERD that is stable and alternating diarrhea and constipation since surgery with mild
abdominal pain post-op . Labs with anemia hbg 7-12, platelets down to 102, WBC initially 24,700 now 12,200. On admission Na 127, K 3.8 then drop to 3, creat 1.2, bili 3.6, AST 38, ALT 16, alk phos 192 with INR 2.11 on 01/17. Meld 3.0 calculated
01/17 25.
01/16/25 CT AP- Large amount abd/pelvic ascites, new. Mild extraluminal air in R abdomen, mild enhancement of ascites raising concern for infected fluid. Cirrhosis.
01/17/25 PARACENTESIS- 1150cc. WBC 12,310.
01/20/25 PARACENTESIS- 350cc. WBC 6975.
01/21/25 CT AP- Stable moderate/large volume ascites, depended debris vs hemorrhagic component. Small amount extraluminal gas unchanged.
01/23/25 PARACENTERSIS- 1650cc. WBC 3857
Impression:
-cirrhosis - newly noted per patient now with decompensation
-ascites- noted on prior scan in September now increased, s/p Paracentesis x 2.
-elevated WBC in paracentesis tap -- SBP vs post surgical-leak peritonitis, 01/20 fluid with gram + cocci
-hypoalbuminemia
-thrombocytopenia with recent significant drop
-anemia
-coagulopathy
-ADAM
-hyponatremia/hypokalemia
-EV grade I, schatzki's ring, angioectasia on recent EGD
- recent sigmoid stricture with temporary ileostomy 11/23/24 with closure 01/05
-daily ETOH use til September 2024
other med problems:
-TAVR, hypertension, hyperlipidemia, PPM,
Subjective
Subjective
Date of Service: January 26, 2025
Not much appetite. On TPN. Denies abd pain
Objective
Data Reviewed
Laboratory Data:
Laboratory Results
01/26/25 04:19
01/26/25 04:19
Laboratory Results
PT 16.8 Sec (11.4-14.6) H 01/25/25 12:20
INR 1.31 01/25/25 12:20
APTT 37.9 Sec (23.4-35.0) H 01/25/25 12:20
Phosphorus 2.1 mg/dl (2.5-4.5) L 01/26/25 04:19
Magnesium 2.1 mg/dl (1.6-2.3) 01/26/25 04:19
Total Bilirubin 3.1 mg/dl (0.2-1.3) H 01/26/25 04:19
AST 36 U/L (14-36) 01/26/25 04:19
ALT 13 U/L (0-35) 01/26/25 04:19
Alkaline Phosphatase 170 U/L (38-126) H 01/26/25 04:19
Vital Signs and I&O:
Vital Signs
Temp Pulse Resp BP Pulse Ox
97.2 F 102 16 145/56 100
01/26/25 07:00 01/26/25 07:00 01/26/25 07:00 01/26/25 07:00 01/26/25 07:00
I&O
01/25/25 01/26/25 01/27/25
06:59 06:59 06:59
Intake Total 780 / 780
Balance 780 / 780
Physical Exam
Physical Exam
GI: Soft, Non Distended, Non Tender and Other (Incision RLQ intact anuj)
--- NOTE | 2025-01-26 12:08 | W.PN.CRS1 ---
Today's Communication / Plan
-
As below
Assessment/Plan
-
� Continue fulls with TPN; complaining of poor appetite
-Reordered, increased sodium phosphate tp 10 and decreased calcium gluconate to 10
� Continue IV meropenem, appreciate ID
� Continue DVT PPx with subcutaneous heparin
� Appreciate GI for cirrhosis
� Appreciate hospitalist
Subjective Data
Subjective Data
Date of Service: January 26, 2025
Feeling particularly weak today. Denies nausea or vomiting. Denies any abdominal pain.
Objective Data
-
Vital Signs
Temp Pulse Resp BP Pulse Ox
97.2 F 102 16 145/56 100
01/26/25 07:00 01/26/25 07:00 01/26/25 07:00 01/26/25 07:00 01/26/25 07:00
Intake & Output
01/25/25 01/26/25 01/27/25
06:59 06:59 06:59
Intake Total 780 / 780
Balance 780 / 780
Intake:
Oral fluids 780 / 780
Other:
How many times incontinent 1 4
SATURATED amount urine
Number of approximated MODERATE 1 1
amounts of urine
Number of approximated LARGE 1
amounts of urine
Lab Results
01/26/25 04:19
01/26/25 04:19
Physical Exam
-
General: No Acute Distress and AOx3
HEENT: Grossly Normal
Abdomen: Soft, Distended (Without tympany, dull to percussion), Non Tender, No Guarding and No Rebound
Skin: Warm and Dry
Wound: Other (Incision from ostomy closure healing well, well-approximated without erythema or drainage)
[2025-01-26 12:13] LABS: Glucose - Point of Care 244 mg/dl (70-99)
--- NOTE | 2025-01-26 14:30 | W.PN.HOSP.TC ---
Addendum entered and electronically signed by Gonsalo Hand MD 01/27/25 14:53:
Dictation- [id number]
Addendum entered and electronically signed by Gonsalo Hand MD 01/26/25 14:43:
Hyperglycemia-liquid secondary to TPN. Add NovoLog 3 units q6h.
Original Note:
Today's Communication/Plan
-
Platelet AB
Head CT so you got a call from the people today I heard her I am looking at okay you have but you I am so sorry I know Paulette actually I thought she had 5 but 1 so I called her daughter and then you know we got a consent signed next week #CT
finding of anemia for for transfer protocol I was just yeah wanted to and then she is a much she is
Nothing like about cefepime actually is not really not will change.
Assessment / Plan
Assessment / Plan
79-year-old female with history of cirrhosis, esophageal varices had a colonic stricture status post sigmoidectomy with ileostomy 11/23/24 and ileostomy reversal on 01/05/2025 presented with abdominal pain, Noroxin nausea on 01/16/2025. Patient was
admitted from 01/05/2025 to 01/10/2024 and underwent reversal of ileostomy. Was readmitted on 01/13/2024 for bleeding and received 2 units of blood.
CT /P - Large amount of abdominal and pelvic ascites. New.Mild extraluminal air in the right abdomen. Suggestion of mild enhancement of the ascites. These findings raise concern for infected fluid or loculated fluid. A small leak cannot be
completely excluded. However, no extravasation of oral contrast to suggest a leak is identified.. New Small collection of fluid in the right anterior wall. Differential diagnosis includes postoperative seroma, hematoma or abscess. Suggestion of mild
small bowel wall thickening in the mid abdomen and left lower quadrant. The differential diagnoses include inflammation, infection and ischemia. Nodular hepatic margin consistent with known cirrhosis. Stable Left lower lobe pulmonary nodule. Stable
from 2021 suggesting it is benign.
CT abdomen and pelvis 01/21/2025-progressive atelectasis or pneumonia of the right posterior CP angle. New trace right pleural effusion. Subtle interstitial and ground glass opacity in the peripheral lung bases pulmonary edema versus interstitial
fibrotic changes. Stable moderate large volume ascites. Subtle increased attenuation layering dependent within the ascites could represent debris or small amount of hemorrhagic component. Small amount of extraluminal gas in the fluid in the right
mid abdomen unchanged. This is remain localized without redistribution suggesting more focal loculated collection. Right paramidline mid abdomen superficial skin closure [place] and adjacent abdominal wall soft tissue fluid without significant
change. Tiny focus of gas within the subcutaneous fat of the right anterior abdominal wall. No bowel obstruction. Suggestion of small amount of small bowel wall thickening though equivocal in the presence of ascites. Cirrhotic configuration of
the liver.
Chest x-ray 01/23/2025-PICC line in the cavoatrial junction. Moderate-sized airspace consolidation in the right lower lobe pneumonia versus atelectasis. Mild elevation of the right hemidiaphragm. Previous TAVR. Left sided pacemaker
EKG-01/17/2024-sinus rhythm, bifascicular block
Echo 09/05/2023-normal biventricular size and systolic function. Diastolic function indeterminate. Pacer wire in the RV. Severe posterior mitral annular calcification. Normal functioning TAVR. Mild calcific mitral stenosis
Patient seems to be drowsy, Arousable
Able to say she is at the hospital and also that this is December. Could not tell me the month
Cardiovascular system S1-S2 appreciated
Chest clear to auscultation
Abdomen ecchymosis noted bilateral flank areas.
Midline horizontal incision with anuj
Bowel sounds appreciated
Nontender
Bilateral pedal edema noted
# Peritonitis
Sepsis present on admission secondary to above
SBP versus leak
Status post paracentesis on 01/17/25- 1150 ml fluid
Paracentesis on -350 mL of fluid evacuated. Left lower quadrant septal fluid collection remains
01-23-25-1650 mL of straw-colored dark óscar ascitic fluid evacuated
Plan for paracentesis again Thursday
All 3 peritoneal cultures are negative-so far
Cytology negative for malignancy from 01/17/2025
Continue IV antibiotics-meropenem
Recurrent ascites-check echo
# TME-noted after the last paracentesis by daughter. Ammonia level is less than 9. Check head CT given low platelets.
? Cefepime related .
# Thrombocytopenia-check platelet associated antibody, HIT panel-even though low suspicion for HIT.
If patient continues to be thrombocytopenic and not transferred we will request hematology evaluation. Tomorrow
# Acute kidney injury with nongap metabolic acidosis-improving
# Lactic acidosis-improving with hydration
# Hypokalemia-replace as needed
# Hyponatremia-improved
# Cirrhosis with grade 1 esophageal varices on recent EGD
History of prior alcohol use disorder-Daily until September 2024- ( 4 small glasses of white wine)currently sober
Thrombocytopenia and coagulopathy noted
Has peritonitis
Follows with Dr. Antoine/
# Acute on chronic anemia-follow CBC
# History of sigmoid stricture status post resection/ileostomy with ileostomy reversal on 01/05/2025
# Hypertension-on beta-blockers
# Hyperlipidemia-on statin
# History of TAVR
# History of pacemaker placement
# Diverticulosis
# Hypoalbuminemia
# Nutrition-full liquid diet and TPN
# DVT prophylaxis-SCDs
# Full code
Daughter confirms no history of Seizures.
Part of this note was created using voice recognition system. Occasional wrong word or��sound alike� substitutions may have inadvertently occurred due to the inherent limitations of voice recognition software. If noted kindly bring it to my
attention for correction.
Dr. Vo spoke to [facility] hematology and medicine for transfer-was declined. Dr. Quick discussed with Dr.Mike Staton who is patient's [id number] physician at [facility] plan is for transfer to [facility] on liver service.
I had a detailed conversation with the patient's daughter who stated that her [id number] was able to talk to [facility] and get patient accepted to the hepatology department. Accepting physician's name is unclear at this point.
Transfer form signed with consent over the phone with the daughter in case if patient gets a bed soon.
Nursing got a call from [facility] [place]. But they do not have any beds.
Time spent over 50 minutes
Anticipated Discharge: > 48 hours
Subjective/Interval History
-
Date of Service: January 26, 2025
Objective Data
-
Labs:
Laboratory Results
01/26/25
04:19
WBC 15.6 H
Hgb 8.0 L
Hct 24.1 L
Plt Count 28 L*
Sodium 134 L
Potassium 4.1
Chloride 111 H
Carbon Dioxide 19 L
BUN 54 H
Creatinine 1.0
Glucose 200 H
Calcium 9.2
Total Bilirubin 3.1 H
AST 36
ALT 13
Alkaline Phosphatase 170 H
Vital Signs:
Vital Signs
Temp Pulse Resp BP Pulse Ox
97.2 F 102 16 145/56 100
01/26/25 07:00 01/26/25 07:00 01/26/25 07:00 01/26/25 07:00 01/26/25 07:00
I&O
01/25/25 01/26/25 01/27/25
06:59 06:59 06:59
Intake Total 780 / 780
Balance 780 / 780
[2025-01-26 15:00] VITALS: BP 133/49
[2025-01-26 17:35] LABS: Glucose - Point of Care 248 mg/dl (70-99)
[2025-01-26] MEDS: NOVOLOG FLEXPEN 3 UNITS SC (17:38)
--- NOTE | 2025-01-26 19:40 | PTCARENOTE ---
Pt. daughter, Davida made aware [facility] gave bed for pt. to be transferred and transport set up for 2129.
[2025-01-26 20:19] VITALS: BP 106/65
--- NOTE | 2025-01-26 22:26 | W.PN.UPDATE ---
Update Note
Progress Note Update
Reviewed patient with Kam Cullen MD at [place] [phone] who will be transferred down [facility]. Questions answered. Updated daughter Cristina and she is in agreement with transfer and also stopping the TPN on transfer.
--- NOTE | 2025-01-26 22:28 | PTCARENOTE ---
Pt transferred to [place] via ambulance with all her belongings. RN given report. VSS. Updated daughter about transport. [employer] ordered to hold TPN during transport. Pt last blood sugar 248. Documents transported with pt.
== END 2025-01-26 22:35 | disposition short-term general hospital (02) | DRG 871 ==
LOC: 4 EAST ACU 20:42
PROVIDERS: Clinical Nurse Specialist Family Health; Internal Medicine; Internal Medicine Gastroenterology; Nurse Practitioner; Nurse Practitioner Adult Health; Nurse Practitioner Family; Physician Assistant; Radiology Diagnostic Radiology; Radiology Vascular & Interventional Radiology; ADMITTING PHYSICIAN Hospitalist; ATTENDING PHYSICIAN Hospitalist; CONSULT PHYSICIAN Student in an Organized Health Care Education/Training Program; CONSULT PHYSICIAN Surgery; EMERGENCY PHYSICIAN Emergency Medicine; FAMILY PHYSICIAN Internal Medicine; OTHER PHYSICIAN Internal Medicine Infectious Disease
PROC: 0W9G3ZZ Drainage of Peritoneal Cavity, Percutaneous Approach (ICD-10-PCS; 2025-01-17)
PROC: 3E0336Z Introduction of Nutritional Substance into Peripheral Vein, Percutaneous Approach (ICD-10-PCS; 2025-01-23)
DX: A41.9 Sepsis, unspecified organism (principal); G92.8 Other toxic encephalopathy; K65.2 Spontaneous bacterial peritonitis; N17.9 Acute kidney failure, unspecified; E87.20 Acidosis, unspecified; E87.1 Hypo-osmolality and hyponatremia; I85.00 Esophageal varices without bleeding; K76.6 Portal hypertension; I85.10 Secondary esophageal varices without bleeding; D68.9 Coagulation defect, unspecified; D69.59 Other secondary thrombocytopenia; E87.6 Hypokalemia; I10 Essential (primary) hypertension; R65.20 Severe sepsis without septic shock; F10.21 Alcohol dependence, in remission; Z79.82 Long term (current) use of aspirin
CPT/HCPCS: 49083; 70450; 71045; 74019; 74176; 74177; 80048; 80053; 82042; 82140; 82150; 82248; 82962; 83605; 83615; 83735; 83935; 84100; 84157; 84300; 84478; 85025; 85027; 85610; 85730; 86022; 86704; 86705; 86706; 86708; 86803; 86850; 86900; 86901; 87015; 87070; 87205; 87340; 88112; 88305; 89051; 93005; 96361; 96365; 97162; 97166; 97530; 97535; 99291; P9045; P9047; Q9967